=== PATIENT | male | born 1955 | race Caucasian/White ===

== ENCOUNTER 2017-10-30 05:44 | Day surgery (SDC) | payer OTHER ==
[2017-10-17 13:53] VITALS: BMI 33.0
--- NOTE | 2017-10-17 14:30 | PAT Medication Instructions ---
Service Date Oct 17, 2017. Current Home Medication List Carvedilol (Coreg), 3.125 MG PO QAM Cholecalciferol (Vitamin D3), 1 CAP PO QAM Clonidine Hcl (Catapres), 0.3 MG PO QAM Cyanocobalamin (Vitamin B12 Tr), 2,500 MCG PO QAM Diltiazem Hcl Extended Release (Diltiazem Hcl Er), 240 MG PO QAM Furosemide (Lasix), 40 MG PO QAM Lisinopril (Zestril), 40 MG PO QAM Multivitamin (Multivitamin), 1 TAB PO QAM Medication Instructions For Your Scheduled Surgery - Hold the following medications the morning of surgery: Furosemide (Lasix), 40 MG PO QAM Lisinopril (Zestril), 40 MG PO QAM Multivitamin (Multivitamin), 1 TAB PO QAM Cyanocobalamin (Vitamin B12 Tr), 2,500 MCG PO QAM Cholecalciferol (Vitamin D3), 1 CAP PO QAM - Take the following medications the morning of surgery with a sip of water: Carvedilol (Coreg), 3.125 MG PO QAM Diltiazem Hcl Extended Release (Diltiazem Hcl Er), 240 MG PO QAM Clonidine Hcl (Catapres), 0.3 MG PO QAM If you have any questions please call us at [phone] or [phone] or [phone]
--- NOTE | 2017-10-17 15:20 | DIAGNOSTIC IMAGING REPORT ---
CHEST 2 VIEWS ROUTINE CLINICAL HISTORY: Preoperative evaluation. COMPARISON STUDY: No previous studies for comparison. FINDINGS: Lung volumes are normal. No pneumothorax or pleural effusion is present. Pulmonary vascularity is normal. Cardiomediastinal silhouette is normal. There is no consolidation. IMPRESSION: No acute cardiopulmonary findings. Electronically signed by: Sonny Dejesus M.D. 10/17/2017 3:18 PM Dictated Date/Time: 10/17/2017 3:18 PM
[2017-10-17 15:42] LABS: BASO % 0.6 %; BASO ABS # 0.04 K/uL (0-0.2); EOS % 1.7 %; EOS ABS # 0.12 K/uL (0-0.5); HEMATOCRIT 29.2 % (42-52); HEMOGLOBIN 9.7 g/dL (14.0-18.0); IG# 0.01 K/uL (0.00-0.02); LYMPH % 17.6 %; LYMPH ABS # 1.21 K/uL (1.2-3.4); MEAN CELL VOLUME 100.3 fL (80-100); MEAN CORPUSCULAR HEMOGLOBIN 33.3 pg (25-34); MEAN CORPUSCULAR HGB CONC 33.2 g/dl (32-36); MEAN PLATELET VOLUME 10.2 fL (7.4-10.4); MONO % 11.3 %; MONO ABS # 0.78 K/uL (0.11-0.59); NEUT % 68.7 %; NEUT ABS # 4.73 K/uL (1.4-6.5); PLATELET COUNT 320 K/uL (130-400); RED CELL DISTRIBUTION WIDTH CV 12.9 % (11.5-14.5); WHITE BLOOD COUNT 6.89 K/uL (4.8-10.8)
[2017-10-17 15:49] LABS: CALCIUM 9.4 mg/dl (8.5-10.1); CREATININE 3.59 mg/dl (0.60-1.40); POTASSIUM 5.4 mmol/L (3.5-5.1)
[~2017-10-30] VITALS: Ht 188 cm; Wt 117.3 kg
[~2017-10-30 05:44] MED LIST: CARV3.12 PO; CHOL2000 PO; CLON0.3T PO; CYAN100028 PO; DILT240C74 PO; FRS/40 PO; LISI40TA PO; MULT-506 PO
[2017-10-30] MEDS ORDERED: CIPROFLOXACIN / D5W 400 MG IV SCH (06:00)
[2017-10-30] MEDS ORDERED: SODIUM CHLORIDE 0.9% 1000ML IV SCH (06:00)
[2017-10-30 06:10] VITALS: BP 156/82; PULSE 74; TEMP 36.7; O2SAT 98; Ht 188 cm; Wt 117.3 kg
--- NOTE | 2017-10-30 07:12 | History & Physical Bridge Note ---
H&P Re-Evaluation Bridge Note: I have examined the patient, reviewed the History & Physical and in the interval since the performance of the History & Physical I have noted the following changes of clinical significance: No changes noted
[2017-10-30] MEDS ORDERED: ATROPINE SULFATE 0.1 MG/ML 5ML SYR IV PRN (07:45)
[2017-10-30] MEDS ORDERED: PROMETHAZINE HCL INJ 12.5 MG in SODIUM CHLORIDE 0.9% 50ML 50 ML IV PRN (07:45)
[2017-10-30] MEDS ORDERED: HYDROmorphone INJ 1 MG/ML SYR IV PRN (07:45)
[2017-10-30] MEDS ORDERED: ONDANSETRON INJ 2 MG/ML 2 ML VIAL IV PRN (07:45)
[2017-10-30] MEDS ORDERED: EpHEDrine SULFATE INJ 50 MG/ML AMP IV PRN (07:45)
[2017-10-30] MEDS ORDERED: FENTANYL CITRATE INJ 50 MCG/1 ML 2 ML VIAL IV PRN (07:45)
[2017-10-30] MEDS ORDERED: MIDAZOLAM HCL 1 MG/ML 2ML VIAL ONE (14:39)
[2017-10-30] MEDS ORDERED: LIDOCAINE HCL 2% 2 ML VIAL (20MG/ML) ONE (14:39)
[2017-10-30] MEDS ORDERED: PROPOFOL IV EMULSION 10 MG/ML 20 ML VIAL IV ONE (14:39)
[2017-10-30] MEDS ORDERED: FENTANYL CITRATE INJ 50 MCG/1 ML 2 ML VIAL ONE (14:39)
[2017-10-30] MEDS ORDERED: ONDANSETRON INJ 2 MG/ML 2 ML VIAL ONE (14:39)
[2017-10-30] MEDS ORDERED: PHEN-775 PO (15:10)
[2017-10-30] MEDS ORDERED: CIPR-255 PO (15:10)
[2017-10-30] MEDS ORDERED: OXYC7.5T65 PO (15:10)
[2017-10-30] MEDS ORDERED: CONRAY 30% 150ML BOTTLE ONE (15:30)
--- NOTE | 2017-10-30 15:35 | Discharge Instructions ---
Discharge Instructions Date of Service Oct 30, 2017. Admission Reason for Admission: Left Renal Pelvis Mass Discharge Discharge Diagnosis / Problem: Left renal pelvic mass s/p ureteroscopy and biopsy, stent Discharge Goals Goal(s): Diagnostic testing Activity Recommendations Activity Limitations: as noted below Lifting Limitations: no more than 25 pounds, gradually increase as tolerated Exercise/Sports Limitations: rest today, gradually increase as tolerated ( increase activity in 3-5 days) May Resume Sexual Activity: after follow-up appointment Shower/Bathe: no limitations Driving or Machine Use: resume 1 day after discharge . Instructions / Follow-Up Instructions / Follow-Up In office as scheduled for discussion of pathology and removal of stent. Current Hospital Diet Patient's current hospital diet: Discharge Diet Recommended Diet: Regular Diet (good fluid intake) Procedures Procedures Performed: Cystoscopy, left renal pelvis selective cytology with barbotage, left retrograde pyelography, left flexible ureteroscopy, brush and cold cup biopsy, left ureteral stent placement. Pending Studies Studies pending at discharge: yes List of pending studies: Pathology review. Medical Emergencies . Who to Call and When: Medical Emergencies: If at any time you feel your situation is an emergency, please call 911 immediately. . Non-Emergent Contact Non-Emergency issues call your: Urologist Call Non-Emergent contact if: you have a fever, temperature is above 101, your pain is not controlled, your pain is worsening, your pain is unusual for you, your pain is concerning you, you have any medication questions . . "Provider Documentation" section prepared by Niels Loving. . VTE Core Measure Inpt VTE Proph given/why not?: SCD's [place] Drug Monitoring Program Search Results: patient reviewed within database, no issues identified
[2017-10-30] MEDS ORDERED: EpHEDrine SULFATE INJ 50 MG/ML AMP ONE (16:13)
--- NOTE | 2017-10-30 16:47 | DIAGNOSTIC IMAGING REPORT ---
RETROGRADE INCLUDES KUB CLINICAL HISTORY: 62 years-old Male presenting with LT CYSTO/STENT. TECHNIQUE: 9 fluoroscopic spot image(s) obtained as part of an intraoperative procedure. COMPARISON: CT from 09/19/2017. FINDINGS/IMPRESSION: The bilateral renal collecting systems are opacified with contrast revealing bilateral filling defects more prominently on the right. Please see surgical report for further details. Fluoroscopy dosage (mGy): 46.51. Fluoroscopy time: 138.2 seconds. Number of fluoroscopic spot images: 9. Electronically signed by: Bro Renee M.D. 10/30/2017 4:46 PM Dictated Date/Time: 10/30/2017 4:45 PM
[2017-10-30] MEDS ORDERED: DTR/5 PO (17:06)
[2017-10-30] MEDS ORDERED: CIPR250T3 PO (17:06)
--- NOTE | 2017-10-30 17:12 | [facility] Post Operative Brief Note ---
Immediate Operative Summary Operative Date Oct 30, 2017. Pre-Operative Diagnosis Left Central Renal Mass Post-Operative Diagnosis Same as pre-operative Procedure(s) Performed Cystoscopy, left renal pelvis selective cytology with barbotage, bilateral retrograde pyelography, left flexible ureteroscopy, brush and cold cup biopsy, left ureteral stent placement. Surgeon Dr. Niels Loving Surveillance Operator Surgeon(s) none Estimated Blood Loss 5ml Findings Central papillary left renal mass suspicious for urothelial malignancy, good stent position after completion, radiolucent right renal stone filling entire renal pelvis. Specimens Permanent Specimen A) Left renal pelvis cold cup biospy Cytology 1) Left renal pelvis urine for cytology 2) Left renal pelvis brush for biopsy Drains 6 fr multilength stent on left Anesthesia [facility] Complication(s) None Disposition Recovery Room / PACU
--- NOTE | 2017-10-30 17:13 | Anesthesiology Progress Note ---
Anesthesia Post Op Note Date & Time Oct 30, 2017 at 17:13 Vital Signs Pain Intensity: 0 Vital Signs Past 12 Hours Date Time Temp Pulse Resp B/P (MAP) Pulse Ox O2 Delivery O2 Flow Rate FiO2 10/30/17 17:05 61 16 140/75 96 Room Air 10/30/17 16:55 67 16 144/76 97 Room Air 10/30/17 16:45 70 16 143/69 100 Oxymask 3 10/30/17 16:38 36.0 76 16 135/66 97 Oxymask 5 10/30/17 06:10 36.7 74 20 156/82 (106) 98 Room Air Notes Mental Status: alert / awake / arousable, participated in evaluation Pt Amnestic to Procedure: Yes Nausea / Vomiting: adequately controlled Pain: adequately controlled Airway Patency, RR, SpO2: stable & adequate BP & HR: stable & adequate Hydration State: stable & adequate Anesthetic Complications: no major complications apparent
[2017-10-30] MEDS ORDERED: PHENAZOPYRIDINE HCL 100 MG TAB PO PRN (17:15)
[2017-10-30] MEDS ORDERED: OXYCODONE/ACETAMINOPHEN 5-325 TAB PO PRN (17:15)
[2017-10-30] MEDS ORDERED: OXYBUTYNIN CHLORIDE 5 MG TAB PO PRN (17:15)
[2017-10-30 17:20] VITALS: BP 138/70; PULSE 57; TEMP 36.7; O2SAT 97
[2017-10-30 17:50] VITALS: BP 163/76; PULSE 69; TEMP 36.5; O2SAT 97
--- NOTE | 2017-10-30 20:06 | OPERATIVE REPORT ---
DATE OF OPERATION: 10/30/2017 PREOPERATIVE DIAGNOSIS: Left central renal mass. POSTOPERATIVE DIAGNOSES: Same, suspicious for urothelial malignancy of left renal pelvis. PROCEDURE: Cystoscopy, left renal pelvis, selective cytology with barbotage, bilateral retrograde pyelography, left flexible ureteroscopy with brush and cold cup biopsies, left ureteral stent placement. SURGEON: Dr. Niels Loving. AIR QUALITY ENGINEER: None. ANESTHESIA: General anesthesia with laryngeal mask. COMPLICATIONS: None. ESTIMATED BLOOD LOSS: 5 mL. FINDINGS: Central papillary left renal lesion, suspicious for urothelial malignancy, good stent position after completion of the case, radiolucent right ureteral stone noted to be filling the entire renal pelvis. SPECIMENS SENT TO PATHOLOGY: Include a left renal pelvis cold cup biopsy for permanent section and left renal pelvis cytology, urine for cytology brush biopsy. DRAINS LEFT IN PLACE: Include a 6-Icelandic multilength ureteral stent on the left hand side. COMPLICATIONS: None. BRIEF HISTORY: Mr. Domingo is a pleasant 62-year-old male who I have met recently after an episode of gross hematuria, for which he has undergone CT scan imaging of the abdomen and pelvis. This demonstrated a 3 cm right renal stone as well as a large left central renal mass, felt to be suspicious for urothelial malignancy. In addition, his care was complicated by renal failure of unknown origin for which he is actively following with the nephrology service. Care was discussed with patient and his preoperatively and patient chart is available for review. He is here today for left diagnostic ureteroscopy to confirm the presence of urothelial malignancy prior to continuation of his care. The intravenous ciprofloxacin is provided for antibiotic coverage and SCDs used for DVT prophylaxis. DESCRIPTION OF THE PROCEDURE: The patient was properly identified and brought to the operative suite after identification of appropriate consent on the chart, general anesthesia with laryngeal mask was initiated. The patient was prepped and draped in standard fashion for this procedure. multimedia producer-out procedure was followed. A 22-Icelandic rigid cystoscope was passed into the bladder under direct visualization demonstrating a normal urethra and minimally obstructive prostate with a slightly elevated bladder neck. Bladder was surveyed in its entirety demonstrating no intravesical masses, papillary lesions or calculi. Grade 1 trabeculation of the bladder was present and ureteral orifices were present in the normal anatomic location. Left-sided ureteral orifice was cannulated using a sensor tip wire which was advanced up to the level of the left renal pelvis. This was followed by an open-ended 5-Icelandic catheter in an atraumatic fashion. Sterile saline was used to perform a barbotage of the left renal pelvis, returning bloody urine with some small amount of tissue material within it. This was sent for a left renal pelvis cytology. Contrast was then instilled demonstrating a large central renal filling defect with splaying of the papilla and poor visualization of the upper renal collecting system. Sensor tip wire was replaced as well as a working Amplatz wire on the side. Attempt at placing a ureteral access sheath met with significant resistance in the distal ureter and therefore the ureteroscope was passed over the working wire without difficulties or resistance. A flexible ureteroscopy was performed and images taken demonstrating a papillary central renal lesion with old clot present on it, consistent with a previously bleeding central urothelial malignancy on visual inspection. Cold cup ureteroscopic biopsy forceps were used to take 3 small samples of tissue which were sent for permanent pathologic analysis. A brush biopsy was also undertaken of this area and sent for analysis. After this was complete, complete-exit ureteroscopy was performed. This demonstrated no ureteral tears or injuries and no evidence of involvement with any type of abnormal mucosa distal to the ureteropelvic junction. After the ureteroscope was removed, the cystoscope was backloaded over the safety wire and a 6-Icelandic multilength catheter was advanced with redundant coil present at the level of the renal pelvis and a full coil present within the bladder. Bladder was drained and a new 5-Icelandic open-ended catheter was taken. Seeing the patient's history of renal insufficiency and a somewhat worse creatinine his preoperative laboratory testing today, retrograde pyelography was performed on the right hand side to rule out ongoing obstruction from the patient's known stone. This demonstrated a normal distal ureter, and a large stone present within the right renal pelvis without dilation of the infundibula or evidence of significant obstruction. The patient was therefore left stent free on the right hand side. Bladder was drained and cystoscope was removed, anesthesia was reversed. The patient was transferred to recovery room in stable condition. FOLLOWUP CARE: The patient will be discharged home with a course of low dose ciprofloxacin, Ditropan for bladder spasms and Percocet p.r.n. pain. Outpatient appointment for cystoscopy, stent removal and pathology discussion is confirmed. As previously noted on the patient's chart, the expected sequence of events will be a percutaneous nephrolithostomy on the right hand side followed by nephroureterectomy on the left hand side with the likelihood of dialysis being high, afterwards. He is undergoing nephrology evaluation and consideration of a shunt for the possibility of future dialysis. The patient is instructed to contact our service should he note any fevers, chills, nausea, vomiting or other significant difficulties in the postoperative period. Care was discussed with patient's today per the patient's request. I attest to the content of the Intraoperative Record and any orders documented therein. Any exception s are noted below.
[2017-11-16] MEDS ORDERED: ONDA4TAB65 PO (11:35)
[2017-11-16] MEDS ORDERED: RXC5 PEG (11:35)
[2017-11-16] MEDS ORDERED: ACET-1047 PO (11:35)
== END 2017-10-30 17:54 | disposition home or self-care (01) ==
LOC: C.ACU 05:44
PROVIDERS: ATTEND Urology
DX: N20.0 Calculus of kidney (principal); N28.89 Other specified disorders of kidney and ureter; R31.0 Gross hematuria; I10 Essential (primary) hypertension; E78.5 Hyperlipidemia, unspecified; N18.9 Chronic kidney disease, unspecified; E66.9 Obesity, unspecified; Z87.891 Personal history of nicotine dependence

== ENCOUNTER 2017-11-12 13:42 | Inpatient (IN) | payer OTHER ==
[~2017-11-12] VITALS: Ht 188 cm; Wt 118.0 kg
[~2017-11-12 13:42] MED LIST changes: +CIPR250T3 PO; +CIPROFLOXACIN 200 MG / 100ML D5W IV SCH; +CIPROFLOXACIN IV SCH; +D5W IV SCH; +OXYC7.5T65 PO
[2017-11-12 14:46] VITALS: BP 145/79; PULSE 61; TEMP 36.4; O2SAT 99
[2017-11-12] MEDS ORDERED: MAGNESIUM HYDROXIDE SUSP 30 ML UDC PO PRN (17:15)
[2017-11-12] MEDS ORDERED: ACETAMINOPHEN 325 MG TAB PO PRN (17:15)
[2017-11-12] MEDS ORDERED: ONDANSETRON INJ 2 MG/ML 2 ML VIAL IV PRN (17:15)
[2017-11-12] MEDS ORDERED: POLYETHYLENE (MIRALAX) 17 GM PACK PO PRN (17:15)
[2017-11-12] MEDS ORDERED: ALUMINUM/MAGNESIUM/SIMETH (MAALOX MAX) 30 ML UDC PO PRN (17:15)
--- NOTE | 2017-11-12 17:41 | History and Physical ---
History & Physical Date & Time of Service: Nov 12, 2017 at 17:21 Chief Complaint: Renal Calculi, Chronic Renal Failure Primary Care Physician: Winston Hopkins D.O. History of Present Illness Source: patient, spouse, clinic records, hospital records This is a 62 y/o male with a history of HTN, urothelial cancer, and nephrolithiasis who presented for direct admission on 11/12 with acute renal failure and right kidney stone. The patient had been found to have a left renal mass suspicious for cancer in September. He underwent left renal biopsy and left ureteral stent placement on 10/[address] Loving. The patient was to follow up on the biopsy results today, but he developed sudden onset of right flank pain. He was evaluated in the ED at [facility] which revealed a large right kidney stone with hydronephrosis and acute renal failure. He now presents from Dr. Loving's office for right stent placement. His biopsy results show high grade urothelial cancer. The patient states that his pain is now resolving and denies any currently. The patient denies fevers, chills, sweats, chest pain, palpitations, claudication, cough, wheezing, shortness of breath, nausea, vomiting, abdominal pain, dysuria, hematuria, urinary retention, paralysis, weakness, numbness and tingling. 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) Allergies Coded Allergies: Statins (Verified Adverse Reaction, Mild, GI UPSET, 10/30/17) Home Medications Scheduled Carvedilol (Coreg), 3.125 MG PO QAM Cholecalciferol (Vitamin D3), 1 CAP PO QAM Ciprofloxacin (Cipro), 250 MG PO BID Clonidine Hcl (Catapres), 0.3 MG PO QAM Cyanocobalamin (Vitamin B12 Tr), 2,500 MCG PO QAM Diltiazem Hcl Extended Release (Diltiazem Hcl Er), 240 MG PO QAM Furosemide (Lasix), 40 MG PO QAM Lisinopril (Zestril), 40 MG PO QAM Multivitamin (Multivitamin), 1 TAB PO QAM Review of Systems Constitutional: No fever, No chills, No sweats Eyes: No worsening of vision, No eye pain, No diplopia ENT: No hearing loss, No nasal symptoms, No trouble swallowing Respiratory: No cough, No wheezing, No shortness of breath Cardiovascular: No chest pain, No claudication, No palpitations Abdomen: +Right flank pain resolved. No pain, No nausea, No vomiting Musculoskeletal: No joint pain, No muscle pain, No swelling Genitourinary - Male: No dysuria, No urinary retention, No hematuria Neurologic: No paralysis, No weakness, No numbness/tingling Integumentary: No rash, No itch, No color change Physical Exam Vital Signs Date Time Temp Pulse Resp B/P (MAP) Pulse Ox O2 Delivery O2 Flow Rate FiO2 11/12/17 14:46 36.4 61 16 145/79 (101) 99 Room Air General appearance: Well-developed, well-nourished, no apparent distress Head: Normocephalic, atraumatic Eyes: Normal inspection, PERRL, EOMI ENT: Normal ENT inspection, hearing grossly normal, pharynx normal Neck: Supple, no JVD, trachea midline Respiratory/Chest: Lungs clear to auscultation, normal breath sounds, no respiratory distress Cardiovascular: Regular rate & rhythm, no gallop, no murmur Abdomen/GI: +Right flank/abdomen non-tender, no CVA tenderness. Normal bowel sounds, non-tender, soft Extremities/Musculoskeletal: Normal inspection, no calf tenderness, no pedal edema Neurological/Psych: Alert, normal mood/affect, oriented x 3 Skin: Normal color, warm/dry, no rash Impression Assessment and Plan 62 y/o male with a history of HTN, urothelial cancer, and nephrolithiasis who presented for direct admission on 11/12 with acute renal failure and right kidney stone. Acute renal failure--unknown baseline. Per outpt records, creatinine had been 4.8 at [facility] ED. Creatinine was 3.59 on 10/17 -Admit to med/surg -NSS at 125 cc/hr -Hold Lasix, lisinopril for now -Consult nephrology, appreciate recs Right kidney stone--3 cm right renal pelvis stone w/hydronephrosis and perirenal inflammation per outpt records -IVF as above -Morphine 2 mg IV q4h prn pain. Currently denies pain -Zofran 4 mg IV q6h prn nausea -Consult urology, appreciate recs -NPO after midnight for stent HTN--stable -Hold lisinopril as above -Continue Coreg 3.125 mg PO qd, Catapress 0.3 mg PO qd and diltiazem 240 mg PO qd -Cover with hydralazine 10 mg IV q6h prn SBP >180 Urothelial cancer--follows w/Dr. Loving DVT prophylaxis -Hold chemical prophylaxis for procedure tomorrow -PARIS whitney and Tom Code Status -Level I, FULL RESUSCITATION STATUS Resident Physician Supervision Note: Pt evaluated independently. I discussed the case with the PA and agree with the findings and plan as documented in the note. Any exceptions or clarifications are listed here: Pleasant middle-aged male presnts as a direct admission form the urology office due top R ureteral calculus with obstruction and ARF. Recent diagnosis of urothelial CA. Minimal pain only at the time of admission. Admitted for AM stenting. OE AAO x 3 S1,2 R CTAB - mild R flank tenderness NT, ND No CCE P: Assigned to the medical floor by request of urology for AM procedure - IVF, pain control provided Will trend BMP We do not have a baseline creat although I suspect there is a degree of CKD underlying. Can follow up as outpt to address CA diagnosis Documented By: Isaias Moore Level of Care Med/Surg Resuscitation Status FULL RESUSCITATION VTE Prophylaxis VTE Risk Assessment Done? Y/N: Yes Risk Level: Moderate Given or contraindicated: T.E.D. Stockings, SCD's
[2017-11-12] MEDS ORDERED: MoRPHine SULFATE 2 MG/ML CARP IV PRN (17:45)
[2017-11-12] MEDS ORDERED: HydrALAZINE HCL 20 MG/ML VIAL IV. PRN (17:45)
[2017-11-12 18:52] LABS: BASO % 0.6 %; BASO ABS # 0.05 K/uL (0-0.2); EOS % 1.4 %; EOS ABS # 0.12 K/uL (0-0.5); HEMOGLOBIN 8.5 g/dL (14.0-18.0); IG# 0.02 K/uL (0.00-0.02); LYMPH % 17.7 %; LYMPH ABS # 1.56 K/uL (1.2-3.4); MEAN CELL VOLUME 99.2 fL (80-100); MEAN CORPUSCULAR HEMOGLOBIN 32.4 pg (25-34); MEAN CORPUSCULAR HGB CONC 32.7 g/dl (32-36); MEAN PLATELET VOLUME 9.4 fL (7.4-10.4); MONO % 6.8 %; NEUT % 73.3 %; NEUT ABS # 6.46 K/uL (1.4-6.5); PLATELET COUNT 389 K/uL (130-400); RED CELL DISTRIBUTION WIDTH CV 13.1 % (11.5-14.5); RED CELL DISTRIBUTION WIDTH SD 47.4 fL (36.4-46.3); WHITE BLOOD COUNT 8.81 K/uL (4.8-10.8)
[2017-11-12] MEDS: SODIUM CHLORIDE 0.9% 1000ML 1,000 ML IV SCH (18:57)
[2017-11-12 19:37] LABS: ALBUMIN 3.4 gm/dl (3.4-5.0); ALKALINE PHOSPHATASE 44 U/L (45-117); ALT/SGPT 20 U/L (12-78); AST/SGOT 8 U/L (15-37); BLOOD UREA NITROGEN 81 mg/dl (7-18); CALCIUM 8.8 mg/dl (8.5-10.1); CARBON DIOXIDE 18 mmol/L (21-32); GLUCOSE 123 mg/dl (70-99); POTASSIUM 5.6 mmol/L (3.5-5.1); SODIUM 139 mmol/L (136-145); TOTAL PROTEIN 6.6 gm/dl (6.4-8.2)
[2017-11-12 19:39] LABS: CREATININE 5.17 mg/dl (0.60-1.40)
[2017-11-12 21:32] VITALS: BP 145/79; PULSE 61; TEMP 36.4; Ht 188 cm; Wt 118.0 kg
[2017-11-12 22:55] VITALS: BP 144/76; PULSE 55; TEMP 36.8; O2SAT 96
[2017-11-13] VITALS (11 sets, daily range): BP systolic 117–163; BP diastolic 70–90; PULSE 52–70; TEMP 36.7–36.9; O2SAT 97–100
[2017-11-13] MEDS: SODIUM CHLORIDE 0.9% 1000ML 1,000 ML IV SCH ×3 (01:53→17:02)
[2017-11-13] MEDS: CLONIDINE HCL 0.3 MG TAB PO SCH (05:36)
[2017-11-13 06:38] LABS: HEMATOCRIT 24.6 % (42-52); HEMOGLOBIN 8.1 g/dL (14.0-18.0); MEAN CELL VOLUME 100.4 fL (80-100); MEAN CORPUSCULAR HEMOGLOBIN 33.1 pg (25-34); MEAN CORPUSCULAR HGB CONC 32.9 g/dl (32-36); MEAN PLATELET VOLUME 9.6 fL (7.4-10.4); PLATELET COUNT 342 K/uL (130-400); RED CELL DISTRIBUTION WIDTH CV 13.3 % (11.5-14.5); RED CELL DISTRIBUTION WIDTH SD 48.8 fL (36.4-46.3); WHITE BLOOD COUNT 7.36 K/uL (4.8-10.8)
[2017-11-13 07:28] LABS: CALCIUM 8.8 mg/dl (8.5-10.1); CREATININE 4.74 mg/dl (0.60-1.40); POTASSIUM 5.5 mmol/L (3.5-5.1)
[2017-11-13] MEDS: MULTIVITAMIN TAB PO SCH (08:53)
[2017-11-13] MEDS: CARVEDILOL 3.125 MG TAB PO SCH (08:53)
[2017-11-13] MEDS ORDERED: SODIUM POLYST. SULF SUSP 15G/60ML PO ONE (09:15)
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
[2017-11-13] MEDS ORDERED: CONRAY 30% 150ML BOTTLE ONE (10:11)
[2017-11-13] MEDS ORDERED: MIDAZOLAM HCL 1 MG/ML 2ML VIAL ONE (10:39)
[2017-11-13] MEDS ORDERED: FENTANYL CITRATE INJ 50 MCG/1 ML 2 ML VIAL ONE (10:39)
[2017-11-13] MEDS ORDERED: PROPOFOL IV EMULSION 10 MG/ML 20 ML VIAL IV ONE (10:39)
[2017-11-13] MEDS ORDERED: LIDOCAINE HCL 2% 2 ML VIAL (20MG/ML) ONE (10:39)
[2017-11-13] MEDS ORDERED: CIPROFLOXACIN 400MG / 200ML D5W ONE (10:54)
[2017-11-13] MEDS ORDERED: FENTANYL CITRATE INJ 50 MCG/1 ML 2 ML VIAL IV PRN (11:00)
[2017-11-13] MEDS ORDERED: ATROPINE SULFATE 0.1 MG/ML 5ML SYR IV PRN (11:00)
[2017-11-13] MEDS ORDERED: ONDANSETRON INJ 2 MG/ML 2 ML VIAL IV PRN (11:00)
[2017-11-13] MEDS ORDERED: EpHEDrine SULFATE INJ 50 MG/ML AMP IV PRN (11:00)
[2017-11-13] MEDS ORDERED: KETAMINE HCL INJ 50 MG/ML 10 ML VIAL ONE (11:05)
--- NOTE | 2017-11-13 11:18 | [facility] Post Operative Brief Note ---
Immediate Operative Summary Operative Date Nov 13, 2017. Pre-Operative Diagnosis R renal stone and renal failure Post-Operative Diagnosis Same Procedure(s) Performed Cysto, R RPG, R stent Surgeon Inder Venegas Engraver Machine Surgeon(s) NA Estimated Blood Loss NA Findings Good stent position Specimens NA Drains 6 fr multilength Anesthesia MAC Disposition Recovery Room / PACU
--- NOTE | 2017-11-13 11:33 | DIAGNOSTIC IMAGING REPORT ---
RETROGRADE INCLUDES KUB HISTORY: STENT PLACEMENT FLUOROSCOPY TIME: 34 seconds. FINDINGS: 7 fluoroscopic spot images were submitted for review. Retrograde opacification of the right renal collecting system. Large filling defect within the right renal pelvis consistent with a stone. This is followed by placement of a right ureteral stent. This appears to be in good position. There is evidence for a left ureteral stent. IMPRESSION: Fluoroscopy provided for placement of a right ureteral stent. The large right renal pelvis stone is again noted.. Electronically signed by: Christiano Gonzalez M.D. 11/13/2017 11:30 AM Dictated Date/Time: 11/13/2017 11:29 AM
--- NOTE | 2017-11-13 12:13 | Anesthesiology Progress Note ---
Anesthesia Post Op Note Date & Time Nov 13, 2017 at 12:13 Vital Signs Pain Intensity: 0 Vital Signs Past 12 Hours Date Time Temp Pulse Resp B/P (MAP) Pulse Ox O2 Delivery O2 Flow Rate FiO2 11/13/17 11:45 36.5 68 16 137/83 97 Room Air 11/13/17 11:35 62 16 137/77 97 Room Air 11/13/17 11:29 36.1 69 16 127/73 100 Room Air 11/13/17 08:53 52 132/77 (95) 11/13/17 07:38 36.7 64 16 117/70 (86) 100 Room Air 11/13/17 07:20 100 Room Air 11/13/17 05:37 57 154/90 (111) Notes Mental Status: alert / awake / arousable, participated in evaluation Pt Amnestic to Procedure: Yes Nausea / Vomiting: adequately controlled Pain: adequately controlled Airway Patency, RR, SpO2: stable & adequate BP & HR: stable & adequate Hydration State: stable & adequate Anesthetic Complications: no major complications apparent
--- NOTE | 2017-11-13 12:14 | Nephrology Consultation ---
Nephrology Consultation Date & Providers Date of Consultation: Nov 13, 2017. Primary Care Provider: Winston Hopkins D.O. Referring Provider: Reason for Consultation Evaluation and management for DARELL, hyperkalemia with CKD. History of Present Illness Mr. Domingo is a 62-year-old gentlemen with past medical history significant for stage 3 CKD, hypertension , nephrolithiasis and TCC of left kidney admitted to the hospital with DARELL and rt sided hydronephrosis Nephrologic consult was requested to manage DARELL and hyperkalemia. Mr Domingo has stage 4 CKD of unknown etiology, b/l cr seems to be around 2.5-3.0. Also found to have gross hematuria and evaluation in September has uncovered a R 3 cm renal pelvis stone, L central renal TCC confirmed on ureteroscopic biopsy. Outpatient plan was to proceed with a R PCNL and left hand assisted nephroureterectomy once the R kidney had healed from surgical intervention. Patient was due for his L stent removal after diagnostic ureteroscopy yesterday but presented to urology office with R flank pain and worsening renal function and an apparent shift in his large R renal stone now causing obstruction confirmed by CT at [facility]. Cr was 5.2 and K was 5.5. He was admitted to [facility] for further management. He has the left stent in place and plan was to proceed with a R stent placement today to alleviate any new obstruction on rt side. He is also scheduled for R PCNL in Dec 2017. Cr on admission was 5.2, improved to 4.7, has been voiding normally. Flank pain improved. BP and volume status stable. K still at 5.5. He follows with [facility] at [place] and was scheduled for vein mapping for future AVF placement. Allergies Coded Allergies: Statins (Verified Adverse Reaction, Mild, GI UPSET, 10/30/17) Inpatient Medications Current Inpatient Medications Medications (Trade) Dose Ordered Sig/Solitario Route Start Time Stop Time Status Last Admin Dose Admin Acetaminophen (Tylenol Tab) 650 mg Q4H PRN PO 11/12/17 17:15 12/12/17 17:14 Al Hydrox/Mg Hydrox/Simethicone (Maalox Max Susp) 15 ml Q4H PRN PO 11/12/17 17:15 12/12/17 17:14 Magnesium Hydroxide (Milk Of Magnesia Susp) 30 ml Q6H PRN PO 11/12/17 17:15 12/12/17 17:14 Polyethylene (Miralax Powder Packet) 17 gm DAILY PRN PO 11/12/17 17:15 12/12/17 17:14 Ondansetron HCl (Zofran Inj) 4 mg Q6H PRN IV 11/12/17 17:15 12/12/17 17:14 Carvedilol (Coreg Tab) 3.125 mg QAM PO 11/13/17 09:00 12/13/17 08:59 Clonidine HCl (Catapres Tab) 0.3 mg QAM PO 11/13/17 09:00 12/13/17 08:59 11/13/17 05:36 0.3 MG Multivitamins (Multivitamin Tab) 1 tab QAM PO 11/13/17 09:00 12/13/17 08:59 Diltiazem HCl (Cardizem Cd Cap) 240 mg QAM PO 11/13/17 09:00 12/13/17 08:59 Future Hold Sodium Chloride 1,000 ml @ 125 mls/hr Q8H IV 11/12/17 17:45 12/12/17 17:44 11/13/17 08:54 125 MLS/HR Hydralazine HCl (HydrALAZINE INJ) 10 mg Q6H PRN IV. 11/12/17 17:45 12/12/17 17:44 Morphine Sulfate (MoRPHine SULFATE INJ) 2 mg Q4H PRN IV 11/12/17 17:45 11/26/17 17:44 Fentanyl Citrate (Fentanyl Inj) 25 mcg Q5M PRN IV 11/13/17 11:00 11/14/17 10:59 UNV Ondansetron HCl (Zofran Inj) 4 mg ONE PRN IV 11/13/17 11:00 UNV Ephedrine Sulfate (EpHEDrine SULFATE INJ) 5 mg Q5M PRN IV 11/13/17 11:00 11/14/17 10:59 UNV Atropine Sulfate (Atropine Sulfate 0.1mg/ml Inj) 0.5 mg Q1M PRN IV 11/13/17 11:00 11/14/17 10:59 UNV Family History Diabetes mellitus Hypertension Social History Smoking Status: Former Smoker Smokeless Tobacco Use: No Alcohol Use: none Drug Use: none Marital Status: Housing Status: lives with significant other 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 Pertinent positives are noted above. All other systems are negative. Physical Exam Date Time Temp Pulse Resp B/P (MAP) Pulse Ox O2 Delivery O2 Flow Rate FiO2 11/13/17 11:45 68 16 137/83 97 Room Air 11/13/17 11:35 62 16 137/77 97 Room Air 11/13/17 11:29 36.1 69 16 127/73 100 Room Air 11/13/17 08:53 52 132/77 (95) 11/13/17 07:38 36.7 64 16 117/70 (86) 100 Room Air 11/13/17 07:20 100 Room Air 11/13/17 05:37 57 154/90 (111) 11/12/17 23:42 Room Air 11/12/17 22:55 36.8 55 18 144/76 (98) 96 Room Air 11/12/17 22:16 Room Air 11/12/17 21:32 36.4 61 16 145/79 Room Air 11/12/17 14:46 36.4 61 16 145/79 (101) 99 Room Air GENERAL: middle aged male, AAA x 3, pleasant, healthy-appearing, not in any distress. HEENT: Atraumatic, normocephalic. NECK: Supple, no JVD, no carotid bruit appreciated. ENT: No sinus tenderness MOUTH and THROAT: Moist oral mucosa, no oral ulcer or pharyngeal erythema RESPIRATORY: Normal breathing efforts, no accessory muscle use, clear to auscultation bilaterally, no wheezes or rales. CARDIOVASCULAR: S1, S2 normal, rate rhythm regular. ABDOMEN: Soft, nontender, positive bowel sound. MUSCULOSKELETAL: No joint swelling, erythema or tenderness. Normal range of motion. SKIN: No skin rash EXTREMITY: No lower extremity edema NEURO: No gross focal neurological deficit, speech fluent. PSYCHIATRY: Normal mood and judgment Laboratory Results Last 24 Hours Test 11/12/17 18:38 11/13/17 06:17 White Blood Count 8.81 K/uL 7.36 K/uL Red Blood Count 2.62 M/uL 2.45 M/uL Hemoglobin 8.5 g/dL 8.1 g/dL Hematocrit 26.0 % 24.6 % Mean Corpuscular Volume 99.2 fL 100.4 fL Mean Corpuscular Hemoglobin 32.4 pg 33.1 pg Mean Corpuscular Hemoglobin Concent 32.7 g/dl 32.9 g/dl Platelet Count 389 K/uL 342 K/uL Mean Platelet Volume 9.4 fL 9.6 fL Neutrophils (%) (Auto) 73.3 % Lymphocytes (%) (Auto) 17.7 % Monocytes (%) (Auto) 6.8 % Eosinophils (%) (Auto) 1.4 % Basophils (%) (Auto) 0.6 % Neutrophils # (Auto) 6.46 K/uL Lymphocytes # (Auto) 1.56 K/uL Monocytes # (Auto) 0.60 K/uL Eosinophils # (Auto) 0.12 K/uL Basophils # (Auto) 0.05 K/uL RDW Standard Deviation 47.4 fL 48.8 fL RDW Coefficient of Variation 13.1 % 13.3 % Immature Granulocyte % (Auto) 0.2 % Immature Granulocyte # (Auto) 0.02 K/uL Red Blood Cell Morphology Unremarkable Sodium Level 139 mmol/L 143 mmol/L Potassium Level 5.6 mmol/L 5.5 mmol/L Chloride Level 112 mmol/L 115 mmol/L Carbon Dioxide Level 18 mmol/L 19 mmol/L Anion Gap 9.0 mmol/L 8.0 mmol/L Blood Urea Nitrogen 81 mg/dl 78 mg/dl Creatinine 5.17 mg/dl 4.74 mg/dl Estimated GFR () 12.9 14.3 Estimated GFR (Non- 11.1 12.3 BUN/Creatinine Ratio 15.8 16.6 Random Glucose 123 mg/dl 106 mg/dl Calcium Level 8.8 mg/dl 8.8 mg/dl Total Bilirubin 0.2 mg/dl Direct Bilirubin < 0.1 mg/dl Aspartate Amino Transf (AST/SGOT) 8 U/L Alanine Aminotransferase (ALT/SGPT) 20 U/L Alkaline Phosphatase 44 U/L Total Protein 6.6 gm/dl Albumin 3.4 gm/dl Est Creatinine Clear Calc Drug Dose 22.3 ml/min Impression (1) Acute renal failure (2) Hyperkalemia, diminished renal excretion (3) Metabolic acidosis (4) CKD (chronic kidney disease), stage IV (5) Hypertension (6) Anemia (7) Right kidney stone 62 y o M with Rt sided hydronephrosis with nephrolithiasis , left TCC s/p ureteral stent admitted with DARELL, hyperkalemia and rt sided obstructive uropathy. Plan to ahve stent palced on rt side today and have 3 cm stone removed in dec by PCNL. Left TCC will be addressed once rt sided renal stone removed. Has stage 4 CKD b/l cr 3, admitted with DARELL, cr 5.5, now improving to 4.7. Non oliguric. Unclear etiology for CKD, previous biopsy and GN w/u was unremarkable , ? HTN nephropathy. Recommendations --expect renal function with get close to b/l once hydronephrosis resolved with ureteral stent, however at b/l has advanced CKD --suggest Kayexalate 30 gm po x 1 dose for K > 5.5 --avoid hypotension --will monitor renal function, intake, output and electrolytes closely --check iron study, phosphate Thank you for allowing me to participate in your patient's care. It was a pleasure to see Joes L
--- NOTE | 2017-11-13 13:19 | [facility] Operative Report ---
Operative Report Operative Date Nov 13, 2017. Pre-Operative Diagnosis Right 3 cm renal stone with new hydronephrosis and renal failure, left renal pelvis TCC with indwelling stent. Post-Operative Diagnosis Same Procedure(s) Performed Cystoscopy, right retrograde pyelography, right ureteral stent placement Surgeon Inder Venegas Jewel Bearing Maker Surgeon(s) NA Estimated Blood Loss NA Findings Good position of stent on fluoroscopy. Cloudy urine in bladder. Specimens NA Drains 6 fr multilength Anesthesia MAC Complication(s) None Disposition Recovery Room / PACU Indications 62-year-old male known to our service who I seen yesterday in the office was found to have acute on chronic renal failure seemingly due to new obstruction from a 3 cm right renal pelvis stone. Please see office note and urology consultation for further details. Patient is being brought to the operating room today for acute right ureteral stent placement to attempt return his renal function at baseline. Ciprofloxacin 200 mg intravenously is provided for antibiotic coverage. SCDs used for DVT prophylaxis. Description of Procedure Patient was properly identified and brought into the operative suite after identification of appropriate consent of the chart. Monitored anesthesia care with sedation was initiated and patient was prepped and draped in the standard fashion for this procedure. Full timeout procedure was followed. 22 [place] rigid cystoscope was passed into the bladder under direct visualization and bladder was surveyed demonstrating a left-sided double coil ureteral stent in place with minimal encrustation and cloudy urine present within the bladder. Mild bladder irritation was present with lateral lobe obstruction at the level of the prostate gland. No bladder lesions or other abnormalities were noted. Bladder was flushed free of cloudy urine and right-sided ureteral orifice was addressed. Retrograde pyelography was performed through a 5 [place] open-ended catheter demonstrating a distal mid ureter and a large filling defect in the right renal pelvis with mild calyceal fullness. An angled sensor tip wire was able to be advanced past the level of the stone without difficulties or resistance. This was followed by a 6 [place] multilength catheter with redundant coil present deeper in the kidney than the stone and a double coil being present within the bladder. Hydronephrotic drip was appreciated. Bladder was drained and cystoscope was removed. Anesthesia was reversed and patient was transferred to the recovery room in stable condition. Follow-up care: Patient be readmitted to the primary service for further management of his renal failure. Will follow the patient with you. I attest to the content of the Intraoperative Record and any orders documented therein. Any exceptions are noted below.
--- NOTE | 2017-11-13 18:29 | Progress Note ---
Subjective Date of Service: Nov 13, 2017. Subjective Pt evaluation today including: conversation w/ patient, conversation w/ family ( at bedside), physical exam, chart review, lab review, review of studies ( outpatient records), review of inpatient medication list Pain: none PO Intake: npo patient is NPO for right-sided stent placement for a 3cm stone causing hydronephrosis he was recently dx with left-sided urethelial cancer by Dr. Loving he was told maybe about 1 year ago he had CKD but can't recall any specific creatinine values the left-sided urethelial cancer was discovered after a work-up for gross hematuria Review of Systems Respiratory: No cough, No shortness of breath Cardiac: No chest pain Abdomen: No pain Objective Vital Signs Date Time Temp Pulse Resp B/P (MAP) Pulse Ox O2 Delivery O2 Flow Rate FiO2 11/13/17 15:26 36.7 70 18 163/78 (106) 97 Room Air 11/13/17 15:15 97 Room Air 11/13/17 14:07 70 16 137/72 (93) 97 Room Air 11/13/17 13:10 36.9 70 16 146/80 (102) 97 Room Air 11/13/17 12:40 70 16 152/81 (104) 98 Room Air 11/13/17 12:10 Room Air 11/13/17 12:10 36.9 56 16 135/76 (95) 97 Room Air 11/13/17 11:45 36.5 68 16 137/83 97 Room Air 11/13/17 11:35 62 16 137/77 97 Room Air 11/13/17 11:29 36.1 69 16 127/73 100 Room Air 11/13/17 08:53 52 132/77 (95) 11/13/17 07:38 36.7 64 16 117/70 (86) 100 Room Air 11/13/17 07:20 100 Room Air 11/13/17 05:37 57 154/90 (111) 11/12/17 23:42 Room Air 11/12/17 22:55 36.8 55 18 144/76 (98) 96 Room Air 11/12/17 22:16 Room Air 11/12/17 21:32 36.4 61 16 145/79 Room Air Physical Exam General Appearance: no apparent distress ENT: pharynx normal Neck: no JVD Respiratory/Chest: lungs clear, no respiratory distress, no accessory muscle use Cardiovascular: regular rate, rhythm, no gallop, no murmur Abdomen: normal bowel sounds, non tender, soft, no organomegaly Extremities: no pedal edema Neurologic/Psychiatric: alert, oriented x 3 Laboratory Results Last 24 Hours Test 11/12/17 18:38 11/13/17 06:17 11/13/17 17:54 White Blood Count 8.81 K/uL 7.36 K/uL Red Blood Count 2.62 M/uL 2.45 M/uL Hemoglobin 8.5 g/dL 8.1 g/dL Hematocrit 26.0 % 24.6 % Mean Corpuscular Volume 99.2 fL 100.4 fL Mean Corpuscular Hemoglobin 32.4 pg 33.1 pg Mean Corpuscular Hemoglobin Concent 32.7 g/dl 32.9 g/dl Platelet Count 389 K/uL 342 K/uL Mean Platelet Volume 9.4 fL 9.6 fL Neutrophils (%) (Auto) 73.3 % Lymphocytes (%) (Auto) 17.7 % Monocytes (%) (Auto) 6.8 % Eosinophils (%) (Auto) 1.4 % Basophils (%) (Auto) 0.6 % Neutrophils # (Auto) 6.46 K/uL Lymphocytes # (Auto) 1.56 K/uL Monocytes # (Auto) 0.60 K/uL Eosinophils # (Auto) 0.12 K/uL Basophils # (Auto) 0.05 K/uL RDW Standard Deviation 47.4 fL 48.8 fL RDW Coefficient of Variation 13.1 % 13.3 % Immature Granulocyte % (Auto) 0.2 % Immature Granulocyte # (Auto) 0.02 K/uL Red Blood Cell Morphology Unremarkable Sodium Level 139 mmol/L 143 mmol/L Potassium Level 5.6 mmol/L 5.5 mmol/L Chloride Level 112 mmol/L 115 mmol/L Carbon Dioxide Level 18 mmol/L 19 mmol/L Anion Gap 9.0 mmol/L 8.0 mmol/L Blood Urea Nitrogen 81 mg/dl 78 mg/dl Creatinine 5.17 mg/dl 4.74 mg/dl Estimated GFR () 12.9 14.3 Estimated GFR (Non- 11.1 12.3 BUN/Creatinine Ratio 15.8 16.6 Random Glucose 123 mg/dl 106 mg/dl Calcium Level 8.8 mg/dl 8.8 mg/dl Total Bilirubin 0.2 mg/dl Direct Bilirubin < 0.1 mg/dl Aspartate Amino Transf (AST/SGOT) 8 U/L Alanine Aminotransferase (ALT/SGPT) 20 U/L Alkaline Phosphatase 44 U/L Total Protein 6.6 gm/dl Albumin 3.4 gm/dl Est Creatinine Clear Calc Drug Dose 22.3 ml/min Assessment and Plan 62yo male - 1. obstructing 3cm right-sided kidney stone - to OR today with Dr. Loving for stent placement. Definitive stone treatment down the line. 2. acute renal failure in setting of unknown CKD stage / baseline creatinine - creatinine modestly improved overnight with hydration. Repeat BMP later today, then again in AM. Appreciate nephrology consultation. Unsure how much of his ARF is due to obstruction from his stone as well as the left-sided urethelial cancer although he does have a stent in place on the left. Consider calling PCP's office to see what baseline Cr levels were from last 1-2 years. Hold lasix & MARVIN. 3. hyperkalemia - 2nd to #2. Kayexalate 15gm po x 1 now; repeat BMP later today. 4. HTN - continue outpatient meds. 5. left-sided urethelial cancer - management per urology. left-sided stent is in place. 6. anemia - down 1.2 gm from 10/2017. Unsure of baseline Hb and chronicity of such. Could be related to CKD. Check iron studies, b12, folate in AM. 7. DVT proph - SCDs for now; no chemical means due to hematuria and urological intervention planned. Continued [facility] stay due to: multiple IV medications needed Discharge planning: uncertain
[2017-11-13 19:00] LABS: CALCIUM 8.6 mg/dl (8.5-10.1); CREATININE 4.77 mg/dl (0.60-1.40); POTASSIUM 4.9 mmol/L (3.5-5.1)
[2017-11-14] MEDS: SODIUM CHLORIDE 0.9% 1000ML 1,000 ML IV SCH (02:15)
[2017-11-14 03:33] VITALS: BP 157/80; PULSE 69; TEMP 36.8; O2SAT 98
[2017-11-14 07:15] VITALS: O2SAT 99
[2017-11-14 07:15] LABS: HEMATOCRIT 25.1 % (42-52); HEMOGLOBIN 8.4 g/dL (14.0-18.0); MEAN CORPUSCULAR HEMOGLOBIN 33.5 pg (25-34); MEAN CORPUSCULAR HGB CONC 33.5 g/dl (32-36); MEAN PLATELET VOLUME 9.7 fL (7.4-10.4); PLATELET COUNT 340 K/uL (130-400); RED CELL DISTRIBUTION WIDTH CV 13.1 % (11.5-14.5); RED CELL DISTRIBUTION WIDTH SD 47.9 fL (36.4-46.3); WHITE BLOOD COUNT 6.73 K/uL (4.8-10.8)
[2017-11-14 07:23] VITALS: BP 179/85; PULSE 66; TEMP 36.8; O2SAT 99
[2017-11-14] MEDS: CLONIDINE HCL 0.3 MG TAB PO SCH (07:25)
[2017-11-14] MEDS: MULTIVITAMIN TAB PO SCH (07:26)
[2017-11-14] MEDS: CARVEDILOL 3.125 MG TAB PO SCH (07:26)
[2017-11-14] MEDS: DILTIAZEM HCL 240 MG CAPCR PO SCH (07:42)
[2017-11-14 07:53] LABS: CALCIUM 8.7 mg/dl (8.5-10.1); CREATININE 4.5 mg/dl (0.60-1.40); POTASSIUM 5.4 mmol/L (3.5-5.1)
--- NOTE | 2017-11-14 08:39 | Anesthesiology Progress Note ---
Anesthesia Post Op Note Date & Time Nov 14, 2017 at 08:39 Vital Signs Pain Intensity: 0.0 Vital Signs Past 12 Hours Date Time Temp Pulse Resp B/P (MAP) Pulse Ox O2 Delivery O2 Flow Rate FiO2 11/14/17 07:23 36.8 66 16 179/85 (116) 99 Room Air 11/14/17 03:33 36.8 69 16 157/80 (105) 98 Room Air 11/14/17 00:10 Room Air 11/13/17 23:02 36.8 69 20 156/78 (104) 97 Room Air Notes Mental Status: alert / awake / arousable, participated in evaluation Pt Amnestic to Procedure: Yes Nausea / Vomiting: adequately controlled Pain: adequately controlled Airway Patency, RR, SpO2: stable & adequate BP & HR: stable & adequate Hydration State: stable & adequate Anesthetic Complications: no major complications apparent
--- NOTE | 2017-11-14 09:42 | Nephrology Progress Note ---
Nephrology Progress Note Date of Service Nov 14, 2017. Chief Complaint Follow-up for DARELL, hyperkalemia with CKD. Subjective Mr. Domingo seen examined in his room this morning. Overall feeling well, denies any symptom. He had right-sided ureteral stent placed yesterday. Denies any flank pain. No fever or chills. Creatinine slightly improved to 4.5, continues to have electrolyte abnormalities including hyperkalemia and metabolic acidosis. Blood pressure has been running high. Review of Systems A complete review of systems was performed. Pertinent positives are noted above. All other systems are negative. Vital Signs Last 8 Hrs Date Time Temp Pulse Resp B/P (MAP) Pulse Ox O2 Delivery O2 Flow Rate FiO2 11/14/17 07:23 36.8 66 16 179/85 (116) 99 Room Air 11/14/17 03:33 36.8 69 16 157/80 (105) 98 Room Air Last Recorded Weight Weight (Kilograms): 118.000 Physical Exam GENERAL: Middle-aged male, AAA x 3, pleasant, healthy-appearing, not in any distress. NECK: Supple, no JVD. RESPIRATORY: Normal breathing efforts, no accessory muscle use, clear to auscultation bilaterally, no wheezes or rales. CARDIOVASCULAR: S1, S2 normal, rate rhythm regular. EXTREMITY: No lower extremity edema NEURO: speech fluent. 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) Laboratory Results Past 24 Hours 11/14/17 06:50 11/13/17 17:54 11/14/17 06:50 Test 11/13/17 17:54 11/14/17 06:50 Anion Gap 9.0 mmol/L (3-11) 6.0 mmol/L (3-11) Est Creatinine Clear Calc Drug Dose 22.2 ml/min 23.5 ml/min Estimated GFR () 14.2 15.2 Estimated GFR (Non- 12.2 13.1 BUN/Creatinine Ratio 16.2 (10-20) 16.1 (10-20) Calcium Level 8.6 mg/dl (8.5-10.1) 8.7 mg/dl (8.5-10.1) Red Blood Count 2.51 M/uL (4.7-6.1) Mean Corpuscular Volume 100.0 fL (80-100) Mean Corpuscular Hemoglobin 33.5 pg (25-34) Mean Corpuscular Hemoglobin Concent 33.5 g/dl (32-36) RDW Standard Deviation 47.9 fL (36.4-46.3) RDW Coefficient of Variation 13.1 % (11.5-14.5) Mean Platelet Volume 9.7 fL (7.4-10.4) Iron Level 36 mcg/dl (35-175) Total Iron Binding Capacity 278 mcg/dl (250-450) Transferrin 213 mg/dl (200-360) Transferrin % Saturation 12 % (20-50) Ferritin 282.0 ng/ml (8.0-388.0) Allergies Coded Allergies: Statins (Verified Adverse Reaction, Mild, GI UPSET, 10/30/17) Medications Current Inpatient Medications Medications (Trade) Dose Ordered Sig/Solitario Route Start Time Stop Time Status Last Admin Dose Admin Acetaminophen (Tylenol Tab) 650 mg Q4H PRN PO 11/12/17 17:15 12/12/17 17:14 Al Hydrox/Mg Hydrox/Simethicone (Maalox Max Susp) 15 ml Q4H PRN PO 11/12/17 17:15 12/12/17 17:14 Magnesium Hydroxide (Milk Of Magnesia Susp) 30 ml Q6H PRN PO 11/12/17 17:15 12/12/17 17:14 Polyethylene (Miralax Powder Packet) 17 gm DAILY PRN PO 11/12/17 17:15 12/12/17 17:14 Ondansetron HCl (Zofran Inj) 4 mg Q6H PRN IV 11/12/17 17:15 12/12/17 17:14 Carvedilol (Coreg Tab) 3.125 mg QAM PO 11/13/17 09:00 12/13/17 08:59 11/14/17 07:26 3.125 MG Clonidine HCl (Catapres Tab) 0.3 mg QAM PO 11/13/17 09:00 12/13/17 08:59 11/14/17 07:25 0.3 MG Multivitamins (Multivitamin Tab) 1 tab QAM PO 11/13/17 09:00 12/13/17 08:59 11/14/17 07:26 1 TAB Diltiazem HCl (Cardizem Cd Cap) 240 mg QAM PO 11/13/17 09:00 12/13/17 08:59 Future hold 11/14/17 07:42 240 MG Sodium Chloride 1,000 ml @ 75 mls/hr [id number] IV 11/12/17 17:45 12/12/17 17:44 11/14/17 02:15 75 MLS/HR Hydralazine HCl (HydrALAZINE INJ) 10 mg Q6H PRN IV. 11/12/17 17:45 12/12/17 17:44 Morphine Sulfate (MoRPHine SULFATE INJ) 2 mg Q4H PRN IV 11/12/17 17:45 11/26/17 17:44 Impression (1) Acute renal failure (2) Hyperkalemia, diminished renal excretion (3) Metabolic acidosis (4) CKD (chronic kidney disease), stage IV (5) Hypertension (6) Anemia (7) Right kidney stone 62 y o M with Rt sided hydronephrosis with nephrolithiasis , left TCC s/p ureteral stent admitted with DARELL, hyperkalemia and rt sided obstructive uropathy. Plan to ahve stent palced on rt side today and have 3 cm stone removed in dec by PCNL. Left TCC will be addressed once rt sided renal stone removed. Has stage 4 CKD b/l cr 3, admitted with DARELL, cr 5.5, now improving to 4.7. Non oliguric. Unclear etiology for CKD, previous biopsy and GN w/u was unremarkable , ? HTN nephropathy. Recommendations --slow recovery of renal function after right-sided hydronephrosis status post stent placement, creatinine 4.5, has some electrolyte abnormality. Not unexpected with underlying advanced CKD. A decent urine output --suggest stopping IV fluid, increase carvedilol if blood pressure still elevated. If blood pressure continues to be elevated will consider starting on amlodipine 5 milligrams p.o. daily --continue to hold lisinopril and Lasix --suggest Kayexalate 30 gm po x 1 dose for K > 5.5 --avoid hypotension --will monitor renal function, intake, output and electrolytes closely --hold discharge until improvement in renal function, electrolyte and blood pressure Will follow
[2017-11-14 10:27] VITALS: BP 157/84
[2017-11-14] MEDS ORDERED: SODIUM POLYST. SULF SUSP 15G/60ML PO ONE (10:45)
--- NOTE | 2017-11-14 11:13 | Progress Note ---
Subjective Date of Service: Nov 14, 2017. Subjective Pt evaluation today including: conversation w/ patient, chart review, lab review Voiding: no voiding problems 62 yo male s/p right ureteral stent placement for ARF and stones. Pt denies pain this morning. Feels well. Cr has improved to 4.5. Review of Systems Constitutional: No fever, No chills Respiratory: No shortness of breath Cardiac: No chest pain Abdomen: No pain, No nausea, No vomiting Male : + hematuria Heme: No abnormal bleeding/bruising Objective Vital Signs Date Time Temp Pulse Resp B/P (MAP) Pulse Ox O2 Delivery O2 Flow Rate FiO2 11/14/17 10:27 157/84 (108) 11/14/17 07:23 36.8 66 16 179/85 (116) 99 Room Air 11/14/17 07:15 99 Room Air 11/14/17 03:33 36.8 69 16 157/80 (105) 98 Room Air 11/14/17 00:10 Room Air 11/13/17 23:02 36.8 69 20 156/78 (104) 97 Room Air 11/13/17 15:26 36.7 70 18 163/78 (106) 97 Room Air 11/13/17 15:15 97 Room Air 11/13/17 14:07 70 16 137/72 (93) 97 Room Air 11/13/17 13:10 36.9 70 16 146/80 (102) 97 Room Air 11/13/17 12:40 70 16 152/81 (104) 98 Room Air 11/13/17 12:10 Room Air 11/13/17 12:10 36.9 56 16 135/76 (95) 97 Room Air 11/13/17 11:45 36.5 68 16 137/83 97 Room Air 11/13/17 11:35 62 16 137/77 97 Room Air 11/13/17 11:29 36.1 69 16 127/73 100 Room Air Physical Exam General Appearance: no apparent distress Eyes: normal inspection ENT: hearing grossly normal Neck: no JVD Respiratory/Chest: no respiratory distress, no accessory muscle use Cardiovascular: no JVD Extremities: normal inspection Neurologic/Psychiatric: alert, normal mood/affect, oriented x 3 Skin: normal color Laboratory Results Last 24 Hours Test 11/13/17 17:54 11/14/17 06:50 Sodium Level 140 mmol/L 142 mmol/L Potassium Level 4.9 mmol/L 5.4 mmol/L Chloride Level 113 mmol/L 117 mmol/L Carbon Dioxide Level 18 mmol/L 19 mmol/L Anion Gap 9.0 mmol/L 6.0 mmol/L Blood Urea Nitrogen 77 mg/dl 72 mg/dl Creatinine 4.77 mg/dl 4.50 mg/dl Est Creatinine Clear Calc Drug Dose 22.2 ml/min 23.5 ml/min Estimated GFR () 14.2 15.2 Estimated GFR (Non- 12.2 13.1 BUN/Creatinine Ratio 16.2 16.1 Random Glucose 114 mg/dl 96 mg/dl Calcium Level 8.6 mg/dl 8.7 mg/dl White Blood Count 6.73 K/uL Red Blood Count 2.51 M/uL Hemoglobin 8.4 g/dL Hematocrit 25.1 % Mean Corpuscular Volume 100.0 fL Mean Corpuscular Hemoglobin 33.5 pg Mean Corpuscular Hemoglobin Concent 33.5 g/dl RDW Standard Deviation 47.9 fL RDW Coefficient of Variation 13.1 % Platelet Count 340 K/uL Mean Platelet Volume 9.7 fL Iron Level 36 mcg/dl Total Iron Binding Capacity 278 mcg/dl Transferrin 213 mg/dl Transferrin % Saturation 12 % Ferritin 282.0 ng/ml Vitamin B12 Level 585 pg/mL Folate 12.99 ng/mL Assessment and Plan POD #1 s/p right ureteral stent placement Cr trending down. Kidneys now unobstructed with bilateral ureteral stents. If Cr continues to remain elevated, pursue other etiology for ARF. Will plan for definitive stone management of right stones as an outpatient with PCNL. No further management at this time. Pt OK for d/c home from perspective when OK with primary service. Recommend d/c home with 5-7 days of an antibiotic. Will arrange for outpatient f/u. Recall PRN issues. The pt was seen and assessed with Dr. Loving this morning. Continued [facility] stay due to: multiple IV medications needed Discharge planning: home, uncertain
[2017-11-14 15:03] VITALS: BP 158/81; PULSE 67; TEMP 36.7; O2SAT 99
--- NOTE | 2017-11-14 18:23 | Progress Note ---
Subjective Date of Service: Nov 14, 2017. Subjective Pt evaluation today including: conversation w/ patient, conversation w/ family ( at bedside), physical exam, chart review, lab review, conversation w/ interior design consultant (spoke with PCP Dr. Hopkins ), review of inpatient medication list Pain: none PO Intake: normal Voiding: no voiding problems pt anxious for d/c reports no complaints I spoke with Dr. Hopkins, his PCP, and office records showed the following - 07/17/17 - creatinine 2.8 2014 - creatinine 1.6 Review of Systems Respiratory: No shortness of breath, No dyspnea on exertion Cardiac: No chest pain, No orthopnea Abdomen: No pain, No nausea Objective Vital Signs Date Time Temp Pulse Resp B/P (MAP) Pulse Ox O2 Delivery O2 Flow Rate FiO2 11/14/17 15:03 36.7 67 18 158/81 (106) 99 Room Air 11/14/17 10:27 157/84 (108) 11/14/17 07:23 36.8 66 16 179/85 (116) 99 Room Air 11/14/17 07:15 99 Room Air 11/14/17 03:33 36.8 69 16 157/80 (105) 98 Room Air 11/14/17 00:10 Room Air 11/13/17 23:02 36.8 69 20 156/78 (104) 97 Room Air Physical Exam General Appearance: no apparent distress ENT: pharynx normal Neck: no JVD Respiratory/Chest: lungs clear, no respiratory distress, no accessory muscle use Cardiovascular: regular rate, rhythm, no gallop, no murmur Abdomen: normal bowel sounds, non tender, soft, no organomegaly Extremities: no pedal edema Neurologic/Psychiatric: alert, oriented x 3 Laboratory Results Last 24 Hours Test 11/14/17 06:50 White Blood Count 6.73 K/uL Red Blood Count 2.51 M/uL Hemoglobin 8.4 g/dL Hematocrit 25.1 % Mean Corpuscular Volume 100.0 fL Mean Corpuscular Hemoglobin 33.5 pg Mean Corpuscular Hemoglobin Concent 33.5 g/dl RDW Standard Deviation 47.9 fL RDW Coefficient of Variation 13.1 % Platelet Count 340 K/uL Mean Platelet Volume 9.7 fL Sodium Level 142 mmol/L Potassium Level 5.4 mmol/L Chloride Level 117 mmol/L Carbon Dioxide Level 19 mmol/L Anion Gap 6.0 mmol/L Blood Urea Nitrogen 72 mg/dl Creatinine 4.50 mg/dl Est Creatinine Clear Calc Drug Dose 23.5 ml/min Estimated GFR () 15.2 Estimated GFR (Non- 13.1 BUN/Creatinine Ratio 16.1 Random Glucose 96 mg/dl Calcium Level 8.7 mg/dl Iron Level 36 mcg/dl Total Iron Binding Capacity 278 mcg/dl Transferrin 213 mg/dl Transferrin % Saturation 12 % Ferritin 282.0 ng/ml Vitamin B12 Level 585 pg/mL Folate 12.99 ng/mL Assessment and Plan 62yo male - 1. obstructing 3cm right-sided kidney stone - POD #1 s/p right-sided ureteral stent placement. Small improvement overnight with creatinine suggesting a component of post- obstruction contributing to ARF. Doing well/stable from standpoint. Definitive stone treatment down the line. 2. acute renal failure in setting of unknown CKD stage / baseline creatinine - creatinine in July 2017 was 2.[address] Hopkins's office (PCP ). Thus, has CKD. creatinine modestly improved overnight with hydration and right-sided stent placement. Repeat BMP in AM. Appreciate nephrology consultation. Cont to Hold lasix & MARVIN. 3. hyperkalemia - 2nd to #2. Kayexalate 15gm po x 1 again today. BMP in am. 4. HTN - continue outpatient meds - slowly improving. 5. left-sided urethelial cancer - management per urology. left-sided stent is in place. 6. anemia - down 1.2 gm from 10/2017. Unsure of baseline Hb and chronicity of such but I suspect that his previous hematuria, the cancer itself, and CKD are all playing a role. B12/folate wnl. Iron sat is <20% -- start ferrous sulfate 325mg BID. CBC in am for stability. 7. DVT proph - SCDs for now. creatinine stability/improvement will dictate hospitalization Continued [facility] stay due to: multiple IV medications needed Discharge planning: home
[2017-11-14] MEDS: FERROUS SULFATE 325 MG TAB PO SCH (21:49)
[2017-11-14 22:56] VITALS: BP 153/82; PULSE 66; TEMP 37; O2SAT 99
[2017-11-15 07:31] VITALS: BP 153/73; PULSE 69; TEMP 36.7; O2SAT 98
[2017-11-15] MEDS: FERROUS SULFATE 325 MG TAB PO SCH ×3 (09:00→21:00)
[2017-11-15] MEDS: MULTIVITAMIN TAB PO SCH (09:11)
[2017-11-15] MEDS: DILTIAZEM HCL 240 MG CAPCR PO SCH (09:11)
[2017-11-15] MEDS: CARVEDILOL 3.125 MG TAB PO SCH (09:11)
[2017-11-15] MEDS: CLONIDINE HCL 0.3 MG TAB PO SCH (09:11)
[2017-11-15 10:49] LABS: HEMATOCRIT 25.4 % (42-52); HEMOGLOBIN 8.5 g/dL (14.0-18.0); MEAN CELL VOLUME 99.6 fL (80-100); MEAN CORPUSCULAR HEMOGLOBIN 33.3 pg (25-34); MEAN CORPUSCULAR HGB CONC 33.5 g/dl (32-36); PLATELET COUNT 330 K/uL (130-400); RED CELL DISTRIBUTION WIDTH CV 13.2 % (11.5-14.5); RED CELL DISTRIBUTION WIDTH SD 48.2 fL (36.4-46.3)
[2017-11-15 11:25] LABS: CALCIUM 8.9 mg/dl (8.5-10.1); CREATININE 4.06 mg/dl (0.60-1.40); POTASSIUM 5.3 mmol/L (3.5-5.1)
[2017-11-15] MEDS ORDERED: SODIUM POLYST. SULF SUSP 15G/60ML PO STA (11:30)
--- NOTE | 2017-11-15 12:27 | Progress Note ---
Subjective Date of Service: Nov 15, 2017. Subjective Pt evaluation today including: conversation w/ patient, physical exam, lab review voiding clear urine w/o difficulty minimal pain Objective Vital Signs Date Time Temp Pulse Resp B/P (MAP) Pulse Ox O2 Delivery O2 Flow Rate FiO2 11/15/17 08:05 Room Air 11/15/17 07:31 36.7 69 18 153/73 (99) 98 Room Air 11/14/17 22:56 37.0 66 18 153/82 (105) 99 Room Air 11/14/17 22:30 Room Air 11/14/17 16:00 Room Air 11/14/17 15:03 36.7 67 18 158/81 (106) 99 Room Air Laboratory Results Last 24 Hours Test 11/15/17 10:05 White Blood Count 8.10 K/uL Red Blood Count 2.55 M/uL Hemoglobin 8.5 g/dL Hematocrit 25.4 % Mean Corpuscular Volume 99.6 fL Mean Corpuscular Hemoglobin 33.3 pg Mean Corpuscular Hemoglobin Concent 33.5 g/dl RDW Standard Deviation 48.2 fL RDW Coefficient of Variation 13.2 % Platelet Count 330 K/uL Mean Platelet Volume 10.0 fL Sodium Level 140 mmol/L Potassium Level 5.3 mmol/L Chloride Level 114 mmol/L Carbon Dioxide Level 20 mmol/L Anion Gap 6.0 mmol/L Blood Urea Nitrogen 60 mg/dl Creatinine 4.06 mg/dl Est Creatinine Clear Calc Drug Dose 26.1 ml/min Estimated GFR () 17.2 Estimated GFR (Non- 14.9 BUN/Creatinine Ratio 14.7 Random Glucose 111 mg/dl Calcium Level 8.9 mg/dl Assessment and Plan creatinine dropping slowly pt w f/u appt w Dr. Loving as out pt ordered urine c/s prior to discharge Continued [facility] stay due to: multiple IV medications needed Discharge planning: home
--- NOTE | 2017-11-15 13:26 | Nephrology Progress Note ---
Nephrology Progress Note Date of Service Nov 15, 2017. Chief Complaint Follow-up for DARELL, hyperkalemia with CKD. Subjective Mr. Domingo seen examined in his room this morning. Overall feeling well, denies any symptom. He had right-sided ureteral stent placed on 11/13/2017. Denies any flank pain. No fever or chills. He has been having decent urine output, more than 2 liters urine output, volume status acceptable. Review of Systems A complete review of systems was performed. Pertinent positives are noted above. All other systems are negative. Vital Signs Last 8 Hrs Date Time Temp Pulse Resp B/P (MAP) Pulse Ox O2 Delivery O2 Flow Rate FiO2 11/15/17 08:05 Room Air 11/15/17 07:31 36.7 69 18 153/73 (99) 98 Room Air Last Recorded Weight Weight (Kilograms): 118.000 Physical Exam GENERAL: Middle-aged male , AAA x 3, pleasant, healthy-appearing, not in any distress. NECK: Supple, no JVD. RESPIRATORY: Normal breathing efforts, no accessory muscle use, clear to auscultation bilaterally, no wheezes or rales. CARDIOVASCULAR: S1, S2 normal, rate rhythm regular. EXTREMITY: No lower extremity edema NEURO: speech fluent. 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) Laboratory Results Past 24 Hours Test 11/15/17 04:44 Allergies Coded Allergies: Statins (Verified Adverse Reaction, Mild, GI UPSET, 10/30/17) Medications Current Inpatient Medications Medications (Trade) Dose Ordered Sig/Solitario Route Start Time Stop Time Status Last Admin Dose Admin Acetaminophen (Tylenol Tab) 650 mg Q4H PRN PO 11/12/17 17:15 12/12/17 17:14 Al Hydrox/Mg Hydrox/Simethicone (Maalox Max Susp) 15 ml Q4H PRN PO 11/12/17 17:15 12/12/17 17:14 Magnesium Hydroxide (Milk Of Magnesia Susp) 30 ml Q6H PRN PO 11/12/17 17:15 12/12/17 17:14 Polyethylene (Miralax Powder Packet) 17 gm DAILY PRN PO 11/12/17 17:15 12/12/17 17:14 Ondansetron HCl (Zofran Inj) 4 mg Q6H PRN IV 11/12/17 17:15 12/12/17 17:14 Carvedilol (Coreg Tab) 3.125 mg QAM PO 11/13/17 09:00 12/13/17 08:59 11/15/17 09:11 3.125 MG Clonidine HCl (Catapres Tab) 0.3 mg QAM PO 11/13/17 09:00 12/13/17 08:59 11/15/17 09:11 0.3 MG Multivitamins (Multivitamin Tab) 1 tab QAM PO 11/13/17 09:00 12/13/17 08:59 11/15/17 09:11 1 TAB Diltiazem HCl (Cardizem Cd Cap) 240 mg QAM PO 11/13/17 09:00 12/13/17 08:59 Future hold 11/15/17 09:11 240 MG Hydralazine HCl (HydrALAZINE INJ) 10 mg Q6H PRN IV. 11/12/17 17:45 12/12/17 17:44 Morphine Sulfate (MoRPHine SULFATE INJ) 2 mg Q4H PRN IV 11/12/17 17:45 11/26/17 17:44 Ferrous Sulfate (Feosol Tab) 325 mg BID PO 11/14/17 21:00 12/14/17 20:59 11/14/17 21:49 325 MG Impression (1) Acute renal failure (2) Hyperkalemia, diminished renal excretion (3) Metabolic acidosis (4) CKD (chronic kidney disease), stage IV (5) Hypertension (6) Anemia (7) Right kidney stone 62 y o M with Rt sided hydronephrosis with nephrolithiasis , left TCC s/p ureteral stent admitted with DARELL, hyperkalemia and rt sided obstructive uropathy. Plan to ahve stent palced on rt side today and have 3 cm stone removed in dec by PCNL. Left TCC will be addressed once rt sided renal stone removed. Has stage 4 CKD b/l cr 3, admitted with DARELL, cr 5.5, now improving to 4.7. Non oliguric. Unclear etiology for CKD, previous biopsy and GN w/u was unremarkable , ? HTN nephropathy. Recommendations --slow recovery of renal function after right-sided hydronephrosis status post stent placement, creatinine 4.5, has some electrolyte abnormality. Creatinine improved to 4.1, still has some electrolyte abnormality including hyperkalemia and metabolic acidosis --avoid further IV fluid, increase carvedilol if blood pressure still elevated, but overall blood pressure seems to be better --continue to hold lisinopril and Lasix --suggest Kayexalate 30 gm po x 1 dose for K > 5.5 --will monitor renal function, intake, output and electrolytes closely --hold discharge until improvement in renal function, electrolyte and blood pressure. Hopefully can be discharged tomorrow if renal function continues to improve. --has a follow-up appointment with his combining machine operator on 11/18/2017, suggest getting lab done on 11/17/2017 and follow with his combining machine operator Will follow
[2017-11-15 15:45] VITALS: BP 145/82; PULSE 63; TEMP 36.8; O2SAT 98
--- NOTE | 2017-11-15 18:47 | Progress Note ---
Subjective Date of Service: Nov 15, 2017. Subjective Pt evaluation today including: conversation w/ patient, physical exam, chart review, lab review, conversation w/ tour consultant (nephrology) Pain: none PO Intake: normal Voiding: no voiding problems no issues overnight feels good had large bowel movement with kayexalate given today Review of Systems Respiratory: No cough, No shortness of breath Cardiac: No chest pain Abdomen: No pain, No nausea, No vomiting Objective Vital Signs Date Time Temp Pulse Resp B/P (MAP) Pulse Ox O2 Delivery O2 Flow Rate FiO2 11/15/17 15:45 36.8 63 18 145/82 (103) 98 Room Air 11/15/17 08:05 Room Air 11/15/17 07:31 36.7 69 18 153/73 (99) 98 Room Air 11/14/17 22:56 37.0 66 18 153/82 (105) 99 Room Air 11/14/17 22:30 Room Air Physical Exam General Appearance: no apparent distress ENT: pharynx normal Neck: no JVD Respiratory/Chest: lungs clear, no respiratory distress, no accessory muscle use Cardiovascular: regular rate, rhythm, no gallop, no murmur Abdomen: normal bowel sounds, non tender, soft, no organomegaly Extremities: no pedal edema Neurologic/Psychiatric: alert, oriented x 3 Laboratory Results Last 24 Hours Test 11/15/17 10:05 White Blood Count 8.10 K/uL Red Blood Count 2.55 M/uL Hemoglobin 8.5 g/dL Hematocrit 25.4 % Mean Corpuscular Volume 99.6 fL Mean Corpuscular Hemoglobin 33.3 pg Mean Corpuscular Hemoglobin Concent 33.5 g/dl RDW Standard Deviation 48.2 fL RDW Coefficient of Variation 13.2 % Platelet Count 330 K/uL Mean Platelet Volume 10.0 fL Sodium Level 140 mmol/L Potassium Level 5.3 mmol/L Chloride Level 114 mmol/L Carbon Dioxide Level 20 mmol/L Anion Gap 6.0 mmol/L Blood Urea Nitrogen 60 mg/dl Creatinine 4.06 mg/dl Est Creatinine Clear Calc Drug Dose 26.1 ml/min Estimated GFR () 17.2 Estimated GFR (Non- 14.9 BUN/Creatinine Ratio 14.7 Random Glucose 111 mg/dl Calcium Level 8.9 mg/dl Assessment and Plan 62yo male - 1. obstructing 3cm right-sided kidney stone - POD #2 s/p right-sided ureteral stent placement. Ongoing improvement in creatinine suggesting a component of post-obstruction from the stone contributing to ARF. Doing well/stable from standpoint. Definitive stone treatment down the line. Needs f/u with Dr. Loving as outpatient for stone management and management of left-sided urothelial cancer. 2. acute renal failure in setting of CKD stage 3 - creatinine in July 2017 was 2.[address] Hopkins's office (PCP ). creatinine modestly improved again today although acid/base status is slightly off and he continues with very mild hyperkalemia. Repeat BMP in AM. Kayexalate 15gm x 1 today for high K. Appreciate nephrology consultation. Cont to Hold lasix & MARVIN. Dr. Desai recommending 1 more day in hospital, then follow-up with his primary breeder service technician as scheduled THIS COMING FRIDAY. 3. hyperkalemia - 2nd to #2. Kayexalate 15gm po x 1 again today. BMP in am. 4. HTN - continue outpatient meds - improved. 5. left-sided urethelial cancer - management per urology. left-sided stent is in place due to previous obstruction from cancer. 6. anemia - down 1.2 gm from 10/2017. Unsure of baseline Hb and chronicity of such but I suspect that his previous hematuria, the cancer itself, and CKD have all played a role. B12/folate wnl. Iron sat is <20% -- started ferrous sulfate 325mg BID. Recommend this at discharge. CBC today w/ stable H/H. 7. DVT proph - SCDs. hopefully d/c home on 11/16/17 Continued [facility] stay due to: other (acute renal failure) Discharge planning: home
[2017-11-15 23:18] VITALS: BP 152/93; PULSE 63; TEMP 36.9; O2SAT 99
[2017-11-16 07:29] VITALS: BP 145/89; PULSE 80; TEMP 37; O2SAT 97
[2017-11-16 08:11] LABS: CALCIUM 9.2 mg/dl (8.5-10.1); CREATININE 3.72 mg/dl (0.60-1.40)
[2017-11-16] MEDS: FERROUS SULFATE 325 MG TAB PO SCH (09:00)
[2017-11-16] MEDS: DILTIAZEM HCL 240 MG CAPCR PO SCH (09:01)
[2017-11-16] MEDS: MULTIVITAMIN TAB PO SCH (09:01)
[2017-11-16] MEDS: CLONIDINE HCL 0.3 MG TAB PO SCH (09:01)
[2017-11-16] MEDS: CARVEDILOL 3.125 MG TAB PO SCH (09:01)
--- NOTE | 2017-11-16 09:55 | Progress Note ---
Subjective Date of Service: Nov 16, 2017. Subjective Pt evaluation today including: physical exam, chart review pt resting comfortably Objective Vital Signs Date Time Temp Pulse Resp B/P (MAP) Pulse Ox O2 Delivery O2 Flow Rate FiO2 11/16/17 07:55 Room Air 11/16/17 07:29 37.0 80 19 145/89 (107) 97 Room Air 11/15/17 23:20 Room Air 11/15/17 23:18 36.9 63 16 152/93 (112) 99 Room Air 11/15/17 16:45 Room Air 11/15/17 15:45 36.8 63 18 145/82 (103) 98 Room Air Laboratory Results Last 24 Hours Test 11/15/17 10:05 11/16/17 07:23 White Blood Count 8.10 K/uL Red Blood Count 2.55 M/uL Hemoglobin 8.5 g/dL Hematocrit 25.4 % Mean Corpuscular Volume 99.6 fL Mean Corpuscular Hemoglobin 33.3 pg Mean Corpuscular Hemoglobin Concent 33.5 g/dl RDW Standard Deviation 48.2 fL RDW Coefficient of Variation 13.2 % Platelet Count 330 K/uL Mean Platelet Volume 10.0 fL Sodium Level 140 mmol/L 142 mmol/L Potassium Level 5.3 mmol/L 5.0 mmol/L Chloride Level 114 mmol/L 113 mmol/L Carbon Dioxide Level 20 mmol/L 19 mmol/L Anion Gap 6.0 mmol/L 10.0 mmol/L Blood Urea Nitrogen 60 mg/dl 59 mg/dl Creatinine 4.06 mg/dl 3.72 mg/dl Est Creatinine Clear Calc Drug Dose 26.1 ml/min 28.5 ml/min Estimated GFR () 17.2 19.1 Estimated GFR (Non- 14.9 16.5 BUN/Creatinine Ratio 14.7 15.7 Random Glucose 111 mg/dl 108 mg/dl Calcium Level 8.9 mg/dl 9.2 mg/dl Assessment and Plan creatinine dropping slowly pt w f/u appt w Dr. Loving as out pt ordered urine c/s which is pending Continued [facility] stay due to: other (acute renal failure) Discharge planning: home
--- NOTE | 2017-11-16 11:30 | Nephrology Progress Note ---
Nephrology Progress Note Date of Service Nov 16, 2017. Chief Complaint Follow-up for DARELL, hyperkalemia with CKD. Subjective Mr. Domingo seen examined in his room this morning. Overall feeling well, denies any symptom. He had right-sided ureteral stent placed on 11/13/2017. Denies any flank pain. No fever or chills. He has been having decent urine output, more than 2 liters urine output, volume status acceptable. Renal function continues to improve creatinine 3.7 this morning, electrolyte acceptable. Blood pressure improved as well. Review of Systems A complete review of systems was performed. Pertinent positives are noted above. All other systems are negative. Vital Signs Last 8 Hrs Date Time Temp Pulse Resp B/P (MAP) Pulse Ox O2 Delivery O2 Flow Rate FiO2 11/16/17 07:55 Room Air 11/16/17 07:29 37.0 80 19 145/89 (107) 97 Room Air Last Recorded Weight Weight (Kilograms): 118.000 Physical Exam GENERAL: Middle-aged male, AAA x 3, pleasant, healthy-appearing, not in any distress. NECK: Supple, no JVD. RESPIRATORY: Normal breathing efforts, no accessory muscle use, clear to auscultation bilaterally, no wheezes or rales. CARDIOVASCULAR: S1, S2 normal, rate rhythm regular. EXTREMITY: No lower extremity edema NEURO: speech fluent. 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) Laboratory Results Past 24 Hours 11/15/17 10:05 11/15/17 10:05 11/16/17 07:23 Test 11/15/17 10:05 11/16/17 07:23 Red Blood Count 2.55 M/uL (4.7-6.1) Mean Corpuscular Volume 99.6 fL (80-100) Mean Corpuscular Hemoglobin 33.3 pg (25-34) Mean Corpuscular Hemoglobin Concent 33.5 g/dl (32-36) RDW Standard Deviation 48.2 fL (36.4-46.3) RDW Coefficient of Variation 13.2 % (11.5-14.5) Mean Platelet Volume 10.0 fL (7.4-10.4) Anion Gap 6.0 mmol/L (3-11) 10.0 mmol/L (3-11) Est Creatinine Clear Calc Drug Dose 26.1 ml/min 28.5 ml/min Estimated GFR () 17.2 19.1 Estimated GFR (Non- 14.9 16.5 BUN/Creatinine Ratio 14.7 (10-20) 15.7 (10-20) Calcium Level 8.9 mg/dl (8.5-10.1) 9.2 mg/dl (8.5-10.1) Allergies Coded Allergies: Statins (Verified Adverse Reaction, Mild, GI UPSET, 10/30/17) Medications Current Inpatient Medications Medications (Trade) Dose Ordered Sig/Solitario Route Start Time Stop Time Status Last Admin Dose Admin Acetaminophen (Tylenol Tab) 650 mg Q4H PRN PO 11/12/17 17:15 12/12/17 17:14 Al Hydrox/Mg Hydrox/Simethicone (Maalox Max Susp) 15 ml Q4H PRN PO 11/12/17 17:15 12/12/17 17:14 Magnesium Hydroxide (Milk Of Magnesia Susp) 30 ml Q6H PRN PO 11/12/17 17:15 12/12/17 17:14 Polyethylene (Miralax Powder Packet) 17 gm DAILY PRN PO 11/12/17 17:15 12/12/17 17:14 Ondansetron HCl (Zofran Inj) 4 mg Q6H PRN IV 11/12/17 17:15 12/12/17 17:14 Carvedilol (Coreg Tab) 3.125 mg QAM PO 11/13/17 09:00 12/13/17 08:59 11/16/17 09:01 3.125 MG Clonidine HCl (Catapres Tab) 0.3 mg QAM PO 11/13/17 09:00 12/13/17 08:59 11/16/17 09:01 0.3 MG Multivitamins (Multivitamin Tab) 1 tab QAM PO 11/13/17 09:00 12/13/17 08:59 11/16/17 09:01 1 TAB Diltiazem HCl (Cardizem Cd Cap) 240 mg QAM PO 11/13/17 09:00 12/13/17 08:59 Future hold 11/16/17 09:01 240 MG Hydralazine HCl (HydrALAZINE INJ) 10 mg Q6H PRN IV. 11/12/17 17:45 12/12/17 17:44 Morphine Sulfate (MoRPHine SULFATE INJ) 2 mg Q4H PRN IV 11/12/17 17:45 11/26/17 17:44 Ferrous Sulfate (Feosol Tab) 325 mg BID PO 11/14/17 21:00 12/14/17 20:59 11/16/17 09:00 325 MG Impression (1) Acute renal failure (2) Hyperkalemia, diminished renal excretion (3) Metabolic acidosis (4) CKD (chronic kidney disease), stage IV (5) Hypertension (6) Anemia (7) Right kidney stone 62 y o M with Rt sided hydronephrosis with nephrolithiasis , left TCC s/p ureteral stent admitted with DARELL, hyperkalemia and rt sided obstructive uropathy. Plan to ahve stent palced on rt side today and have 3 cm stone removed in dec by PCNL. Left TCC will be addressed once rt sided renal stone removed. Has stage 4 CKD b/l cr 3, admitted with DARELL, cr 5.5, now improving to 4.7. Non oliguric. Unclear etiology for CKD, previous biopsy and GN w/u was unremarkable , ? HTN nephropathy. Recommendations --slow recovery of renal function after right-sided hydronephrosis status post stent placement. Creatinine improved to 3.7, electrolyte, blood pressure, volume status acceptable, has decent urine output. --continue to hold lisinopril and Lasix --expect renal function continues to improve and will settle some her close to his baseline which has been around 3.0 --has a follow-up appointment with his medical physics professor on 11/18/2017, suggest getting lab done on 11/17/2017 and follow with his medical physics professor --okay to be discharged.
[2017-11-16] MEDS ORDERED: RXC5 PEG (11:35)
[2017-11-16] MEDS ORDERED: ONDA4TAB65 PO (11:35)
[2017-11-16] MEDS ORDERED: ACET-1047 PO (11:35)
--- NOTE | 2017-11-16 11:36 | Discharge Instructions ---
Discharge Instructions Date of Service Nov 16, 2017. Admission Reason for Admission: Renal Calculi, Chronic Renal Failure Discharge Discharge Diagnosis / Problem: kidney stone Discharge Goals Goal(s): Diagnostic testing, Therapeutic intervention Activity Recommendations Activity Limitations: as noted below Lifting Limitations: gradually increase as tolerated . Current Hospital Diet Patient's current hospital diet: AHA Diet (Heart Healthy), Renal Diet Discharge Diet Recommended Diet: Regular Diet Procedures Procedures Performed: Cystoscopy, right retrograde pyelography, right ureteral stent placement Pending Studies Studies pending at discharge: no Medical Emergencies . Who to Call and When: Medical Emergencies: If at any time you feel your situation is an emergency, please call 911 immediately. . Non-Emergent Contact Non-Emergency issues call your: Primary Care Provider, Urologist Call Non-Emergent contact if: temperature is above 101, your pain is unusual for you . . "Provider Documentation" section prepared by Vishal Griffin. . VTE Core Measure Inpt VTE Proph given/why not?: Julio Cesar Jensen, SCD's
[2017-11-16 11:41] VITALS: BP 145/89; PULSE 80; TEMP 37; O2SAT 97
--- NOTE | 2017-11-16 14:48 | Discharge Summary ---
Discharge Summary Date of Service Nov 16, 2017. Discharge Summary Admission Date: Nov 12, 2017 at 14:28 Discharge Date: Nov 16, 2017 Discharge Disposition: Home Principal Diagnosis: right renal stone s/p cystoscopy and stent Consultations: DR Loving Medication Reconciliation New Medications: Ondansetron Hcl (Zofran) 4 Mg Tab 4 MG PO Q6H PRN for Nausea, #20 TAB Oxycodone HCl (Oxycodone HCl) 5 Mg Tab 5-10 MG PEG Q6H PRN for Pain, #20 Acetaminophen (Mapap) 325 Mg Tab 650 MG PO Q4H PRN for Pain or Fever, #60 TAB Continued Medications: Carvedilol (Coreg) 3.125 Mg Tab 3.125 MG PO QAM, TAB Cholecalciferol (Vitamin D3) 2,000 Unit Cap 1 CAP PO QAM for 90 Days, #90 CAP 3 Refills Clonidine Hcl (Catapres) 0.3 Mg Tab 0.3 MG PO QAM, TAB Cyanocobalamin (Vitamin B12 Tr) 1,000 Mcg Tab 2500 MCG PO QAM Diltiazem Hcl Extended Release (Diltiazem Hcl Er) 240 Mg Cap 240 MG PO QAM Multivitamin (Multivitamin) Tab 1 TAB PO QAM, TAB Discontinued Medications: Ciprofloxacin (Cipro) 250 Mg Tab 250 MG PO BID, #8 TAB Furosemide (Lasix) 40 Mg Tab 40 MG PO QAM, TAB Lisinopril (Zestril) 40 Mg Tab 40 MG PO QAM, TAB Discharge Exam Review of Systems: Constitutional: No fever, No chills, No weakness, No fatigue Respiratory: No cough, No sputum, No shortness of breath, No dyspnea on exertion Cardiovascular: No chest pain, No edema Abdomen: No pain, No nausea, No diarrhea Musculoskeletal: No joint pain, No muscle pain, No swelling Neurologic: No memory loss, No paralysis, No numbness/tingling Physical Exam: General Appearance: WD/WN, no apparent distress Cardiovascular: regular rate, rhythm, no murmur Abdomen / GI: normal bowel sounds, non tender, soft Extremities: no pedal edema, normal range of motion Hospital Course 62yo male with acute renal stone s/p stent and left sided uretheral cancer- obstructing 3cm right-sided kidney stone - s/p right-sided ureteral stent placement will have office follow up for definitive stone treatment. Needs f/u with Dr. Loving as outpatient for stone management and management of left-sided urothelial cancer. Improving acute renal failure in setting of CKD stage 3 - Hold lasix & MARVIN. at discharge with follow up with urology Dr. Desai recommending 1 more day in hospital, then follow-up with his primary residential property manager as scheduled THIS COMING FRIDAY. resolved hyperkalemia - 2nd acute renal failure HTN - continue carvedilol, diltiazem and clonidine. left-sided urethral cancer - management per urology. left-sided stent is in place due to previous obstruction from cancer. anemia - down 1.2 gm from 10/2017. recommended multivitamin and oral iron supplementation at discharge Total Time Spent: Greater than 30 minutes This includes examination of the patient, discharge planning, medication reconciliation, and communication with other providers. Discharge Instructions Please refer to the electronic Patient Visit Report (Discharge Instructions) for additional information.
== END 2017-11-16 12:35 | disposition home or self-care (01) | DRG 694 ==
LOC: C.MSW 14:28
PROVIDERS: ADMIT Internal Medicine; ATTEND Internal Medicine
PROC: 0T768DZ Dilation of Right Ureter with Intraluminal Device, Via Natural or Artificial Opening Endoscopic (ICD-10-PCS; principal; 2017-11-13 10:15)
DX: N13.2 Hydronephrosis with renal and ureteral calculous obstruction (principal); N17.9 Acute kidney failure, unspecified; I12.9 Hypertensive chronic kidney disease with stage 1 through stage 4 chronic kidney disease, or unspecified chronic kidney disease; N18.4 Chronic kidney disease, stage 4 (severe); D63.1 Anemia in chronic kidney disease; E87.5 Hyperkalemia; Z79.899 Other long term (current) drug therapy; Z87.891 Personal history of nicotine dependence

== ENCOUNTER → 2017-11-25 | Outpatient (CLI) | payer OTHER ==
[~2017-11-25] MED LIST changes: +ACET-1047 PO; +ACET-1311 PO; -CIPR250T3 PO; -CIPROFLOXACIN 200 MG / 100ML D5W IV SCH; -CIPROFLOXACIN IV SCH; -D5W IV SCH; -FRS/40 PO; -LISI40TA PO; +ONDA4TAB65 PO; +OXYC15TA89 PO; -OXYC7.5T65 PO; +RXC5 PEG
[2017-11-25 16:31] LABS: BASO % 0.8 %; BASO ABS # 0.07 K/uL (0-0.2); EOS % 8.2 %; EOS ABS # 0.69 K/uL (0-0.5); HEMATOCRIT 26.2 % (42-52); HEMOGLOBIN 8.6 g/dL (14.0-18.0); IG# 0.03 K/uL (0.00-0.02); LYMPH % 15.7 %; LYMPH ABS # 1.33 K/uL (1.2-3.4); MEAN CELL VOLUME 98.9 fL (80-100); MEAN CORPUSCULAR HEMOGLOBIN 32.5 pg (25-34); MEAN CORPUSCULAR HGB CONC 32.8 g/dl (32-36); MEAN PLATELET VOLUME 9.9 fL (7.4-10.4); MONO % 12.4 %; MONO ABS # 1.05 K/uL (0.11-0.59); NEUT % 62.5 %; NEUT ABS # 5.28 K/uL (1.4-6.5); PLATELET COUNT 425 K/uL (130-400); RED CELL DISTRIBUTION WIDTH SD 47.4 fL (36.4-46.3); WHITE BLOOD COUNT 8.45 K/uL (4.8-10.8)
[2017-11-25 16:55] LABS: BLOOD UREA NITROGEN 67 mg/dl (7-18); CALCIUM 9.7 mg/dl (8.5-10.1); CARBON DIOXIDE 20 mmol/L (21-32); CREATININE 3.97 mg/dl (0.60-1.40); GLUCOSE 85 mg/dl (70-99); SODIUM 138 mmol/L (136-145)
== END | disposition home or self-care (01) ==
LOC: C.LAB 15:10
PROVIDERS: ATTEND Urology
DX: N20.0 Calculus of kidney (principal)

== ENCOUNTER 2017-12-18 05:17 | Inpatient (IN) | payer OTHER ==
[2017-11-26 10:27] VITALS: BMI 33.0
[~2017-12-18] VITALS: Ht 188 cm; Wt 113.0 kg
[2017-12-18] VITALS (16 sets, daily range): BP systolic 93–170; BP diastolic 51–82; PULSE 62–85; TEMP 36.2–36.8; O2SAT 92–98; Ht 188 cm; Wt 113.0 kg
[~2017-12-18 05:17] MED LIST changes: -ACET-1047 PO; -RXC5 PEG
[2017-12-18] MEDS ORDERED: CIPROFLOXACIN / D5W 400 MG IV SCH (06:00)
[2017-12-18] MEDS ORDERED: CIPROFLOXACIN 200MG / D5W IV SCH (06:00)
[2017-12-18] MEDS ORDERED: SODIUM CHLORIDE 0.9% 1000ML 1,000 ML IV SCH (06:00)
--- NOTE | 2017-12-18 06:56 | History & Physical Bridge Note ---
H&P Re-Evaluation Bridge Note: I have examined the patient, reviewed the History & Physical and in the interval since the performance of the History & Physical I have noted the following changes of clinical significance: No changes noted Here for right PCNL. Right Nephrostomy tube in place.
[2017-12-18] MEDS ORDERED: LIDOCAINE HCL 2% 2 ML VIAL (20MG/ML) ONE (07:08)
[2017-12-18] MEDS ORDERED: PROPOFOL IV EMULSION 10 MG/ML 20 ML VIAL IV ONE (07:08)
[2017-12-18] MEDS ORDERED: GLYCOPYRROLATE INJ 0.2 MG/ML VIAL ONE ×2 (07:08→10:17)
[2017-12-18] MEDS ORDERED: MIDAZOLAM HCL 1 MG/ML 2ML VIAL ONE (07:08)
[2017-12-18] MEDS ORDERED: NEOSTIGMINE METHYLSULFATE 5 MG/5 ML SYR ONE (07:08)
[2017-12-18] MEDS ORDERED: ONDANSETRON INJ 2 MG/ML 2 ML VIAL ONE ×2 (07:08→12:14)
[2017-12-18] MEDS ORDERED: DEXAMETHASONE SOD INJ 4 MG/ML VIAL ONE (07:08)
[2017-12-18] MEDS ORDERED: FENTANYL CITRATE INJ 50 MCG/1 ML 2 ML VIAL ONE ×3 (07:08→13:20)
[2017-12-18] MEDS ORDERED: Cysto-Conray II 17.2% 250ML BOTTLE ONE (07:09)
[2017-12-18] MEDS ORDERED: BUPIVACAINE 0.5 % 5 MG/1 ML MPF 30ML VIAL ONE (07:09)
[2017-12-18] MEDS ORDERED: LARYING-O-JET KIT (LTA) ONE (07:11)
--- NOTE | 2017-12-18 08:02 | Anesthesiology Progress Note ---
Anesthesia Progress Note Date of Service Dec 18, 2017. Progress Notes Patient has history of hyperkalemia and anemia. Last set of labs in computer . Den ISTAT to recheck which showed a K of 5.8 and H/H of 6.8/20 (was drawn on opposite arm of IV). STAT CBC and BMP ordered by Anais. then provided packet from [facility] of labs drawn 11/16/17. These showed an H/H of 9.3/27.4 (stat CBC cancelled) and K of 5.6. Stat potassium level still to be drawn and rechecked [facility] paper chart. Dr. Loving aware of all the above.
[2017-12-18] MEDS ORDERED: DEXTROSE 50% 50 ML SYR ONE (08:21)
[2017-12-18] MEDS ORDERED: NovoLIN-R INSULIN PER UNIT CHARGE IV STA (08:23)
[2017-12-18] MEDS ORDERED: DEXTROSE 50% 50 ML SYR IV ONE ×2 (08:30→20:00)
[2017-12-18] MEDS ORDERED: CISATRACURIUM BESYLATE IV SOLN 2 MG/ML 10 ML VIAL ONE (10:17)
[2017-12-18] MEDS ORDERED: EpHEDrine SULFATE 50MG/5ML SYR ONE (10:29)
[2017-12-18] MEDS ORDERED: PHENYLEPHRINE HCL INJ 10 MG/ML VIAL ONE (10:29)
[2017-12-18] MEDS ORDERED: GELATIN SPONGE SZ 100 ONE (11:08)
--- NOTE | 2017-12-18 11:39 | [facility] Operative Report ---
Operative Report Operative Date Dec 18, 2017. Pre-Operative Diagnosis Right Large UPJ/Staghorn Stone Post-Operative Diagnosis Same Procedure(s) Performed PCNL with lithoclast stone distruction and extraction, contrast injection for nephrostogram, and Nephrostomy tube exchange. Surgeon Inder Gonzalez Plastic Cutter Surgeon(s) Julio Estimated Blood Loss 25 Findings Large stone in UPJ on right. Nephrostomy tube placed at OLF. Specimens Stone for analysis. Stone for culture. Drains Right 10 Fr Nephrostomy tube. Right 6 x 26 Double J Ureteral Stent Anesthesia Type General Complication(s) none Disposition Recovery Room / PACU Indications Large stone with obstruction of right kidney and worsening renal function. Risks and benefits discussed at length. Description of Procedure Patient was consented and brought back to the operating room. Patient was placed under general anesthesia and intubated in the supine position and moved to the prone position. Patient was prepped and draped in the regular sterile fashion. A time out was completed. The nephrostomy tube was prepped while on the field. A nephrostogram was completed. The pigtail lock was released and a wire placed. With a wire in place the tube was removed. An incision was made at the skin level and into the subcutaneous tissues. An 8/10 Fr dilator was placed into the track and the track dilated. A second safety wire was placed into the 10 fr sheath. The dilator was removed. The balloon dilator with nephrostomy sheath was placed. Fluoroscopy was utilized to confirm position. Contrast was placed into the pump and the balloon was elevated under fluoroscopy. The track was dilated to a pressure of 14mmhg. After adequate dilation, the balloon pressure was decreased and the sheath was advanced over the balloon. It was confirmed with fluoroscopy. With the sheath in place, the nephroscope was placed. The entire area was examined. No concerning areas of injury or bleeding were noted. The stone was identified. The lithoclast device was placed and destruction of stone commenced. Stone fragments were irrigated and collected. A grasper was used to extract larger stone fragment. With the stone pulverized and the stone burden removed the entire area was again visualized. The UPJ and all calyx appeared clear without fragments or areas of concern. At this point the scope was removed and a wire replaced. The sheath was removed, and pressure was placed for 5 minutes over the area. Gelfoam was placed into the subcutaneous tissue for additional hemostasis. A 10 Fr nephrostomy tube was placed. A nephrostogram was completed and the tube was found to be in good position. The nephrostogram showed no other areas of concern and the tube and stent were visualized on fluoroscopy. The area was cleaned. The tube sutured in position and the area was bandaged. Slight pressure was applied with the dressing and bulking. The patient was further cleaned and transferred to the supine position. Dr. Niels Loving assisted with the entire procedure and was integral during access, sheath placement, and use of the nephroscope. Sarah Kim assisted throughout the case and assisted with equipment utilization, maintaining access , and retrieval of specimen. She also assisted with final nephrostomy tube placement and closure as well as bandaging. The patient was aroused from anesthesia and transferred to the pacu in stable condition having tolerated the procedure well with no complications. I was present and participated in all aspects of the procedure. The patient will be monitored in the PACU until transferred. I attest to the content of the Intraoperative Record and any orders documented therein. Any exceptions are noted below.
[2017-12-18] MEDS ORDERED: ONDANSETRON INJ 2 MG/ML 2 ML VIAL IV PRN ×2 (11:45→12:00)
[2017-12-18] MEDS ORDERED: OXYCODONE/ACETAMINOPHEN 7.5-325 TAB PO PRN (11:45)
[2017-12-18] MEDS ORDERED: HYDROmorphone INJ 1 MG/ML SYR IV PRN (11:45)
[2017-12-18] MEDS ORDERED: FLUMAZENIL 0.1 MG/1 ML 10 ML VIAL IV PRN (12:00)
[2017-12-18] MEDS ORDERED: EpHEDrine SULFATE INJ 50 MG/ML AMP IV PRN (12:00)
[2017-12-18] MEDS ORDERED: FENTANYL CITRATE INJ 50 MCG/1 ML 2 ML VIAL IV PRN (12:00)
[2017-12-18] MEDS ORDERED: NALOXONE HCL 0.4 MG/1 ML VIAL/CARP IV PRN (12:00)
[2017-12-18] MEDS ORDERED: ATROPINE SULFATE 0.1 MG/ML 5ML SYR IV PRN (12:00)
[2017-12-18 12:02] LABS: ISTAT CREATININE 4.3 mg/dl (0.6-1.3); ISTAT IONIZED CALCIUM 1.3 mmol/l (1.12-1.32); ISTAT POTASSIUM 5.8 mEq/L (3.3-5.0)
--- NOTE | 2017-12-18 12:07 | DIAGNOSTIC IMAGING REPORT ---
RETROGRADE INCLUDES KUB CLINICAL HISTORY: 62 years-old Male presenting with PERCUTANEOUS NEPHROLITHOTOMY. TECHNIQUE: 10 fluoroscopic spot image(s) obtained as part of an intraoperative procedure. COMPARISON: 11/13/2017. FINDINGS/IMPRESSION: A right nephrostomy tube and right ureteral stent noted at the initiation of the procedure. Subsequently, contrast was injected into the right renal collecting system. Redemonstration of the large filling defect in the renal pelvis consistent with calculus. A guidewire was then placed through the nephrostomy tube into an upper pole calyx. A tract was then dilated and a new nephrostomy tube placed for a more inferiorly. The right ureteral stent was removed. Please see surgical report for further details. Fluoroscopy dosage (mGy): 163.55. Fluoroscopy time: 428.8 seconds. Number of fluoroscopic spot images: 10. Electronically signed by: Bro Renee M.D. 12/18/2017 12:05 PM Dictated Date/Time: 12/18/2017 12:02 PM
[2017-12-18 12:09] LABS: ISTAT CREATININE 4.2 mg/dl (0.6-1.3); ISTAT IONIZED CALCIUM 1.34 mmol/l (1.12-1.32); ISTAT POTASSIUM 5.4 mEq/L (3.3-5.0)
[2017-12-18 12:13] LABS: HEMATOCRIT 22.4 % (42-52); HEMOGLOBIN 7.5 g/dL (14.0-18.0)
[2017-12-18 12:20] LABS: MEAN PLATELET VOLUME 9.5 fL (7.4-10.4); PLATELET COUNT 264 K/uL (130-400); RED CELL DISTRIBUTION WIDTH CV 13.6 % (11.5-14.5); RED CELL DISTRIBUTION WIDTH SD 49.4 fL (36.4-46.3); WHITE BLOOD COUNT 8.92 K/uL (4.8-10.8)
[2017-12-18 12:22] LABS: MEAN CORPUSCULAR HGB CONC 33.5 g/dl (32-36)
[2017-12-18 12:37] LABS: MEAN CELL VOLUME 98.2 fL (80-100)
--- NOTE | 2017-12-18 13:00 | Anesthesiology Progress Note ---
Anesthesia Post Op Note Date & Time Dec 18, 2017 at 12:59 Vital Signs Pain Intensity: 2 Vital Signs Past 12 Hours Date Time Temp Pulse Resp B/P (MAP) Pulse Ox O2 Delivery O2 Flow Rate FiO2 12/18/17 12:45 36.2 62 18 134/69 96 Nasal Cannula 3 12/18/17 12:35 62 16 136/68 96 Nasal Cannula 3 12/18/17 12:25 66 16 136/71 96 Nasal Cannula 3 12/18/17 12:15 68 16 135/69 96 Nasal Cannula 3 12/18/17 12:05 73 16 127/64 97 Nasal Cannula 3 12/18/17 11:55 67 16 125/68 98 Oxymask 3 12/18/17 11:46 36.1 68 14 113/62 100 Oxymask 5 12/18/17 05:55 36.8 85 20 103/55 (71) 96 Room Air 93/51 (65) Notes Mental Status: alert / awake / arousable, participated in evaluation Pt Amnestic to Procedure: Yes Nausea / Vomiting: adequately controlled Pain: adequately controlled Airway Patency, RR, SpO2: stable & adequate BP & HR: stable & adequate Hydration State: stable & adequate Anesthetic Complications: no major complications apparent patient w/postop K+ 5.9.Hospitalist and Brim Buster to consult and treat hyperkalemia and anemia.
[2017-12-18] MEDS ORDERED: NURSING VERBAL MED ORDER ONE (13:45)
[2017-12-18] MEDS ORDERED: SODIUM POLYST. SULF SUSP 15G/60ML PO STA (15:19)
--- NOTE | 2017-12-18 15:32 | Medical Consult ---
Consultation Date of Consultation: Dec 18, 2017. Attending Physician: Niels Loving MD, Urology History of Present Illness 62-year-old man with hypertension, obesity, and left renal mass and right obstructive staghorn stone. Presented to the hospital for scheduled PCNL with lithoclast stone distruction and extraction followed by Nephrostomy tube exchange. Procedure went uneventful, but patient was noticed to have low hemoglobin and high potassium. We were consulted for medical co care. Patient left renal biopsy was consistent with high-grade urothelial carcinoma. Unfortunately it appears that his right kidney is not working well. As per outpatient records his last creatinine was 4 Eventually he will require dialysis. Currently he had no complaints prior to admission Family History Diabetes mellitus Hypertension Social History Smoking Status: Former Smoker Drug Use: none Marital Status: Occupation Status: employed Allergies Coded Allergies: Statins (Verified Adverse Reaction, Mild, GI UPSET, 12/18/17) Current Inpatient Medications Current Inpatient Medications Medications (Trade) Dose Ordered Sig/Solitario Route Start Time Stop Time Status Last Admin Dose Admin Sodium Chloride 1,000 ml @ 15 mls/hr Q24H IV 12/18/17 06:00 12/19/17 05:59 12/18/17 06:06 15 MLS/HR Ciprofloxacin/ Dextrose 200 mg/ Prmx 100 ml @ 100 mls/hr PREOP@0600 IV 12/18/17 06:00 12/18/17 18:00 12/18/17 08:29 100 MLS/HR Fentanyl Citrate (Fentanyl Inj) 25 mcg Q5M PRN IV 12/18/17 12:00 12/18/17 20:00 Naloxone HCl (Narcan Inj) 0.2 mg Q2M PRN IV 12/18/17 12:00 12/18/17 20:00 Flumazenil (Romazicon Inj) 0.2 mg Q2M PRN IV 12/18/17 12:00 12/18/17 20:00 Ondansetron HCl (Zofran Inj) 4 mg ONE PRN IV 12/18/17 12:00 12/18/17 20:00 Ephedrine Sulfate (EpHEDrine SULFATE INJ) 5 mg Q5M PRN IV 12/18/17 12:00 12/18/17 20:00 Atropine Sulfate (Atropine Sulfate 0.1mg/ml Inj) 0.5 mg Q1M PRN IV 12/18/17 12:00 12/18/17 20:00 Acetaminophen (Tylenol Tab) 500 mg Q6H PO 12/18/17 16:00 01/17/18 11:44 Docusate Sodium (coLACE CAP) 100 mg BID PO 12/18/17 21:00 01/17/18 20:59 Hydromorphone HCl (Dilaudid Inj) 1 mg Q2H PRN IV 12/18/17 11:45 01/01/18 11:44 Lactated Ringer's 1,000 ml @ 125 mls/hr Q8H IV 12/18/17 11:45 01/17/18 11:44 Ondansetron HCl (Zofran Inj) 4 mg Q6H PRN IV 12/18/17 11:45 01/17/18 11:44 Oxycodone/ Acetaminophen (Percocet 7.5-325MG Tab) Hold Tylenol if given Q4H PRN PO 12/18/17 11:45 01/01/18 11:44 Carvedilol (Coreg Tab) 3.125 mg QAM PO 12/19/17 09:00 01/18/18 08:59 Clonidine HCl (Catapres Tab) 0.3 mg QAM PO 12/19/17 09:00 01/18/18 08:59 Diltiazem HCl (Dilacor Xr Cap) 240 mg QAM PO 12/19/17 09:00 01/18/18 08:59 Ciprofloxacin/ Dextrose 200 mg/ Prmx 100 ml @ 100 mls/hr Q12H IV 12/18/17 20:00 12/19/17 19:59 Review of Systems Review of system Constitutional: No fever / no chills / no sweats / no weakness / no fatigue Eyes: no blurring of vision / no eye pain / no discharge / no redness ENT: no hearing loss / no epistaxis /no swallowing problems Respiratory: no cough / no wheezing / no SOB / no hemoptysis Cardiovascular: no Chest pain / no lower extremity edema / no palpitation Abdomen: no pain / no nausea / no vomiting / no constipation Musculoskeletal: no joint pain / no muscle pain / no joint swelling Genitourinary: no dysuria / no incontinence / no urinary retention Neurologic: no focal weakness / no numbness/tingling / no ataxia Psychiatric: no depression symptoms / no anxiety / no insomnia Endocrine: no excessive thirst / no excessive urination Hematologic: no abnormal bleeding / no bruising / no LN swelling Skin: No rash / no pallor Physical Exam Date Time Temp Pulse Resp B/P (MAP) Pulse Ox O2 Delivery O2 Flow Rate FiO2 12/18/17 14:57 36.6 66 17 145/80 92 Room Air 12/18/17 14:40 36.6 66 17 143/80 92 12/18/17 14:15 36.3 67 16 149/75 97 12/18/17 14:00 36.3 68 18 146/76 98 3.0 12/18/17 13:45 36.2 64 18 140/71 96 3.0 12/18/17 13:35 36.4 62 18 148/73 96 3.0 12/18/17 13:30 36.2 69 16 148/73 97 3.0 12/18/17 13:30 62 16 148/73 97 Nasal Cannula 3 12/18/17 13:15 62 19 134/73 98 Nasal Cannula 3 12/18/17 13:05 64 18 124/66 96 Nasal Cannula 3 12/18/17 12:55 66 18 138/71 98 Nasal Cannula 3 12/18/17 12:45 36.2 62 18 134/69 96 Nasal Cannula 3 12/18/17 12:35 62 16 136/68 96 Nasal Cannula 3 12/18/17 12:25 66 16 136/71 96 Nasal Cannula 3 12/18/17 12:15 68 16 135/69 96 Nasal Cannula 3 12/18/17 12:05 73 16 127/64 97 Nasal Cannula 3 12/18/17 11:55 67 16 125/68 98 Oxymask 3 12/18/17 11:46 36.1 68 14 113/62 100 Oxymask 5 12/18/17 05:55 36.8 85 20 103/55 (71) 96 Room Air 93/51 (65) Physical examination General patient appears to be comfortable, not in acute distress HEENT: Atraumatic , normocephalic /no jaundice /no pallor /anicteric /no dry mucous membrane /normal external ear inspection Neck: Supple /no swelling /central trach Heart: S1/S2 normal/regular rate and rhythm/no gallop /no rub /no murmur Lungs: Clear to auscultation bilaterally/normal chest with expansion/no rhonchi/ no rales/no wheezing/no use of accessory muscles of respiration Abdomen: Soft/nontender/no guarding/no rebound/no organomegaly/no pulsatile mass , right nephrostomy tube appears to be in place Musculoskeletal: No swelling/no edema/no tenderness/normal range of motion Neuro exam: Awake alert oriented 3/cranial nerves II through XII appear to be intact/sensation intact/moves all extremities/no abnormal movements Psychiatric evaluation: No depressed mood/normal affect Skin: No rash on exposed skin area/no erythema, appears pale Extremity: Normal pulse/no pitting edema/no clubbing or cyanosis Endocrine/lymphatic: No obvious lymphadenopathy /no lymphedema Laboratory Results Last 24 Hours Test 12/18/17 07:50 12/18/17 07:54 12/18/17 08:11 12/18/17 10:01 Bedside Hemoglobin 6.8 g/dl 6.5 g/dl Bedside Hematocrit 20 % 19 % Bedside Sodium 139 mEq/L 138 mEq/L Bedside Potassium 5.8 mEq/L 5.4 mEq/L Bedside Chloride 112 mEq/L 111 mEq/L Bedside Total CO2 17 mEq/l 19 mEq/l Anion Gap 16.0 mmol/L 15.0 mmol/L Bedside Blood Urea Nitrogen 52 mg/dl 56 mg/dl Bedside Creatinine 4.3 mg/dl 4.2 mg/dl Bedside Glucose (other) 109 mg/dl 110 mg/dl Bedside Ionized Calcium (Ascencion) 1.30 mmol/l 1.34 mmol/l Potassium Level 5.7 mmol/L Bedside Glucose 116 mg/dl Test 12/18/17 11:15 12/18/17 11:48 12/18/17 11:57 12/18/17 15:18 Bedside Glucose 129 mg/dl White Blood Count 8.92 K/uL Red Blood Count 2.30 M/uL Hemoglobin 7.5 g/dL Hematocrit 22.4 % Mean Corpuscular Volume 98.2 fL Mean Corpuscular Hemoglobin 33.0 pg Mean Corpuscular Hemoglobin Concent 33.5 g/dl RDW Standard Deviation 49.4 fL RDW Coefficient of Variation 13.6 % Platelet Count 264 K/uL Mean Platelet Volume 9.5 fL Potassium Level 5.9 mmol/L Test 12/18/17 15:19 2/15/18 15:20 Assessment & Plan 62-year-old man with hypertension, obesity, and left renal mass/ high-grade urothelial carcinoma, and right obstructive staghorn stone. s/p PCNL with lithoclast stone destruction and extraction followed by Nephrostomy tube exchange. Procedure went uneventful, but patient was noticed to have low hemoglobin and high potassium. 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 1 dose of Kayexalate EKG to monitor for hyperkalemia changes Potassium level is 5.9, will monitor closely Nephrology consult 1 unit blood transfusions ordered UA, follow-up H and H Anemia study SCD boots for DVT prophylaxis We will leave pharmacologic DVT prophylaxis up to primary team
[2017-12-18] MEDS ORDERED: SODIUM POLYST. SULF SUSP 15G/60ML PO ONE ×2 (16:00→20:30)
--- NOTE | 2017-12-18 16:22 | Nephrology Consultation ---
Nephrology Consultation Date & Providers Date of Consultation: Dec 18, 2017. Primary Care Provider: Winston Hopkins D.O. Referring Provider: Reason for Consultation Evaluation management for acute kidney injury with history of advanced CKD. History of Present Illness Mr. Domingo is a 62-year-old gentlemen with past medical history significant for stage 3 CKD, hypertension , nephrolithiasis and TCC of left kidney admitted to the hospital with DARELL and rt sided hydronephrosis Nephrologic consult was requested to manage DARELL and hyperkalemia. Mr. Domingo was admitted to the hospital today for PCNL for right-sided staghorn calculus, had surgery uneventful currently has right nephrostomy tube in place, right ureteral stent which was placed a month ago was removed. He was initially diagnosed with staghorn calculus in September 2017 when he had hematuria, he was evaluated by Urology at that time. He was admitted to the hospital in November with acute kidney injury when he was found to have right- sided hydronephrosis had right-sided nephrostomy tube and had right ureteral stent. Creatinine was 5.2 during that admission which improved her to 3.7 prior to discharge and has been staying around 3.7-4.0. On admission today creatinine was 4.2, he has hyperkalemia potassium was 5.9 and metabolic acidosis. He has been voiding normally. Was also found to have significant anemia hemoglobin was 6.4, currently improved to 7.2 and he is receiving 1 unit of blood transfusion. Prior workup showed adequate iron store. He was just discharged from [facility] yesterday after admitted few days ago with DARELL and hyperkalemia, records not available. He has not been on ACEI/ ARB. having difficulty understanding low K diet. Was on Lasix at home once daily. Mr Domingo has stage 4 CKD of unknown etiology, b/l cr seems to be around 2.5-3.0, but lately staying around 3.7-4.0. He follows with [facility] at [place] and was scheduled for vein mapping for future AVF placement but did not have it yet Has hypertension, seems to be well controlled. Allergies Coded Allergies: Statins (Verified Adverse Reaction, Mild, GI UPSET, 12/18/17) Inpatient Medications Current Inpatient Medications Medications (Trade) Dose Ordered Sig/Solitario Route Start Time Stop Time Status Last Admin Dose Admin Sodium Chloride 1,000 ml @ 15 mls/hr Q24H IV 12/18/17 06:00 12/19/17 05:59 12/18/17 06:06 15 MLS/HR Ciprofloxacin/ Dextrose 200 mg/ Prmx 100 ml @ 100 mls/hr PREOP@0600 IV 12/18/17 06:00 12/18/17 18:00 12/18/17 08:29 100 MLS/HR Fentanyl Citrate (Fentanyl Inj) 25 mcg Q5M PRN IV 12/18/17 12:00 12/18/17 20:00 Naloxone HCl (Narcan Inj) 0.2 mg Q2M PRN IV 12/18/17 12:00 12/18/17 20:00 Flumazenil (Romazicon Inj) 0.2 mg Q2M PRN IV 12/18/17 12:00 12/18/17 20:00 Ondansetron HCl (Zofran Inj) 4 mg ONE PRN IV 12/18/17 12:00 12/18/17 20:00 Ephedrine Sulfate (EpHEDrine SULFATE INJ) 5 mg Q5M PRN IV 12/18/17 12:00 12/18/17 20:00 Atropine Sulfate (Atropine Sulfate 0.1mg/ml Inj) 0.5 mg Q1M PRN IV 12/18/17 12:00 12/18/17 20:00 Acetaminophen (Tylenol Tab) 500 mg Q6H PO 12/18/17 16:00 01/17/18 11:44 Docusate Sodium (coLACE CAP) 100 mg BID PO 12/18/17 21:00 01/17/18 20:59 Hydromorphone HCl (Dilaudid Inj) 1 mg Q2H PRN IV 12/18/17 11:45 01/01/18 11:44 Lactated Ringer's 1,000 ml @ 125 mls/hr Q8H IV 12/18/17 11:45 01/17/18 11:44 Ondansetron HCl (Zofran Inj) 4 mg Q6H PRN IV 12/18/17 11:45 01/17/18 11:44 Oxycodone/ Acetaminophen (Percocet 7.5-325MG Tab) Hold Tylenol if given Q4H PRN PO 12/18/17 11:45 01/01/18 11:44 Carvedilol (Coreg Tab) 3.125 mg QAM PO 12/19/17 09:00 01/18/18 08:59 Clonidine HCl (Catapres Tab) 0.3 mg QAM PO 12/19/17 09:00 01/18/18 08:59 Diltiazem HCl (Dilacor Xr Cap) 240 mg QAM PO 12/19/17 09:00 01/18/18 08:59 Ciprofloxacin/ Dextrose 200 mg/ Prmx 100 ml @ 100 mls/hr Q12H IV 12/18/17 20:00 12/19/17 19:59 Family History Diabetes mellitus Hypertension Family history significant for hypertension diabetes, no history of chronic kidney disease or end-stage renal disease. Social History Smoking Status: Former Smoker Drug Use: none Marital Status: Housing Status: lives with significant other Occupation: employed Review of Systems A complete review of systems was performed. Pertinent positives are noted above. All other systems are negative. Physical Exam Date Time Temp Pulse Resp B/P (MAP) Pulse Ox O2 Delivery O2 Flow Rate FiO2 12/18/17 14:57 36.6 66 17 145/80 92 Room Air 12/18/17 14:40 36.6 66 17 143/80 92 12/18/17 14:15 36.3 67 16 149/75 97 12/18/17 14:00 36.3 68 18 146/76 98 3.0 12/18/17 13:45 36.2 64 18 140/71 96 3.0 12/18/17 13:35 36.4 62 18 148/73 96 3.0 12/18/17 13:30 36.2 69 16 148/73 97 3.0 12/18/17 13:30 62 16 148/73 97 Nasal Cannula 3 12/18/17 13:15 62 19 134/73 98 Nasal Cannula 3 12/18/17 13:05 64 18 124/66 96 Nasal Cannula 3 12/18/17 12:55 66 18 138/71 98 Nasal Cannula 3 12/18/17 12:45 36.2 62 18 134/69 96 Nasal Cannula 3 12/18/17 12:35 62 16 136/68 96 Nasal Cannula 3 12/18/17 12:25 66 16 136/71 96 Nasal Cannula 3 12/18/17 12:15 68 16 135/69 96 Nasal Cannula 3 12/18/17 12:05 73 16 127/64 97 Nasal Cannula 3 12/18/17 11:55 67 16 125/68 98 Oxymask 3 12/18/17 11:46 36.1 68 14 113/62 100 Oxymask 5 12/18/17 05:55 36.8 85 20 103/55 (71) 96 Room Air 93/51 (65) GENERAL: Middle-aged male, AAA x 3, pleasant, healthy-appearing, not in any distress. HEENT: Atraumatic, normocephalic. NECK: Supple, no JVD, no carotid bruit appreciated. ENT: No sinus tenderness MOUTH and THROAT: Moist oral mucosa, no oral ulcer or pharyngeal erythema RESPIRATORY: Normal breathing efforts, no accessory muscle use, clear to auscultation bilaterally, no wheezes or rales. CARDIOVASCULAR: S1, S2 normal, rate rhythm regular. ABDOMEN: Soft, nontender, positive bowel sound. MUSCULOSKELETAL: No joint swelling, erythema or tenderness. Normal range of motion. SKIN: No skin rash Back: rt nephrostomy EXTREMITY: No lower extremity edema NEURO: No gross focal neurological deficit, speech fluent. PSYCHIATRY: Normal mood and judgment Laboratory Results Last 24 Hours Test 12/18/17 07:50 12/18/17 07:54 12/18/17 08:11 12/18/17 10:01 Bedside Hemoglobin 6.8 g/dl 6.5 g/dl Bedside Hematocrit 20 % 19 % Bedside Sodium 139 mEq/L 138 mEq/L Bedside Potassium 5.8 mEq/L 5.4 mEq/L Bedside Chloride 112 mEq/L 111 mEq/L Bedside Total CO2 17 mEq/l 19 mEq/l Anion Gap 16.0 mmol/L 15.0 mmol/L Bedside Blood Urea Nitrogen 52 mg/dl 56 mg/dl Bedside Creatinine 4.3 mg/dl 4.2 mg/dl Bedside Glucose (other) 109 mg/dl 110 mg/dl Bedside Ionized Calcium (Ascencion) 1.30 mmol/l 1.34 mmol/l Potassium Level 5.7 mmol/L Bedside Glucose 116 mg/dl Test 12/18/17 11:15 12/18/17 11:48 12/18/17 11:57 12/18/17 15:18 Bedside Glucose 129 mg/dl White Blood Count 8.92 K/uL Red Blood Count 2.30 M/uL Hemoglobin 7.5 g/dL Hematocrit 22.4 % Mean Corpuscular Volume 98.2 fL Mean Corpuscular Hemoglobin 33.0 pg Mean Corpuscular Hemoglobin Concent 33.5 g/dl RDW Standard Deviation 49.4 fL RDW Coefficient of Variation 13.6 % Platelet Count 264 K/uL Mean Platelet Volume 9.5 fL Potassium Level 5.9 mmol/L Impression Mr. Domingo is a 62-year-old gentlemen with advanced CKD baseline creatinine around 2.8-3.0, nephrolithiasis, hypertension admitted to the hospital after patient had percutaneous nephro lithotomy for like right-sided staghorn calculus. Surgery was uncomplicated and patient now just came from PACU. He had right ureteral stent removed, has nephrostomy tube in place after stone was removed. He has history of advanced chronic kidney disease of unclear etiology, creatinine has been 2.8-3.0. In November he had an episode of acute kidney injury when creatinine was 5.2 in the setting of right-sided hydronephrosis with staghorn calculus. He had ureteral stent and nephrostomy tube placed eventually and had the PCNL this morning. During last admission his a creatinine eventually improved to 3.8 after ureteral stent was placed and he was discharged. On admission today his creatinine was 4.0, electrolyte acceptable. He follows with his office services representative in [facility] and there was plan to have AV fistula placed for possible dialysis in near future. Currently his blood pressure stable, otherwise asymptomatic. Recommendations --would discontinue IV fluid if po intake adequate. --record intake and output --Kayexalate 30 grams p.o. x1 dose now --sodium bicarbonate 650 milligram orally twice a day --dose medications for GFR less than 30 --start on Venofer and MARYLOU --may need GI w/u if not done. --left upper extremity nephrology precaution in anticipation of AVF placement in near future --no acute indication for dialysis however may need in near future, will need to monitor electrolytes and volume status closely Thank you for allowing me to participate in your patient's care. It was a pleasure to see
[2017-12-18] MEDS ORDERED: CALCIUM GLUCONATE 10% 1,000 MG in SODIUM CHLORIDE 0.9% 50ML 50 ML IV SCH (16:30)
[2017-12-18] MEDS ORDERED: EPOETIN ALFA 20,000 UNITS/ML VIAL SQ SCH (16:30)
[2017-12-18] MEDS: LACTATED RINGER'S 1000ML 1,000 ML IV SCH ×2 (16:31→19:45)
[2017-12-18] MEDS: ACETAMINOPHEN 500 MG TAB PO SCH ×2 (16:31→20:51)
[2017-12-18] MEDS ORDERED: IRON SUCROSE INJ 200 MG in SODIUM CHLORIDE 0.9% 100ML 100 ML IV SCH (17:00)
[2017-12-18 18:47] LABS: HEMATOCRIT 27.4 % (42-52); MEAN CELL VOLUME 96.8 fL (80-100); MEAN CORPUSCULAR HEMOGLOBIN 31.8 pg (25-34); MEAN CORPUSCULAR HGB CONC 32.8 g/dl (32-36); MEAN PLATELET VOLUME 9.5 fL (7.4-10.4); PLATELET COUNT 247 K/uL (130-400); RED CELL DISTRIBUTION WIDTH CV 14.9 % (11.5-14.5); RED CELL DISTRIBUTION WIDTH SD 53.3 fL (36.4-46.3); RETIC COUNT % 1.1 % (0.5-2.0); WHITE BLOOD COUNT 10.43 K/uL (4.8-10.8)
[2017-12-18 19:08] LABS: ALBUMIN 2.8 gm/dl (3.4-5.0); CREATININE 4.32 mg/dl (0.60-1.40)
[2017-12-18 19:09] LABS: IG# 0.02 K/uL (0.00-0.02); LYMPH % 3.6 %; LYMPH ABS # 0.38 K/uL (1.2-3.4); MONO % 5.3 %; MONO ABS # 0.55 K/uL (0.11-0.59); NEUT % 90.9 %; NEUT ABS # 9.48 K/uL (1.4-6.5)
[2017-12-18 19:12] LABS: TOTAL PROTEIN 6.9 gm/dl (6.4-8.2)
[2017-12-18] MEDS ORDERED: INSULIN HUMAN REGULAR IV STA (19:57)
[2017-12-18] MEDS ORDERED: DEXTROSE 50% 50 ML SYR IV PRN (20:00)
[2017-12-18] MEDS ORDERED: ALBUTEROL 0.5% NEB SOLN 2.5 MG/0.5 ML VIAL INH STA (20:00)
[2017-12-18] MEDS: CIPROFLOXACIN / D5W 200 MG in PREMIXED IN D5W 100 ML IV SCH (20:10)
[2017-12-18] MEDS ORDERED: DEXTROSE 50% 50 ML SYR IV SCH (20:20)
[2017-12-18] MEDS ORDERED: INSULIN HUMAN REGULAR PER UNIT 10 UNITS in SYRINGE 9.9 ML IV SCH (20:30)
[2017-12-18] MEDS: DOCUSATE SODIUM 100 MG CAP PO SCH (20:52)
[2017-12-18] MEDS: SODIUM BICARBONATE 650 MG TAB PO SCH (20:52)
[2017-12-19] VITALS (7 sets, daily range): BP systolic 115–193; BP diastolic 66–99; PULSE 68–87; TEMP 36.6–37.4; O2SAT 94–100
[2017-12-19] MEDS: SODIUM POLYST. SULF SUSP 15G/60ML PO SCH ×6 (01:26→21:00)
[2017-12-19] MEDS: LACTATED RINGER'S 1000ML 1,000 ML IV SCH ×2 (01:32→11:52)
[2017-12-19] MEDS: ACETAMINOPHEN 500 MG TAB PO SCH ×4 (04:00→22:13)
[2017-12-19 04:09] LABS: BASO % 0.1 %; BASO ABS # 0.01 K/uL (0-0.2); HEMATOCRIT 27.5 % (42-52); IG# 0.03 K/uL (0.00-0.02); LYMPH % 6.8 %; LYMPH ABS # 0.68 K/uL (1.2-3.4); MEAN CELL VOLUME 95.2 fL (80-100); MEAN CORPUSCULAR HEMOGLOBIN 31.1 pg (25-34); MEAN CORPUSCULAR HGB CONC 32.7 g/dl (32-36); MEAN PLATELET VOLUME 9.7 fL (7.4-10.4); MONO % 10.9 %; MONO ABS # 1.08 K/uL (0.11-0.59); NEUT % 81.9 %; NEUT ABS # 8.14 K/uL (1.4-6.5); PLATELET COUNT 268 K/uL (130-400); RED CELL DISTRIBUTION WIDTH CV 15.1 % (11.5-14.5); RED CELL DISTRIBUTION WIDTH SD 53.1 fL (36.4-46.3); WHITE BLOOD COUNT 9.94 K/uL (4.8-10.8)
[2017-12-19 04:30] LABS: ALBUMIN 2.8 gm/dl (3.4-5.0); POTASSIUM 5.2 mmol/L (3.5-5.1)
[2017-12-19 04:32] LABS: PHOSPHORUS 4.2 mg/dl (2.5-4.9); TOTAL PROTEIN 6.9 gm/dl (6.4-8.2)
[2017-12-19] MEDS: CIPROFLOXACIN / D5W 200 MG in PREMIXED IN D5W 100 ML IV SCH (07:28)
[2017-12-19] MEDS: DILTIAZEM HCL 120 MG ER CAP PO SCH (07:31)
[2017-12-19] MEDS: CLONIDINE HCL 0.3 MG TAB PO SCH (07:31)
[2017-12-19] MEDS: DOCUSATE SODIUM 100 MG CAP PO SCH ×2 (07:31→21:00)
[2017-12-19] MEDS: CARVEDILOL 3.125 MG TAB PO SCH (07:32)
--- NOTE | 2017-12-19 07:57 | Anesthesiology Progress Note ---
Anesthesia Post Op Note Date & Time Dec 19, 2017 at 07:57 Vital Signs Pain Intensity: 2 Vital Signs Past 12 Hours Date Time Temp Pulse Resp B/P (MAP) Pulse Ox O2 Delivery O2 Flow Rate FiO2 12/19/17 07:52 36.8 84 18 173/99 (123) 94 12/19/17 04:00 Room Air 12/19/17 03:50 36.8 75 17 153/74 (100) 98 Room Air 12/19/17 00:02 36.6 68 18 150/77 (101) 94 Room Air 12/18/17 23:59 Room Air 12/18/17 20:13 73 16 96 Room Air 12/18/17 20:00 36.8 81 18 161/68 (99) 96 Room Air 12/18/17 20:00 95 Room Air Notes Mental Status: alert / awake / arousable Pt Amnestic to Procedure: Yes Nausea / Vomiting: adequately controlled Pain: adequately controlled Airway Patency, RR, SpO2: stable & adequate BP & HR: stable & adequate Hydration State: stable & adequate
--- NOTE | 2017-12-19 08:48 | Progress Note ---
Subjective Date of Service: Dec 19, 2017. (Sarah Kim CRNP) Subjective Pt evaluation today including: conversation w/ patient, chart review, lab review Voiding: lopez catheter in place (patent, draining light palmer colored urine ) 62 yo male s/p right PCNL. Potassium is 5.0 this morning. Pt reports n/v with the kayexalate. Cr of 4.0 this morning. H&H of 9.0 and 27.5 this morning. Received 2 units of PRBCs yesterday. He denies pain. PCN draining clear, yellow urine. Lopez draining light palmer urine with some sediment. (Sarah Kim CRNP) Review of Systems Constitutional: No fever, No chills Respiratory: No shortness of breath Cardiac: No chest pain Abdomen: No pain, No nausea, No vomiting Male : + hematuria Heme: No abnormal bleeding/bruising (Sarah Kim CRNP) Objective Vital Signs Date Time Temp Pulse Resp B/P (MAP) Pulse Ox O2 Delivery O2 Flow Rate FiO2 12/19/17 08:01 Room Air 12/19/17 07:52 36.8 84 18 173/99 (123) 94 12/19/17 04:00 Room Air 12/19/17 03:50 36.8 75 17 153/74 (100) 98 Room Air 12/19/17 00:02 36.6 68 18 150/77 (101) 94 Room Air 12/18/17 23:59 Room Air 12/18/17 20:13 73 16 96 Room Air 12/18/17 20:00 36.8 81 18 161/68 (99) 96 Room Air 12/18/17 20:00 95 Room Air 12/18/17 17:30 36.7 72 20 162/79 97 2.0 12/18/17 16:30 36.7 73 18 155/82 96 2.0 12/18/17 16:00 36.7 70 20 163/79 95 2.0 12/18/17 16:00 95 Room Air 12/18/17 15:48 36.7 66 20 170/79 97 2.0 12/18/17 15:33 36.7 70 18 168/81 96 12/18/17 15:21 36.6 65 20 164/81 98 2.0 12/18/17 14:57 36.6 66 17 145/80 92 Room Air 12/18/17 14:40 36.6 66 17 143/80 92 12/18/17 14:15 36.3 67 16 149/75 97 12/18/17 14:00 36.3 68 18 146/76 98 3.0 12/18/17 13:45 36.2 64 18 140/71 96 3.0 12/18/17 13:35 36.4 62 18 148/73 96 3.0 12/18/17 13:30 36.2 69 16 148/73 97 3.0 12/18/17 13:30 62 16 148/73 97 Nasal Cannula 3 12/18/17 13:15 62 19 134/73 98 Nasal Cannula 3 12/18/17 13:05 64 18 124/66 96 Nasal Cannula 3 12/18/17 12:55 66 18 138/71 98 Nasal Cannula 3 12/18/17 12:45 36.2 62 18 134/69 96 Nasal Cannula 3 12/18/17 12:35 62 16 136/68 96 Nasal Cannula 3 12/18/17 12:25 66 16 136/71 96 Nasal Cannula 3 12/18/17 12:15 68 16 135/69 96 Nasal Cannula 3 12/18/17 12:05 73 16 127/64 97 Nasal Cannula 3 12/18/17 11:55 67 16 125/68 98 Oxymask 3 12/18/17 11:46 36.1 68 14 113/62 100 Oxymask 5 (Sarah Kim, MANAGER LAW) Physical Exam General Appearance: no apparent distress Eyes: normal inspection ENT: hearing grossly normal Neck: no JVD Respiratory/Chest: no respiratory distress, no accessory muscle use Cardiovascular: no JVD Extremities: normal inspection Neurologic/Psychiatric: alert, normal mood/affect, oriented x 3 Skin: normal color (Sarah Kim, MANAGER LAW) Laboratory Results Last 24 Hours Test 12/18/17 10:01 12/18/17 11:15 12/18/17 11:48 12/18/17 11:57 Bedside Hemoglobin 6.5 g/dl Bedside Hematocrit 19 % Bedside Sodium 138 mEq/L Bedside Potassium 5.4 mEq/L Bedside Chloride 111 mEq/L Bedside Total CO2 19 mEq/l Anion Gap 15.0 mmol/L Bedside Blood Urea Nitrogen 56 mg/dl Bedside Creatinine 4.2 mg/dl Bedside Glucose (other) 110 mg/dl Bedside Ionized Calcium (Ascencion) 1.34 mmol/l Bedside Glucose 129 mg/dl White Blood Count 8.92 K/uL Red Blood Count 2.30 M/uL Hemoglobin 7.5 g/dL Hematocrit 22.4 % Mean Corpuscular Volume 98.2 fL Mean Corpuscular Hemoglobin 33.0 pg Mean Corpuscular Hemoglobin Concent 33.5 g/dl RDW Standard Deviation 49.4 fL RDW Coefficient of Variation 13.6 % Platelet Count 264 K/uL Mean Platelet Volume 9.5 fL Potassium Level 5.9 mmol/L Test 12/18/17 18:34 12/18/17 19:10 12/18/17 22:33 12/18/17 23:46 White Blood Count 10.43 K/uL Red Blood Count 2.83 M/uL Hemoglobin 9.0 g/dL Hematocrit 27.4 % Mean Corpuscular Volume 96.8 fL Mean Corpuscular Hemoglobin 31.8 pg Mean Corpuscular Hemoglobin Concent 32.8 g/dl Platelet Count 247 K/uL Mean Platelet Volume 9.5 fL Neutrophils (%) (Auto) 90.9 % Lymphocytes (%) (Auto) 3.6 % Monocytes (%) (Auto) 5.3 % Eosinophils (%) (Auto) 0.0 % Basophils (%) (Auto) 0.0 % Neutrophils # (Auto) 9.48 K/uL Lymphocytes # (Auto) 0.38 K/uL Monocytes # (Auto) 0.55 K/uL Eosinophils # (Auto) 0.00 K/uL Basophils # (Auto) 0.00 K/uL RDW Standard Deviation 53.3 fL RDW Coefficient of Variation 14.9 % Immature Granulocyte % (Auto) 0.2 % Immature Granulocyte # (Auto) 0.02 K/uL Absolute Reticulocyte Count 0.03 10^6/uL Percent Reticulocyte Count 1.1 % Sodium Level 137 mmol/L Potassium Level 6.0 mmol/L 5.2 mmol/L 5.2 mmol/L Chloride Level 111 mmol/L Carbon Dioxide Level 16 mmol/L Anion Gap 10.0 mmol/L Blood Urea Nitrogen 56 mg/dl Creatinine 4.32 mg/dl Est Creatinine Clear Calc Drug Dose 23.8 ml/min Estimated GFR () 16.0 Estimated GFR (Non- 13.8 BUN/Creatinine Ratio 13.0 Random Glucose 202 mg/dl Calcium Level 9.0 mg/dl Iron Level 245 mcg/dl Total Iron Binding Capacity 329 mcg/dl Transferrin 206 mg/dl Transferrin % Saturation 85 % Ferritin 419.2 ng/ml Total Bilirubin 0.6 mg/dl Aspartate Amino Transf (AST/SGOT) 14 U/L Alanine Aminotransferase (ALT/SGPT) 27 U/L Alkaline Phosphatase 50 U/L Total Protein 6.9 gm/dl Albumin 2.8 gm/dl Globulin 4.1 gm/dl Albumin/Globulin Ratio 0.7 Vitamin B12 Level 528 pg/mL Folate 15.59 ng/mL Urine Color YELLOW Urine Appearance TURBID Urine pH 5.0 Urine Specific [place] 1.019 Urine Protein 3+ Urine Glucose (UA) NEG Urine Ketones NEG Urine Occult Blood 3+ Urine Nitrite NEG Urine Bilirubin NEG Urine Urobilinogen NEG Urine Leukocyte Esterase LARGE Urine WBC (Auto) >30 /hpf Urine RBC (Auto) >30 /hpf Urine Hyaline Casts (Auto) 5-10 /lpf Urine Epithelial Cells (Auto) 20-30 /lpf Urine Bacteria (Auto) NEG Test 12/19/17 03:59 12/19/17 07:53 White Blood Count 9.94 K/uL Red Blood Count 2.89 M/uL Hemoglobin 9.0 g/dL Hematocrit 27.5 % Mean Corpuscular Volume 95.2 fL Mean Corpuscular Hemoglobin 31.1 pg Mean Corpuscular Hemoglobin Concent 32.7 g/dl Platelet Count 268 K/uL Mean Platelet Volume 9.7 fL Neutrophils (%) (Auto) 81.9 % Lymphocytes (%) (Auto) 6.8 % Monocytes (%) (Auto) 10.9 % Eosinophils (%) (Auto) 0.0 % Basophils (%) (Auto) 0.1 % Neutrophils # (Auto) 8.14 K/uL Lymphocytes # (Auto) 0.68 K/uL Monocytes # (Auto) 1.08 K/uL Eosinophils # (Auto) 0.00 K/uL Basophils # (Auto) 0.01 K/uL RDW Standard Deviation 53.1 fL RDW Coefficient of Variation 15.1 % Immature Granulocyte % (Auto) 0.3 % Immature Granulocyte # (Auto) 0.03 K/uL Sodium Level 138 mmol/L Potassium Level 5.2 mmol/L 5.0 mmol/L Chloride Level 110 mmol/L Carbon Dioxide Level 18 mmol/L Anion Gap 10.0 mmol/L Blood Urea Nitrogen 52 mg/dl Creatinine 4.00 mg/dl Est Creatinine Clear Calc Drug Dose 25.7 ml/min Estimated GFR () 17.5 Estimated GFR (Non- 15.1 BUN/Creatinine Ratio 13.1 Random Glucose 122 mg/dl Calcium Level 9.0 mg/dl Phosphorus Level 4.2 mg/dl Magnesium Level 1.6 mg/dl Total Bilirubin 0.2 mg/dl Aspartate Amino Transf (AST/SGOT) 32 U/L Alanine Aminotransferase (ALT/SGPT) 48 U/L Alkaline Phosphatase 53 U/L Total Protein 6.9 gm/dl Albumin 2.8 gm/dl Globulin 4.1 gm/dl Albumin/Globulin Ratio 0.7 (Sarah Kim CRNP) Assessment and Plan POD #1 s/p right PCNL. AFVSS. No cardiac events overnight. H&H stable this morning. Cr is stable. CT reviewed this morning. No evidence for residual stone fragments. Will cap his perc tube this morning. Possible d/c of tube later today if doing well. Will plan to leave lopez catheter in place for I&Os today. Possible TOV prior to d/c home. Clear liquids for now as tolerated for n/v. Can advance back to his renal diet as tolerated. Appreciate nephrology and medicine input. Suspect the pt will at least remain inpatient until tomorrow. (Sarah Kim CRNP) A/P 62 yo male POD#1 s/p R PCNL. Patient notes nausea / emesis with Kayexelate, Hb improved after transfusion, high UOP via nephrostomy, now clamped without flank pain or bother. Lopez remains in place. Intraop findings reviewed. Seen with ARELY, agree with evaluation. Appreciate nephrology and hospitalist contribution. NAD Soft, ND, NT A/P 62 yo male s/p R PCNL, doing fair. Comorbid male, will keep on clears until emesis improves. Expect he will remain an inpatient until tomorrow. Hopefully can DC nephrostomy, lopez and DC home tomorrow depending on medical input. (Niels Loving MD, Urology)
[2017-12-19] MEDS ORDERED: NURSING VERBAL MED ORDER ONE ×2 (09:45→15:00)
--- NOTE | 2017-12-19 09:45 | DIAGNOSTIC IMAGING REPORT ---
ABD/PELVIS NO IV OR ORAL CONT CLINICAL HISTORY: 62 years-old Male presenting with s/p PCNL. TECHNIQUE: Multidetector CT of the abdomen and pelvis was performed without the use of intravenous contrast. IV contrast: None. A dose lowering technique was used consistent with the principles of ALARA (as low as reasonably achievable). COMPARISON: Fluoroscopy from 12/18/2017. CT DOSE (mGy.cm): The estimated cumulative dose is 1202.23 mGy.cm. FINDINGS: Press Box Custodian topogram: Right percutaneous contrast media tube and bilateral ureteral stents in place. Gaseous distention of colon. Lung bases: Trace emphysema. Platelike opacities at the lung bases likely atelectasis or scarring. Mosaic attenuation could suggest small airways disease. Normal heart size. Coronary artery and aortic valve calcification. The intraventricular blood pool is less dense and adjacent myocardium suggesting anemia No pericardial or pleural effusion. Liver: Normal morphology. Density consistent with hepatic steatosis. Biliary: No gross biliary ductal dilatation allowing for noncontrast technique. Normal gallbladder. Pancreas: Normal noncontrast appearance. Spleen: Normal noncontrast appearance. Adrenal glands: Normal noncontrast appearance. Kidneys and ureters: A percutaneous right nephrostomy tube is in place with associated subcutaneous and soft tissue emphysema likely from recent placement. The tube terminates in a lower pole calyx. An adjacent right ureteral stent terminates in the same calyx. No right hydronephrosis. Gas in the collecting system likely related to tube placement. Multiple nonobstructing right renal calculi evident, the largest measuring 6 mm in the interpolar region. Extensive periureteral fat stranding on the right likely due to recent instrumentation in the presence of the stent. Mild nonspecific perinephric fat stranding bilaterally. Significant cortical atrophy of the upper pole of the left kidney. Hypoattenuation in the dilated left upper pole calyx. A left ureteral stent is in place. The left ureter is nondilated similar to the right. Less significant left periureteral fat stranding in comparison to the right. Nonobstructing calculus in the left kidney at the lower pole measuring 4 mm. No ureteral calculi. Bladder: Decompressed with a Watts catheter. Pelvic organs: Prostate enlargement likely secondary to benign prostatic hyperplasia. Bowel: Fluid in the mildly distended transverse colon suggests a diarrheal state. No colonic wall thickening or pericolonic inflammatory change. The appendix is normal. No bowel obstruction. Peritoneal cavity: No free fluid or intraperitoneal gas. Lymph nodes: No gross lymphadenopathy allowing for noncontrast technique. Vasculature: Atherosclerosis of the normal caliber abdominal aorta. Abdominal wall: Normal. Musculoskeletal: Degenerative changes of the spine. IMPRESSION: 1. Right percutaneous nephrostomy tube with bilateral ureteral stents in place. Significant urothelial inflammatory change may be due to the presence of the stents or recent instrumentation. Superimposed infection is considered less likely. 2. Bilateral nonobstructing nephrolithiasis. No ureteral calculi. 3. Significant cortical atrophy and calyceal dilatation in the left upper pole could suggest chronic reflux nephropathy. However, the high attenuation filling defect in the upper pole calyx of the left kidney raises concern for underlying hematoma, debris, or neoplasm. 4. Trace emphysema at the lung bases. 5. Hepatic steatosis. 6. A diarrheal state is suggested by fluid in the transverse colon. Electronically signed by: Bro Renee M.D. 12/19/2017 9:44 AM Dictated Date/Time: 12/19/2017 6:55 AM
[2017-12-19] MEDS ORDERED: PROMETHAZINE HCL INJ 12.5 MG in SODIUM CHLORIDE 0.9% 50ML 50 ML IV PRN (10:00)
[2017-12-19] MEDS ORDERED: HYDROmorphone INJ 1 MG/ML SYR IV PRN (10:15)
--- NOTE | 2017-12-19 12:08 | Nephrology Progress Note ---
Nephrology Progress Note Date of Service Dec 19, 2017. Chief Complaint F/U for acute kidney injury and hyperkalemia with history of advanced CKD. Subjective Mr. Domingo Was seen and examined in his room this morning. Has been having stomach upset, dry heaving and hiccup since this morning. Has been having lower abdominal pain since procedure yesterday. Hemoglobin improved after 1 unit of blood transfusion yesterday. Potassium improved, renal function seems to be stable creatinine 4.0. Has been having decent urine output continues to have Watts catheter and nephrostomy tube. Review of Systems A complete review of systems was performed. Pertinent positives are noted above. All other systems are negative. Vital Signs Last 8 Hrs Date Time Temp Pulse Resp B/P (MAP) Pulse Ox O2 Delivery O2 Flow Rate FiO2 12/19/17 08:01 Room Air 12/19/17 07:52 36.8 84 18 173/99 (123) 94 Last Recorded Weight Weight (Kilograms): 111.000 Physical Exam GENERAL: Middle-aged may, AAA x 3, pleasant, healthy-appearing, not in any distress. NECK: Supple, no JVD. RESPIRATORY: Normal breathing efforts, no accessory muscle use, clear to auscultation bilaterally, no wheezes or rales. CARDIOVASCULAR: S1, S2 normal, rate rhythm regular. EXTREMITY: No lower extremity edema NEURO: speech fluent. PSYCHIATRY: Normal mood and judgment Family History Diabetes mellitus Hypertension Family history significant for hypertension diabetes, no history of chronic kidney disease or end-stage renal disease. Social History Drug Use: none Marital Status: Housing Status: lives with significant other Occupation: employed Laboratory Results Past 24 Hours 12/18/17 18:34 Red Blood Count 2.83, Mean Corpuscular Volume 96.8, Mean Corpuscular Hemoglobin 31.8, Mean Corpuscular Hemoglobin Concent 32.8, Mean Platelet Volume 9.5, Neutrophils (%) (Auto) 90.9, Lymphocytes (%) (Auto) 3.6, Monocytes (%) (Auto) 5.3, Eosinophils (%) (Auto) 0.0, Basophils (%) (Auto) 0.0, Neutrophils # (Auto) 9.48, Lymphocytes # (Auto) 0.38, Monocytes # (Auto) 0.55, Eosinophils # (Auto) 0.00, Basophils # (Auto) 0.00 12/19/17 03:59 Red Blood Count 2.89, Mean Corpuscular Volume 95.2, Mean Corpuscular Hemoglobin 31.1, Mean Corpuscular Hemoglobin Concent 32.7, Mean Platelet Volume 9.7, Neutrophils (%) (Auto) 81.9, Lymphocytes (%) (Auto) 6.8, Monocytes (%) (Auto) 10.9, Eosinophils (%) (Auto) 0.0, Basophils (%) (Auto) 0.1, Neutrophils # (Auto ) 8.14, Lymphocytes # (Auto) 0.68, Monocytes # (Auto) 1.08, Eosinophils # (Auto ) 0.00, Basophils # (Auto) 0.01 12/18/17 18:34 12/18/17 22:33 12/18/17 23:46 12/19/17 03:59 12/19/17 07:53 Test 12/18/17 18:34 12/18/17 19:10 12/19/17 03:59 12/19/17 10:33 White Blood Count 10.43 K/uL (4.8-10.8) 9.94 K/uL (4.8-10.8) Red Blood Count 2.83 M/uL (4.7-6.1) 2.89 M/uL (4.7-6.1) Hemoglobin 9.0 g/dL (14.0-18.0) 9.0 g/dL (14.0-18.0) Hematocrit 27.4 % (42-52) 27.5 % (42-52) Mean Corpuscular Volume 96.8 fL (80-100) 95.2 fL (80-100) Mean Corpuscular Hemoglobin 31.8 pg (25-34) 31.1 pg (25-34) Mean Corpuscular Hemoglobin Concent 32.8 g/dl (32-36) 32.7 g/dl (32-36) Platelet Count 247 K/uL (130-400) 268 K/uL (130-400) Mean Platelet Volume 9.5 fL (7.4-10.4) 9.7 fL (7.4-10.4) Neutrophils (%) (Auto) 90.9 % 81.9 % Lymphocytes (%) (Auto) 3.6 % 6.8 % Monocytes (%) (Auto) 5.3 % 10.9 % Eosinophils (%) (Auto) 0.0 % 0.0 % Basophils (%) (Auto) 0.0 % 0.1 % Neutrophils # (Auto) 9.48 K/uL (1.4-6.5) 8.14 K/uL (1.4-6.5) Lymphocytes # (Auto) 0.38 K/uL (1.2-3.4) 0.68 K/uL (1.2-3.4) Monocytes # (Auto) 0.55 K/uL (0.11-0.59) 1.08 K/uL (0.11-0.59) Eosinophils # (Auto) 0.00 K/uL (0-0.5) 0.00 K/uL (0-0.5) Basophils # (Auto) 0.00 K/uL (0-0.2) 0.01 K/uL (0-0.2) RDW Standard Deviation 53.3 fL (36.4-46.3) 53.1 fL (36.4-46.3) RDW Coefficient of Variation 14.9 % (11.5-14.5) 15.1 % (11.5-14.5) Immature Granulocyte % (Auto) 0.2 % 0.3 % Immature Granulocyte # (Auto) 0.02 K/uL (0.00-0.02) 0.03 K/uL (0.00-0.02) Absolute Reticulocyte Count 0.03 10^6/uL (0.02-0.10) Percent Reticulocyte Count 1.1 % (0.5-2.0) Anion Gap 10.0 mmol/L (3-11) 10.0 mmol/L (3-11) Est Creatinine Clear Calc Drug Dose 23.8 ml/min 25.7 ml/min Estimated GFR () 16.0 17.5 Estimated GFR (Non- 13.8 15.1 BUN/Creatinine Ratio 13.0 (10-20) 13.1 (10-20) Calcium Level 9.0 mg/dl (8.5-10.1) 9.0 mg/dl (8.5-10.1) Iron Level 245 mcg/dl (35-175) Total Iron Binding Capacity 329 mcg/dl (250-450) Transferrin 206 mg/dl (200-360) Transferrin % Saturation 85 % (20-50) Ferritin 419.2 ng/ml (8.0-388.0) Total Bilirubin 0.6 mg/dl (0.2-1) 0.2 mg/dl (0.2-1) Aspartate Amino Transf (AST/SGOT) 14 U/L (15-37) 32 U/L (15-37) Alanine Aminotransferase (ALT/SGPT) 27 U/L (12-78) 48 U/L (12-78) Alkaline Phosphatase 50 U/L (45-117) 53 U/L (45-117) Total Protein 6.9 gm/dl (6.4-8.2) 6.9 gm/dl (6.4-8.2) Albumin 2.8 gm/dl (3.4-5.0) 2.8 gm/dl (3.4-5.0) Globulin 4.1 gm/dl (2.5-4.0) 4.1 gm/dl (2.5-4.0) Albumin/Globulin Ratio 0.7 (0.9-2) 0.7 (0.9-2) Vitamin B12 Level 528 pg/mL (211-911) Folate 15.59 ng/mL (>5.38) Urine Color YELLOW Urine Appearance TURBID (CLEAR) Urine pH 5.0 (4.5-7.5) Urine Specific [place] 1.019 (1.000-1.030) Urine Protein 3+ (NEG) Urine Glucose (UA) NEG (NEG) Urine Ketones NEG (NEG) Urine Occult Blood 3+ (NEG) Urine Nitrite NEG (NEG) Urine Bilirubin NEG (NEG) Urine Urobilinogen NEG (NEG) Urine Leukocyte Esterase LARGE (NEG) Urine WBC (Auto) >30 /hpf (0-5) Urine RBC (Auto) >30 /hpf (0-4) Urine Hyaline Casts (Auto) 5-10 /lpf (0-5) Urine Epithelial Cells (Auto) 20-30 /lpf (0-5) Urine Bacteria (Auto) NEG (NEG) Phosphorus Level 4.2 mg/dl (2.5-4.9) Magnesium Level 1.6 mg/dl (1.8-2.4) Allergies Coded Allergies: Statins (Verified Adverse Reaction, Mild, GI UPSET, 2/15/18) Medications Current Inpatient Medications Medications (Trade) Dose Ordered Sig/Solitario Route Start Time Stop Time Status Last Admin Dose Admin Acetaminophen (Tylenol Tab) 500 mg Q6H PO 12/18/17 16:00 01/17/18 11:44 12/18/17 20:51 500 MG Docusate Sodium (coLACE CAP) 100 mg BID PO 12/18/17 21:00 01/17/18 20:59 12/19/17 07:31 100 MG Lactated Ringer's 1,000 ml @ 125 mls/hr Q8H IV 12/18/17 11:45 01/17/18 11:44 12/19/17 11:52 125 MLS/HR Ondansetron HCl (Zofran Inj) 4 mg Q6H PRN IV 12/18/17 11:45 01/17/18 11:44 12/19/17 07:29 4 MG Oxycodone/ Acetaminophen (Percocet 7.5-325MG Tab) Hold Tylenol if given Q4H PRN PO 12/18/17 11:45 01/01/18 11:44 Carvedilol (Coreg Tab) 3.125 mg QAM PO 12/19/17 09:00 01/18/18 08:59 12/19/17 07:32 3.125 MG Clonidine HCl (Catapres Tab) 0.3 mg QAM PO 12/19/17 09:00 01/18/18 08:59 12/19/17 07:31 0.3 MG Diltiazem HCl (Dilacor Xr Cap) 240 mg QAM PO 12/19/17 09:00 01/18/18 08:59 12/19/17 07:31 240 MG Ciprofloxacin/ Dextrose 200 mg/ Prmx 100 ml @ 100 mls/hr Q12H IV 12/18/17 20:00 12/19/17 19:59 12/19/17 07:28 100 MLS/HR Sodium Bicarbonate (Sodium Bicarbonate Tab) 650 mg BID PO 12/18/17 21:00 01/17/18 20:59 12/18/17 20:52 650 MG Sodium Polystyrene Sulfonate (Kayexalate Susp) 30 gm Q4H PO 12/19/17 01:00 01/18/18 00:59 12/19/17 01:26 30 GM Dextrose (Dextrose 50% 50ML Syringe) 50 ml PRN PRN IV 12/18/17 20:00 01/17/18 19:59 Miscellaneous Information (Pending Order) 1 ea Q4H N/A 12/19/17 00:30 01/18/18 00:29 Promethazine HCl 12.5 mg/Sodium Chloride 50.5 ml @ 202 mls/hr Q6H PRN IV 12/19/17 10:00 01/18/18 09:59 12/19/17 10:30 202 MLS/HR Hydromorphone HCl (Dilaudid Inj) 1 mg Q2H PRN IV 12/19/17 10:15 01/02/18 10:14 12/19/17 10:13 1 MG Impression Mr. Domingo is a 62-year-old gentlemen with advanced CKD baseline creatinine around 2.8-3.0, nephrolithiasis, hypertension admitted to the hospital after patient had percutaneous nephro lithotomy for like right-sided staghorn calculus. Surgery was uncomplicated and patient now just came from PACU. He had right ureteral stent removed, has nephrostomy tube in place after stone was removed. He has history of advanced chronic kidney disease of unclear etiology, creatinine has been 2.8-3.0. In November he had an episode of acute kidney injury when creatinine was 5.2 in the setting of right-sided hydronephrosis with staghorn calculus. He had ureteral stent and nephrostomy tube placed eventually and had the PCNL this morning. During last admission his a creatinine eventually improved to 3.8 after ureteral stent was placed and he was discharged. On admission today his creatinine was 4.0, electrolyte acceptable. He follows with his integrity director in [facility] and there was plan to have AV fistula placed for possible dialysis in near future. Currently his blood pressure stable, otherwise asymptomatic. Recommendations --renal function remained stable, creatinine 4.0 cm close to his baseline, remain non-oliguric. --record intake and output --sodium bicarbonate 650 milligram orally twice a day --dose medications for GFR less than 30 --on Venofer and MARYLOU --dietary consult to help with low-potassium diet --left upper extremity nephrology precaution in anticipation of AVF placement in near future, patient has appointment for AV fistula on December 29 --no acute indication for dialysis however may need in near future, will need to monitor electrolytes and volume status closely --continue to hold Lasix for now, can be resumed on discharge. Will follow
[2017-12-19] MEDS: SODIUM BICARBONATE 650 MG TAB PO SCH ×2 (12:14→22:12)
[2017-12-19] MEDS ORDERED: OXYCODONE HCL IR 5 MG TAB (IMMEDIATE RELEASE) PO PRN (13:30)
[2017-12-19] MEDS ORDERED: BISACODYL 10 MG SUPP PR PRN (14:00)
--- NOTE | 2017-12-19 14:08 | Hospitalist Progress Note ---
Hospitalist Progress Note Date of Service Dec 19, 2017. 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 Now improved with phenergan, but has the hiccups. Has not passed flatus, no BM in 4 days. Has some crampy abd pain like he has to have a BM,no flank pain No CP or SOB. Tele with NSR 80s-120s with getting OOB All Other Systems: Reviewed and Negative Objective Vital Signs Date Time Temp Pulse Resp B/P (MAP) Pulse Ox O2 Delivery O2 Flow Rate FiO2 12/19/17 12:15 37.1 86 20 193/96 (128) 94 Room Air 12/19/17 12:03 Room Air 12/19/17 08:01 Room Air 12/19/17 07:52 36.8 84 18 173/99 (123) 94 12/19/17 04:00 Room Air 12/19/17 03:50 36.8 75 17 153/74 (100) 98 Room Air 12/19/17 00:02 36.6 68 18 150/77 (101) 94 Room Air 12/18/17 23:59 Room Air 12/18/17 20:13 73 16 96 Room Air 12/18/17 20:00 36.8 81 18 161/68 (99) 96 Room Air 12/18/17 20:00 95 Room Air 12/18/17 17:30 36.7 72 20 162/79 97 2.0 12/18/17 16:30 36.7 73 18 155/82 96 2.0 12/18/17 16:00 36.7 70 20 163/79 95 2.0 12/18/17 16:00 95 Room Air 12/18/17 15:48 36.7 66 20 170/79 97 2.0 12/18/17 15:33 36.7 70 18 168/81 96 12/18/17 15:21 36.6 65 20 164/81 98 2.0 12/18/17 14:57 36.6 66 17 145/80 92 Room Air 12/18/17 14:40 36.6 66 17 143/80 92 12/18/17 14:15 36.3 67 16 149/75 97 12/18/17 14:00 36.3 68 18 146/76 98 3.0 Physical Exam General Appearance: WD/WN, no apparent distress Eyes: normal inspection, sclerae normal ENT: hearing grossly normal Neck: trachea midline Respiratory/Chest: lungs clear, normal breath sounds, no respiratory distress, no accessory muscle use Cardiovascular: regular rate, rhythm, no edema, no murmur Abdomen: non tender, soft, + pertinent finding (hypoactive BS) Extremities: non-tender, normal inspection, no pedal edema, no calf tenderness Neurologic/Psychiatric: alert, normal mood/affect, oriented x 3 Skin: normal color, warm/dry, no rash Laboratory Results Last 24 Hours Test 12/18/17 18:34 12/18/17 19:10 12/18/17 22:33 12/18/17 23:46 White Blood Count 10.43 K/uL Red Blood Count 2.83 M/uL Hemoglobin 9.0 g/dL Hematocrit 27.4 % Mean Corpuscular Volume 96.8 fL Mean Corpuscular Hemoglobin 31.8 pg Mean Corpuscular Hemoglobin Concent 32.8 g/dl Platelet Count 247 K/uL Mean Platelet Volume 9.5 fL Neutrophils (%) (Auto) 90.9 % Lymphocytes (%) (Auto) 3.6 % Monocytes (%) (Auto) 5.3 % Eosinophils (%) (Auto) 0.0 % Basophils (%) (Auto) 0.0 % Neutrophils # (Auto) 9.48 K/uL Lymphocytes # (Auto) 0.38 K/uL Monocytes # (Auto) 0.55 K/uL Eosinophils # (Auto) 0.00 K/uL Basophils # (Auto) 0.00 K/uL RDW Standard Deviation 53.3 fL RDW Coefficient of Variation 14.9 % Immature Granulocyte % (Auto) 0.2 % Immature Granulocyte # (Auto) 0.02 K/uL Absolute Reticulocyte Count 0.03 10^6/uL Percent Reticulocyte Count 1.1 % Sodium Level 137 mmol/L Potassium Level 6.0 mmol/L 5.2 mmol/L 5.2 mmol/L Chloride Level 111 mmol/L Carbon Dioxide Level 16 mmol/L Anion Gap 10.0 mmol/L Blood Urea Nitrogen 56 mg/dl Creatinine 4.32 mg/dl Est Creatinine Clear Calc Drug Dose 23.8 ml/min Estimated GFR () 16.0 Estimated GFR (Non- 13.8 BUN/Creatinine Ratio 13.0 Random Glucose 202 mg/dl Calcium Level 9.0 mg/dl Iron Level 245 mcg/dl Total Iron Binding Capacity 329 mcg/dl Transferrin 206 mg/dl Transferrin % Saturation 85 % Ferritin 419.2 ng/ml Total Bilirubin 0.6 mg/dl Aspartate Amino Transf (AST/SGOT) 14 U/L Alanine Aminotransferase (ALT/SGPT) 27 U/L Alkaline Phosphatase 50 U/L Total Protein 6.9 gm/dl Albumin 2.8 gm/dl Globulin 4.1 gm/dl Albumin/Globulin Ratio 0.7 Vitamin B12 Level 528 pg/mL Folate 15.59 ng/mL Urine Color YELLOW Urine Appearance TURBID Urine pH 5.0 Urine Specific [place] 1.019 Urine Protein 3+ Urine Glucose (UA) NEG Urine Ketones NEG Urine Occult Blood 3+ Urine Nitrite NEG Urine Bilirubin NEG Urine Urobilinogen NEG Urine Leukocyte Esterase LARGE Urine WBC (Auto) >30 /hpf Urine RBC (Auto) >30 /hpf Urine Hyaline Casts (Auto) 5-10 /lpf Urine Epithelial Cells (Auto) 20-30 /lpf Urine Bacteria (Auto) NEG Test 12/19/17 03:59 12/19/17 07:53 12/19/17 10:33 12/19/17 11:58 White Blood Count 9.94 K/uL Red Blood Count 2.89 M/uL Hemoglobin 9.0 g/dL Hematocrit 27.5 % Mean Corpuscular Volume 95.2 fL Mean Corpuscular Hemoglobin 31.1 pg Mean Corpuscular Hemoglobin Concent 32.7 g/dl Platelet Count 268 K/uL Mean Platelet Volume 9.7 fL Neutrophils (%) (Auto) 81.9 % Lymphocytes (%) (Auto) 6.8 % Monocytes (%) (Auto) 10.9 % Eosinophils (%) (Auto) 0.0 % Basophils (%) (Auto) 0.1 % Neutrophils # (Auto) 8.14 K/uL Lymphocytes # (Auto) 0.68 K/uL Monocytes # (Auto) 1.08 K/uL Eosinophils # (Auto) 0.00 K/uL Basophils # (Auto) 0.01 K/uL RDW Standard Deviation 53.1 fL RDW Coefficient of Variation 15.1 % Immature Granulocyte % (Auto) 0.3 % Immature Granulocyte # (Auto) 0.03 K/uL Sodium Level 138 mmol/L Potassium Level 5.2 mmol/L 5.0 mmol/L 4.9 mmol/L Chloride Level 110 mmol/L Carbon Dioxide Level 18 mmol/L Anion Gap 10.0 mmol/L Blood Urea Nitrogen 52 mg/dl Creatinine 4.00 mg/dl Est Creatinine Clear Calc Drug Dose 25.7 ml/min Estimated GFR () 17.5 Estimated GFR (Non- 15.1 BUN/Creatinine Ratio 13.1 Random Glucose 122 mg/dl Calcium Level 9.0 mg/dl Phosphorus Level 4.2 mg/dl Magnesium Level 1.6 mg/dl Total Bilirubin 0.2 mg/dl Aspartate Amino Transf (AST/SGOT) 32 U/L Alanine Aminotransferase (ALT/SGPT) 48 U/L Alkaline Phosphatase 53 U/L Total Protein 6.9 gm/dl Albumin 2.8 gm/dl Globulin 4.1 gm/dl Albumin/Globulin Ratio 0.7 Assessment and Plan Pt is a 62-year-old man with hypertension, obesity, CKD stage V, and left renal mass/ high-grade urothelial carcinoma, and right obstructive staghorn stone. s/p PCNL with lithoclast stone destruction and extraction followed by Nephrostomy tube exchange. Procedure went uneventful, but patient was noticed to have low hemoglobin and high potassium with mnild renal insufficiency in setting of CKD prompting medical consultation Assessment: Left kidney high-grade urothelial carcinoma Right kidney staghorn obstructing stone Acute on chronic CKD stage IV-V renal failure Hyperkalemia-resolved Anemia unspecified but likely secondary to his chronic disease Hypertension-uncontrolled Obesity Clinically suspected obstructive sleep Ileus, N/V Plan Status post s/p PCNL with lithoclast stone destruction and extraction followed by Nephrostomy tube exchange. Kayexalate causing nausea, with ileus, CT abd/pel shows mild distension transverse colon with liquid/diarrheal state--> dc kayexalate, increase bowel regimen, antiemetics -Low potassium diet-needs dietary counseling -Dc LR IVFs today as does contain K+ and no longer needs IVFs-d/w Nephrology Nephrology consult appreciated 2 units PRBCs given and hgb now stable at 9.0, check Hemoccult Follow CBC On prophylactic Cipro Lopez remains in place Getting AVF placed in LUE on 12/27--> protect LUE COntinue home BP meds of clonidine, diltiazem, Coreg, add on IV Hydralazine prn SCD boots for DVT prophylaxis We will leave pharmacologic DVT prophylaxis up to primary team
[2017-12-19] MEDS ORDERED: HydrALAZINE HCL 20 MG/ML VIAL IV. PRN (14:15)
[2017-12-19] MEDS ORDERED: POLYETHYLENE (MIRALAX) 17 GM PACK PO ONE (15:15)
[2017-12-20] MEDS: SODIUM POLYST. SULF SUSP 15G/60ML PO SCH ×4 (01:00→11:45)
[2017-12-20 03:33] VITALS: BP 134/75; PULSE 82; TEMP 36.8; O2SAT 96
[2017-12-20] MEDS: ACETAMINOPHEN 500 MG TAB PO SCH ×4 (04:00→21:25)
[2017-12-20 06:57] LABS: BASO % 0.3 %; BASO ABS # 0.03 K/uL (0-0.2); HEMATOCRIT 25.1 % (42-52); HEMOGLOBIN 8.5 g/dL (14.0-18.0); IG# 0.05 K/uL (0.00-0.02); LYMPH % 10.9 %; LYMPH ABS # 1.08 K/uL (1.2-3.4); MEAN CELL VOLUME 94.4 fL (80-100); MEAN CORPUSCULAR HGB CONC 33.9 g/dl (32-36); MEAN PLATELET VOLUME 9.5 fL (7.4-10.4); MONO % 19.4 %; MONO ABS # 1.92 K/uL (0.11-0.59); NEUT % 65.9 %; NEUT ABS # 6.53 K/uL (1.4-6.5); PLATELET COUNT 246 K/uL (130-400); RED CELL DISTRIBUTION WIDTH CV 15.3 % (11.5-14.5); RED CELL DISTRIBUTION WIDTH SD 52.6 fL (36.4-46.3); WHITE BLOOD COUNT 9.91 K/uL (4.8-10.8)
[2017-12-20 07:24] LABS: CALCIUM 8.5 mg/dl (8.5-10.1); CREATININE 3.53 mg/dl (0.60-1.40); POTASSIUM 3.9 mmol/L (3.5-5.1)
[2017-12-20] MEDS: DILTIAZEM HCL 120 MG ER CAP PO SCH (07:41)
[2017-12-20] MEDS: CARVEDILOL 3.125 MG TAB PO SCH (07:41)
[2017-12-20] MEDS: DOCUSATE SODIUM 100 MG CAP PO SCH ×2 (07:41→21:27)
[2017-12-20] MEDS: SODIUM BICARBONATE 650 MG TAB PO SCH ×2 (07:42→21:27)
[2017-12-20] MEDS: CLONIDINE HCL 0.3 MG TAB PO SCH (07:42)
[2017-12-20 07:59] VITALS: BP 147/81; PULSE 83; TEMP 36.9; O2SAT 95
--- NOTE | 2017-12-20 08:18 | Progress Note ---
Subjective Date of Service: Dec 20, 2017. Subjective Pt evaluation today including: conversation w/ patient, physical exam, chart review, lab review, review of studies, review of inpatient medication list Pain: Improved abdominal pain, now with gassy discomfort PO Intake: Emesis yesterday, blessing clears this AM Voiding: lopez catheter in place (urine clear, R PCN capped) 62 yo male POD#2 s/p R PCNL. Yesterday he was noted to have a fair amount of abdominal pain and nausea / emesis. Both seem to have improved today. He notes gassy lower abdominal discomfort, no BM yet. He has tolerated a clear liquid tray, has a renal diet tray at bedside with appetite. He notes he has been ambulating regularly. Nephrology and hospitalist notes reviewed, input appreciated. No other specific complaints. Labwork noted - Cr improved to 3.5, Hb acceptable s/p transfusion 2 U PRBC. Review of Systems Constitutional: No fever, No chills Eyes: No worsening of vision ENT: No hearing loss, No unusual epistaxis Respiratory: No shortness of breath Cardiac: No chest pain Abdomen: No nausea (resolved) Male : + see HPI Neurologic: No memory loss, No paralysis Psychiatric: No depression symptoms Heme: No clotting problems Endo: No fatigue Skin: No new/changing skin lesions, No color change Objective Vital Signs Date Time Temp Pulse Resp B/P (MAP) Pulse Ox O2 Delivery O2 Flow Rate FiO2 12/20/17 07:59 36.9 83 18 147/81 (103) 95 Room Air 12/20/17 04:00 Room Air 12/20/17 03:33 36.8 82 22 134/75 (94) 96 Room Air 12/19/17 23:59 Room Air 12/19/17 23:39 37.4 87 18 117/73 (88) 96 Room Air 12/19/17 20:00 Room Air 12/19/17 16:36 36.8 77 18 115/66 (82) 100 Room Air 12/19/17 16:16 37.0 83 20 172/83 (112) 96 Room Air 12/19/17 16:02 Room Air 12/19/17 12:15 37.1 86 20 193/96 (128) 94 Room Air 12/19/17 12:03 Room Air Physical Exam General Appearance: WD/WN, no apparent distress ENT: normal ENT inspection Neck: supple, no adenopathy Respiratory/Chest: no respiratory distress, no accessory muscle use Cardiovascular: no JVD Abdomen: non tender, soft, + pertinent finding (PCN c/d/i) Extremities: non-tender Neurologic/Psychiatric: alert, oriented x 3 Skin: normal color Laboratory Results Last 24 Hours Test 12/19/17 11:58 12/19/17 15:54 12/19/17 19:55 12/19/17 23:32 Potassium Level 4.9 mmol/L 4.4 mmol/L 4.5 mmol/L 4.3 mmol/L Test 12/20/17 06:28 White Blood Count 9.91 K/uL Red Blood Count 2.66 M/uL Hemoglobin 8.5 g/dL Hematocrit 25.1 % Mean Corpuscular Volume 94.4 fL Mean Corpuscular Hemoglobin 32.0 pg Mean Corpuscular Hemoglobin Concent 33.9 g/dl Platelet Count 246 K/uL Mean Platelet Volume 9.5 fL Neutrophils (%) (Auto) 65.9 % Lymphocytes (%) (Auto) 10.9 % Monocytes (%) (Auto) 19.4 % Eosinophils (%) (Auto) 3.0 % Basophils (%) (Auto) 0.3 % Neutrophils # (Auto) 6.53 K/uL Lymphocytes # (Auto) 1.08 K/uL Monocytes # (Auto) 1.92 K/uL Eosinophils # (Auto) 0.30 K/uL Basophils # (Auto) 0.03 K/uL RDW Standard Deviation 52.6 fL RDW Coefficient of Variation 15.3 % Immature Granulocyte % (Auto) 0.5 % Immature Granulocyte # (Auto) 0.05 K/uL Red Blood Cell Morphology Unremarkable Sodium Level 139 mmol/L Potassium Level 3.9 mmol/L Chloride Level 109 mmol/L Carbon Dioxide Level 20 mmol/L Anion Gap 10.0 mmol/L Blood Urea Nitrogen 46 mg/dl Creatinine 3.53 mg/dl Est Creatinine Clear Calc Drug Dose 29.5 ml/min Estimated GFR () 20.4 Estimated GFR (Non- 17.6 BUN/Creatinine Ratio 12.9 Random Glucose 95 mg/dl Calcium Level 8.5 mg/dl Assessment and Plan A/P 62 yo male POD#2 s/p R PCNL. Will monitor how he tolerates renal diet. Ambulation and trial of void today. Labwork stable, R kidney remains stented. Anticipate DC of R PCN and DC home either later today or tomorrow AM depending on how patient feels and input of medical services. Treatment plan and findings reviewed with patient who vocalizes understanding. Discharge planning: home
--- NOTE | 2017-12-20 11:28 | Nephrology Progress Note ---
Nephrology Progress Note Date of Service Dec 20, 2017. Chief Complaint DARELL/CKD Subjective No acute events overnight. Watts has been removed. PCNL capped. No fevers or chills. Thiago overall feels well this morning. He denies significant pain. He is ambulating without difficulty. Appetite is good. Review of Systems A complete review of systems was performed. Pertinent positives are noted above. All other systems are negative. Vital Signs Last 8 Hrs Date Time Temp Pulse Resp B/P (MAP) Pulse Ox O2 Delivery O2 Flow Rate FiO2 12/20/17 08:05 Room Air 12/20/17 07:59 36.9 83 18 147/81 (103) 95 Room Air 12/20/17 04:00 Room Air 12/20/17 03:33 36.8 82 22 134/75 (94) 96 Room Air Last Recorded Weight Weight (Kilograms): 113.600 Physical Exam General Appearance: WD/WN, no apparent distress Head: normocephalic, atraumatic Eyes: normal inspection, sclerae normal ENT: normal ENT inspection, pharynx normal Neck: supple, no JVD Respiratory/Chest: lungs clear, no respiratory distress Cardiovascular: regular rate, rhythm, no gallop, no murmur Back: + pertinent finding (PCNL) Abdomen/GI: non tender, soft Extremities/Musculoskelatal: normal inspection, no pedal edema Neurologic/Psych: alert, normal mood/affect Family History Diabetes mellitus Hypertension Family history significant for hypertension diabetes, no history of chronic kidney disease or end-stage renal disease. Social History Drug Use: none Marital Status: Housing Status: lives with significant other Occupation: employed Laboratory Results Past 24 Hours 12/20/17 06:28 Red Blood Count 2.66, Mean Corpuscular Volume 94.4, Mean Corpuscular Hemoglobin 32.0, Mean Corpuscular Hemoglobin Concent 33.9, Mean Platelet Volume 9.5, Neutrophils (%) (Auto) 65.9, Lymphocytes (%) (Auto) 10.9, Monocytes (%) (Auto) 19.4, Eosinophils (%) (Auto) 3.0, Basophils (%) (Auto) 0.3, Neutrophils # (Auto ) 6.53, Lymphocytes # (Auto) 1.08, Monocytes # (Auto) 1.92, Eosinophils # (Auto ) 0.30, Basophils # (Auto) 0.03 2/16/18 11:58 12/19/17 15:54 12/19/17 19:55 12/19/17 23:32 12/20/17 06:28 Test 12/20/17 06:28 White Blood Count 9.91 K/uL (4.8-10.8) Red Blood Count 2.66 M/uL (4.7-6.1) Hemoglobin 8.5 g/dL (14.0-18.0) Hematocrit 25.1 % (42-52) Mean Corpuscular Volume 94.4 fL (80-100) Mean Corpuscular Hemoglobin 32.0 pg (25-34) Mean Corpuscular Hemoglobin Concent 33.9 g/dl (32-36) Platelet Count 246 K/uL (130-400) Mean Platelet Volume 9.5 fL (7.4-10.4) Neutrophils (%) (Auto) 65.9 % Lymphocytes (%) (Auto) 10.9 % Monocytes (%) (Auto) 19.4 % Eosinophils (%) (Auto) 3.0 % Basophils (%) (Auto) 0.3 % Neutrophils # (Auto) 6.53 K/uL (1.4-6.5) Lymphocytes # (Auto) 1.08 K/uL (1.2-3.4) Monocytes # (Auto) 1.92 K/uL (0.11-0.59) Eosinophils # (Auto) 0.30 K/uL (0-0.5) Basophils # (Auto) 0.03 K/uL (0-0.2) RDW Standard Deviation 52.6 fL (36.4-46.3) RDW Coefficient of Variation 15.3 % (11.5-14.5) Immature Granulocyte % (Auto) 0.5 % Immature Granulocyte # (Auto) 0.05 K/uL (0.00-0.02) Red Blood Cell Morphology Unremarkable Anion Gap 10.0 mmol/L (3-11) Est Creatinine Clear Calc Drug Dose 29.5 ml/min Estimated GFR () 20.4 Estimated GFR (Non- 17.6 BUN/Creatinine Ratio 12.9 (10-20) Calcium Level 8.5 mg/dl (8.5-10.1) Allergies Coded Allergies: Statins (Verified Adverse Reaction, Mild, GI UPSET, 12/18/17) Medications Current Inpatient Medications Medications (Trade) Dose Ordered Sig/Solitario Route Start Time Stop Time Status Last Admin Dose Admin Acetaminophen (Tylenol Tab) 500 mg Q6H PO 12/18/17 16:00 01/17/18 11:44 12/19/17 22:13 500 MG Docusate Sodium (coLACE CAP) 100 mg BID PO 12/18/17 21:00 01/17/18 20:59 12/20/17 07:41 100 MG Ondansetron HCl (Zofran Inj) 4 mg Q6H PRN IV 12/18/17 11:45 01/17/18 11:44 12/19/17 07:29 4 MG Carvedilol (Coreg Tab) 3.125 mg QAM PO 12/19/17 09:00 01/18/18 08:59 12/20/17 07:41 3.125 MG Clonidine HCl (Catapres Tab) 0.3 mg QAM PO 12/19/17 09:00 01/18/18 08:59 12/20/17 07:42 0.3 MG Diltiazem HCl (Dilacor Xr Cap) 240 mg QAM PO 12/19/17 09:00 01/18/18 08:59 12/20/17 07:41 240 MG Sodium Bicarbonate (Sodium Bicarbonate Tab) 650 mg BID PO 12/18/17 21:00 01/17/18 20:59 12/20/17 07:42 650 MG Sodium Polystyrene Sulfonate (Kayexalate Susp) 30 gm Q4H PO 12/19/17 01:00 01/18/18 00:59 12/19/17 01:26 30 GM Dextrose (Dextrose 50% 50ML Syringe) 50 ml PRN PRN IV 12/18/17 20:00 01/17/18 19:59 Miscellaneous Information (Pending Order) 1 ea Q4H N/A 12/19/17 00:30 01/18/18 00:29 Promethazine HCl 12.5 mg/Sodium Chloride 50.5 ml @ 202 mls/hr Q6H PRN IV 12/19/17 10:00 01/18/18 09:59 12/19/17 10:30 202 MLS/HR Hydromorphone HCl (Dilaudid Inj) 1 mg Q2H PRN IV 12/19/17 10:15 01/02/18 10:14 12/19/17 10:13 1 MG Oxycodone HCl (Roxicodone Immediate Rel Tab) 5 mg Q4 PRN PO 12/19/17 13:30 01/02/18 13:29 12/19/17 16:10 5 MG Bisacodyl (Dulcolax Supp) [address] 12/19/17 14:00 01/18/18 13:59 Hydralazine HCl (HydrALAZINE INJ) 10 mg Q8H PRN IV. 12/19/17 14:15 01/18/18 14:14 Impression (1) Acute renal failure (2) CKD (chronic kidney disease), stage IV (3) Right kidney stone (4) Left renal mass (5) Metabolic acidosis (6) Anemia (7) Hyperkalemia, diminished renal excretion Mr. Domingo is a 62-year-old male with advanced CKD. Baseline creatinine has been approximately 2.8-3.0 mg/dL. The patient follows with Dr. Katelyn Donato in [place]. He is scheduled to have AVF placed in January. Thiago's medical history is notable for nephrolithiasis and hypertension. He has hyperkalemia previously treated with valtessa. He prented wtih a R staghorn calculus and known lesions in the left kidney. Thiago is POD3@ s/p PCNL with lithoclast stone destruction and extraction and placement of double J ureteral stent. Currently blood pressure stable and volume status are acceptable. Electrolytes are appropriate. Potassium has improved. Recommendations DARELL: - Creatinine improving -- Medications appropriate for renal function -- Voiding trial CKD: -- Follow up with Dr. 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
[2017-12-20 12:02] VITALS: BP 109/66; PULSE 82; TEMP 37; O2SAT 95
[2017-12-20] MEDS ORDERED: NURSING VERBAL MED ORDER ONE ×2 (13:45→16:15)
[2017-12-20] MEDS ORDERED: POLYETHYLENE (MIRALAX) 17 GM PACK PO PRN (14:00)
[2017-12-20 15:18] VITALS: BP 107/66; PULSE 75; TEMP 36.8; O2SAT 97
[2017-12-20 19:11] VITALS: BP 123/57; PULSE 74; TEMP 37.3; O2SAT 95
--- NOTE | 2017-12-20 20:54 | Hospitalist Progress Note ---
Hospitalist Progress Note Date of Service Dec 20, 2017. Subjective Pt evaluation today including: conversation w/ patient Pt feeling much better todya, eating and drinking, no further N/V, no abd pain, no SOB or CP. He is ambulating the halls today.Afebrile, renal function improved All Other Systems: Reviewed and Negative Objective Vital Signs Date Time Temp Pulse Resp B/P (MAP) Pulse Ox O2 Delivery O2 Flow Rate FiO2 12/20/17 19:11 37.3 74 18 123/57 (79) 95 Room Air 12/20/17 16:02 Room Air 12/20/17 15:18 36.8 75 20 107/66 (80) 97 Room Air 12/20/17 12:03 Room Air 12/20/17 12:02 37.0 82 20 109/66 (80) 95 Room Air 12/20/17 08:05 Room Air 12/20/17 07:59 36.9 83 18 147/81 (103) 95 Room Air 12/20/17 04:00 Room Air 12/20/17 03:33 36.8 82 22 134/75 (94) 96 Room Air 12/19/17 23:59 Room Air 12/19/17 23:39 37.4 87 18 117/73 (88) 96 Room Air Physical Exam General Appearance: WD/WN, no apparent distress Eyes: normal inspection, sclerae normal ENT: hearing grossly normal Neck: trachea midline Respiratory/Chest: lungs clear, normal breath sounds, no respiratory distress, no accessory muscle use Cardiovascular: regular rate, rhythm, no edema, no murmur Abdomen: normal bowel sounds, non tender, soft, + pertinent finding (Right flank with nephrostomy tube in place) Extremities: normal inspection, no pedal edema, no calf tenderness Neurologic/Psychiatric: alert, normal mood/affect, oriented x 3 Skin: normal color, warm/dry, no rash Laboratory Results Last 24 Hours Test 12/19/17 23:32 12/20/17 06:28 Potassium Level 4.3 mmol/L 3.9 mmol/L White Blood Count 9.91 K/uL Red Blood Count 2.66 M/uL Hemoglobin 8.5 g/dL Hematocrit 25.1 % Mean Corpuscular Volume 94.4 fL Mean Corpuscular Hemoglobin 32.0 pg Mean Corpuscular Hemoglobin Concent 33.9 g/dl Platelet Count 246 K/uL Mean Platelet Volume 9.5 fL Neutrophils (%) (Auto) 65.9 % Lymphocytes (%) (Auto) 10.9 % Monocytes (%) (Auto) 19.4 % Eosinophils (%) (Auto) 3.0 % Basophils (%) (Auto) 0.3 % Neutrophils # (Auto) 6.53 K/uL Lymphocytes # (Auto) 1.08 K/uL Monocytes # (Auto) 1.92 K/uL Eosinophils # (Auto) 0.30 K/uL Basophils # (Auto) 0.03 K/uL RDW Standard Deviation 52.6 fL RDW Coefficient of Variation 15.3 % Immature Granulocyte % (Auto) 0.5 % Immature Granulocyte # (Auto) 0.05 K/uL Red Blood Cell Morphology Unremarkable Sodium Level 139 mmol/L Chloride Level 109 mmol/L Carbon Dioxide Level 20 mmol/L Anion Gap 10.0 mmol/L Blood Urea Nitrogen 46 mg/dl Creatinine 3.53 mg/dl Est Creatinine Clear Calc Drug Dose 29.5 ml/min Estimated GFR () 20.4 Estimated GFR (Non- 17.6 BUN/Creatinine Ratio 12.9 Random Glucose 95 mg/dl Calcium Level 8.5 mg/dl Assessment and Plan Pt is a 62-year-old man with hypertension, obesity, CKD stage V, and left renal mass/ high-grade urothelial carcinoma, and right obstructive staghorn stone. s/p PCNL with lithoclast stone destruction and extraction followed by Nephrostomy tube exchange. Procedure went uneventful, but patient was noticed to have low hemoglobin and high potassium with mild renal insufficiency in setting of CKD prompting medical consultation. Assessment: Left kidney high-grade urothelial carcinoma Right kidney staghorn obstructing stone Acute on chronic CKD stage IV-V renal failure-much improved Hyperkalemia-resolved Anemia unspecified but likely secondary to his chronic disease-received Epogen on 12/18, hgb 8.5 with slight drop from yesterday, is s/p 2 units PRBCs post-op Hypertension-controlled Obesity Clinically suspected obstructive sleep apnea Ileus, N/V--> completely resolved Plan Status post s/p PCNL with lithoclast stone destruction and extraction followed by Nephrostomy tube exchange. Kayexalate caused nausea, with ileus, CT abd/pel shows mild distension transverse colon with liquid/diarrheal state--> dcd kayexalate, increase bowel regimen, antiemetics and improving, awaiting BM, is blessing po -Low potassium diet-received dietary counseling Nephrology consult appreciated0-will f/u with outpt Lead [id number] after dc 2 units PRBCs given and hgb now stable at 8.5, check Hemoccult if has BM while here Follow CBC was on Cipro and now stopped Getting AVF placed in LUE on 12/27--> protect LUE Continue home BP meds of clonidine, diltiazem, Coreg, and IV Hydralazine prn SCD boots for DVT prophylaxis Dispo-possibly to home tomorrow
[2017-12-21 00:03] VITALS: BP 122/66; PULSE 75; TEMP 36.8; O2SAT 96
[2017-12-21 03:32] VITALS: BP 158/78; PULSE 78; TEMP 37.1; O2SAT 98
[2017-12-21] MEDS: ACETAMINOPHEN 500 MG TAB PO SCH ×2 (03:58→10:00)
[2017-12-21 05:48] LABS: BASO % 0.3 %; BASO ABS # 0.02 K/uL (0-0.2); EOS ABS # 0.32 K/uL (0-0.5); HEMATOCRIT 23.9 % (42-52); HEMOGLOBIN 8.1 g/dL (14.0-18.0); IG# 0.02 K/uL (0.00-0.02); LYMPH % 16.8 %; LYMPH ABS # 1.08 K/uL (1.2-3.4); MEAN CELL VOLUME 94.5 fL (80-100); MEAN CORPUSCULAR HGB CONC 33.9 g/dl (32-36); MEAN PLATELET VOLUME 8.8 fL (7.4-10.4); MONO % 14.9 %; MONO ABS # 0.96 K/uL (0.11-0.59); NEUT % 62.7 %; NEUT ABS # 4.03 K/uL (1.4-6.5); PLATELET COUNT 214 K/uL (130-400); RED CELL DISTRIBUTION WIDTH CV 14.8 % (11.5-14.5); WHITE BLOOD COUNT 6.43 K/uL (4.8-10.8)
[2017-12-21 06:21] LABS: CALCIUM 8.7 mg/dl (8.5-10.1); CREATININE 3.37 mg/dl (0.60-1.40)
[2017-12-21 07:51] VITALS: BP 151/82; PULSE 67; TEMP 36.9; O2SAT 97
[2017-12-21] MEDS: SODIUM BICARBONATE 650 MG TAB PO SCH (08:20)
[2017-12-21] MEDS: DOCUSATE SODIUM 100 MG CAP PO SCH (08:20)
[2017-12-21] MEDS: DILTIAZEM HCL 120 MG ER CAP PO SCH (08:20)
[2017-12-21] MEDS: CARVEDILOL 3.125 MG TAB PO SCH (08:20)
[2017-12-21] MEDS: CLONIDINE HCL 0.3 MG TAB PO SCH (08:21)
--- NOTE | 2017-12-21 10:29 | Progress Note ---
Subjective Date of Service: Dec 21, 2017. Subjective Pt evaluation today including: conversation w/ patient, physical exam, chart review, lab review, review of inpatient medication list Pain: Denies PO Intake: Rachel reg diet, no emesis or nausea Voiding: no voiding problems (lopez out, denies difficulties) 62 yo male POD#3 s/p R PCNL, doing well. He feels much improved, taking regular diet, voiding well. He notes minimal bother at PCN site, no other issues. Labwork noted - Cr slowly improving, slow downwards drift of Hb - no evidence or suspicion of ongoing bleeding, I suspect chronic anemia, Epo ordered by nephrology. He has no specific complaints, + BM, + ambulation, feeling well. Review of Systems Constitutional: No fever, No chills Eyes: No worsening of vision ENT: No hearing loss, No unusual epistaxis Respiratory: No shortness of breath Cardiac: No chest pain Abdomen: No pain, No nausea, No vomiting, No diarrhea Male : No dysuria Neurologic: No memory loss, No paralysis, No weakness, No numbness/tingling Psychiatric: No depression symptoms Endo: No fatigue Skin: No new/changing skin lesions Objective Vital Signs Date Time Temp Pulse Resp B/P (MAP) Pulse Ox O2 Delivery O2 Flow Rate FiO2 12/21/17 08:00 Room Air 12/21/17 07:51 36.9 67 22 151/82 (105) 97 Room Air 12/21/17 04:00 Room Air 12/21/17 03:32 37.1 78 16 158/78 (104) 98 Room Air 12/21/17 00:03 36.8 75 16 122/66 (84) 96 Room Air 12/20/17 23:59 Room Air 12/20/17 20:00 Room Air 12/20/17 19:11 37.3 74 18 123/57 (79) 95 Room Air 12/20/17 16:02 Room Air 12/20/17 15:18 36.8 75 20 107/66 (80) 97 Room Air 12/20/17 12:03 Room Air 12/20/17 12:02 37.0 82 20 109/66 (80) 95 Room Air Physical Exam General Appearance: WD/WN, no apparent distress ENT: hearing grossly normal Neck: supple, no adenopathy Respiratory/Chest: no respiratory distress, no accessory muscle use Cardiovascular: no JVD Abdomen: non tender, soft, + pertinent finding (nephrostomy site c/d/i) Extremities: non-tender Neurologic/Psychiatric: alert, oriented x 3 Skin: normal color Laboratory Results Last 24 Hours Test 12/21/17 05:35 White Blood Count 6.43 K/uL Red Blood Count 2.53 M/uL Hemoglobin 8.1 g/dL Hematocrit 23.9 % Mean Corpuscular Volume 94.5 fL Mean Corpuscular Hemoglobin 32.0 pg Mean Corpuscular Hemoglobin Concent 33.9 g/dl Platelet Count 214 K/uL Mean Platelet Volume 8.8 fL Neutrophils (%) (Auto) 62.7 % Lymphocytes (%) (Auto) 16.8 % Monocytes (%) (Auto) 14.9 % Eosinophils (%) (Auto) 5.0 % Basophils (%) (Auto) 0.3 % Neutrophils # (Auto) 4.03 K/uL Lymphocytes # (Auto) 1.08 K/uL Monocytes # (Auto) 0.96 K/uL Eosinophils # (Auto) 0.32 K/uL Basophils # (Auto) 0.02 K/uL RDW Standard Deviation 51.0 fL RDW Coefficient of Variation 14.8 % Immature Granulocyte % (Auto) 0.3 % Immature Granulocyte # (Auto) 0.02 K/uL Red Blood Cell Morphology Unremarkable Sodium Level 140 mmol/L Potassium Level 4.0 mmol/L Chloride Level 109 mmol/L Carbon Dioxide Level 22 mmol/L Anion Gap 9.0 mmol/L Blood Urea Nitrogen 52 mg/dl Creatinine 3.37 mg/dl Est Creatinine Clear Calc Drug Dose 30.8 ml/min Estimated GFR () 21.6 Estimated GFR (Non- 18.6 BUN/Creatinine Ratio 15.5 Random Glucose 98 mg/dl Calcium Level 8.7 mg/dl Assessment and Plan A/P 62 yo male POD#3 s/p R PCNL. R PCNL removed intact without difficulties, suture material removed, steri strips placed with dressing. Wound care reviewed, may shower tomorrow, drainage expected x 48 hours. No antibiotics should be needed on DC, notes he has pain meds at home, OTC stool softeners PRN. Outpatient follow-up visits and activity limitations reviewed. Has upcoming appointment with outside nephrology this week with labwork, outpatient R stent removal confirmed. Nephrology and hospitalist notes appreciated. 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 Fairly good chance he will require dialysis at that time - outpatient preparations with primary nephrology, will reconsult inpatient nephrology and hospitalist when he returns. Worrisome signs and symptoms reviewed with the patient. DC home today. Discharge planning: home
--- NOTE | 2017-12-21 10:31 | Discharge Instructions ---
Discharge Instructions Date of Service Dec 21, 2017. Admission Reason for Admission: Acute Renal Failure, Right Kidney Stone Discharge Discharge Diagnosis / Problem: R renal stone s/p PCNL Discharge Goals Goal(s): Improve function, Improve disease control, Therapeutic intervention Activity Recommendations Activity Limitations: as noted below Lifting Limitations: no more than 25 pounds, gradually increase as tolerated Exercise/Sports Limitations: rest today, gradually increase as tolerated May Resume Sexual Activity: when tolerated Shower/Bathe: tomorrow (no tub baths x 1 week, may shower when R back wound stops draining) Driving or Machine Use: resume 1 day after discharge . Current Hospital Diet Patient's current hospital diet: Renal Diet Discharge Diet Recommended Diet: Renal Diet Procedures Procedures Performed: PCNL with lithoclast stone distruction and extraction, contrast injection for nephrostogram, and Nephrostomy tube exchange. Pending Studies Studies pending at discharge: no Medical Emergencies . Who to Call and When: Medical Emergencies: If at any time you feel your situation is an emergency, please call 911 immediately. . Non-Emergent Contact Non-Emergency issues call your: Urologist Call Non-Emergent contact if: you have a fever, temperature is above 101, your pain is not controlled, your pain is worsening, your pain is unusual for you, your pain is concerning you, wound has increased drainage, wound has increased redness, wound has increased pain, you have any medication questions . . "Provider Documentation" section prepared by Niels Loving. . VTE Core Measure Inpt VTE Proph given/why not?: SCD's
--- NOTE | 2017-12-21 10:34 | Nephrology Progress Note ---
Nephrology Progress Note Date of Service Dec 21, 2017. Chief Complaint DARELL/CKD Subjective No acute events overnight. Thiago feels well this morning. He denies significant pain. No fevers or chills. Urine is cloudy but clearing. No additional urinary complaints. Appetite is good. Thiago is ambulating. He hopes to be discharged home today. Review of Systems A complete review of systems was performed. Pertinent positives are noted above. All other systems are negative. Vital Signs Last 8 Hrs Date Time Temp Pulse Resp B/P (MAP) Pulse Ox O2 Delivery O2 Flow Rate FiO2 12/21/17 08:00 Room Air 12/21/17 07:51 36.9 67 22 151/82 (105) 97 Room Air 12/21/17 04:00 Room Air 12/21/17 03:32 37.1 78 16 158/78 (104) 98 Room Air Last Recorded Weight Weight (Kilograms): 113.000 Physical Exam General Appearance: WD/WN, no apparent distress Head: normocephalic, atraumatic Eyes: normal inspection, sclerae normal ENT: normal ENT inspection, pharynx normal Neck: supple, no JVD Respiratory/Chest: lungs clear, no respiratory distress, no accessory muscle use Cardiovascular: regular rate, rhythm, no gallop, no murmur Back: + pertinent finding (PCNL) Abdomen/GI: non tender, soft Extremities/Musculoskelatal: normal inspection, no pedal edema Neurologic/Psych: alert, normal mood/affect Family History Diabetes mellitus Hypertension Family history significant for hypertension diabetes, no history of chronic kidney disease or end-stage renal disease. Social History Drug Use: none Marital Status: Housing Status: lives with significant other Occupation: employed Laboratory Results Past 24 Hours 12/21/17 05:35 Red Blood Count 2.53, Mean Corpuscular Volume 94.5, Mean Corpuscular Hemoglobin 32.0, Mean Corpuscular Hemoglobin Concent 33.9, Mean Platelet Volume 8.8, Neutrophils (%) (Auto) 62.7, Lymphocytes (%) (Auto) 16.8, Monocytes (%) (Auto) 14.9, Eosinophils (%) (Auto) 5.0, Basophils (%) (Auto) 0.3, Neutrophils # (Auto ) 4.03, Lymphocytes # (Auto) 1.08, Monocytes # (Auto) 0.96, Eosinophils # (Auto ) 0.32, Basophils # (Auto) 0.02 12/21/17 05:35 Test 12/21/17 05:35 White Blood Count 6.43 K/uL (4.8-10.8) Red Blood Count 2.53 M/uL (4.7-6.1) Hemoglobin 8.1 g/dL (14.0-18.0) Hematocrit 23.9 % (42-52) Mean Corpuscular Volume 94.5 fL (80-100) Mean Corpuscular Hemoglobin 32.0 pg (25-34) Mean Corpuscular Hemoglobin Concent 33.9 g/dl (32-36) Platelet Count 214 K/uL (130-400) Mean Platelet Volume 8.8 fL (7.4-10.4) Neutrophils (%) (Auto) 62.7 % Lymphocytes (%) (Auto) 16.8 % Monocytes (%) (Auto) 14.9 % Eosinophils (%) (Auto) 5.0 % Basophils (%) (Auto) 0.3 % Neutrophils # (Auto) 4.03 K/uL (1.4-6.5) Lymphocytes # (Auto) 1.08 K/uL (1.2-3.4) Monocytes # (Auto) 0.96 K/uL (0.11-0.59) Eosinophils # (Auto) 0.32 K/uL (0-0.5) Basophils # (Auto) 0.02 K/uL (0-0.2) RDW Standard Deviation 51.0 fL (36.4-46.3) RDW Coefficient of Variation 14.8 % (11.5-14.5) Immature Granulocyte % (Auto) 0.3 % Immature Granulocyte # (Auto) 0.02 K/uL (0.00-0.02) Red Blood Cell Morphology Unremarkable Anion Gap 9.0 mmol/L (3-11) Est Creatinine Clear Calc Drug Dose 30.8 ml/min Estimated GFR () 21.6 Estimated GFR (Non- 18.6 BUN/Creatinine Ratio 15.5 (10-20) Calcium Level 8.7 mg/dl (8.5-10.1) Allergies Coded Allergies: Statins (Verified Adverse Reaction, Mild, GI UPSET, 12/18/17) Medications Current Inpatient Medications Medications (Trade) Dose Ordered Sig/Solitario Route Start Time Stop Time Status Last Admin Dose Admin Acetaminophen (Tylenol Tab) 500 mg Q6H PO 12/18/17 16:00 01/17/18 11:44 12/19/17 22:13 500 MG Docusate Sodium (coLACE CAP) 100 mg BID PO 12/18/17 21:00 01/17/18 20:59 12/21/17 08:20 100 MG Ondansetron HCl (Zofran Inj) 4 mg Q6H PRN IV 12/18/17 11:45 01/17/18 11:44 12/19/17 07:29 4 MG Carvedilol (Coreg Tab) 3.125 mg QAM PO 12/19/17 09:00 01/18/18 08:59 12/21/17 08:20 3.125 MG Clonidine HCl (Catapres Tab) 0.3 mg QAM PO 12/19/17 09:00 01/18/18 08:59 12/21/17 08:21 0.3 MG Diltiazem HCl (Dilacor Xr Cap) 240 mg QAM PO 12/19/17 09:00 01/18/18 08:59 12/21/17 08:20 240 MG Sodium Bicarbonate (Sodium Bicarbonate Tab) 650 mg BID PO 12/18/17 21:00 01/17/18 20:59 12/21/17 08:20 650 MG Dextrose (Dextrose 50% 50ML Syringe) 50 ml PRN PRN IV 12/18/17 20:00 01/17/18 19:59 Promethazine HCl 12.5 mg/Sodium Chloride 50.5 ml @ 202 mls/hr Q6H PRN IV 12/19/17 10:00 01/18/18 09:59 12/19/17 10:30 202 MLS/HR Hydromorphone HCl (Dilaudid Inj) 1 mg Q2H PRN IV 12/19/17 10:15 01/02/18 10:14 12/19/17 10:13 1 MG Oxycodone HCl (Roxicodone Immediate Rel Tab) 5 mg Q4 PRN PO 12/19/17 13:30 01/02/18 13:29 12/19/17 16:10 5 MG Bisacodyl (Dulcolax Supp) 10 mg DAILY PRN [place] 12/19/17 14:00 01/18/18 13:59 Hydralazine HCl (HydrALAZINE INJ) 10 mg Q8H PRN IV. 12/19/17 14:15 01/18/18 14:14 Polyethylene (Miralax Powder Packet) 17 gm BID PRN PO 12/20/17 14:00 01/19/18 13:59 Impression (1) Acute renal failure (2) CKD (chronic kidney disease), stage IV (3) Right kidney stone (4) Left renal mass (5) Metabolic acidosis (6) Anemia (7) Hyperkalemia, diminished renal excretion Mr. Domingo is a 62-year-old male with advanced CKD. Baseline creatinine has been approximately 2.8-3.0 mg/dL. The patient follows with Dr. Katelyn Donato in [place]. He is scheduled to have AVF placed in January. Thiago's medical history is notable for nephrolithiasis and hypertension. He has hyperkalemia previously treated with valtessa. He prented wtih a R staghorn calculus and known lesions in the left kidney. Thiago is POD4 s/p PCNL with lithoclast stone destruction and extraction and placement of bilateral stents. Follow CT scan showed persistent non obstructing stone debris. Currently blood pressure stable and volume status are acceptable. Electrolytes are appropriate. Potassium has improved. Recommendations DARELL: - Creatinine continues to show evidence of slight improvement -- Medications appropriate for renal function -- Voiding without difficulty CKD: -- Follow up with Dr. Katelyn Donato within one week of discharge -- No current indications for SELF PAY SPECIALIST -- Reviewed renal/potassium restricted diet -- Sodium bicarbonate 650 milligram orally twice a day Anemia: -- Continue to monitor -- Epogen [id number] provided yesterday
[2017-12-21 10:45] VITALS: BP 151/82; PULSE 67; TEMP 36.9; O2SAT 97
--- NOTE | 2017-12-21 11:06 | DISCHARGE SUMMARY ---
ADMITTING DIAGNOSES: Right large renal pelvis stone, left renal pelvis urothelial carcinoma and chronic renal failure. DISCHARGE DIAGNOSIS: Same. PROCEDURES OVER THE COURSE OF ADMISSION: Include a right-sided percutaneous nephrolithostomy. ADMITTING ATTENDING: Dr. Niels Loving. COMPLICATIONS: None. BRIEF HISTORY: Mr. Domingo is a pleasant 62-year-old male who has been seen as an outpatient for numerous urologic and medical issues including renal failure, large right renal stone and left urothelial transitional cell carcinoma, biopsy proven at the time of ureteroscopy in November of 2017. Please see H&P for further details. He is being admitted for a right percutaneous nephrolithostomy. I have to remove his stones on this side prior to a planned left nephroureterectomy, next month. HOSPITAL COURSE: The patient was admitted to the hospital after uncomplicated right-sided PCNL as planned. Please see operative report for further details. Postoperatively, the patient was admitted to telemetry, seeing his difficulties with hyperkalemia in the preoperative period. Hospitalist and nephrology consultations were obtained and appreciated. The patient was treated for his hyperkalemia with good effect. He was provided with a transfusion of 2 units of packed red blood cells due to acute on chronic anemia, likely nephrogenic in origin. He was also provided with an erythropoietin by the nephrology service. A noncontrast CT scan postoperative day #1 demonstrated excellent surgical results with no significant residual stone fragments on the right hand side, no perinephric collections or bleeding and good position of both stents and nephrostomy tube. The patient's diet was advanced, but he suffered from nausea and vomiting, on his first postoperative day resolved residential through his second postoperative day. By postoperative day #3, the patient was ambulating in the hallways comfortable on oral pain medication and tolerating his renal diet without difficulties as well as moving his bowels. Improvement of his creatinine was appreciated over the course of his admission with improvement of his potassium as well. The patient reports feeling much improved. He was considered stable for discharge home at this time. FOLLOWUP CARE: The patient will be discharged home with no new prescriptions. Postoperative activity limitations are reviewed and documented in the discharge instruction section which may be referred to for further details. Will plan on outpatient cystoscopy and stent removal and patient reports he has an upcoming nephrology appointment this week with repeat lab work for followup. The patient is instructed to contact our service should he note any fevers, chills, nausea, vomiting or other significant difficulties in the postoperative period. Worrisome signs and symptoms were reviewed.
== END 2017-12-21 10:25 | disposition home or self-care (01) | DRG 660 ==
LOC: C.ACU 05:17 → C.2T 11:56 → ENRESERV 13:51 → CANRESERV 13:51 → ENRESERV 13:54
PROVIDERS: ADMIT Urology; ATTEND Urology
PROC: 0T784DZ Dilation of Bilateral Ureters with Intraluminal Device, Percutaneous Endoscopic Approach (ICD-10-PCS; principal; 2017-12-18 07:15)
PROC: 0TC Urinary System, Extirpation (ICD-10-PCS; principal; 2017-12-18 07:15)
PROC: 0T25X0Z Change Drainage Device in Kidney, External Approach (ICD-10-PCS; principal; 2017-12-18 07:15)
PROC: 0TF Urinary System, Fragmentation (ICD-10-PCS; principal; 2017-12-18 07:15)
DX: N20.2 Calculus of kidney with calculus of ureter (principal); N18.5 Chronic kidney disease, stage 5; I12.0 Hypertensive chronic kidney disease with stage 5 chronic kidney disease or end stage renal disease; C64.2 Malignant neoplasm of left kidney, except renal pelvis; N17.9 Acute kidney failure, unspecified; K56.7 Ileus, unspecified; E87.2 Acidosis; E66.9 Obesity, unspecified; D63.1 Anemia in chronic kidney disease; G47.33 Obstructive sleep apnea (adult) (pediatric); E87.5 Hyperkalemia; Z68.31 Body mass index [BMI] 31.0-31.9, adult; Z79.899 Other long term (current) drug therapy; Z87.891 Personal history of nicotine dependence; Z88.8 Allergy status to other drugs, medicaments and biological substances

== ENCOUNTER → 2017-12-31 | Outpatient (CLI) | payer OTHER ==
[~2017-12-31] MED LIST changes: +APIX1TAB3 PO
--- NOTE | 2017-12-31 11:38 | DIAGNOSTIC IMAGING REPORT ---
ABD/PELVIS NO IV OR ORAL CONT CLINICAL HISTORY: 62 years-old Male presenting with N20.0 Right kidney stonevalid 11/25/17-05/24/18 Auth# [id number] E . TECHNIQUE: Multidetector CT of the abdomen and pelvis was performed without the use of intravenous contrast. IV contrast: None. A dose lowering technique was used consistent with the principles of ALARA (as low as reasonably achievable). COMPARISON: 12/19/2017. CT DOSE (mGy.cm): The estimated cumulative dose is 988.49 mGycm. FINDINGS: Go Cart Mechanic topogram: Bilateral ureteral stents. Removal of right nephrostomy tube. Lung bases: Emphysematous changes at the lung bases. The intraventricular blood pool is less dense and adjacent myocardium suggesting anemia. Normal heart size. Trace coronary artery calcification. No pericardial or pleural effusion. Liver: Normal morphology. Normal density. Biliary: No gross biliary ductal dilatation allowing for noncontrast technique. Normal gallbladder. Pancreas: Normal noncontrast appearance. Spleen: Normal noncontrast appearance. Adrenal glands: Normal noncontrast appearance. Kidneys and ureters: Removal of the right nephrostomy tube. Bilateral ureteral stents remain in place. Slight interval decrease in inflammatory change at the renal arun and associated with the bilateral ureters. Mild nonspecific perinephric fat stranding. Bilateral nonobstructing renal calculi, however, the largest calculus in the right kidney is no longer present. Distention of the upper pole calyx of the left kidney persists with somewhat high density material. No ureteral calculus is evident. Bladder: Incompletely evaluated secondary to underdistention. Pelvic organs: Prostate and seminal vesicles normal. Bowel: Diverticulosis of the proximal to mid sigmoid colon. The appendix is normal. No bowel obstruction. Peritoneal cavity: No free fluid or intraperitoneal gas. Lymph nodes: No gross lymphadenopathy allowing for noncontrast technique. Vasculature: Atherosclerosis of the normal caliber abdominal aorta. Abdominal wall: Normal. Musculoskeletal: Degenerative changes of the spine. Extensive degenerative change and partial osseous fusion of the right sacroiliac joint. Bone island suspected at the anterior right acetabulum. IMPRESSION: 1. Interval removal of the right nephrostomy tube. Bilateral ureteral stents remain in place with stable to slight interval decrease in urothelial inflammatory change. This is likely due to the presence of the stents. 2. Bilateral nonobstructing nephrolithiasis with removal of the largest right renal calculus. No ureteral calculi. 3. 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 However, apparent high attenuation filling defect in the upper pole calyx of the left kidney raises concern for underlying debris, hematoma, or neoplasm. This should be followed to resolution and would be better evaluated with CT urogram. 4. Emphysema. Electronically signed by: Bro Renee M.D. 12/31/2017 11:37 AM Dictated Date/Time: 12/31/2017 11:27 AM
== END | disposition home or self-care (01) ==
LOC: C.CTS 10:03
PROVIDERS: ATTEND Urology
DX: N20.0 Calculus of kidney (principal)

== ENCOUNTER 2018-01-19 12:27 | Inpatient (IN) | payer OTHER ==
[2018-01-01 15:59] VITALS: BMI 31.0
[~2018-01-19] VITALS: Ht 188 cm; Wt 101.1 kg
[~2018-01-19 12:27] MED LIST changes: -ONDA4TAB65 PO; -OXYC15TA89 PO
--- NOTE | 2018-01-19 13:48 | EMERGENCY ROOM VISIT NOTE ---
History Report prepared by [place]: Anuj Gasca Under the Supervision of: Dr. Austyn Nielson D.O. First contact with patient: 12:46 Chief Complaint: LEG PAIN,LEG INJURY Stated Complaint: BLOOD CLOTS IN R LEG History of Present Illness The patient is a 62 year old male who presents to the Emergency Room with complaints of worsening right leg swelling beginning four days ago. The patient' s swelling began in his right foot and moved to his right knee. He had an ultrasound of his right lower extremity today (at [facility]) which showed DVT. He had the ultrasound with his PCP who referred the patient to the ED for further evaluation. The patient is scheduled for nephrectomy next week (due to cancer of the kidney). He has a previous history of DVT s/p kidney stone surgery for which he was previously on Eliquis. The patient denies shortness of breath. Source of History: patient Onset: Four days ago Position: leg (right) Quality: other (swelling) Timing: worsening Associated Symptoms: No SOB Review of Systems See HPI for pertinent positives & negatives. A total of 10 systems reviewed and were otherwise negative. Past Medical & Surgical Medical Problems: (1) Acute renal failure (2) Anemia (3) CKD (chronic kidney disease), stage IV (4) Hyperkalemia, diminished renal excretion (5) Hypertension (6) Left renal mass (7) Metabolic acidosis (8) Right kidney stone Family History Diabetes mellitus Hypertension Social History Smoking Status: Former Smoker Drug Use: none Marital Status: Occupation Status: employed Current/Historical Medications Scheduled Apixaban (Eliquis), 10 MG PO BID Carvedilol (Coreg), 3.125 MG PO BIDM Cholecalciferol (Vitamin D3), 2,000 UNITS PO QAM Clonidine Hcl (Catapres), 0.3 MG PO QAM Cyanocobalamin (Vitamin B12 Tr), 2,500 MCG PO QAM Diltiazem Hcl Extended Release (Diltiazem Hcl Er), 240 MG PO QAM Duloxetine Hcl (Cymbalta), 30 MG PO DAILY Lisinopril (Zestril), 40 MG PO DAILY Multivitamin (Multivitamin), 1 TAB PO QAM Scheduled PRN Acetaminophen (Tylenol), 325 MG PO UD PRN for PRN Allergies Coded Allergies: Statins (Verified Adverse Reaction, Mild, GI UPSET, 01/19/18) Physical Exam Vital Signs Date Time Temp Pulse Resp B/P (MAP) Pulse Ox O2 Delivery O2 Flow Rate FiO2 01/19/18 13:51 73 01/19/18 13:44 76 18 126/77 96 Room Air 01/19/18 12:32 36.9 78 20 136/83 97 Room Air Physical Exam CONSTITUTIONAL/VITAL SIGNS: Reviewed / noted above. GENERAL: Non-toxic in appearance. INTEGUMENTARY: Warm, dry, and [place]. HEAD: Normocephalic. EYES: without scleral icterus or trauma. ENT/OROPHARYNX: clear and moist. LYMPHADENOPATHY/NECK: Is supple without lymphadenopathy or meningismus. RESPIRATORY: Lungs clear and equal. CARDIOVASCULAR: Regular rate and rhythm. GI/ABDOMEN: Soft and nontender. No organomegaly or pulsatile mass. No rebound or guarding. Normal bowel sounds. EXTREMITIES: Warm and well perfused. BACK: No CVA tenderness. NEUROLOGICAL: Intact without focal deficits. PSYCHIATRIC: normal affect. MUSCULOSKELETAL: Normally developed with good muscle tone. Medical Decision & Procedures ER Provider Diagnostic Interpretation: Radiology results as stated below per my review and radiologist interpretation: RIGHT LOWER EXTREMITY DOPPLER VENOUS ULTRASOUND DATED 01/19/2018 (obtained from [facility]). IMPRESSION: New occlusive deep vein thrombus in the right peroneal veins. Slightly improved thrombosis of a right posterior tibial vein, improved from prior. Results discussed with Dr. Hopkins and the patient 1100 hrs. 01/19/2018. Laboratory Results 01/19/18 13:36 Red Blood Count 3.40, Mean Corpuscular Volume 97.9, Mean Corpuscular Hemoglobin 31.8, Mean Corpuscular Hemoglobin Concent 32.4, Mean Platelet Volume 9.6, Neutrophils (%) (Auto) 65.8, Lymphocytes (%) (Auto) 17.8, Monocytes (%) (Auto) 13.2, Eosinophils (%) (Auto) 2.1, Basophils (%) (Auto) 0.8, Neutrophils # (Auto ) 5.00, Lymphocytes # (Auto) 1.35, Monocytes # (Auto) 1.00, Eosinophils # (Auto ) 0.16, Basophils # (Auto) 0.06 01/19/18 13:36 Test 01/19/18 13:36 White Blood Count 7.59 K/uL (4.8-10.8) Red Blood Count 3.40 M/uL (4.7-6.1) Hemoglobin 10.8 g/dL (14.0-18.0) Hematocrit 33.3 % (42-52) Mean Corpuscular Volume 97.9 fL (80-100) Mean Corpuscular Hemoglobin 31.8 pg (25-34) Mean Corpuscular Hemoglobin Concent 32.4 g/dl (32-36) Platelet Count 380 K/uL (130-400) Mean Platelet Volume 9.6 fL (7.4-10.4) Neutrophils (%) (Auto) 65.8 % Lymphocytes (%) (Auto) 17.8 % Monocytes (%) (Auto) 13.2 % Eosinophils (%) (Auto) 2.1 % Basophils (%) (Auto) 0.8 % Neutrophils # (Auto) 5.00 K/uL (1.4-6.5) Lymphocytes # (Auto) 1.35 K/uL (1.2-3.4) Monocytes # (Auto) 1.00 K/uL (0.11-0.59) Eosinophils # (Auto) 0.16 K/uL (0-0.5) Basophils # (Auto) 0.06 K/uL (0-0.2) RDW Standard Deviation 55.2 fL (36.4-46.3) RDW Coefficient of Variation 15.7 % (11.5-14.5) Immature Granulocyte % (Auto) 0.3 % Immature Granulocyte # (Auto) 0.02 K/uL (0.00-0.02) Nucleated RBC Absolute Count (auto) 0.03 K/uL (0-0) Nucleated Red Blood Cells % 0.4 % Prothrombin Time 13.8 SECONDS (9.0-12.0) Prothromb Time International Ratio 1.3 (0.9-1.1) Activated Partial Thromboplast Time 41.1 SECONDS (21.0-31.0) Partial Thromboplastin Ratio 1.6 Anion Gap 11.0 mmol/L (3-11) Est Creatinine Clear Calc Drug Dose 31.3 ml/min Estimated GFR () 22.4 Estimated GFR (Non- 19.3 BUN/Creatinine Ratio 16.1 (10-20) Calcium Level 9.8 mg/dl (8.5-10.1) Total Bilirubin 0.3 mg/dl (0.2-1) Aspartate Amino Transf (AST/SGOT) 8 U/L (15-37) Alanine Aminotransferase (ALT/SGPT) 20 U/L (12-78) Alkaline Phosphatase 57 U/L (45-117) Total Protein 7.7 gm/dl (6.4-8.2) Albumin 3.4 gm/dl (3.4-5.0) Globulin 4.3 gm/dl (2.5-4.0) Albumin/Globulin Ratio 0.8 (0.9-2) Laboratory results as stated above per my review. ED Course 1247: Previous medical records were reviewed. The patient was evaluated in room B3B. A complete history and physical examination was performed. 1340: On reevaluation, the patient is resting comfortably. I discussed the results and findings with him. He verbalized agreement of the treatment plan. I spoke with Leann Owens PA-C of the [facility] Hospitalist Service. The patient will be evaluated for further management and care. Medical Decision Differential diagnosis: Etiologies such as DVT, musculoskeletal, infection, joint effusion, trauma, lymphedema, idiopathic, CHF, as well as others were entertained. This is a 62-year-old male who presents to the ED with a chief complaint of a DVT despite being on Eliquis. The patient was originally diagnosed with a DVT in his right lower extremity on 12/30/17. At that time he was started on Eliquis. The patient developed some discomfort in his right leg over the weekend and had a repeat ultrasound today. This showed a new DVT in the peroneal vein of the right lower extremity. This is despite being on Eliquis. Because the patient is due for surgery for urothelial cancer this , the patient was sent here for evaluation. After discussing the case with Dr. Loving from urology and Dr. Abdi, the plan is to admit the patient and start the patient on heparin. The patient may need an IVC filter. This will be based on a consult with general surgery. The patient will be seen by the hospitalist service for further inpatient evaluation and care. Medication Reconcilliation Current Medication List: was personally reviewed by me Blood Pressure Screening Patient's blood pressure: Elevated blood pressure Blood pressure disposition: Elevated BP felt to be situational Consults Time Called: 1304 Consulting Physician: Dr. Hopkins - Primary Care Returned Call: [phone] Discussed the patient's case and the reasoning for referring the patient to the ED. We will discuss further with the specialist. Additional Consults: Time Called: 1320 Consulted Physician: Dr. Loving - Urology Returned Call: [phone] Additional Comments: Discussed the patient's case. Dr. Loving recommends the patient be admitted as an inpatient to the hospital to be set up with anticoagulation prior to his surgery. He will consult on the patient. Time Called: 1320 Consulted Physician: Dr. Arellano - Pathology Returned Call: [phone] Additional Comments: Discussed the patient's case. Dr. Arellano agrees with the treatment plan, and will consult on the patient for proper anticoagulation. Time Called: 1338 Consulting Physician: Leann WAGNER Hospitalist Returned Call: [phone] Comments: Discussed the patient's case. The patient will be evaluated for further treatment and disposition. Impression Primary Impression: Deep vein thrombosis Additional Impressions: Urothelial cancer Anticoagulated Scribe Attestation The scribe's documentation has been prepared under my direction and personally reviewed by me in its entirety. I confirm that the note above accurately reflects all work, treatment, procedures, and medical decision making performed by me. Departure Information Dispostion Being Evaluated By Hospitalist Referrals Winston Hopkins D.O. (PCP) Patient Instructions My [facility] Problem Qualifiers
[2018-01-19] MEDS ORDERED: CYM/30 PO (13:51)
[2018-01-19] MEDS ORDERED: LISI40TA PO (13:51)
[2018-01-19 14:00] LABS: BASO % 0.8 %; BASO ABS # 0.06 K/uL (0-0.2); EOS % 2.1 %; EOS ABS # 0.16 K/uL (0-0.5); HEMATOCRIT 33.3 % (42-52); HEMOGLOBIN 10.8 g/dL (14.0-18.0); IG# 0.02 K/uL (0.00-0.02); LYMPH % 17.8 %; LYMPH ABS # 1.35 K/uL (1.2-3.4); MEAN CELL VOLUME 97.9 fL (80-100); MEAN CORPUSCULAR HEMOGLOBIN 31.8 pg (25-34); MEAN CORPUSCULAR HGB CONC 32.4 g/dl (32-36); MEAN PLATELET VOLUME 9.6 fL (7.4-10.4); MONO % 13.2 %; NEUT % 65.8 %; NUCLEATED RED BLOOD CELL ABS 0.03 K/uL (0-0); PLATELET COUNT 380 K/uL (130-400); RED CELL DISTRIBUTION WIDTH CV 15.7 % (11.5-14.5); RED CELL DISTRIBUTION WIDTH SD 55.2 fL (36.4-46.3); WHITE BLOOD COUNT 7.59 K/uL (4.8-10.8)
[2018-01-19 14:12] LABS: INR 1.3 (0.9-1.1); PTT PATIENT 41.1 SECONDS (21.0-31.0)
[2018-01-19 14:15] LABS: ALBUMIN 3.4 gm/dl (3.4-5.0); CALCIUM 9.8 mg/dl (8.5-10.1); CREATININE 3.27 mg/dl (0.60-1.40); POTASSIUM 4.1 mmol/L (3.5-5.1)
[2018-01-19 14:18] LABS: TOTAL PROTEIN 7.7 gm/dl (6.4-8.2)
[2018-01-19] MEDS ORDERED: HEPARIN 25,000 UNIT/500ML D5W 500 ML IV SCH ×2 (14:30→16:00)
[2018-01-19] MEDS ORDERED: HEPARIN IV BOLUS 7,000 UNIT in SYRINGE 0 ML IV SCH (14:30)
[2018-01-19] MEDS ORDERED: ALUMINUM/MAGNESIUM/SIMETH (MAALOX MAX) 30 ML UDC PO PRN (15:15)
[2018-01-19] MEDS ORDERED: MAGNESIUM HYDROXIDE SUSP 30 ML UDC PO PRN (15:15)
[2018-01-19] MEDS ORDERED: POLYETHYLENE (MIRALAX) 17 GM PACK PO PRN (15:15)
--- NOTE | 2018-01-19 16:01 | History and Physical ---
History & Physical Date & Time of Service: Jan 19, 2018 at 15:36 Chief Complaint: Blood Clots In R Leg Primary Care Physician: Winston Hopkins D.O. History of Present Illness Source: patient, spouse Mr. Domingo is a 62 y/o male with PMHx of HTN, Urothelial CA, CKD Stage IV S/P L AV Fistula, RLE DVT, R Staghorn Calculi S/P PCNL (Resolved), L Renal Shunt who is pending L HALNU on by Dr. Loving who presented to the ED with further RLE DVT development x 4 days. Patient was diagnosed with DVT in December 2017 and was initiated on Eliquis 10 mg BID and states he was then reduced to 5 mg BID. He reports complete compliance with this medication and denies missing any doses. Approximately 4 days ago he states he noticed worsening RLE edema and contacted his PCP. He states the edema started in the right foot and ankle and slowly progressed into the right knee. He states that the edema caused significant difficulty walking mostly when it was affecting his knee. He had an additional ultrasound at [facility] today showing new DVT in the peroneal vein. Patient is due for a left nephrectomy this coming by Dr. Loving. Due to these findings it was recommended for hospital admission to initiate IV heparin. This was discussed with Dr. Arellano. Given the upcoming surgery and what appears to be an Eliquis failure there is question about need for IVC filter prior to nephrectomy. 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 He continues to produce urine which is currently dark and tea colored. Patient is also undergoing Procrit treatment with Dr. Wilkinson. He states he has had 3 treatments so far but missed his dose on Friday. Past Medical/Surgical History Medical Problems: (1) Acute renal failure (2) Anemia (3) CKD (chronic kidney disease), stage IV (4) Hyperkalemia, diminished renal excretion (5) Hypertension (6) Left renal mass (7) Metabolic acidosis (8) Right kidney stone Family History Diabetes mellitus Hypertension Social History Smoking Status: Former Smoker Smokeless Tobacco Use: Yes Alcohol Use: none Drug Use: none Marital Status: Housing status: lives with significant other Occupational Status: employed Allergies Coded Allergies: Statins (Verified Adverse Reaction, Mild, GI UPSET, 01/19/18) Home Medications Scheduled Apixaban (Eliquis), 10 MG PO BID Carvedilol (Coreg), 3.125 MG PO BIDM Cholecalciferol (Vitamin D3), 2,000 UNITS PO QAM Clonidine Hcl (Catapres), 0.3 MG PO QAM Cyanocobalamin (Vitamin B12 Tr), 2,500 MCG PO QAM Diltiazem Hcl Extended Release (Diltiazem Hcl Er), 240 MG PO QAM Duloxetine Hcl (Cymbalta), 30 MG PO DAILY Lisinopril (Zestril), 40 MG PO DAILY Multivitamin (Multivitamin), 1 TAB PO QAM Scheduled PRN Acetaminophen (Tylenol), 325 MG PO UD PRN for PRN Review of Systems Constitutional: No fever, No chills ENT: No nasal symptoms, No sore throat, No trouble swallowing Respiratory: No cough, No sputum, No wheezing, No shortness of breath Cardiovascular: No chest pain, No palpitations Abdomen: No pain, No nausea, No vomiting, No diarrhea, No constipation, No GI bleeding Musculoskeletal: + swelling (RLE), No calf pain Genitourinary - Male: + hematuria, No dysuria Neurologic: + numbness/tingling (chronic b/l feet) Hematologic / Lymphatic: No abnormal bleeding/bruising Integumentary: No rash Physical Exam Vital Signs Date Time Temp Pulse Resp B/P (MAP) Pulse Ox O2 Delivery O2 Flow Rate FiO2 01/19/18 15:15 71 18 127/77 96 Room Air 01/19/18 13:51 73 01/19/18 13:44 76 18 126/77 96 Room Air 01/19/18 12:32 36.9 78 20 136/83 97 Room Air General Appearance: WD/WN, no apparent distress Head: normocephalic, atraumatic Eyes: sclerae normal ENT: hearing grossly normal Neck: supple, no JVD, trachea midline Respiratory/Chest: lungs clear, normal breath sounds, no respiratory distress, no accessory muscle use Cardiovascular: regular rate, rhythm, no gallop, no murmur Abdomen/GI: normal bowel sounds, non tender, soft Extremities/Musculoskelatal: no calf tenderness, + swelling (non-pitting edema of RLE compared to LLE; 2+ pedal pulses in RLE) Neurologic/Psych: alert, oriented x 3 Skin: normal color, warm/dry Diagnostics Laboratory Results Results Past 24 Hours Test 01/19/18 13:36 Range/Units White Blood Count 7.59 4.8-10.8 K/uL Red Blood Count 3.40 4.7-6.1 M/uL Hemoglobin 10.8 14.0-18.0 g/dL Hematocrit 33.3 42-52 % Mean Corpuscular Volume 97.9 80-100 fL Mean Corpuscular Hemoglobin 31.8 25-34 pg Mean Corpuscular Hemoglobin Concent 32.4 32-36 g/dl Platelet Count 380 130-400 K/uL Mean Platelet Volume 9.6 7.4-10.4 fL Neutrophils (%) (Auto) 65.8 % Lymphocytes (%) (Auto) 17.8 % Monocytes (%) (Auto) 13.2 % Eosinophils (%) (Auto) 2.1 % Basophils (%) (Auto) 0.8 % Neutrophils # (Auto) 5.00 1.4-6.5 K/uL Lymphocytes # (Auto) 1.35 1.2-3.4 K/uL Monocytes # (Auto) 1.00 0.11-0.59 K/uL Eosinophils # (Auto) 0.16 0-0.5 K/uL Basophils # (Auto) 0.06 0-0.2 K/uL RDW Standard Deviation 55.2 36.4-46.3 fL RDW Coefficient of Variation 15.7 11.5-14.5 % Immature Granulocyte % (Auto) 0.3 % Immature Granulocyte # (Auto) 0.02 0.00-0.02 K/uL Nucleated RBC Absolute Count (auto) 0.03 0-0 K/uL Nucleated Red Blood Cells % 0.4 % Prothrombin Time 13.8 9.0-12.0 SECONDS Prothromb Time International Ratio 1.3 0.9-1.1 Activated Partial Thromboplast Time 41.1 21.0-31.0 SECONDS Partial Thromboplastin Ratio 1.6 Sodium Level 138 136-145 mmol/L Potassium Level 4.1 3.5-5.1 mmol/L Chloride Level 108 98-107 mmol/L Carbon Dioxide Level 19 21-32 mmol/L Anion Gap 11.0 3-11 mmol/L Blood Urea Nitrogen 53 7-18 mg/dl Creatinine 3.27 0.60-1.40 mg/dl Est Creatinine Clear Calc Drug Dose 31.3 ml/min Estimated GFR () 22.4 Estimated GFR (Non- 19.3 BUN/Creatinine Ratio 16.1 10-20 Random Glucose 88 70-99 mg/dl Calcium Level 9.8 8.5-10.1 mg/dl Total Bilirubin 0.3 0.2-1 mg/dl Aspartate Amino Transf (AST/SGOT) 8 15-37 U/L Alanine Aminotransferase (ALT/SGPT) 20 12-78 U/L Alkaline Phosphatase 57 45-117 U/L Total Protein 7.7 6.4-8.2 gm/dl Albumin 3.4 3.4-5.0 gm/dl Globulin 4.3 2.5-4.0 gm/dl Albumin/Globulin Ratio 0.8 0.9-2 Impression Assessment and Plan Mr. Domingo is a 62 y/o male with PMHx of HTN, Urothelial CA, CKD Stage IV S/P L AV Fistula, RLE DVT, R Staghorn Calculi S/P PCNL (Resolved), L Renal Shunt who is pending L HALNU on by Dr. Loving who presented to the ED with further RLE DVT development x 4 days. New RLE DVT while on Eliquis: -Patient was previously diagnosed with RLE DVT in December and reports compliance with Eliquis -Plan is to hold Eliquis and initiate heparin drip given upcoming surgery -Due to significant renal compromise, failure of Eliquis, progressive DVTs, and upcoming surgery which will require holding of anticoagulation it is deemed he may need IVC filter placement -Will place NPO at midnight -Consult hematology - ED discussed with Dr. Arellano - will appreciate further assistance with ongoing anticoagulation -Consultvascular surgery - appreciate recommendations for possible need for IVC filter CKD Stage IV with L AV Fistula: - Baseline appears to be 3.2 - 4 at this point; will give gentle hydration to see if any improvement in Cr - patient contiues to make urine but currently tea colored but does have known hematuria - LUE Fistula placed in Dec - likely not matured for use; follows with Nephrology in [place] - Surprisingly his Eliquis was never adjusted for renal dosing; Hold Lisinopril at this time; Other hypertensive appropriate for function - Consult Nephrology - appreciate assistance - given pending surgery possibility of dialysis needs? HTN: - Hold Lisinopril; Coreg 3.125 mg BID, Clonidine 0.3 mg daily; and Diltiazem 240 mg daily Anemia of Chronic Disease: -Was initiated on Procrit with 3 treatments received - Hgb is 10.8 currently and will monitored - follows with Dr. Apple for this Urothelial CA: - Pending L HALNU on with Dr. Loving - Consult Urology - apprciate intervention from Dr. Loving DVT Prophylaxis: Heparin gtt Code Status: FULL RESUSCITATION Disposition: - Pending nephrectomy on by Dr. Loving PA Physician Supervision Note: I interviewed and examined the patient. Discussed with Leann Owens PAC and agree with findings and plan as documented in the note. Any exceptions or clarifications are listed here: None This patient is here with progression of right lower STEMI DVT While prepping for nephrectomy for urothelial cancer. The patient's had some progression of his DVT while on Eliquis he suffers from chronic kidney disease and typically follows in [place] Patient was seen in his hospital room his vitals are reviewed and are stable he has a regular heart exam his lungs are clear his abdomen is with normal active bowel sounds and soft he has a scar in his right flank from what imagined previous nephrostomy tube was he had a staghorn calculus in that area in the past. Patient has some swelling to the right lower extremity he has got some calf tenderness although no cords are palpated Progression of DVT on outpatient therapy with a concomitant history of urothelial carcinoma Patient be brought in our facility for therapeutic intravenous heparin infusion consideration for IVC filter and coordination of stopping anticoagulation for his nephrectomy which is scheduled for this week Documented By: Vishal Griffin Resuscitation Status VTE Prophylaxis Will order VTE Prophylaxis: Yes
[2018-01-19 16:09] VITALS: O2SAT 96; Ht 188 cm; Wt 101.1 kg
[2018-01-19 16:25] VITALS: BP 157/81; PULSE 67; TEMP 36.7; O2SAT 100
--- NOTE | 2018-01-19 16:34 | Urology Consultation ---
History General Date of Service: Jan 19, 2018. Chief Complaint: left renal urothelial carcinoma Primary Care Physician: Winston Hopkins D.O. Pt seen a urologist before?: Yes (Dr. Niels Loving) If yes, why?: nephrolithiasis, left renal urothelial carcinoma History of Present Illness 62 yo male well known to our service for nephrolithiasis and left renal urothelial carcinoma. He is s/p right PCNL on 12-18, and scheduled for left hand assisted laparoscopic nephroureterectomy on 01-21. The pt was dx'd with DVT in December and started on Eliquis. Dose recently reduced, and he reports increasing RLE swelling over the past 4 days. Extremity u/s from [facility] showing new DVT of the peroneal vein. The pt is to be admitted and placed on a heparin drip at this time. The is also noted to have baseline CKD, Cr on admission is 3.27 which appears near his baseline. Imaging Imaging: CT Laboratory Last 24 Hours Test 01/19/18 13:36 White Blood Count 7.59 K/uL Red Blood Count 3.40 M/uL Hemoglobin 10.8 g/dL Hematocrit 33.3 % Mean Corpuscular Volume 97.9 fL Mean Corpuscular Hemoglobin 31.8 pg Mean Corpuscular Hemoglobin Concent 32.4 g/dl Platelet Count 380 K/uL Mean Platelet Volume 9.6 fL Neutrophils (%) (Auto) 65.8 % Lymphocytes (%) (Auto) 17.8 % Monocytes (%) (Auto) 13.2 % Eosinophils (%) (Auto) 2.1 % Basophils (%) (Auto) 0.8 % Neutrophils # (Auto) 5.00 K/uL Lymphocytes # (Auto) 1.35 K/uL Monocytes # (Auto) 1.00 K/uL Eosinophils # (Auto) 0.16 K/uL Basophils # (Auto) 0.06 K/uL RDW Standard Deviation 55.2 fL RDW Coefficient of Variation 15.7 % Immature Granulocyte % (Auto) 0.3 % Immature Granulocyte # (Auto) 0.02 K/uL Nucleated RBC Absolute Count (auto) 0.03 K/uL Nucleated Red Blood Cells % 0.4 % Prothrombin Time 13.8 SECONDS Prothromb Time International Ratio 1.3 Activated Partial Thromboplast Time 41.1 SECONDS Partial Thromboplastin Ratio 1.6 Sodium Level 138 mmol/L Potassium Level 4.1 mmol/L Chloride Level 108 mmol/L Carbon Dioxide Level 19 mmol/L Anion Gap 11.0 mmol/L Blood Urea Nitrogen 53 mg/dl Creatinine 3.27 mg/dl Est Creatinine Clear Calc Drug Dose 31.3 ml/min Estimated GFR () 22.4 Estimated GFR (Non- 19.3 BUN/Creatinine Ratio 16.1 Random Glucose 88 mg/dl Calcium Level 9.8 mg/dl Total Bilirubin 0.3 mg/dl Aspartate Amino Transf (AST/SGOT) 8 U/L Alanine Aminotransferase (ALT/SGPT) 20 U/L Alkaline Phosphatase 57 U/L Total Protein 7.7 gm/dl Albumin 3.4 gm/dl Globulin 4.3 gm/dl Albumin/Globulin Ratio 0.8 Problem List Medical Problems: (1) Anticoagulated Status: Acute (2) Deep vein thrombosis Status: Acute (3) Urothelial cancer Status: Acute Past History deep vein thrombosis, hypertension, kidney stones, renal disease, other (left renal urothelial carcinoma, CKD) Past Surgical History: ureteral stent, other (s/p PCNL 12-18-17) Family History Diabetes mellitus Hypertension Social History Hx Tobacco Use In Past Year?: Yes (chewing tobacco) Smoking: quit greater than 1 year Alcohol: no current use Drug use: none Marital status: Housing status: lives with significant other Occupation status: employed Allergies Coded Allergies: Statins (Verified Adverse Reaction, Mild, GI UPSET, 01/19/18) Medications Home Medications: Home Meds and Scripts Medications Dose Route/Sig Max Daily Dose Days Date Category Zestril (Lisinopril) 40 Mg Tab 40 Mg PO DAILY 01/19/18 Reported Cymbalta (Duloxetine Hcl) 30 Mg Cap 30 Mg PO DAILY 01/19/18 Reported Eliquis (Apixaban) 5 Mg Tab 10 Mg PO BID 01/01/18 Reported Tylenol (Acetaminophen) 325 Mg Tab 325 Mg PO UD PRN 11/26/17 Reported Multivitamin (Multivitamins) Tab 1 Tab PO QAM 10/17/17 Reported Diltiazem Hcl Er (Diltiazem Hcl Extended Release) 240 Mg Cap 240 Mg PO QAM 10/17/17 Reported Vitamin B12 Tr (Cyanocobalamin) 1,000 Mcg Tab 2,500 Mcg PO QAM 10/17/17 Reported Catapres (Clonidine Hcl) 0.3 Mg Tab 0.3 Mg PO QAM 10/17/17 Reported Vitamin D3 (Cholecalciferol) 2,000 Unit Cap 2,000 Units PO QAM 10/17/17 Reported Coreg (Carvedilol) 3.125 Mg Tab 3.125 Mg PO BIDM 10/17/17 Reported Inpatient Medications: Current Inpatient Medications Medications (Trade) Dose Ordered Sig/Solitario Route Start Time Stop Time Status Last Admin Dose Admin Heparin Sodium/ Dextrose 500 ml @ 34 mls/hr [id number] IV 01/19/18 14:30 02/18/18 14:29 01/19/18 15:14 34 MLS/HR Acetaminophen (Tylenol Tab) 650 mg Q4H PRN PO 01/19/18 15:15 02/18/18 15:14 Al Hydrox/Mg Hydrox/Simethicone (Maalox Max Susp) 15 ml Q4H PRN PO 01/19/18 15:15 02/18/18 15:14 Magnesium Hydroxide (Milk Of Magnesia Susp) 30 ml Q12H PRN PO 01/19/18 15:15 02/18/18 15:14 Ondansetron HCl (Zofran Inj) 4 mg Q6H PRN IV 01/19/18 15:15 02/18/18 15:14 Polyethylene (Miralax Powder Packet) 17 gm DAILY PRN PO 01/19/18 15:15 02/18/18 15:14 Carvedilol (Coreg Tab) 3.125 mg BIDM PO 01/19/18 18:00 02/18/18 17:59 UNV Clonidine HCl (Catapres Tab) 0.3 mg QAM PO 01/20/18 09:00 02/19/18 08:59 UNV Duloxetine HCl (Cymbalta Cap) 30 mg DAILY PO 01/20/18 09:00 02/19/18 08:59 UNV Non-Formulary Medication (Diltiazem Hcl Extended Release (Diltiazem Hcl Er)) 240 mg QAM PO 01/20/18 09:00 02/19/18 08:59 UNV Sodium Chloride 1,000 ml @ 80 mls/hr [id number] IV 01/19/18 15:45 02/18/18 15:44 UNV Heparin Sodium/ Dextrose 1 ea NOW STAT N/A 01/19/18 15:57 01/19/18 15:58 UNV Review of Systems Review of Systems Constitutional: No fever, No chills Eyes: No double vision Neurological: No dizzy Endocrine: No excessive thirst Gastrointestinal: No abdominal pain, No nausea, No vomiting Cardiovascular: No chest pain Respiratory: No shortness of breath Skin: No rash Musculoskeletal: + problem reported (RLE swelling and pain ) Male : No blood in urine Physical Exam Vital Signs: Vital Signs Past 12 Hours Date Time Temp Pulse Resp B/P (MAP) Pulse Ox O2 Delivery O2 Flow Rate FiO2 01/19/18 15:15 71 18 127/77 96 Room Air 01/19/18 13:51 73 01/19/18 13:44 76 18 126/77 96 Room Air 01/19/18 12:32 36.9 78 20 136/83 97 Room Air Physical Exam: General Appearance: no apparent distress Eyes: bilateral eyes normal inspection ENT: hearing grossly normal Neck: no JVD Respiratory/Chest: no respiratory distress, no accessory muscle use Cardiovascular: no JVD Extremities: + swelling (right foot and RLE ) Neurologic/Psychiatric: alert, normal mood/affect, oriented x 3 Skin: normal color Assessment & Plan Assessment & Plan A/P: Left urothelial carcinoma AFVSS. Management of heparin drip and DVT per primary service. Will continue to plan for left HALNU for 01-21. Hopeful he can either have a filter placed so that he can stop anticoagulation for the procedure, or that his heparin can be held for the surgery. The pt is at risk for worsening renal failure and the potential need for dialysis after his surgery. Nephrology has been consulted by primary service as well. Will continue to plan for left HALNU on and to follow along with primary service at this time.
[2018-01-19] MEDS: SODIUM CHLORIDE 0.9% 1000ML 1,000 ML IV SCH (17:09)
[2018-01-19] MEDS: CARVEDILOL 3.125 MG TAB PO SCH (17:12)
[2018-01-19 19:42] VITALS: BP 130/75; PULSE 69; TEMP 36.7; O2SAT 98
[2018-01-19 20:00] VITALS: O2SAT 98
[2018-01-19 21:19] LABS: HEMATOCRIT 29.8 % (42-52); HEMOGLOBIN 9.6 g/dL (14.0-18.0)
[2018-01-19 21:37] LABS: PTT PATIENT 56.5 SECONDS (21.0-31.0)
[2018-01-19 23:43] VITALS: BP 156/80; PULSE 73; TEMP 36.4; O2SAT 98
[2018-01-20] VITALS (16 sets, daily range): BP systolic 128–178; BP diastolic 70–90; PULSE 67–88; TEMP 36.6–36.9; O2SAT 95–100
[2018-01-20 01:58] LABS: HEMATOCRIT 30.9 % (42-52); HEMOGLOBIN 9.9 g/dL (14.0-18.0)
[2018-01-20] MEDS: SODIUM CHLORIDE 0.9% 1000ML 1,000 ML IV SCH ×2 (05:44→16:45)
[2018-01-20 05:45] LABS: HEMOGLOBIN 10.3 g/dL (14.0-18.0); MEAN CELL VOLUME 98.5 fL (80-100); MEAN CORPUSCULAR HEMOGLOBIN 31.7 pg (25-34); MEAN CORPUSCULAR HGB CONC 32.2 g/dl (32-36); MEAN PLATELET VOLUME 9.3 fL (7.4-10.4); PLATELET COUNT 388 K/uL (130-400); RED CELL DISTRIBUTION WIDTH CV 15.6 % (11.5-14.5); RED CELL DISTRIBUTION WIDTH SD 55.9 fL (36.4-46.3); WHITE BLOOD COUNT 11.09 K/uL (4.8-10.8)
[2018-01-20 05:56] LABS: PTT PATIENT 35.6 SECONDS (21.0-31.0)
[2018-01-20] MEDS: MoRPHine SULFATE 2 MG/ML CARP IV PRN (06:06)
--- NOTE | 2018-01-20 06:47 | DIAGNOSTIC IMAGING REPORT ---
(BLAD) RETROPERITONEAL LTD HISTORY: 62 years-old Male bleeding ethan blood acute hematuria with ureteral stent COMPARISON: CT abdomen and pelvis 12/31/2017 TECHNIQUE: Multiple real-time sonogram images of the urinary bladder were obtained assessing grayscale appearance and color flow. FINDINGS: Post void images of the bladder were obtained. The bladder has a post void volume of 832 mL. Bilateral ureteral jets not identified. Distal portion of a stent which appears be left-sided is noted. There is a large complex heterogeneous mobile avascular mass within the dependent urinary bladder lumen, 10.6 x 8.0 x 7.7 cm. IMPRESSION: 1. Large complex heterogeneous mobile avascular mass within the dependent urinary bladder lumen measuring up to 10.6 cm suggests large blood clot. This could be further evaluated with cystoscopy. 2. Postvoid residual of 832 mL. The above report was generated using voice recognition software. It may contain grammatical, syntax or spelling errors. Electronically signed by: Shelton Henderson M.D. 01/20/2018 6:46 AM Dictated Date/Time: 01/20/2018 6:43 AM
[2018-01-20] MEDS: CARVEDILOL 3.125 MG TAB PO SCH ×2 (08:02→17:20)
[2018-01-20] MEDS: DULOXETINE (CYMBALTA) 30 MG CAP PO SCH (08:02)
[2018-01-20] MEDS: CLONIDINE HCL 0.3 MG TAB PO SCH (08:03)
[2018-01-20] MEDS: DILTIAZEM HCL 120 MG ER CAP PO SCH (08:03)
--- NOTE | 2018-01-20 08:48 | Surgery Consultation ---
Consultation Date of Service Jan 20, 2018. (Sarah Moore, LM) Chief Complaint worsening DVT, urothelial ca (Sarah Moore PA-C) History of Present Illness The patient is a 62 year old male with multiple medical problems, including ESRD , HTN, recently with DVT and dx with renal urothelial ca, admitted after new DVT noted in leg despite being on eliquis, and is for nephrectomy later this week. Pt seen today in consultation for IVC filter insertion. Pt admits edema of RLE which worsened over past few days, prompting eval at [facility], which noted new DVT, and pt transferred to [facility]. Pt admits fatigue, states not getting much sleep. Denies AGUDELO, fever, chills, chest pain, SOB, abd pain, N/V, rest pain, claudication, other complaints. Denies hx of prior DVT. (Sarah Moore, LM) Vitals Vital Signs Past 12 Hours Date Time Temp Pulse Resp B/P (MAP) Pulse Ox O2 Delivery O2 Flow Rate FiO2 01/20/18 07:48 36.7 68 18 178/89 (118) 98 Room Air 01/20/18 04:00 Room Air 01/20/18 03:40 36.6 67 18 161/85 (110) 100 Room Air 01/20/18 00:05 Room Air 01/19/18 23:43 36.4 73 18 156/80 (105) 98 Room Air (Sarah Moore, LM) Allergies Coded Allergies: Statins (Verified Adverse Reaction, Mild, GI UPSET, 01/19/18) Home Medications Scheduled Apixaban (Eliquis), 10 MG PO BID Carvedilol (Coreg), 3.125 MG PO BIDM Cholecalciferol (Vitamin D3), 2,000 UNITS PO QAM Clonidine Hcl (Catapres), 0.3 MG PO QAM Cyanocobalamin (Vitamin B12 Tr), 2,500 MCG PO QAM Diltiazem Hcl Extended Release (Diltiazem Hcl Er), 240 MG PO QAM Duloxetine Hcl (Cymbalta), 30 MG PO DAILY Lisinopril (Zestril), 40 MG PO DAILY Multivitamin (Multivitamin), 1 TAB PO QAM Scheduled PRN Acetaminophen (Tylenol), 325 MG PO UD PRN for PRN Problem List Medical Problems: (1) Acute renal failure (2) Anemia (3) CKD (chronic kidney disease), stage IV (4) Hyperkalemia, diminished renal excretion (5) Hypertension (6) Left renal mass (7) Metabolic acidosis (8) Right kidney stone (Sarah Moore PA-C) Surgical / Medical History Hx Cardiac Surgery: No Hx Abdominal Surgery: No Hx Cancer Surgery: No Hx Thoracic Surgery: No Hx Orthopedic: No Hx Urinary Tract Surgery: Yes (ureteral stent bilateral, 10/19 nephrostomy tube right 12/17) HX Other Surgery: Yes Past Medical/Surgical History: Hypertension, Kidney Disease (Sarah Moore PA-C) Family History Diabetes mellitus Hypertension (Sarah Moore PA-C) Diabetes mellitus Hypertension (Mukesh Jimenez M.D.) Social History Smoking Status: Former Smoker Hx Tobacco Use In Past Year?: Yes (chewing tobacco) Hx Alcohol Use - Type & Amnt: No Hx Substance Use -Type & Amnt: No (Sarah Moore, ALFREDC) Review of Systems Constitutional: + malaise, No chills, No fever Skin: No change in color Eyes: No visual changes ENMT: No sore throat Respiratory: No cough, No JEWELL, No short of breath Cardiovascular: + edema, No chest pain, No palpitations, No syncope, No intermittent claudication Gastrointestinal: No abdominal pain, No diarrhea, No nausea, No vomiting Neurologic: No dizziness, No headache, No numbness, No tingling (Sarah Moore, PA-C) Physical Exam Constitutional: General Apperance: heathly-appearing, well-nourished, well-developed Level of Distress: NAD Psychiatric: Mental Status: active & alert, normal mood, normal affect Orientation: oriented except where noted, to time, to place, to person Memory: recent memory normal, remote memory normal Head: normocephalic, atraumatic Eyes: EOM: EOMI ENMT: normal ENT inspection, hearing grossly normal Neck: supple, trachea midline Lungs: Auscultation: breath sounds normal, no rhonchi Cardiovascular: Apical Impulse: not displaced Heart Auscultation: RRR, no rubs, no gallops Peripheral Pulses: Pulses: full and equal, in all extremities except if noted Bruits: none appreciated Carotid Pulse: normal on the left, normal on the right Brachial Pulses: normal on the left, normal on the right Radial Pulse: normal on the left, normal on the right Femoral Pulse: normal on the left, normal on the right Posterior Tibialis Pulse: decreased on the left, decreased on the right Dorsalis Pedis Pulse: decreased on the left, decreased on the right Abdomen: Bowel Sounds: normal Inspection & Palpation: soft, non-distended Musculoskeletal: normal strength (5/5 throughout), normal tone Extremities: Upper Right: no cyanosis, no edema, no varicosities Upper Left: no cyanosis, no edema, no varicosities Lower Right: no cyanosis, no varicosities, edema (+2) Lower Left: no cyanosis, no varicosities, no palpable cord, edema (trace) Neurologic: Cranial Nerves: grossly intact Sensation: grossly intact (Sarah Moore, PA-C) Assessment and Plan ASSESSMENT and PLAN: DVT Renal urothelial ca failure eliquis Pt discussed with Dr Jimenez, d/t upcoming surgery and need for interruption of AC, recommend temporary IVC filter insertion today. Pt also appears to have failed Eliquis anticoagulation, recommend initiation of coumadin when deemed safe by surgery. Will consider removal of filter in future if pt safe to resume AC. Will see in office in 2-3 months to reevaluate. (Sarah Moore, PA-C) Patient was seen, examined, and chart reviewed. Agree with exam and treatment plan of the Vascular PA. Patient for IVC filter today. I have discussed the risks options and benefits of the procedure with the patient. The patient understands the risks options and benefits and agrees to the procedure. (Mukesh Jimenez M.D.)
--- NOTE | 2018-01-20 09:53 | Pre Sedation Assessment ---
Pre Sedation Assessment General Date of Sedation: Jan 20, 2018. Vital Signs Past 12 Hours Date Time Temp Pulse Resp B/P (MAP) Pulse Ox O2 Delivery O2 Flow Rate FiO2 01/20/18 07:48 36.7 68 18 178/89 (118) 98 Room Air 01/20/18 04:00 Room Air 01/20/18 03:40 36.6 67 18 161/85 (110) 100 Room Air 01/20/18 00:05 Room Air 01/19/18 23:43 36.4 73 18 156/80 (105) 98 Room Air Review Cardiovascular: regular rate, rhythm Lungs: lungs clear Pre-Sedation Airway Assessment Smoking Status: Former Smoker Hx of Sleep Apnea: No Short Thick Neck: No Thyro-mental Distance: > 3 Finger Breadths Oral Cavity: Dentures Mallampati Classification: Class II ASA Classification: Class III NPO Status Date of Last Intake of Fluids: Jan 19, 2018 Time of Last Intake of Fluids: 1600 Date of Last Intake of Solids: Jan 19, 2018 Time of Last Intake of Solids: 1600 Procedure Planning Contraindications for Sedation: None Current Medications Reviewed: Yes Notes The planned sedation has been discussed with the patient. Informed Consent was obtained. I have identified the patient, determined the appropriateness of sedation and have assessed the patient immediately prior to the procedure. All medicine(s) and interventions are by my order.
[2018-01-20] MEDS ORDERED: CEFAZOLIN SOD 2000MG/15 ML IV PUSH IV ONE ×2 (09:55→10:00)
[2018-01-20] MEDS ORDERED: FENTANYL CITRATE INJ 50 MCG/1 ML 2 ML VIAL ONE (09:56)
[2018-01-20] MEDS ORDERED: MIDAZOLAM HCL 1 MG/ML 2ML VIAL ONE (09:56)
[2018-01-20] MEDS ORDERED: FENTANYL CITRATE INJ 50 MCG/1 ML 2 ML VIAL IV ONE (10:29)
[2018-01-20] MEDS ORDERED: MIDAZOLAM HCL 1 MG/ML 2ML VIAL IV ONE (10:29)
[2018-01-20] MEDS ORDERED: LIDOCAINE HCL 1% 20 ML VIAL INJ ONE (10:30)
[2018-01-20] MEDS ORDERED: IODIXANOL (VISIPAQUE) 270 MG/ML 50ML IV ONE (10:43)
--- NOTE | 2018-01-20 10:47 | [facility] Post Operative Brief Note ---
Immediate Operative Summary Operative Date Jan 20, 2018. Pre-Operative Diagnosis Deep Vein Thrombosis Renal Urothelial Cancer Failure Eliquis Post-Operative Diagnosis Deep Vein Thrombosis Renal Urothelial Cancer Failure Eliquis Procedure(s) Performed Inferior Vena Cava Filter Placement, Right Jugular Approach Ultrasound Localization of Right Internal Jugular Vein Fluoroscopy for Positioning Moderate Sedation 1029 [id number] Surgeon Barbara Lead Nitrate Processor Surgeon(s) Maggy Estimated Blood Loss 3 Findings Consistent with Post-Op Diagnosis Specimens None Drains None Anesthesia Type IV Sedat Cons RN Only Complication(s) none Disposition Accompanied Pt To Recover: no Disposition:
--- NOTE | 2018-01-20 10:51 | [facility] Operative Report ---
Operative Report Operative Date Jan 20, 2018. Pre-Operative Diagnosis Deep Vein Thrombosis Renal Urothelial Cancer Failure Eliquis Post-Operative Diagnosis Deep Vein Thrombosis Renal Urothelial Cancer Failure Eliquis Procedure(s) Performed Inferior Vena Cava Filter Placement, Right Jugular Approach Ultrasound Localization of Right Internal Jugular Vein Fluoroscopy for Positioning Moderate Sedation [id number] [phone] [id number] Surgeon Barbara Computer Analyst Supervisor Surgeon(s) Maggy Estimated Blood Loss 3 Findings IVC filter placed in infrarenal IVC Specimens None Drains None Anesthesia Type IV Sedat Cons RN Only (+ Local at site ) Complication(s) none Disposition no Indications 62 y/o male with RCC with progressive DVT despite Eliquis who will need to undergo surgery this week in need of protection from PE. Description of Procedure The patient was brought to the angio suite and placed in the supine position. The right side of the neck was prepped and draped in the usual fashion. The right internal jugular vein was located with ultrasound. It was patent, compressed easily, and had no filling defects. The vein was then punctured under ultrasound visualization. A guidewire was then passed centrally into the inferior vena cava under fluoroscopic guidance. The puncture site was then dilated and the filter sheath inserted. It was passed to the infra renal vena cava. A venacavagram was done which showed no cava clot and an acceptable size. The renal veins were identified. The filter was then passed through the sheath and deployed in the infra renal vena cava in an upright position. Satisfied with the positioning of the filter, the sheath was removed. Pressure was applied to the puncture site. Adequate hemostasis was obtained and a sterile dressing was applied. The patient left the angio suite in good condition and tolerated the procedure well. I, Dr. Jimenez was present and scrubbed for the entire procedure. I attest to the content of the Intraoperative Record and any orders documented therein. Any exceptions are noted below.
--- NOTE | 2018-01-20 10:54 | Post Sedation Assessment ---
Post Sedation Assessment General Date of Sedation Jan 20, 2018. Vital Signs: Vital Signs Past 12 Hours Date Time Temp Pulse Resp B/P (MAP) Pulse Ox O2 Delivery O2 Flow Rate FiO2 01/20/18 07:48 36.7 68 18 178/89 (118) 98 Room Air 01/20/18 04:00 Room Air 01/20/18 03:40 36.6 67 18 161/85 (110) 100 Room Air 01/20/18 00:05 Room Air 01/19/18 23:43 36.4 73 18 156/80 (105) 98 Room Air Post Procedure Recovery Score Activity: (2) Moves 4 extremities * Respiration: (2) Deep breath/cough Circulation: (2) +/-20% PreAnes Value Consciousness: (1) Arouseable (by name) Oxygen Saturation: (2) > 92% On Room Air Post Anesthesia Score: 9 Discharge Sedation Level of Care: Fast Track Phase II Post Sedation Plan On clinical assessment, the patient appears to have tolerated the sedation without complications. Patient is recovering as anticipated. Patient will continue to be monitored by nursing and may be discharged when sedation discharge criteria are met per below protocol. Upon Completions of procedure and additional 15 minutes continue every 5 minute vital signs and the P.A.R. score; then discharge to a Phase I or Fast Track to Phase II per the following guidelines: * Discharge Patient to appropriate Phase II area if PAR is 8 or greater or return to pre- procedure baseline. The post - procedure orders will be as directed. * If PAR score is less than 8 or not return to pre-procedure baseline then patient will follow Phase I monitoring till PAR is reached for Phase II. The Phase I may be done in procedure room or may call to secure a Phase I area. * If naloxone or flumazenil are used for reversal, hold in Phase I for an additional 60 -120 minutes before discharge to Phase II. Please call the Sedation Physician to re-evaluate and complete post-note for discharge to Phase II area. Do NOT discharge from procedure sedation or Phase 1 until post- sedation evaluation note is complete by procedure /sedation MD Sedation Discharge Instructions to be given to the patient at discharge to home.
--- NOTE | 2018-01-20 13:02 | Progress Note ---
Subjective Date of Service: Jan 20, 2018. Subjective Pt evaluation today including: conversation w/ patient, physical exam, chart review, lab review, review of studies, conversation w/ consultants intern, review of inpatient medication list Pain: Denies PO Intake: Rachel reg diet Voiding: lopez catheter in place (mod CBI, palmer urine) 62 yo male with multiple comorbidities, currently pending L HALNU on for his high grade L renal pelvic TCC, admitted with hematuria, worsening DVT. Notes from current admission and recent events noted. He underwent an uncomplicated IVC filter placement by Dr. Jimenez - well tolerated. Currently on CBI with hematuria - likely bleeding from L TCC or stent. Patient in good spirits considering his fortune, on a heparin gtts. Dr. Sears in room, Cr improved over baseline. Problem List Medical Problems: (1) Anticoagulated Status: Acute (2) Deep vein thrombosis Status: Acute (3) Urothelial cancer Status: Acute Review of Systems Constitutional: No fever, No chills Eyes: No worsening of vision ENT: No hearing loss Respiratory: No wheezing, No shortness of breath Cardiac: No chest pain Abdomen: No nausea, No vomiting Musculoskeletal: + swelling (RLE swelling with DVT) Male : + see HPI, + hematuria Neurologic: No memory loss, No paralysis, No weakness Psychiatric: No depression symptoms Heme: + abnormal bleeding/bruising Skin: No new/changing skin lesions Objective Vital Signs Date Time Temp Pulse Resp B/P (MAP) Pulse Ox O2 Delivery O2 Flow Rate FiO2 01/20/18 12:00 95 Room Air 01/20/18 11:55 80 17 152/82 (105) 95 Room Air 01/20/18 11:40 81 17 150/90 (110) 95 Room Air 01/20/18 11:25 74 17 152/82 (105) 96 Room Air 01/20/18 11:09 36.7 80 18 142/76 (98) 95 Room Air 01/20/18 11:01 79 16 158/80 98 Room Air 01/20/18 10:56 80 16 155/75 98 Room Air 01/20/18 10:51 81 12 152/76 96 Room Air 01/20/18 10:46 Oxymask 2 01/20/18 10:44 Oxymask 2 01/20/18 10:39 Oxymask 2 01/20/18 10:34 Oxymask 2 01/20/18 10:29 77 26 151/82 98 Oxymask 2 01/20/18 10:24 73 20 152/79 100 Oxymask 2 01/20/18 08:00 98 Room Air 01/20/18 07:48 36.7 68 18 178/89 (118) 98 Room Air 01/20/18 04:00 Room Air 01/20/18 03:40 36.6 67 18 161/85 (110) 100 Room Air 01/20/18 00:05 Room Air 01/19/18 23:43 36.4 73 18 156/80 (105) 98 Room Air 01/19/18 20:00 98 Room Air 01/19/18 19:42 36.7 69 20 130/75 (93) 98 Room Air 01/19/18 16:25 36.7 67 18 157/81 (106) 100 Room Air 01/19/18 16:25 100 Room Air 01/19/18 16:09 96 Room Air 01/19/18 15:15 71 18 127/77 96 Room Air 01/19/18 13:51 73 01/19/18 13:44 76 18 126/77 96 Room Air Physical Exam General Appearance: no apparent distress, + obese ENT: normal ENT inspection, hearing grossly normal Neck: supple, no adenopathy Respiratory/Chest: no respiratory distress, no accessory muscle use Cardiovascular: no JVD Abdomen: non tender, soft Neurologic/Psychiatric: alert Skin: normal color Laboratory Results Last 24 Hours Test 01/19/18 13:36 01/19/18 21:06 01/19/18 21:07 01/20/18 00:50 White Blood Count 7.59 K/uL Red Blood Count 3.40 M/uL Hemoglobin 10.8 g/dL 9.6 g/dL 11.0 g/dL Hematocrit 33.3 % 29.8 % 34.0 % Mean Corpuscular Volume 97.9 fL Mean Corpuscular Hemoglobin 31.8 pg Mean Corpuscular Hemoglobin Concent 32.4 g/dl Platelet Count 380 K/uL Mean Platelet Volume 9.6 fL Neutrophils (%) (Auto) 65.8 % Lymphocytes (%) (Auto) 17.8 % Monocytes (%) (Auto) 13.2 % Eosinophils (%) (Auto) 2.1 % Basophils (%) (Auto) 0.8 % Neutrophils # (Auto) 5.00 K/uL Lymphocytes # (Auto) 1.35 K/uL Monocytes # (Auto) 1.00 K/uL Eosinophils # (Auto) 0.16 K/uL Basophils # (Auto) 0.06 K/uL RDW Standard Deviation 55.2 fL RDW Coefficient of Variation 15.7 % Immature Granulocyte % (Auto) 0.3 % Immature Granulocyte # (Auto) 0.02 K/uL Nucleated RBC Absolute Count (auto) 0.03 K/uL Nucleated Red Blood Cells % 0.4 % Prothrombin Time 13.8 SECONDS Prothromb Time International Ratio 1.3 Activated Partial Thromboplast Time 41.1 SECONDS 56.5 SECONDS Partial Thromboplastin Ratio 1.6 2.2 Sodium Level 138 mmol/L Potassium Level 4.1 mmol/L Chloride Level 108 mmol/L Carbon Dioxide Level 19 mmol/L Anion Gap 11.0 mmol/L Blood Urea Nitrogen 53 mg/dl Creatinine 3.27 mg/dl Est Creatinine Clear Calc Drug Dose 31.3 ml/min Estimated GFR () 22.4 Estimated GFR (Non- 19.3 BUN/Creatinine Ratio 16.1 Random Glucose 88 mg/dl Calcium Level 9.8 mg/dl Total Bilirubin 0.3 mg/dl Aspartate Amino Transf (AST/SGOT) 8 U/L Alanine Aminotransferase (ALT/SGPT) 20 U/L Alkaline Phosphatase 57 U/L Total Protein 7.7 gm/dl Albumin 3.4 gm/dl Globulin 4.3 gm/dl Albumin/Globulin Ratio 0.8 Test 01/20/18 01:41 01/20/18 05:19 Hemoglobin 9.9 g/dL 10.3 g/dL Hematocrit 30.9 % 32.0 % White Blood Count 11.09 K/uL Red Blood Count 3.25 M/uL Mean Corpuscular Volume 98.5 fL Mean Corpuscular Hemoglobin 31.7 pg Mean Corpuscular Hemoglobin Concent 32.2 g/dl RDW Standard Deviation 55.9 fL RDW Coefficient of Variation 15.6 % Platelet Count 388 K/uL Mean Platelet Volume 9.3 fL Activated Partial Thromboplast Time 35.6 SECONDS Partial Thromboplastin Ratio 1.4 Assessment and Plan A/P 62 yo male with left high grade urothelial carcinoma pending hand assist lap nephroureterectomy. Findings reviewed with patient. His perioperative DVT is worrisome of course but unfortunately he has not generally had the best of luck with his comorbidities while dealing with his various difficulties. The fact that his Cr has improved from baseline is encouraging. At this point it seems the consensus is to proceed with his extirpative nephroureterectomy as scheduled to avoid further delay from an oncological standpoint. This obviously carries significant perioperative risk due not only to his acute issues with DVT ( although hopefully the risk of PE has been mitigated somewhat by the placement of his IVC filter), but due to his renal insufficiency, real risk of renal failure requiring dialysis and his general health. Patient is well aware of the perioperative risks but agrees with the desire to move forward as scheduled. Will therefore plan on intervention as planned, will start prep tomorrow with clears for the day, Mag citrate x 1-2 bottles in the afternoon. Continue IV hydration during prep.
--- NOTE | 2018-01-20 13:47 | Nephrology Consultation ---
Nephrology Consultation Date & Providers Date of Consultation: Jan 20, 2018. Primary Care Provider: Winston Hopkins D.O. Referring Provider: Reason for Consultation CKD History of Present Illness Mr. Domingo is a 62 year old white male who is seen at the request of Dr. Loving for CKD. Medical records in the EMR were reviewed today and are summarized as follows: Mr. Domingo lives in [place], [place] near [place]. His primary Bottom Sprayer is Dr. Katelyn Donato ([place], [place]). Mr. Domingo has stage IV CKD w/ baseline creatinine 3.0 and EGFR 19 cc/min. Earlier this year Mr. Domingo developed gross hematuria. Medical evaluation revealed a R staghorn calculus and TCCA of the L renal pelvis. Mr. Domingo underwent R PCNL. The stone has been removed and he was scheduled for L nephrectomy. Recently he developed RLE edema. This persisted despite Eliquis therapy. He was diagnosed w/ DVT. Mr. Domingo has now been admitted to [facility] for Ida filter placement and L HALN. Nephrology consultation has been requested to provide HD if needed following surgery. Mr. Domingo did undergo L upper extremity AVF creation by Dr. Roth 3 weeks ago. Past Medical/Surgical History Medical: # stage IV CKD (baseline creatinine 3.0 w/ EGFR 19 cc/min) # HTN # Anemia - on MARYLOU as per Dr. Wilkinson # R staghorn calculus s/p PCNL # TCCA L renal pelvis # RLE DVT Surgical: # R PCNL # L upper arm AVF 12/21 - Dr. Roth Allergies Coded Allergies: Statins (Verified Adverse Reaction, Mild, GI UPSET, 01/19/18) Inpatient Medications Current Inpatient Medications Medications (Trade) Dose Ordered Sig/Solitario Route Start Time Stop Time Status Last Admin Dose Admin Acetaminophen (Tylenol Tab) 650 mg Q4H PRN PO 01/19/18 15:15 02/18/18 15:14 Al Hydrox/Mg Hydrox/Simethicone (Maalox Max Susp) 15 ml Q4H PRN PO 01/19/18 15:15 02/18/18 15:14 Magnesium Hydroxide (Milk Of Magnesia Susp) 30 ml Q12H PRN PO 01/19/18 15:15 02/18/18 15:14 Ondansetron HCl (Zofran Inj) 4 mg Q6H PRN IV 01/19/18 15:15 02/18/18 15:14 Polyethylene (Miralax Powder Packet) 17 gm DAILY PRN PO 01/19/18 15:15 02/18/18 15:14 Carvedilol (Coreg Tab) 3.125 mg BIDM PO 01/19/18 16:45 02/18/18 17:59 01/20/18 08:02 3.125 MG Clonidine HCl (Catapres Tab) 0.3 mg QAM PO 01/20/18 09:00 02/19/18 08:59 01/20/18 08:03 0.3 MG Duloxetine HCl (Cymbalta Cap) 30 mg DAILY PO 01/20/18 09:00 02/19/18 08:59 01/20/18 08:02 30 MG Diltiazem HCl (Dilacor Xr Cap) 240 mg QAM PO 01/20/18 09:00 02/19/18 08:59 01/20/18 08:03 240 MG Sodium Chloride 1,000 ml @ 80 mls/hr [id number] IV 01/19/18 15:45 02/18/18 15:44 01/20/18 05:44 80 MLS/HR Morphine Sulfate (MoRPHine SULFATE INJ) 2 mg Q2H PRN IV 01/20/18 06:00 02/03/18 05:59 01/20/18 06:06 2 MG Family History Diabetes mellitus Hypertension Negative for CKD / ESRD Social History Smoking Status: Former Smoker Smokeless Tobacco Use: Yes Alcohol Use: none Drug Use: none Marital Status: Housing Status: lives with significant other Occupation: employed . [employer] of two [employer] in [place], [place]. Remote tobacco use. Review of Systems Constitutional: No fever Cardiovascular: No chest pain Abdomen: No pain, No nausea, No vomiting A complete review of systems was performed. Pertinent positives are noted above. All other systems are negative. Physical Exam Date Time Temp Pulse Resp B/P (MAP) Pulse Ox O2 Delivery O2 Flow Rate FiO2 01/20/18 12:55 88 18 143/89 (107) 96 Room Air 01/20/18 12:25 88 18 157/79 (105) 97 Room Air 01/20/18 12:00 95 Room Air 01/20/18 11:55 80 17 152/82 (105) 95 Room Air 01/20/18 11:40 81 17 150/90 (110) 95 Room Air 01/20/18 11:25 74 17 152/82 (105) 96 Room Air 01/20/18 11:09 36.7 80 18 142/76 (98) 95 Room Air 01/20/18 11:01 79 16 158/80 98 Room Air 01/20/18 10:56 80 16 155/75 98 Room Air 01/20/18 10:51 81 12 152/76 96 Room Air 01/20/18 10:46 Oxymask 2 01/20/18 10:44 Oxymask 2 01/20/18 10:39 Oxymask 2 01/20/18 10:34 Oxymask 2 01/20/18 10:29 77 26 151/82 98 Oxymask 2 01/20/18 10:24 73 20 152/79 100 Oxymask 2 01/20/18 08:00 98 Room Air 01/20/18 07:48 36.7 68 18 178/89 (118) 98 Room Air 01/20/18 04:00 Room Air 01/20/18 03:40 36.6 67 18 161/85 (110) 100 Room Air 01/20/18 00:05 Room Air 01/19/18 23:43 36.4 73 18 156/80 (105) 98 Room Air 01/19/18 20:00 98 Room Air 01/19/18 19:42 36.7 69 20 130/75 (93) 98 Room Air 01/19/18 16:25 36.7 67 18 157/81 (106) 100 Room Air 01/19/18 16:25 100 Room Air 01/19/18 16:09 96 Room Air 01/19/18 15:15 71 18 127/77 96 Room Air 01/19/18 13:51 73 General Appearance: no apparent distress Head: normocephalic, atraumatic Eyes: PERRL, EOMI Neck: no adenopathy Respiratory/Chest: lungs clear Cardiovascular: regular rate, rhythm Abdomen/GI: normal bowel sounds, non tender, soft Genitourinary - Male: + pertinent finding (lopez catheter draining bloody urine ) Extremities/Musculoskelatal: + pertinent finding (RLE swelling) Neurologic/Psych: alert, oriented x 3 Laboratory Results Last 24 Hours Test 01/19/18 21:06 01/19/18 21:07 01/20/18 00:50 01/20/18 01:41 Activated Partial Thromboplast Time 56.5 SECONDS Partial Thromboplastin Ratio 2.2 Hemoglobin 9.6 g/dL 11.0 g/dL 9.9 g/dL Hematocrit 29.8 % 34.0 % 30.9 % Test 01/20/18 05:19 White Blood Count 11.09 K/uL Red Blood Count 3.25 M/uL Hemoglobin 10.3 g/dL Hematocrit 32.0 % Mean Corpuscular Volume 98.5 fL Mean Corpuscular Hemoglobin 31.7 pg Mean Corpuscular Hemoglobin Concent 32.2 g/dl RDW Standard Deviation 55.9 fL RDW Coefficient of Variation 15.6 % Platelet Count 388 K/uL Mean Platelet Volume 9.3 fL Activated Partial Thromboplast Time 35.6 SECONDS Partial Thromboplastin Ratio 1.4 Impression (1) Acute renal failure (2) Left renal mass (3) Hypertension (4) Anemia (5) Deep vein thrombosis Recommendations -- Volume status and electrolyte balance remain acceptable at this time. No acute indication for HD -- Blood pressure is reasonably controlled. Continue Carvedilol, Clonidine and Diltiazem -- Monitor serial PRP, H&H -- Discussed AVF w/ Dr. Roth's RN (he is currently away). They recommend 12 weeks maturation of AVF before use -- Ida filter placed today. Case discussed w/ Dr. Loving. Cleo ARCOS planned for am
--- NOTE | 2018-01-20 15:31 | Progress Note ---
Subjective Date of Service: Jan 20, 2018. Subjective Pt evaluation today including: conversation w/ patient, physical exam, lab review, review of studies, conversation w/ leadership development consultant, review of inpatient medication list Pain: mild left flank pain PO Intake: adequate Voiding: lopez catheter in place patient seen after having IVC filter, tolerated well eating well, moved bowels yesterday has lopez in place for bladder irrigation discussed case with Sarah Kim, Sarah Villarreal, Dr. Matson reviewed labs, Hb stable at 10, Cr was 3.2 on admission Problem List Medical Problems: (1) Anticoagulated Status: Acute (2) Deep vein thrombosis Status: Acute (3) Urothelial cancer Status: Acute Review of Systems Male : + hematuria, + problem reported (mild left flank pain) All Other Systems: Reviewed and Negative Medications Current Inpatient Medications Medications (Trade) Dose Ordered Sig/Solitario Route Start Time Stop Time Status Last Admin Dose Admin Acetaminophen (Tylenol Tab) 650 mg Q4H PRN PO 01/19/18 15:15 02/18/18 15:14 Al Hydrox/Mg Hydrox/Simethicone (Maalox Max Susp) 15 ml Q4H PRN PO 01/19/18 15:15 02/18/18 15:14 Magnesium Hydroxide (Milk Of Magnesia Susp) 30 ml Q12H PRN PO 01/19/18 15:15 02/18/18 15:14 Ondansetron HCl (Zofran Inj) 4 mg Q6H PRN IV 01/19/18 15:15 02/18/18 15:14 Polyethylene (Miralax Powder Packet) 17 gm DAILY PRN PO 01/19/18 15:15 02/18/18 15:14 Carvedilol (Coreg Tab) 3.125 mg BIDM PO 01/19/18 16:45 02/18/18 17:59 01/20/18 08:02 3.125 MG Clonidine HCl (Catapres Tab) 0.3 mg QAM PO 01/20/18 09:00 02/19/18 08:59 01/20/18 08:03 0.3 MG Duloxetine HCl (Cymbalta Cap) 30 mg DAILY PO 01/20/18 09:00 02/19/18 08:59 01/20/18 08:02 30 MG Diltiazem HCl (Dilacor Xr Cap) 240 mg QAM PO 01/20/18 09:00 02/19/18 08:59 01/20/18 08:03 240 MG Sodium Chloride 1,000 ml @ 80 mls/hr [id number] IV 01/19/18 15:45 02/18/18 15:44 01/20/18 05:44 80 MLS/HR Morphine Sulfate (MoRPHine SULFATE INJ) 2 mg Q2H PRN IV 01/20/18 06:00 02/03/18 05:59 01/20/18 06:06 2 MG Objective Vital Signs Date Time Temp Pulse Resp B/P (MAP) Pulse Ox O2 Delivery O2 Flow Rate FiO2 01/20/18 13:55 78 17 128/74 (92) 95 Room Air 01/20/18 12:55 88 18 143/89 (107) 96 Room Air 01/20/18 12:25 88 18 157/79 (105) 97 Room Air 01/20/18 12:00 95 Room Air 01/20/18 11:55 80 17 152/82 (105) 95 Room Air 01/20/18 11:40 81 17 150/90 (110) 95 Room Air 01/20/18 11:25 74 17 152/82 (105) 96 Room Air 01/20/18 11:09 36.7 80 18 142/76 (98) 95 Room Air 01/20/18 11:01 79 16 158/80 98 Room Air 01/20/18 10:56 80 16 155/75 98 Room Air 01/20/18 10:51 81 12 152/76 96 Room Air 01/20/18 10:46 Oxymask 2 01/20/18 10:44 Oxymask 2 01/20/18 10:39 Oxymask 2 01/20/18 10:34 Oxymask 2 01/20/18 10:29 77 26 151/82 98 Oxymask 2 01/20/18 10:24 73 20 152/79 100 Oxymask 2 01/20/18 08:00 98 Room Air 01/20/18 07:48 36.7 68 18 178/89 (118) 98 Room Air 01/20/18 04:00 Room Air 01/20/18 03:40 36.6 67 18 161/85 (110) 100 Room Air 01/20/18 00:05 Room Air 3/19/18 23:43 36.4 73 18 156/80 (105) 98 Room Air 01/19/18 20:00 98 Room Air 01/19/18 19:42 36.7 69 20 130/75 (93) 98 Room Air 01/19/18 16:25 36.7 67 18 157/81 (106) 100 Room Air 01/19/18 16:25 100 Room Air 01/19/18 16:09 96 Room Air Physical Exam General Appearance: WD/WN, no apparent distress Eyes: normal inspection, EOMI, sclerae normal ENT: normal ENT inspection, hearing grossly normal, pharynx normal Neck: supple, no adenopathy, no JVD, trachea midline Respiratory/Chest: chest non-tender, lungs clear, normal breath sounds, no respiratory distress, no accessory muscle use Cardiovascular: regular rate, rhythm, no edema, no gallop, no JVD, no murmur Abdomen: normal bowel sounds, non tender, soft, no organomegaly Extremities: normal range of motion, non-tender, normal inspection, no calf tenderness, + swelling (right leg), + pertinent finding (left UE AV fistula with good bruit and thrill) Neurologic/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: 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2 g/dl RDW Standard Deviation 55.9 fL RDW Coefficient of Variation 15.6 % Platelet Count 388 K/uL Mean Platelet Volume 9.3 fL Activated Partial Thromboplast Time 35.6 SECONDS Partial Thromboplastin Ratio 1.4 Assessment and Plan Mr. Domingo is a 62 y/o male with PMHx of HTN, Urothelial CA, CKD Stage IV S/P L AV Fistula, RLE DVT, R Staghorn Calculi S/P PCNL (Resolved), L Renal Shunt who is pending L HALNU on by Dr. Loving who presented to the ED with further RLE DVT development x 4 days. New RLE DVT while on Eliquis: initially on heparin gtt but had ethan hematuria and large blood clot seen in bladder heparin stopped IVC filter placed on 01/20 will hold on full anticoagulation with plans for nephrectomy on 01/22 less swelling in right leg today CKD Stage IV with L AV Fistula fistula evaluated by Dr. Jimenez today, likely mature enough for HD if needed Cr was 3.2, will repeat tomorrow adequate UO currently Dr. Sears following HTN: BP stable - Hold Lisinopril; Coreg 3.125 mg BID, Clonidine 0.3 mg daily; and Diltiazem 240 mg daily Anemia of Chronic Disease: -Was initiated on Procrit with 3 treatments received - Hgb is 10 gets Procrit on Fridays, will administer on 01/24 if he is still hospitalized Urothelial CA: plan for L HALNU on with Dr. Loving Hematuria: large clot in bladder continue with bladder irrigation DVT Prophylaxis: avoid chemical due to bleeding Code Status: FULL RESUSCITATION Disposition: - Pending nephrectomy on by Dr. Loving
[2018-01-21] VITALS (9 sets, daily range): BP systolic 113–152; BP diastolic 64–77; PULSE 68–86; TEMP 36.8–37.1; O2SAT 95–99
[2018-01-21] MEDS: SODIUM CHLORIDE 0.9% 1000ML 1,000 ML IV SCH ×2 (04:53→17:48)
[2018-01-21 06:32] LABS: PTT PATIENT 31.8 SECONDS (21.0-31.0)
[2018-01-21 07:04] LABS: CALCIUM 8.9 mg/dl (8.5-10.1); CREATININE 3.62 mg/dl (0.60-1.40); POTASSIUM 5.1 mmol/L (3.5-5.1)
[2018-01-21] MEDS: CLONIDINE HCL 0.3 MG TAB PO SCH (08:40)
[2018-01-21] MEDS: DULOXETINE (CYMBALTA) 30 MG CAP PO SCH (08:41)
[2018-01-21] MEDS: CARVEDILOL 3.125 MG TAB PO SCH ×2 (08:41→17:47)
[2018-01-21] MEDS: DILTIAZEM HCL 120 MG ER CAP PO SCH (08:41)
--- NOTE | 2018-01-21 09:40 | Progress Note ---
Subjective Date of Service: Jan 21, 2018. (Sarah Kim CRNP) Subjective Pt evaluation today including: conversation w/ patient, chart review, lab review Voiding: lopez catheter in place (patent, draining palmer colored urine with slow CBI running ) Pt denies pain this morning. Denies n/v. S/p filter placement yesterday. Continues to have some palmer colored urine with slow CBI running. H&H stable at 10.3 and 32.0. Cr slightly increased to 3.62 this morning. (Sarah Kim CRNP) Problem List Medical Problems: (1) Anticoagulated Status: Acute (2) Deep vein thrombosis Status: Acute (3) Urothelial cancer Status: Acute (Sarah Kim CRNP) Review of Systems Constitutional: No fever, No chills Respiratory: No shortness of breath Cardiac: No chest pain Abdomen: No pain, No nausea, No vomiting Male : + hematuria Heme: + abnormal bleeding/bruising (Sarah Kim CRNP) Objective Vital Signs Date Time Temp Pulse Resp B/P (MAP) Pulse Ox O2 Delivery O2 Flow Rate FiO2 01/21/18 07:53 36.8 84 16 148/72 (97) 96 01/21/18 04:00 Room Air 01/21/18 03:50 37.0 75 18 152/77 (102) 97 Room Air 01/20/18 23:45 Room Air 01/20/18 23:45 36.9 74 17 145/70 (95) 96 Room Air 01/20/18 20:15 Room Air 01/20/18 19:03 36.8 77 22 142/76 (98) 95 Room Air 01/20/18 16:00 96 Room Air 01/20/18 15:45 36.7 76 20 136/77 (96) 96 Room Air 01/20/18 14:55 78 18 128/74 (92) 95 Room Air 01/20/18 13:55 78 17 128/74 (92) 95 Room Air 01/20/18 12:55 88 18 143/89 (107) 96 Room Air 01/20/18 12:25 88 18 157/79 (105) 97 Room Air 01/20/18 12:00 95 Room Air 01/20/18 11:55 80 17 152/82 (105) 95 Room Air 01/20/18 11:40 81 17 150/90 (110) 95 Room Air 01/20/18 11:25 74 17 152/82 (105) 96 Room Air 01/20/18 11:09 36.7 80 18 142/76 (98) 95 Room Air 01/20/18 11:01 79 16 158/80 98 Room Air 01/20/18 10:56 80 16 155/75 98 Room Air 01/20/18 10:51 81 12 152/76 96 Room Air 01/20/18 10:46 Oxymask 2 01/20/18 10:44 Oxymask 2 01/20/18 10:39 Oxymask 2 01/20/18 10:34 Oxymask 2 01/20/18 10:29 77 26 151/82 98 Oxymask 2 01/20/18 10:24 73 20 152/79 100 Oxymask 2 (Sarah Kim CRNP) Physical Exam General Appearance: no apparent distress Eyes: normal inspection ENT: hearing grossly normal Neck: no JVD Respiratory/Chest: no respiratory distress, no accessory muscle use Cardiovascular: no JVD Extremities: normal inspection Neurologic/Psychiatric: alert, normal mood/affect, oriented x 3 Skin: normal color (Sarah Kim CRNP) Laboratory Results Last 24 Hours Test 01/21/18 06:12 Activated Partial Thromboplast Time 31.8 SECONDS Partial Thromboplastin Ratio 1.2 Sodium Level 142 mmol/L Potassium Level 5.1 mmol/L Chloride Level 112 mmol/L Carbon Dioxide Level 23 mmol/L Anion Gap 7.0 mmol/L Blood Urea Nitrogen 47 mg/dl Creatinine 3.62 mg/dl Est Creatinine Clear Calc Drug Dose 27.8 ml/min Estimated GFR () 19.8 Estimated GFR (Non- 17.1 BUN/Creatinine Ratio 12.9 Random Glucose 106 mg/dl Calcium Level 8.9 mg/dl (Sarah Kim CRNP) Assessment and Plan A/P: Urothelial carcinoma of the left kidney AFVSS. Will continue to plan for left hand assisted laparoscopic nephroureterectomy tomorrow. Clear liquid diet today. Continue slow CBI for now. Continue IVF. Will plan bowel prep with magnesium citrate today. NPO after midnight. (Sarah Kim CRNP)
--- NOTE | 2018-01-21 11:49 | Nephrology Progress Note ---
Nephrology Progress Note Date of Service Jan 21, 2018. Chief Complaint CKD Subjective Mr. Domingo was seen & examined in his hospital room this morning. He complains of mild R foot discomfort. He denies fever, angina or dyspnea Review of Systems Constitutional: No fever Cardiovascular: No chest pain Respiratory: No dyspnea at rest Abdomen: No pain, No nausea, No vomiting Extremities: + leg edema A complete review of systems was performed. Pertinent positives are noted above. All other systems are negative. Vital Signs Last 8 Hrs Date Time Temp Pulse Resp B/P (MAP) Pulse Ox O2 Delivery O2 Flow Rate FiO2 01/21/18 08:00 Room Air 01/21/18 07:53 36.8 84 16 148/72 (97) 96 01/21/18 04:00 Room Air 01/21/18 03:50 37.0 75 18 152/77 (102) 97 Room Air Last Recorded Weight Weight (Kilograms): 106.200 Physical Exam General Appearance: no apparent distress Head: normocephalic, atraumatic Eyes: PERRL, EOMI Neck: no adenopathy Respiratory/Chest: lungs clear, no respiratory distress Cardiovascular: regular rate, rhythm Abdomen/GI: normal bowel sounds, non tender, soft Genitourinary - Male: + pertinent finding (lopez catheter draining blood tinged urine) Extremities/Musculoskelatal: + pertinent finding (RLE w/ trace pretibial pitting edema. 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 Remote tobacco use. Laboratory Results Past 24 Hours 01/21/18 06:12 Test 01/21/18 06:12 Activated Partial Thromboplast Time 31.8 SECONDS (21.0-31.0) Partial Thromboplastin Ratio 1.2 Anion Gap 7.0 mmol/L (3-11) Est Creatinine Clear Calc Drug Dose 27.8 ml/min Estimated GFR () 19.8 Estimated GFR (Non- 17.1 BUN/Creatinine Ratio 12.9 (10-20) Calcium Level 8.9 mg/dl (8.5-10.1) Allergies Coded Allergies: Statins (Verified Adverse Reaction, Mild, GI UPSET, 01/19/18) Medications Current Inpatient Medications Medications (Trade) Dose Ordered Sig/Solitario Route Start Time Stop Time Status Last Admin Dose Admin Acetaminophen (Tylenol Tab) 650 mg Q4H PRN PO 01/19/18 15:15 02/18/18 15:14 Al Hydrox/Mg Hydrox/Simethicone (Maalox Max Susp) 15 ml Q4H PRN PO 01/19/18 15:15 02/18/18 15:14 Magnesium Hydroxide (Milk Of Magnesia Susp) 30 ml Q12H PRN PO 01/19/18 15:15 02/18/18 15:14 Ondansetron HCl (Zofran Inj) 4 mg Q6H PRN IV 01/19/18 15:15 02/18/18 15:14 Polyethylene (Miralax Powder Packet) 17 gm DAILY PRN PO 01/19/18 15:15 02/18/18 15:14 Carvedilol (Coreg Tab) 3.125 mg BIDM PO 01/19/18 16:45 02/18/18 17:59 01/21/18 08:41 3.125 MG Clonidine HCl (Catapres Tab) 0.3 mg QAM PO 01/20/18 09:00 02/19/18 08:59 01/21/18 08:40 0.3 MG Duloxetine HCl (Cymbalta Cap) 30 mg DAILY PO 01/20/18 09:00 02/19/18 08:59 01/21/18 08:41 30 MG Diltiazem HCl (Dilacor Xr Cap) 240 mg QAM PO 01/20/18 09:00 02/19/18 08:59 01/21/18 08:41 240 MG Sodium Chloride 1,000 ml @ 80 mls/hr [id number] IV 01/19/18 15:45 02/18/18 15:44 01/21/18 04:53 80 MLS/HR Morphine Sulfate (MoRPHine SULFATE INJ) 2 mg Q2H PRN IV 01/20/18 06:00 02/03/18 05:59 01/20/18 06:06 2 MG Magnesium Citrate (Citrate Of Magnesia Soln) 296 ml TODAY@1200 PO 01/21/18 12:00 01/21/18 14:00 Magnesium Citrate (Citrate Of Magnesia Soln) 296 ml TODAY@1500 PRN PO 01/21/18 15:00 01/21/18 23:59 Impression (1) Acute renal failure (2) Left renal mass (3) Hypertension (4) Anemia (5) Deep vein thrombosis Recommendations -- Volume status and electrolyte balance remain acceptable at this time. No acute indication for HD -- Blood pressure is reasonably controlled. Continue Carvedilol, Clonidine and Diltiazem -- Monitor serial PRP, H&H -- Discussed AVF w/ Dr. Roth's RN (he is currently away). They recommend 12 weeks maturation of AVF before use. Discussed w/ Dr. Jimenez this am. He will place IJ THC if needed following L nephrectomy -- Juan filter placed 01/20. -- Case discussed w/ Dr. Loving. Cleo ARCOS planned for am -- Recommend Miralax as bowel prep. Avoid Mg based prep due to CKD
[2018-01-21] MEDS ORDERED: MAGNESIUM CITRATE 296 ML/BTL PO SCH (12:00)
[2018-01-21] MEDS ORDERED: POLYETHYLENE (MIRALAX) 17 GM PACK PO ONE ×2 (12:00→18:00)
[2018-01-21 13:33] LABS: HEMATOCRIT 27.8 % (42-52); HEMOGLOBIN 8.8 g/dL (14.0-18.0)
[2018-01-21] MEDS ORDERED: MAGNESIUM CITRATE 296 ML/BTL PO PRN (15:00)
[2018-01-21] MEDS ORDERED: GABAPENTIN 100 MG CAP PO ONE (15:15)
--- NOTE | 2018-01-21 15:56 | Progress Note ---
Subjective Date of Service: Jan 21, 2018. Subjective Pt evaluation today including: conversation w/ patient, physical exam, lab review, conversation w/ home sales consultant, review of inpatient medication list Pain: right foot pain PO Intake: adequate Voiding: lopez catheter in place patient doing well, only new issue is right foot pain hurts on bottom of foot when he stands no h/o plantar fasciitis, has been told he has neuropathy trying to move bowels with laxatives reviewed labs, Hb down to 8.8, less bleeding from catheter Cr up to 3.6 plan for nephrectomy tomorrow Problem List Medical Problems: (1) Anticoagulated Status: Acute (2) Deep vein thrombosis Status: Acute (3) Urothelial cancer Status: Acute Review of Systems Musculoskeletal: + joint pain (right foot, plantar surface) All Other Systems: Reviewed and Negative Medications Current Inpatient Medications Medications (Trade) Dose Ordered Sig/Solitario Route Start Time Stop Time Status Last Admin Dose Admin Acetaminophen (Tylenol Tab) 650 mg Q4H PRN PO 01/19/18 15:15 02/18/18 15:14 Al Hydrox/Mg Hydrox/Simethicone (Maalox Max Susp) 15 ml Q4H PRN PO 01/19/18 15:15 02/18/18 15:14 Ondansetron HCl (Zofran Inj) 4 mg Q6H PRN IV 01/19/18 15:15 02/18/18 15:14 Polyethylene (Miralax Powder Packet) 17 gm DAILY PRN PO 01/19/18 15:15 02/18/18 15:14 Carvedilol (Coreg Tab) 3.125 mg BIDM PO 01/19/18 16:45 02/18/18 17:59 01/21/18 08:41 3.125 MG Clonidine HCl (Catapres Tab) 0.3 mg QAM PO 01/20/18 09:00 02/19/18 08:59 01/21/18 08:40 0.3 MG Duloxetine HCl (Cymbalta Cap) 30 mg DAILY PO 01/20/18 09:00 02/19/18 08:59 01/21/18 08:41 30 MG Diltiazem HCl (Dilacor Xr Cap) 240 mg QAM PO 01/20/18 09:00 02/19/18 08:59 01/21/18 08:41 240 MG Sodium Chloride 1,000 ml @ 80 mls/hr [id number] IV 01/19/18 15:45 02/18/18 15:44 01/21/18 04:53 80 MLS/HR Morphine Sulfate (MoRPHine SULFATE INJ) 2 mg Q2H PRN IV 01/20/18 06:00 02/03/18 05:59 01/20/18 06:06 2 MG Magnesium Citrate (Citrate Of Magnesia Soln) 296 ml TODAY@1500 PRN PO 01/21/18 15:00 01/21/18 23:59 Polyethylene (Miralax Powder Packet) 17 gm PRN ONCE PO 01/21/18 18:00 01/21/18 18:01 Objective Vital Signs Date Time Temp Pulse Resp B/P (MAP) Pulse Ox O2 Delivery O2 Flow Rate FiO2 01/21/18 12:00 99 Room Air 01/21/18 11:54 36.9 86 18 126/73 (90) 99 01/21/18 08:00 Room Air 01/21/18 07:53 36.8 84 16 148/72 (97) 96 01/21/18 04:00 Room Air 01/21/18 03:50 37.0 75 18 152/77 (102) 97 Room Air 01/20/18 23:45 Room Air 01/20/18 23:45 36.9 74 17 145/70 (95) 96 Room Air 01/20/18 20:15 Room Air 01/20/18 19:03 36.8 77 22 142/76 (98) 95 Room Air 01/20/18 16:00 96 Room Air Physical Exam General Appearance: WD/WN, no apparent distress Eyes: normal inspection, EOMI, sclerae normal ENT: normal ENT inspection, hearing grossly normal, pharynx normal Neck: supple, no adenopathy, no JVD, trachea midline Respiratory/Chest: chest non-tender, lungs clear, normal breath sounds, no respiratory distress, no accessory muscle use Cardiovascular: regular rate, rhythm, no edema, no gallop, no JVD, no murmur Abdomen: normal bowel sounds, non tender, soft, no organomegaly Extremities: normal range of motion, normal inspection, no pedal edema, no calf tenderness, pelvis stable, + pertinent finding (right foot, plantar surface tender to palpation) Neurologic/Psychiatric: floral associate II-XII nml as tested, no motor/sensory deficits, alert, normal mood/affect, oriented x 3 Skin: normal color, warm/dry, no rash Laboratory Results Last 24 Hours Test 01/21/18 06:12 01/21/18 13:14 Activated Partial Thromboplast Time 31.8 SECONDS Partial Thromboplastin Ratio 1.2 Sodium Level 142 mmol/L Potassium Level 5.1 mmol/L Chloride Level 112 mmol/L Carbon Dioxide Level 23 mmol/L Anion Gap 7.0 mmol/L Blood Urea Nitrogen 47 mg/dl Creatinine 3.62 mg/dl Est Creatinine Clear Calc Drug Dose 27.8 ml/min Estimated GFR () 19.8 Estimated GFR (Non- 17.1 BUN/Creatinine Ratio 12.9 Random Glucose 106 mg/dl Calcium Level 8.9 mg/dl Hemoglobin 8.8 g/dL Hematocrit 27.8 % Assessment and Plan Mr. Domingo is a 62 y/o male with PMHx of HTN, Urothelial CA, CKD Stage IV S/P L AV Fistula, RLE DVT, R Staghorn Calculi S/P PCNL (Resolved), L Renal Shunt who is pending L HALNU on by Dr. Loving who presented to the ED with further RLE DVT development x 4 days. New RLE DVT while on Eliquis: initially on heparin gtt but had ethan hematuria and large blood clot seen in bladder heparin stopped 01/20 IVC filter placed on 01/20 in the morning will hold on full anticoagulation with plans for nephrectomy on 01/22 far less swelling in right leg today CKD Stage IV with L AV Fistula fistula evaluated by Dr. Jimenez 01/20, likely mature enough for HD if needed Cr 3.6, continue to follow daily adequate UO currently Dr. Sears following HTN: BP stable - Hold Lisinopril; Coreg 3.125 mg BID, Clonidine 0.3 mg daily; and Diltiazem 240 mg daily Anemia of Chronic Disease: -Was initiated on Procrit with 3 treatments received - Hgb is 8.8 today gets Procrit on Fridays, will administer on 01/24 Urothelial CA: plan for L HALNU on 01/[address] Loving Hematuria: large clot in bladder continue with bladder irrigation less bleeding today Right foot pain: likely neuropathy will give a dose of Neurontin now with surgery tomorrow, hold on BID dosing until 01/24 DVT Prophylaxis: avoid chemical due to bleeding Code Status: FULL RESUSCITATION Disposition: - Pending nephrectomy on by Dr. Loving
[2018-01-22] VITALS (10 sets, daily range): BP systolic 122–215; BP diastolic 74–96; PULSE 65–82; TEMP 36.4–36.8; O2SAT 93–99
[2018-01-22] MEDS: SODIUM CHLORIDE 0.9% 1000ML 1,000 ML IV SCH (05:31)
[2018-01-22 06:53] LABS: HEMATOCRIT 26.6 % (42-52); HEMOGLOBIN 8.3 g/dL (14.0-18.0); MEAN CORPUSCULAR HEMOGLOBIN 31.2 pg (25-34); MEAN CORPUSCULAR HGB CONC 31.2 g/dl (32-36); PLATELET COUNT 334 K/uL (130-400); RED CELL DISTRIBUTION WIDTH CV 15.5 % (11.5-14.5)
[2018-01-22] MEDS ORDERED: BUPIVACAINE 0.5 % 5 MG/1 ML MPF 30ML VIAL ONE (06:59)
--- NOTE | 2018-01-22 06:59 | History & Physical Bridge Note ---
H&P Re-Evaluation Bridge Note: I have examined the patient, reviewed the History & Physical and in the interval since the performance of the History & Physical I have noted the following changes of clinical significance: Patient for left hand-assisted nephroureterctomy today. Numerous medical issues and risks increased due to acute DVT - patient and family aware. Will move forward with surgery as planned. Inpatient chart and notes reviewed.
[2018-01-22 07:24] LABS: CALCIUM 8.8 mg/dl (8.5-10.1); CREATININE 3.12 mg/dl (0.60-1.40); POTASSIUM 4.9 mmol/L (3.5-5.1)
[2018-01-22] MEDS ORDERED: ONDANSETRON INJ 2 MG/ML 2 ML VIAL IV PRN ×2 (08:15→11:15)
[2018-01-22] MEDS ORDERED: EpHEDrine SULFATE INJ 50 MG/ML AMP IV PRN (08:15)
[2018-01-22] MEDS ORDERED: LABETALOL HCL IV 5 MG/ML 20ML IV PRN (08:15)
[2018-01-22] MEDS ORDERED: ATROPINE SULFATE 0.1 MG/ML 5ML SYR IV PRN (08:15)
[2018-01-22] MEDS ORDERED: HYDROmorphone INJ 1 MG/ML SYR IV PRN (08:15)
[2018-01-22] MEDS ORDERED: FENTANYL CITRATE INJ 50 MCG/1 ML 2 ML VIAL IV PRN (08:15)
[2018-01-22] MEDS ORDERED: MEPERIDINE HCL 25 MG/ML CARP IV PRN (08:15)
[2018-01-22] MEDS ORDERED: TISSEEL FIBRIN SEALANT 10ML TOP ONE (11:08)
[2018-01-22] MEDS ORDERED: OXYBUTYNIN CHLORIDE 5 MG TAB PO PRN (11:15)
[2018-01-22] MEDS ORDERED: OXYCODONE/ACETAMINOPHEN 7.5-325 TAB PO PRN (11:15)
[2018-01-22] MEDS ORDERED: ACETAMINOPHEN IV 650 MG in EMPTY BAG 0 ML IV PRN (11:15)
--- NOTE | 2018-01-22 11:53 | [facility] Post Operative Brief Note ---
Immediate Operative Summary Operative Date Jan 22, 2018. Pre-Operative Diagnosis Left urothelial carcinoma Post-Operative Diagnosis Left urothelial carcinoma Procedure(s) Performed Left Laparoscopic Hand Assisted Nephroureterectomy, retroperitoneal bekah resection Surgeon Dr. Robson Loving Aircraft Rigging And Controls Mechanic Surgeon(s) Sarah MCGEE Estimated Blood Loss 200 ml Findings Consistent with Post-Op Diagnosis Specimens Fresh A. Left Renal Hilar Tissue B. Left Kidney and Ureter Drains Watts, #10 DAVON drain Anesthesia Type General Complication(s) none Disposition Accompanied Pt To Recover: yes Disposition: Recovery Room / PACU
--- NOTE | 2018-01-22 12:10 | [facility] Operative Report ---
Operative Report Operative Date Jan 22, 2018. Pre-Operative Diagnosis Left urothelial carcinoma Post-Operative Diagnosis Left urothelial carcinoma Procedure(s) Performed Left Laparoscopic Hand Assisted Nephroureterectomy, left retroperitoneal bekah resection, removal of bladder clots. Surgeon Dr. Robson Loving Charcoal Kiln Burner Surgeon(s) Sarah MCGEE Estimated Blood Loss 200 ml Findings Very large left kidney within Gerota's fat removed intact. Good bladder cuff appreciated with watertight closure on bladder irrigation. Fluids 1400 cc Specimens Fresh A. Left Renal Hilar Tissue B. Left Kidney and Ureter Drains None Watts, #10 DAVON drain Anesthesia Type General Complication(s) none Disposition yes Recovery Room / PACU Indications Patient is a comorbid 62-year-old male for a left-sided hand-assisted laparoscopic nephroureterectomy. He has been admitted due to acute DVT which has been managed with IV heparin and IVC filter. His history of recent right PCNL and left ureteroscopic diagnosis of high-grade urothelial carcinoma at the left renal pelvis is noted. Please see urologic consult and progress notes for further details. Intravenous Ancef was provided for antibiotic coverage, SCDs not used, contraindicated due to acute DVT. Form consent reviewed with patient and family preoperatively today. Description of Procedure Patient was properly identified and brought into the operative suite after identification for proper consent in the chart. General anesthesia with endotracheal the patient was initiated and patient was prepped and draped in the standard fashion for this procedure. Full timeout procedure was followed. Patient was placed in a gentle left flank up flexed position with all pressure points be generously padded. Orogastric tube was placed for drainage of the stomach throughout the case. A Jimenez incision was made in the left lower quadrant and brought down into the abdomen through the fascial layers under direct visualization. Cold scissors were used to enter the abdomen which was noted to be free of any injury on access. Bovie was used to enlarge incision over the surgeon's finger and GelPort hand port was placed. Abdomen was insufflated to 15 mmHg intra-abdominal anatomy was inspected. No worrisome anatomic variations or evidence of intra-abdominal injuries were appreciated. 2 12 mm ports were placed in the midclavicular line onto the surgeon's hand. Harmonic Scalpel was used to incise the white line of Toldt as well as the lateral attachments of the spleen to allow for access to the retroperitoneum. Stented ureter was identified over the iliac vessels and used for lateral traction on the kidney and accessed the renal hilum. Patient's kidney within Gerota's fat was noted to be quite bulky despite the atrophy of his actual renal parenchyma. Clips and harmonic scalpel were used as necessary for hemostasis and control small vessels. Vessel vascular loads were also used to control tissue was necessary. Brawny edema in the vicinity of the ureter was appreciated likely due to both previous ureteroscopy and biopsy as well as long- standing indwelling stent. The renal hilum was circumscribed using the surgeon' s finger and taken using a vascular load with excellent control of both the renal artery and vein. Lateral attachments of the kidney were taken and the adrenal gland was divided using a vascular staple load. Remaining renal attachments were taken until the kidney was free within the abdominal cavity. Ureter had been double clipped with Weck clips prior to significant manipulation of the kidney to avoid any distal seeding of urothelial cells. Excellent hemostasis was appreciated within the retroperitoneum. Some fatty bekah tissue overlying the aorta was appreciated and using clips and harmonic scalpel this was dissected free to be sent for separate pathologic analysis. Excellent hemostasis was appreciated. Care was taken to avoid any reinjury to the renal vascular stumps. After this was complete the retroperitoneum and adrenal bed were covered in Tisseel for additional hemostasis. Ports were removed and abdomen was desufflated. Fascia at the level of the 12 mm ports was closed using an 0 Vicryl suture on a UR 5 needle. With some significant enlargement of the hand port and some careful effort the kidney was able to finally be delivered from the abdomen was wrapped with a blue towel. Minimal fat stripping from the kidney was appreciated at this time with caution. Attention was then turned to the distal ureter which was followed down into the pelvis using clips and long tipped Bovie cautery for control of vessels feeding the ureter. With hand retraction the ureter was traced down to its detrusor insertion on circumscribed allowing for a bladder cuff to be removed with the distal ureter. Coil of the patient's indwelling ureteral stent was appreciated and removed. Patient was noted to have significant clots within the bladder which were removed using DeBakey forceps. Vesicotomy was closed in 2 layers including a 2-0 chromic on a UR 5 needle for the deep layer and 2-0 and 0 Vicryl suture for the external layer. Watts was attached to irrigation and the closure was tested with areas of leakage being oversewn until a watertight closure was appreciated. Tisseel tissue sealant was then placed in the lateral aspect of the bladder and the course of the distal ureter for additional hemostasis. #10 DAVON drain was placed alongside the bladder through a separate stab incision superior to the patient's Jimenez incision. Flexion was removed from the table in Jimenez incision was closed in 2 layers of #1 Ethibond suture. Subcutaneous tissues were closed using 3-0 Vicryl with 4-0 Monocryl being used at the level of all skin incisions as well as Dermabond. Drain was secured in place using a 2-0 silk suture. 20 Cymro silicone Watts catheter been placed at the beginning of the case and was generously irrigated intraoperatively until any small clots were removed from the bladder. Anesthesia was reversed and patient was accompanied to the recovery room in stable condition. Nurse practitioner assisted throughout the case with retraction, laparoscopic camera management, passage of instruments, division of suture and tissue, hemostasis and patient safety. Follow-up care: Patient will be readmitted to the floor for postoperative management. I attest to the content of the Intraoperative Record and any orders documented therein. Any exceptions are noted below.
--- NOTE | 2018-01-22 12:24 | Anesthesiology Progress Note ---
Anesthesia Post Op Note Date & Time Jan 22, 2018 at 12:24 Vital Signs Pain Intensity: 2 Vital Signs Past 12 Hours Date Time Temp Pulse Resp B/P (MAP) Pulse Ox O2 Delivery O2 Flow Rate FiO2 01/22/18 12:15 36.7 75 18 199/88 95 Nasal Cannula 4 01/22/18 12:05 76 16 192/94 92 Nasal Cannula 4 01/22/18 11:55 82 16 187/93 100 Oxymask 8 01/22/18 11:45 84 18 187/93 99 Oxymask 8 01/22/18 11:38 36 82 16 176/88 94 Oxymask 8 01/22/18 04:53 36.7 71 20 122/75 (91) 99 Room Air 01/22/18 04:00 Room Air Notes Mental Status: alert / awake / arousable, participated in evaluation Pt Amnestic to Procedure: Yes Nausea / Vomiting: adequately controlled Pain: adequately controlled Airway Patency, RR, SpO2: stable & adequate BP & HR: stable & adequate Hydration State: stable & adequate Anesthetic Complications: no major complications apparent
[2018-01-22 12:38] LABS: HEMATOCRIT 28.3 % (42-52); HEMOGLOBIN 9.1 g/dL (14.0-18.0); MEAN CORPUSCULAR HEMOGLOBIN 32.2 pg (25-34); PLATELET COUNT 354 K/uL (130-400); RED CELL DISTRIBUTION WIDTH CV 15.4 % (11.5-14.5); WHITE BLOOD COUNT 12.74 K/uL (4.8-10.8)
[2018-01-22 12:40] LABS: MEAN CORPUSCULAR HGB CONC 32.2 g/dl (32-36)
[2018-01-22 12:59] LABS: CALCIUM 8.6 mg/dl (8.5-10.1); CREATININE 3.56 mg/dl (0.60-1.40); POTASSIUM 5.6 mmol/L (3.5-5.1)
[2018-01-22] MEDS ORDERED: HydrALAZINE HCL 20 MG/ML VIAL IV. PRN (13:00)
--- NOTE | 2018-01-22 14:09 | Progress Note ---
Subjective Date of Service: Jan 22, 2018. Subjective Pt evaluation today including: conversation w/ patient, conversation w/ family , physical exam, lab review, conversation w/ obiee consultant, review of inpatient medication list Pain: no pain after surgery PO Intake: NPO Voiding: lopez catheter in place patient tolerated procedure well this AM, left laproscopic hand assisted nephroureterectomy, node resection, removal of bladder clots discussed with Sarah Kim afterwards, will wait to resume heparin, tomorrow at earliest reviewed post op labs, Hb 9.1, Cr 3.5, K up at 5.6 patient sleepy but doing well, no real complaints except fatigue BP elevated in 190's systolic updated family at the bedside Problem List Medical Problems: (1) Anticoagulated Status: Acute (2) Deep vein thrombosis Status: Acute (3) Urothelial cancer Status: Acute Review of Systems Constitutional: + fatigue All Other Systems: Reviewed and Negative Medications Current Inpatient Medications Medications (Trade) Dose Ordered Sig/Solitario Route Start Time Stop Time Status Last Admin Dose Admin Acetaminophen (Tylenol Tab) 650 mg Q4H PRN PO 01/19/18 15:15 02/18/18 15:14 Al Hydrox/Mg Hydrox/Simethicone (Maalox Max Susp) 15 ml Q4H PRN PO 01/19/18 15:15 02/18/18 15:14 Ondansetron HCl (Zofran Inj) 4 mg Q6H PRN IV 01/19/18 15:15 02/18/18 15:14 Polyethylene (Miralax Powder Packet) 17 gm DAILY PRN PO 01/19/18 15:15 02/18/18 15:14 Carvedilol (Coreg Tab) 3.125 mg BIDM PO 01/19/18 16:45 02/18/18 17:59 01/21/18 17:47 3.125 MG Clonidine HCl (Catapres Tab) 0.3 mg QAM PO 01/20/18 09:00 02/19/18 08:59 01/21/18 08:40 0.3 MG Duloxetine HCl (Cymbalta Cap) 30 mg DAILY PO 01/20/18 09:00 02/19/18 08:59 01/21/18 08:41 30 MG Diltiazem HCl (Dilacor Xr Cap) 240 mg QAM PO 01/20/18 09:00 02/19/18 08:59 01/21/18 08:41 240 MG Morphine Sulfate (MoRPHine SULFATE INJ) 2 mg Q2H PRN IV 01/20/18 06:00 02/03/18 05:59 01/20/18 06:06 2 MG Cefazolin Sodium 2000 mg/Syringe 15 ml @ 3.75 mls/ min Q12 IV 01/22/18 21:00 01/23/18 20:59 Docusate Sodium (coLACE CAP) 100 mg BID PO 01/22/18 21:00 02/21/18 20:59 Hydromorphone HCl (Dilaudid Inj) 1 mg Q2H PRN IV 01/22/18 11:15 02/05/18 11:14 Lactated Ringer's 1,000 ml @ 110 mls/hr Q9H6M IV 01/22/18 13:30 02/21/18 13:29 Oxybutynin Chloride (Ditropan Tab) 5 mg BID PRN PO 01/22/18 11:15 02/21/18 11:14 Oxycodone/ Acetaminophen (Percocet 7.5-325MG Tab) Hold Tylenol if given Q4H PRN PO 01/22/18 11:15 02/05/18 11:14 Acetaminophen 650 mg/Empty Bag 65 ml @ 260 mls/hr Q6H PRN IV 01/22/18 11:15 02/21/18 11:14 Hydralazine HCl (HydrALAZINE INJ) 10 mg Q6 PRN IV. 01/22/18 13:00 02/21/18 12:59 Objective Vital Signs Date Time Temp Pulse Resp B/P (MAP) Pulse Ox O2 Delivery O2 Flow Rate FiO2 01/22/18 12:30 73 18 199/88 94 Nasal Cannula 4 01/22/18 12:30 36.6 73 16 192/89 (123) 97 Nasal Cannula 4.0 01/22/18 12:15 36.7 75 18 199/88 95 Nasal Cannula 4 01/22/18 12:05 76 16 192/94 92 Nasal Cannula 4 01/22/18 11:55 82 16 187/93 100 Oxymask 8 01/22/18 11:45 84 18 187/93 99 Oxymask 8 01/22/18 11:38 36 82 16 176/88 94 Oxymask 8 01/22/18 04:53 36.7 71 20 122/75 (91) 99 Room Air 01/22/18 04:00 Room Air 01/22/18 00:00 Room Air 01/21/18 23:50 37.1 69 20 121/69 (86) 96 Room Air 01/21/18 20:30 36.8 78 18 113/73 (86) 96 Room Air 01/21/18 20:00 95 Room Air 01/21/18 17:09 36.9 68 18 114/64 (81) 95 Room Air 01/21/18 16:00 99 Room Air Physical Exam General Appearance: WD/WN, no apparent distress Eyes: normal inspection, EOMI, sclerae normal ENT: normal ENT inspection, hearing grossly normal, pharynx normal Neck: supple, no adenopathy, no JVD, trachea midline Respiratory/Chest: chest non-tender, lungs clear, normal breath sounds, no respiratory distress, no accessory muscle use Cardiovascular: regular rate, rhythm, no edema, no gallop, no JVD, no murmur Abdomen: normal bowel sounds, non tender, soft, no organomegaly Extremities: normal range of motion, non-tender, normal inspection, no pedal edema, no calf tenderness, pelvis stable Neurologic/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: 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 as tested, no motor/sensory deficits, alert, normal mood/affect, oriented x 3 Skin: normal color, warm/dry, no rash Laboratory Results Last 24 Hours Test 01/22/18 06:37 01/22/18 11:58 01/22/18 12:27 White Blood Count 6.80 K/uL 12.74 K/uL Red Blood Count 2.66 M/uL 2.83 M/uL Hemoglobin 8.3 g/dL 9.1 g/dL Hematocrit 26.6 % 28.3 % Mean Corpuscular Volume 100.0 fL 100.0 fL Mean Corpuscular Hemoglobin 31.2 pg 32.2 pg Mean Corpuscular Hemoglobin Concent 31.2 g/dl 32.2 g/dl RDW Standard Deviation 56.0 fL 56.0 fL RDW Coefficient of Variation 15.5 % 15.4 % Platelet Count 334 K/uL 354 K/uL Mean Platelet Volume 9.0 fL 9.0 fL Sodium Level 141 mmol/L 139 mmol/L Potassium Level 4.9 mmol/L 5.6 mmol/L Chloride Level 112 mmol/L 111 mmol/L Carbon Dioxide Level 22 mmol/L 21 mmol/L Anion Gap 7.0 mmol/L 6.0 mmol/L Blood Urea Nitrogen 40 mg/dl 42 mg/dl Creatinine 3.12 mg/dl 3.56 mg/dl Est Creatinine Clear Calc Drug Dose 32.5 ml/min 28.5 ml/min Estimated GFR () 23.7 20.2 Estimated GFR (Non- 20.4 17.4 BUN/Creatinine Ratio 12.7 11.8 Random Glucose 95 mg/dl 169 mg/dl Calcium Level 8.8 mg/dl 8.6 mg/dl Magnesium Level 2.6 mg/dl Bedside Glucose 188 mg/dl Assessment and Plan Mr. Domingo is a 62 y/o male with PMHx of HTN, Urothelial CA, CKD Stage IV S/P L AV Fistula, RLE DVT, R Staghorn Calculi S/P PCNL (Resolved), L Renal Shunt who is pending L HALNU on by Dr. Loving who presented to the ED with further RLE DVT development x 4 days. New RLE DVT while on Eliquis: initially on heparin gtt but had ethan hematuria and large blood clot seen in bladder heparin stopped 01/20 IVC filter placed on 01/20 in the morning continue to hold Heparin today, check with urology tomorrow prior to resuming , make sure there is no bleeding continues to have less swelling in right leg CKD Stage IV with L AV Fistula fistula evaluated by Dr. Jimenez 01/20, likely mature enough for HD if needed Cr 3.5 today after surgery, continue to follow daily adequate UO currently Dr. Sears following Hyperkalemia: mild at 5.6 will repeat potassium this evening, if trending up will give dextrose and insulin will give Kayexalate would hold on Lasix in setting of Cr of 3.5 and one kidney HTN: BP elevated post op Hydralazine PRN ordered Hold Lisinopril; continue Coreg 3.125 mg BID, Clonidine 0.3 mg daily; and Diltiazem 240 mg daily Anemia of Chronic Disease: -Was initiated on Procrit with 3 treatments received - Hgb is 9.1 today gets Procrit on Fridays, will administer on 3/24 Urothelial CA: s/p L HALNU on 01/[address] Loving EBL only 200cc, doing well post op Hematuria: large clot in bladder resolved, urine clear, had clot removed in the OR Right foot pain: likely neuropathy if still with pain tomorrow, will give Neurontin DVT Prophylaxis: avoid chemical due to bleeding Code Status: FULL RESUSCITATION Disposition: - Pending nephrectomy on by Dr. Loving
--- NOTE | 2018-01-22 14:40 | Progress Note ---
Progress Note Date of Service Jan 22, 2018. Progress Note Patient postop left hand assisted laparoscopic nephroureterectomy. Somnolent in bed, in room, VSS. Postop labwork reviewed, UOP clear. NAD, somnolent. Good respiratory excursion. S1 S2 Abd soft, appropriately tender, inc c/d/i with dermabond. A/P 62 yo male s/p L HALNU Increase diet and activity slowly. Closely monitor Hb and Cr postop. Watts x 2 weeks, then cystogram. Findings reviewed with patient and .
[2018-01-22] MEDS: CLONIDINE HCL 0.3 MG TAB PO SCH (15:01)
[2018-01-22] MEDS: DULOXETINE (CYMBALTA) 30 MG CAP PO SCH (15:01)
[2018-01-22] MEDS: DILTIAZEM HCL 120 MG ER CAP PO SCH (15:02)
[2018-01-22] MEDS: CARVEDILOL 3.125 MG TAB PO SCH ×2 (15:02→17:06)
[2018-01-22] MEDS: LACTATED RINGER'S 1000ML 1,000 ML IV SCH ×2 (15:03→20:35)
[2018-01-22] MEDS: HYDROmorphone INJ 1 MG/ML SYR IV PRN ×2 (17:05→20:34)
--- NOTE | 2018-01-22 17:58 | Nephrology Progress Note ---
Nephrology Progress Note Date of Service Jan 22, 2018. Chief Complaint CKD Subjective Mr. Domingo was seen & examined in his hospital room this evening. He complains of incisional discomfort but denies angina, dyspnea. Review of Systems Constitutional: No fever Cardiovascular: No chest pain Respiratory: No dyspnea at rest Extremities: + leg edema A complete review of systems was performed. Pertinent positives are noted above. All other systems are negative. Vital Signs Last 8 Hrs Date Time Temp Pulse Resp B/P (MAP) Pulse Ox O2 Delivery O2 Flow Rate FiO2 01/22/18 16:00 36.4 76 18 208/96 (133) 95 Nasal Cannula 4.0 01/22/18 15:00 36.5 68 18 215/96 (135) 95 Nasal Cannula 4.0 01/22/18 14:30 36.4 66 18 205/93 (130) 95 Nasal Cannula 4.0 01/22/18 14:15 36.4 66 16 201/83 (122) 95 Nasal Cannula 4.0 01/22/18 14:00 36.5 65 16 207/91 (129) 96 Nasal Cannula 4.0 01/22/18 13:00 96 Nasal Cannula 4.0 01/22/18 13:00 36.4 66 16 208/92 (130) 95 Nasal Cannula 4.0 01/22/18 12:30 73 18 199/88 94 Nasal Cannula 4 01/22/18 12:30 36.6 73 16 192/89 (123) 97 Nasal Cannula 4.0 01/22/18 12:15 36.7 75 18 199/88 95 Nasal Cannula 4 01/22/18 12:05 76 16 192/94 92 Nasal Cannula 4 01/22/18 11:55 82 16 187/93 100 Oxymask 8 01/22/18 11:45 84 18 187/93 99 Oxymask 8 01/22/18 11:38 36 82 16 176/88 94 Oxymask 8 I & O 24-Hour Column 01/23/18 07:59 Intake Total 1500 ml Output Total 705 ml Balance 795 ml Last Recorded Weight Weight (Kilograms): 107.900 Physical Exam General Appearance: no apparent distress Head: normocephalic, atraumatic Eyes: PERRL, EOMI Respiratory/Chest: lungs clear, no respiratory distress Cardiovascular: regular rate, rhythm Genitourinary - Male: + pertinent finding (lopez catheter draining yellow urine ) Extremities/Musculoskelatal: no pedal edema Neurologic/Psych: alert Family History Diabetes mellitus Hypertension Negative for CKD / ESRD Social History Smokeless Tobacco Use: Yes Alcohol Use: none Drug Use: none Marital Status: Housing Status: lives with significant other 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 Remote tobacco use. Laboratory Results Past 24 Hours 01/22/18 06:37 01/22/18 12:27 01/22/18 06:37 01/22/18 12:27 Test 01/22/18 06:37 01/22/18 11:58 01/22/18 12:27 Red Blood Count 2.66 M/uL (4.7-6.1) 2.83 M/uL (4.7-6.1) Mean Corpuscular Volume 100.0 fL (80-100) 100.0 fL (80-100) Mean Corpuscular Hemoglobin 31.2 pg (25-34) 32.2 pg (25-34) Mean Corpuscular Hemoglobin Concent 31.2 g/dl (32-36) 32.2 g/dl (32-36) RDW Standard Deviation 56.0 fL (36.4-46.3) 56.0 fL (36.4-46.3) RDW Coefficient of Variation 15.5 % (11.5-14.5) 15.4 % (11.5-14.5) Mean Platelet Volume 9.0 fL (7.4-10.4) 9.0 fL (7.4-10.4) Anion Gap 7.0 mmol/L (3-11) 6.0 mmol/L (3-11) Est Creatinine Clear Calc Drug Dose 32.5 ml/min 28.5 ml/min Estimated GFR () 23.7 20.2 Estimated GFR (Non- 20.4 17.4 BUN/Creatinine Ratio 12.7 (10-20) 11.8 (10-20) Calcium Level 8.8 mg/dl (8.5-10.1) 8.6 mg/dl (8.5-10.1) Magnesium Level 2.6 mg/dl (1.8-2.4) Bedside Glucose 188 mg/dl (70-99) Allergies Coded Allergies: Statins (Verified Adverse Reaction, Mild, GI UPSET, 01/19/18) Medications Current Inpatient Medications Medications (Trade) Dose Ordered Sig/Solitario Route Start Time Stop Time Status Last Admin Dose Admin Acetaminophen (Tylenol Tab) 650 mg Q4H PRN PO 01/19/18 15:15 02/18/18 15:14 Al Hydrox/Mg Hydrox/Simethicone (Maalox Max Susp) 15 ml Q4H PRN PO 01/19/18 15:15 02/18/18 15:14 Ondansetron HCl (Zofran Inj) 4 mg Q6H PRN IV 01/19/18 15:15 02/18/18 15:14 Polyethylene (Miralax Powder Packet) 17 gm DAILY PRN PO 01/19/18 15:15 02/18/18 15:14 Carvedilol (Coreg Tab) 3.125 mg BIDM PO 01/19/18 16:45 02/18/18 17:59 01/22/18 17:06 3.125 MG Clonidine HCl (Catapres Tab) 0.3 mg QAM PO 01/20/18 09:00 02/19/18 08:59 01/22/18 15:01 0.3 MG Duloxetine HCl (Cymbalta Cap) 30 mg DAILY PO 01/20/18 09:00 02/19/18 08:59 01/22/18 15:01 30 MG Diltiazem HCl (Dilacor Xr Cap) 240 mg QAM PO 01/20/18 09:00 02/19/18 08:59 01/22/18 15:02 240 MG Morphine Sulfate (MoRPHine SULFATE INJ) 2 mg Q2H PRN IV 01/20/18 06:00 02/03/18 05:59 01/20/18 06:06 2 MG Cefazolin Sodium 2000 mg/Syringe 15 ml @ 3.75 mls/ min Q12 IV 01/22/18 21:00 01/23/18 20:59 Docusate Sodium (coLACE CAP) 100 mg BID PO 01/22/18 21:00 02/21/18 20:59 Hydromorphone HCl (Dilaudid Inj) 1 mg Q2H PRN IV 01/22/18 11:15 02/05/18 11:14 01/22/18 17:05 1 MG Lactated Ringer's 1,000 ml @ 110 mls/hr Q9H6M IV 01/22/18 13:30 02/21/18 13:29 01/22/18 15:03 110 MLS/HR Oxybutynin Chloride (Ditropan Tab) 5 mg BID PRN PO 01/22/18 11:15 02/21/18 11:14 Oxycodone/ Acetaminophen (Percocet 7.5-325MG Tab) Hold Tylenol if given Q4H PRN PO 01/22/18 11:15 02/05/18 11:14 Acetaminophen 650 mg/Empty Bag 65 ml @ 260 mls/hr Q6H PRN IV 01/22/18 11:15 02/21/18 11:14 Hydralazine HCl (HydrALAZINE INJ) 10 mg Q6 PRN IV. 01/22/18 13:00 02/21/18 12:59 01/22/18 17:04 10 MG Impression (1) Acute renal failure (2) Left renal mass (3) Hypertension (4) Anemia (5) Deep vein thrombosis Recommendations -- Volume status and electrolyte balance remain acceptable at this time. No acute indication for HD -- Blood pressure is reasonably controlled. Continue Carvedilol, Clonidine and Diltiazem -- Juan filter placed 01/20. -- Monitor serial PRP, H&H
[2018-01-22] MEDS: DOCUSATE SODIUM 100 MG CAP PO SCH (21:00)
[2018-01-22] MEDS: CEFAZOLIN IV 2,000 MG in SYRINGE 0 ML IV SCH (21:46)
[2018-01-23] VITALS (8 sets, daily range): BP systolic 104–154; BP diastolic 51–71; PULSE 64–91; TEMP 36.7–37.4; O2SAT 87–98
[2018-01-23] MEDS: HYDROmorphone INJ 1 MG/ML SYR IV PRN ×5 (01:16→20:41)
[2018-01-23 07:33] LABS: BASO % 0.1 %; BASO ABS # 0.01 K/uL (0-0.2); EOS % 0.1 %; EOS ABS # 0.01 K/uL (0-0.5); HEMOGLOBIN 8.2 g/dL (14.0-18.0); IG# 0.02 K/uL (0.00-0.02); LYMPH % 11.1 %; LYMPH ABS # 1.16 K/uL (1.2-3.4); MEAN CELL VOLUME 98.1 fL (80-100); MEAN CORPUSCULAR HEMOGLOBIN 30.9 pg (25-34); MEAN CORPUSCULAR HGB CONC 31.5 g/dl (32-36); MEAN PLATELET VOLUME 8.7 fL (7.4-10.4); MONO % 10.2 %; MONO ABS # 1.07 K/uL (0.11-0.59); NEUT % 78.3 %; NEUT ABS # 8.18 K/uL (1.4-6.5); PLATELET COUNT 336 K/uL (130-400); RED CELL DISTRIBUTION WIDTH CV 15.2 % (11.5-14.5); RED CELL DISTRIBUTION WIDTH SD 54.2 fL (36.4-46.3); WHITE BLOOD COUNT 10.45 K/uL (4.8-10.8)
[2018-01-23 08:00] LABS: CALCIUM 8.7 mg/dl (8.5-10.1); CREATININE 3.64 mg/dl (0.60-1.40); POTASSIUM 5.3 mmol/L (3.5-5.1)
[2018-01-23] MEDS: CARVEDILOL 3.125 MG TAB PO SCH ×2 (08:02→17:54)
[2018-01-23] MEDS: CLONIDINE HCL 0.3 MG TAB PO SCH (08:03)
[2018-01-23] MEDS: DULOXETINE (CYMBALTA) 30 MG CAP PO SCH (08:03)
[2018-01-23] MEDS: DILTIAZEM HCL 120 MG ER CAP PO SCH (08:04)
[2018-01-23] MEDS: DOCUSATE SODIUM 100 MG CAP PO SCH ×2 (08:09→20:46)
[2018-01-23] MEDS ORDERED: ALBUT/IPRATROP 3MG/0.5MG NEB 3 ML VIAL INH PRN (09:00)
--- NOTE | 2018-01-23 09:03 | Progress Note ---
Subjective Date of Service: Jan 23, 2018. Subjective Pt evaluation today including: conversation w/ patient, physical exam, chart review, lab review, review of inpatient medication list Pain: Controlled with meds PO Intake: Rachel clears Voiding: lopez catheter in place (urine clear) 62 yo male POD#1 s/p L HALNU. He has been OOBTC, not ambulatory in halls as of yet. He notes incisional pain and headache, controlled with Ofrimev and meds. He otherwise feels relatively well, inquires as when he can go home. Nephrology and hospitalist notes from yesterday appreciated. Intraop findings reviewed with patient. Good UOP, acceptable DAVON output. Hb and Cr relatively stable considering. Problem List Medical Problems: (1) Anticoagulated Status: Acute (2) Deep vein thrombosis Status: Acute (3) Urothelial cancer Status: Acute Review of Systems Constitutional: No fever, No chills Eyes: No worsening of vision ENT: No hearing loss Respiratory: No wheezing, No shortness of breath Cardiac: No chest pain Abdomen: + pain, No nausea, No vomiting Male : No hematuria (resolved) Neurologic: No memory loss, No paralysis Psychiatric: No depression symptoms Endo: No excessive thirst Skin: No new/changing skin lesions Objective Vital Signs Date Time Temp Pulse Resp B/P (MAP) Pulse Ox O2 Delivery O2 Flow Rate FiO2 01/23/18 07:41 36.7 76 20 137/71 (93) 94 Nasal Cannula 4.0 01/23/18 04:08 Room Air 01/23/18 03:17 36.7 78 18 154/60 (91) 91 Room Air 01/23/18 00:09 Room Air 01/22/18 22:59 36.7 82 19 164/74 (104) 93 Room Air 01/22/18 20:43 Room Air 01/22/18 19:30 36.8 80 16 170/83 (112) 94 Room Air 01/22/18 16:00 36.4 76 18 208/96 (133) 95 Nasal Cannula 4.0 01/22/18 16:00 95 Nasal Cannula 4.0 01/22/18 15:00 36.5 68 18 215/96 (135) 95 Nasal Cannula 4.0 01/22/18 14:30 36.4 66 18 205/93 (130) 95 Nasal Cannula 4.0 01/22/18 14:15 36.4 66 16 201/83 (122) 95 Nasal Cannula 4.0 01/22/18 14:00 36.5 65 16 207/91 (129) 96 Nasal Cannula 4.0 01/22/18 13:00 96 Nasal Cannula 4.0 01/22/18 13:00 36.4 66 16 208/92 (130) 95 Nasal Cannula 4.0 01/22/18 12:30 73 18 199/88 94 Nasal Cannula 4 01/22/18 12:30 36.6 73 16 192/89 (123) 97 Nasal Cannula 4.0 01/22/18 12:15 36.7 75 18 199/88 95 Nasal Cannula 4 01/22/18 12:05 76 16 192/94 92 Nasal Cannula 4 01/22/18 11:55 82 16 187/93 100 Oxymask 8 01/22/18 11:45 84 18 187/93 99 Oxymask 8 01/22/18 11:38 36 82 16 176/88 94 Oxymask 8 Physical Exam General Appearance: WD/WN, no apparent distress ENT: normal ENT inspection Neck: supple, no adenopathy Respiratory/Chest: no respiratory distress, no accessory muscle use Cardiovascular: no JVD Abdomen: soft, + pertinent finding (improving tenderness, inc c/d/i with dermabond, DAVON in place, serosanguinous drainage) Neurologic/Psychiatric: alert, oriented x 3 Skin: normal color Laboratory Results Last 24 Hours Test 01/22/18 11:58 01/22/18 12:27 01/22/18 16:56 01/23/18 07:22 Bedside Glucose 188 mg/dl White Blood Count 12.74 K/uL 10.45 K/uL Red Blood Count 2.83 M/uL 2.65 M/uL Hemoglobin 9.1 g/dL 8.2 g/dL Hematocrit 28.3 % 26.0 % Mean Corpuscular Volume 100.0 fL 98.1 fL Mean Corpuscular Hemoglobin 32.2 pg 30.9 pg Mean Corpuscular Hemoglobin Concent 32.2 g/dl 31.5 g/dl RDW Standard Deviation 56.0 fL 54.2 fL RDW Coefficient of Variation 15.4 % 15.2 % Platelet Count 354 K/uL 336 K/uL Mean Platelet Volume 9.0 fL 8.7 fL Sodium Level 139 mmol/L 138 mmol/L Potassium Level 5.6 mmol/L 5.9 mmol/L 5.3 mmol/L Chloride Level 111 mmol/L 109 mmol/L Carbon Dioxide Level 21 mmol/L 21 mmol/L Anion Gap 6.0 mmol/L 8.0 mmol/L Blood Urea Nitrogen 42 mg/dl 44 mg/dl Creatinine 3.56 mg/dl 3.64 mg/dl Est Creatinine Clear Calc Drug Dose 28.5 ml/min 27.9 ml/min Estimated GFR () 20.2 19.7 Estimated GFR (Non- 17.4 17.0 BUN/Creatinine Ratio 11.8 12.0 Random Glucose 169 mg/dl 129 mg/dl Calcium Level 8.6 mg/dl 8.7 mg/dl Neutrophils (%) (Auto) 78.3 % Lymphocytes (%) (Auto) 11.1 % Monocytes (%) (Auto) 10.2 % Eosinophils (%) (Auto) 0.1 % Basophils (%) (Auto) 0.1 % Neutrophils # (Auto) 8.18 K/uL Lymphocytes # (Auto) 1.16 K/uL Monocytes # (Auto) 1.07 K/uL Eosinophils # (Auto) 0.01 K/uL Basophils # (Auto) 0.01 K/uL Immature Granulocyte % (Auto) 0.2 % Immature Granulocyte # (Auto) 0.02 K/uL Assessment and Plan A/P 62 yo male with left high grade urothelial carcinoma POD#1 s/p left hand assist lap nephroureterectomy. I am cautiously optimistic about his postop renal function and stable Hb. I would not be surprised if his Hb drifts downwards and he ends up requiring a couple of units of PRBC. He would normally receive his Procrit today - will defer to nephrology, no contraindications from standpoint. Lopez clear, could be due to removal of kidney + stent vs. stoppage of anticoagulation. Heparin on hold, of course there is a risk of bleeding when it is restarted. IVC filter in place, risk of bleeding will improve with time but of course anticoagulation will need to be restarted at some point. Will defer timing to hospitalist service regarding restarting heparin gtts (could be as early as today, tomorrow might be safer from a postop bleeding standpoint) and presumed conversion to longer term Coumadin. Monitor labwork for decrease in Hb. Will monitor renal function with time. Advance diet and activity today, lopez training. Discharge planning: home
[2018-01-23] MEDS ORDERED: SODIUM POLYST. SULF SUSP 15G/60ML PO STA (09:29)
[2018-01-23] MEDS ORDERED: HEPARIN IV LOW DOSE NO BOLUS SCH (09:30)
[2018-01-23] MEDS: CEFAZOLIN IV 2,000 MG in SYRINGE 0 ML IV SCH (11:45)
--- NOTE | 2018-01-23 15:05 | Nephrology Progress Note ---
Nephrology Progress Note Date of Service Jan 23, 2018. Chief Complaint CKD Subjective Mr. Domingo was seen & examined in his hospital room this morning. He complained of incisional discomfort but denied fever, angina or dyspnea. Lopez catheter is draining clear yellow urine. Mr. Domingo informs me that he is due for his scheduled outpatient dose of Procrit today. Review of Systems Constitutional: No fever Cardiovascular: No chest pain Respiratory: No dyspnea at rest Abdomen: + pain, No nausea Extremities: No leg edema A complete review of systems was performed. Pertinent positives are noted above. All other systems are negative. Vital Signs Last 8 Hrs Date Time Temp Pulse Resp B/P (MAP) Pulse Ox O2 Delivery O2 Flow Rate FiO2 01/23/18 11:45 Room Air 01/23/18 11:27 36.7 91 18 98 4.0 01/23/18 11:27 36.8 64 18 104/63 (77) 93 Room Air 01/23/18 09:05 91 18 98 Room Air 01/23/18 08:00 Room Air 01/23/18 07:41 36.7 76 20 137/71 (93) 94 Nasal Cannula 4.0 I & O 24-Hour Column 01/24/18 08:00 Intake Total 920 ml Output Total 450 ml Balance 470 ml Last Recorded Weight Weight (Kilograms): 107.800 Physical Exam General Appearance: no apparent distress Head: normocephalic, atraumatic Eyes: PERRL, EOMI Neck: supple Respiratory/Chest: lungs clear Cardiovascular: regular rate, rhythm Abdomen/GI: soft (hypoactive bowel sounds) Genitourinary - Male: + pertinent finding (lopez catheter draining clear yellow urine) Extremities/Musculoskelatal: no calf tenderness, no pedal edema Neurologic/Psych: alert, oriented x 3 Family History Diabetes mellitus Hypertension Negative for CKD / ESRD Social History Smokeless Tobacco Use: Yes Alcohol Use: none Drug Use: none Marital Status: Housing Status: lives with significant other 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 Remote tobacco use. Laboratory Results Past 24 Hours 01/23/18 07:22 Red Blood Count 2.65, Mean Corpuscular Volume 98.1, Mean Corpuscular Hemoglobin 30.9, Mean Corpuscular Hemoglobin Concent 31.5, Mean Platelet Volume 8.7, Neutrophils (%) (Auto) 78.3, Lymphocytes (%) (Auto) 11.1, Monocytes (%) (Auto) 10.2, Eosinophils (%) (Auto) 0.1, Basophils (%) (Auto) 0.1, Neutrophils # (Auto ) 8.18, Lymphocytes # (Auto) 1.16, Monocytes # (Auto) 1.07, Eosinophils # (Auto ) 0.01, Basophils # (Auto) 0.01 01/22/18 16:56 01/23/18 07:22 Test 01/23/18 07:22 White Blood Count 10.45 K/uL (4.8-10.8) Red Blood Count 2.65 M/uL (4.7-6.1) Hemoglobin 8.2 g/dL (14.0-18.0) Hematocrit 26.0 % (42-52) Mean Corpuscular Volume 98.1 fL (80-100) Mean Corpuscular Hemoglobin 30.9 pg (25-34) Mean Corpuscular Hemoglobin Concent 31.5 g/dl (32-36) Platelet Count 336 K/uL (130-400) Mean Platelet Volume 8.7 fL (7.4-10.4) Neutrophils (%) (Auto) 78.3 % Lymphocytes (%) (Auto) 11.1 % Monocytes (%) (Auto) 10.2 % Eosinophils (%) (Auto) 0.1 % Basophils (%) (Auto) 0.1 % Neutrophils # (Auto) 8.18 K/uL (1.4-6.5) Lymphocytes # (Auto) 1.16 K/uL (1.2-3.4) Monocytes # (Auto) 1.07 K/uL (0.11-0.59) Eosinophils # (Auto) 0.01 K/uL (0-0.5) Basophils # (Auto) 0.01 K/uL (0-0.2) RDW Standard Deviation 54.2 fL (36.4-46.3) RDW Coefficient of Variation 15.2 % (11.5-14.5) Immature Granulocyte % (Auto) 0.2 % Immature Granulocyte # (Auto) 0.02 K/uL (0.00-0.02) Anion Gap 8.0 mmol/L (3-11) Est Creatinine Clear Calc Drug Dose 27.9 ml/min Estimated GFR () 19.7 Estimated GFR (Non- 17.0 BUN/Creatinine Ratio 12.0 (10-20) Calcium Level 8.7 mg/dl (8.5-10.1) Allergies Coded Allergies: Statins (Verified Adverse Reaction, Mild, GI UPSET, 01/19/18) Medications Current Inpatient Medications Medications (Trade) Dose Ordered Sig/Solitario Route Start Time Stop Time Status Last Admin Dose Admin Acetaminophen (Tylenol Tab) 650 mg Q4H PRN PO 01/19/18 15:15 02/18/18 15:14 Al Hydrox/Mg Hydrox/Simethicone (Maalox Max Susp) 15 ml Q4H PRN PO 01/19/18 15:15 02/18/18 15:14 Ondansetron HCl (Zofran Inj) 4 mg Q6H PRN IV 01/19/18 15:15 02/18/18 15:14 Polyethylene (Miralax Powder Packet) 17 gm DAILY PRN PO 01/19/18 15:15 02/18/18 15:14 Carvedilol (Coreg Tab) 3.125 mg BIDM PO 01/19/18 16:45 02/18/18 17:59 01/23/18 08:02 3.125 MG Clonidine HCl (Catapres Tab) 0.3 mg QAM PO 01/20/18 09:00 02/19/18 08:59 01/23/18 08:03 0.3 MG Duloxetine HCl (Cymbalta Cap) 30 mg DAILY PO 01/20/18 09:00 02/19/18 08:59 01/23/18 08:03 30 MG Diltiazem HCl (Dilacor Xr Cap) 240 mg QAM PO 01/20/18 09:00 02/19/18 08:59 01/23/18 08:04 240 MG Morphine Sulfate (MoRPHine SULFATE INJ) 2 mg Q2H PRN IV 01/20/18 06:00 02/03/18 05:59 01/20/18 06:06 2 MG Cefazolin Sodium 2000 mg/Syringe 15 ml @ 3.75 mls/ min Q12 IV 01/22/18 21:00 01/23/18 20:59 01/23/18 11:45 3.75 MLS/MIN Docusate Sodium (coLACE CAP) 100 mg BID PO 01/22/18 21:00 02/21/18 20:59 Hydromorphone HCl (Dilaudid Inj) 1 mg Q2H PRN IV 01/22/18 11:15 02/05/18 11:14 01/23/18 11:39 1 MG Oxybutynin Chloride (Ditropan Tab) 5 mg BID PRN PO 01/22/18 11:15 02/21/18 11:14 Oxycodone/ Acetaminophen (Percocet 7.5-325MG Tab) Hold Tylenol if given Q4H PRN PO 01/22/18 11:15 02/05/18 11:14 Acetaminophen 650 mg/Empty Bag 65 ml @ 260 mls/hr Q6H PRN IV 01/22/18 11:15 02/21/18 11:14 01/23/18 01:25 260 MLS/HR Hydralazine HCl (HydrALAZINE INJ) 10 mg Q6 PRN IV. 01/22/18 13:00 02/21/18 12:59 01/22/18 17:04 10 MG Albuterol/ Ipratropium (Duoneb) 3 ml Q4H PRN INH 01/23/18 09:00 02/22/18 08:59 01/23/18 09:04 3 ML Heparin Sodium/ Dextrose 1 ea Q10M N/A 01/23/18 09:30 02/22/18 09:29 Future hold Impression (1) Acute renal failure (2) Left renal mass (3) Hypertension (4) Anemia (5) Deep vein thrombosis Recommendations -- Volume status and electrolyte balance remain acceptable at this time. No acute indication for HD -- If dialysis becomes necessary, IJ THC will need to be placed by Dr. Jimenez. AVF has only matured for 3 weeks -- Blood pressure is reasonably controlled. Continue Carvedilol, Clonidine and Diltiazem -- Will provide one dose Epogen SQ today -- [place] filter placed 01/20. -- Monitor serial PRP, H&H
[2018-01-23] MEDS ORDERED: EPOETIN ALFA 10,000 UNITS/ML VIAL SQ ONE (16:00)
--- NOTE | 2018-01-23 16:08 | Progress Note ---
Subjective Date of Service: Jan 23, 2018. Subjective Pt evaluation today including: conversation w/ patient, physical exam, lab review, conversation w/ employee relations consultant, review of inpatient medication list Pain: no pain PO Intake: adequate Voiding: lopez catheter in place patient feeling well, sitting up OOB, eating breakfast this AM + flatus, no BM lopez still in place no complaints of foot pain today reviewed labs, Cr is up to 3.6, K is down to 5.3, Hb at 8.2 discussed with Sarah Kim, Dr. Loving, Dr. Sears will start heparin tomorrow Problem List Medical Problems: (1) Anticoagulated Status: Acute (2) Deep vein thrombosis Status: Acute (3) Urothelial cancer Status: Acute Review of Systems Neurologic: + weakness All Other Systems: Reviewed and Negative Medications Current Inpatient Medications Medications (Trade) Dose Ordered Sig/Solitario Route Start Time Stop Time Status Last Admin Dose Admin Acetaminophen (Tylenol Tab) 650 mg Q4H PRN PO 01/19/18 15:15 02/18/18 15:14 Al Hydrox/Mg Hydrox/Simethicone (Maalox Max Susp) 15 ml Q4H PRN PO 01/19/18 15:15 02/18/18 15:14 Ondansetron HCl (Zofran Inj) 4 mg Q6H PRN IV 01/19/18 15:15 02/18/18 15:14 Polyethylene (Miralax Powder Packet) 17 gm DAILY PRN PO 01/19/18 15:15 02/18/18 15:14 Carvedilol (Coreg Tab) 3.125 mg BIDM PO 01/19/18 16:45 02/18/18 17:59 01/23/18 08:02 3.125 MG Clonidine HCl (Catapres Tab) 0.3 mg QAM PO 01/20/18 09:00 02/19/18 08:59 01/23/18 08:03 0.3 MG Duloxetine HCl (Cymbalta Cap) 30 mg DAILY PO 01/20/18 09:00 02/19/18 08:59 01/23/18 08:03 30 MG Diltiazem HCl (Dilacor Xr Cap) 240 mg QAM PO 01/20/18 09:00 02/19/18 08:59 01/23/18 08:04 240 MG Morphine Sulfate (MoRPHine SULFATE INJ) 2 mg Q2H PRN IV 01/20/18 06:00 02/03/18 05:59 01/20/18 06:06 2 MG Cefazolin Sodium 2000 mg/Syringe 15 ml @ 3.75 mls/ min Q12 IV 01/22/18 21:00 01/23/18 20:59 01/23/18 11:45 3.75 MLS/MIN Docusate Sodium (coLACE CAP) 100 mg BID PO 01/22/18 21:00 02/21/18 20:59 Hydromorphone HCl (Dilaudid Inj) 1 mg Q2H PRN IV 01/22/18 11:15 02/05/18 11:14 01/23/18 15:04 1 MG Oxybutynin Chloride (Ditropan Tab) 5 mg BID PRN PO 01/22/18 11:15 02/21/18 11:14 Oxycodone/ Acetaminophen (Percocet 7.5-325MG Tab) Hold Tylenol if given Q4H PRN PO 01/22/18 11:15 02/05/18 11:14 Acetaminophen 650 mg/Empty Bag 65 ml @ 260 mls/hr Q6H PRN IV 01/22/18 11:15 02/21/18 11:14 01/23/18 01:25 260 MLS/HR Hydralazine HCl (HydrALAZINE INJ) 10 mg Q6 PRN IV. 01/22/18 13:00 02/21/18 12:59 01/22/18 17:04 10 MG Albuterol/ Ipratropium (Duoneb) 3 ml Q4H PRN INH 01/23/18 09:00 02/22/18 08:59 01/23/18 09:04 3 ML Heparin Sodium/ Dextrose 1 ea Q10M N/A 01/23/18 09:30 02/22/18 09:29 Future hold Epoetin Venancio (Procrit Inj) 10,000 units NOW ONCE SQ 01/23/18 16:00 01/23/18 16:01 Objective Vital Signs Date Time Temp Pulse Resp B/P (MAP) Pulse Ox O2 Delivery O2 Flow Rate FiO2 01/23/18 15:33 37.4 71 18 105/51 (69) 93 Nasal Cannula 2.0 3/23/18 11:45 Room Air 01/23/18 11:27 36.7 91 18 98 4.0 01/23/18 11:27 36.8 64 18 104/63 (77) 93 Room Air 01/23/18 09:05 91 18 98 Room Air 01/23/18 08:00 Room Air 01/23/18 07:41 36.7 76 20 137/71 (93) 94 Nasal Cannula 4.0 01/23/18 04:08 Room Air 01/23/18 03:17 36.7 78 18 154/60 (91) 91 Room Air 01/23/18 00:09 Room Air 01/22/18 22:59 36.7 82 19 164/74 (104) 93 Room Air 01/22/18 20:43 Room Air 01/22/18 19:30 36.8 80 16 170/83 (112) 94 Room Air 01/22/18 16:00 36.4 76 18 208/96 (133) 95 Nasal Cannula 4.0 01/22/18 16:00 95 Nasal Cannula 4.0 Physical Exam General Appearance: WD/WN, no apparent distress Eyes: normal inspection, EOMI, sclerae normal ENT: normal ENT inspection, hearing grossly normal, pharynx normal Neck: supple, no adenopathy, no JVD, trachea midline Respiratory/Chest: chest non-tender, lungs clear, normal breath sounds, no respiratory distress, no accessory muscle use Cardiovascular: regular rate, rhythm, no edema, no gallop, no JVD, no murmur Abdomen: normal bowel sounds, non tender, soft, no organomegaly Extremities: normal range of motion, non-tender, normal inspection, no pedal edema, no calf tenderness, pelvis stable 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/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 as tested, no motor/sensory deficits, alert, normal mood/affect, oriented x 3 Skin: normal color, warm/dry, no rash Laboratory Results Last 24 Hours Test 01/22/18 16:56 01/23/18 07:22 Potassium Level 5.9 mmol/L 5.3 mmol/L White Blood Count 10.45 K/uL Red Blood Count 2.65 M/uL Hemoglobin 8.2 g/dL Hematocrit 26.0 % Mean Corpuscular Volume 98.1 fL Mean Corpuscular Hemoglobin 30.9 pg Mean Corpuscular Hemoglobin Concent 31.5 g/dl Platelet Count 336 K/uL Mean Platelet Volume 8.7 fL Neutrophils (%) (Auto) 78.3 % Lymphocytes (%) (Auto) 11.1 % Monocytes (%) (Auto) 10.2 % Eosinophils (%) (Auto) 0.1 % Basophils (%) (Auto) 0.1 % Neutrophils # (Auto) 8.18 K/uL Lymphocytes # (Auto) 1.16 K/uL Monocytes # (Auto) 1.07 K/uL Eosinophils # (Auto) 0.01 K/uL Basophils # (Auto) 0.01 K/uL RDW Standard Deviation 54.2 fL RDW Coefficient of Variation 15.2 % Immature Granulocyte % (Auto) 0.2 % Immature Granulocyte # (Auto) 0.02 K/uL Sodium Level 138 mmol/L Chloride Level 109 mmol/L Carbon Dioxide Level 21 mmol/L Anion Gap 8.0 mmol/L Blood Urea Nitrogen 44 mg/dl Creatinine 3.64 mg/dl Est Creatinine Clear Calc Drug Dose 27.9 ml/min Estimated GFR () 19.7 Estimated GFR (Non- 17.0 BUN/Creatinine Ratio 12.0 Random Glucose 129 mg/dl Calcium Level 8.7 mg/dl Assessment and Plan Mr. Domingo is a 62 y/o male with PMHx of HTN, Urothelial CA, CKD Stage IV S/P L AV Fistula, RLE DVT, R Staghorn Calculi S/P PCNL (Resolved), L Renal Shunt who is pending L HALNU on by Dr. Loving who presented to the ED with further RLE DVT development x 4 days. New RLE DVT while on Eliquis: initially on heparin gtt but had ethan hematuria and large blood clot seen in bladder heparin stopped 01/20 IVC filter placed on 01/20 in the morning continue to hold Heparin today, if no signs of bleeding tomorrow with start heparin low dose no bolus CKD Stage IV with L AV Fistula fistula evaluated by Dr. Jimenez 01/20, likely mature enough for HD if needed Cr 3.6 today adequate UO currently Dr. Sears following Hyperkalemia: mild at 5.3 refuses Kayexalate due to nausea could be due to LR, fluids stopped will follow levels tomorrow HTN: BP controlled today Hydralazine PRN ordered continue to hold Lisinopril; continue Coreg 3.125 mg BID, Clonidine 0.3 mg daily; and Diltiazem 240 mg daily Anemia of Chronic Disease: -Was initiated on Procrit with 3 treatments received - Hgb is 8.2 today give Procrit tomorrow Urothelial CA: s/p L HALNU on 01/[address] Loving EBL only 200cc, doing well post op continue to observe signs of bleeding Hematuria: large clot in bladder resolved, urine clear, had clot removed in the OR Right foot pain: likely neuropathy resolved DVT Prophylaxis: avoid chemical due to bleeding Code Status: FULL RESUSCITATION Discharge planning: home
[2018-01-23 17:10] LABS: PTT PATIENT 31.1 SECONDS (21.0-31.0)
[2018-01-23] MEDS: HEPARIN 25,000 UNIT/500ML D5W 500 ML IV SCH (17:19)
[2018-01-23] MEDS: ACETAMINOPHEN 325 MG TAB PO PRN (21:28)
[2018-01-23] MEDS: MoRPHine SULFATE 2 MG/ML CARP IV PRN (21:57)
[2018-01-23 23:51] LABS: PTT PATIENT 34.4 SECONDS (21.0-31.0)
[2018-01-24] MEDS: HEPARIN 25,000 UNIT/500ML D5W 500 ML IV SCH ×6 (00:12→23:00)
[2018-01-24] MEDS ORDERED: HEPARIN IV BOLUS 4,500 UNIT in SYRINGE 0 ML IV ONE ×2 (00:15→07:30)
[2018-01-24] MEDS: HYDROmorphone INJ 1 MG/ML SYR IV PRN ×3 (01:36→13:06)
[2018-01-24] MEDS: MoRPHine SULFATE 2 MG/ML CARP IV PRN ×2 (03:27→07:34)
[2018-01-24 06:42] LABS: BASO % 0.1 %; BASO ABS # 0.01 K/uL (0-0.2); EOS % 0.8 %; EOS ABS # 0.07 K/uL (0-0.5); HEMATOCRIT 22.9 % (42-52); HEMOGLOBIN 7.7 g/dL (14.0-18.0); IG# 0.03 K/uL (0.00-0.02); LYMPH % 9.2 %; LYMPH ABS # 0.85 K/uL (1.2-3.4); MEAN CELL VOLUME 97.9 fL (80-100); MEAN CORPUSCULAR HEMOGLOBIN 32.9 pg (25-34); MEAN CORPUSCULAR HGB CONC 33.6 g/dl (32-36); MEAN PLATELET VOLUME 8.6 fL (7.4-10.4); MONO % 14.1 %; NEUT % 75.5 %; NEUT ABS # 6.98 K/uL (1.4-6.5); PLATELET COUNT 301 K/uL (130-400); RED CELL DISTRIBUTION WIDTH CV 15.1 % (11.5-14.5); RED CELL DISTRIBUTION WIDTH SD 54.3 fL (36.4-46.3); WHITE BLOOD COUNT 9.24 K/uL (4.8-10.8)
[2018-01-24 06:52] LABS: PTT PATIENT 35.9 SECONDS (21.0-31.0)
[2018-01-24 07:18] LABS: CALCIUM 8.9 mg/dl (8.5-10.1); CREATININE 3.89 mg/dl (0.60-1.40); POTASSIUM 4.7 mmol/L (3.5-5.1)
[2018-01-24] MEDS: CARVEDILOL 3.125 MG TAB PO SCH ×2 (07:38→17:45)
[2018-01-24] MEDS: DOCUSATE SODIUM 100 MG CAP PO SCH ×2 (07:38→20:47)
[2018-01-24] MEDS: CLONIDINE HCL 0.3 MG TAB PO SCH (07:38)
[2018-01-24] MEDS: DULOXETINE (CYMBALTA) 30 MG CAP PO SCH (07:39)
[2018-01-24] MEDS: DILTIAZEM HCL 120 MG ER CAP PO SCH (07:39)
[2018-01-24 07:41] VITALS: BP 172/75; PULSE 76; TEMP 37.1; O2SAT 92
--- NOTE | 2018-01-24 12:17 | Nephrology Progress Note ---
Nephrology Progress Note Date of Service Jan 24, 2018. Chief Complaint Follow-up for stage 4/5 chronic kidney disease with recent unilateral nephrectomy. Subjective Mr. Domingo was seen and examined in his room this morning. Renal function remained relatively stable, creatinine 3.8, electrolyte acceptable. Has been voiding normally has Watts catheter. Recovering from recent surgery has mild discomfort at the incision site. Complaining of left shoulder pain respond minimally to Tylenol. Review of Systems A complete review of systems was performed. Pertinent positives are noted above. All other systems are negative. Vital Signs Last 8 Hrs Date Time Temp Pulse Resp B/P (MAP) Pulse Ox O2 Delivery O2 Flow Rate FiO2 01/24/18 07:45 Room Air 01/24/18 07:41 37.1 76 16 172/75 (107) 92 Room Air Last Recorded Weight Weight (Kilograms): 107.800 Physical Exam GENERAL: Middle-aged male, AAA x 3, pleasant, healthy-appearing, not in any distress. NECK: Supple, no JVD. RESPIRATORY: Normal breathing efforts, no accessory muscle use, clear to auscultation bilaterally, no wheezes or rales. CARDIOVASCULAR: S1, S2 normal, rate rhythm regular. EXTREMITY: No lower extremity edema, left brachiocephalic AV fistula with thrill and bruit NEURO: speech fluent. PSYCHIATRY: Normal mood and judgment Family History Diabetes mellitus Hypertension Negative for CKD / ESRD Social History Smokeless Tobacco Use: Yes Alcohol Use: none Drug Use: none Marital Status: Housing Status: lives with significant other Occupation: employed . [employer] in [place], [place]. Remote tobacco use. Laboratory Results Past 24 Hours 01/24/18 06:30 Red Blood Count 2.34, Mean Corpuscular Volume 97.9, Mean Corpuscular Hemoglobin 32.9, Mean Corpuscular Hemoglobin Concent 33.6, Mean Platelet Volume 8.6, Neutrophils (%) (Auto) 75.5, Lymphocytes (%) (Auto) 9.2, Monocytes (%) (Auto) 14.1, Eosinophils (%) (Auto) 0.8, Basophils (%) (Auto) 0.1, Neutrophils # (Auto ) 6.98, Lymphocytes # (Auto) 0.85, Monocytes # (Auto) 1.30, Eosinophils # (Auto ) 0.07, Basophils # (Auto) 0.01 01/24/18 06:30 Test 01/23/18 16:21 01/23/18 16:48 01/23/18 23:24 01/24/18 06:30 Troponin I < 0.015 ng/ml (0-0.045) Activated Partial Thromboplast Time 31.1 SECONDS (21.0-31.0) 34.4 SECONDS (21.0-31.0) 35.9 SECONDS (21.0-31.0) Partial Thromboplastin Ratio 1.2 1.3 1.4 White Blood Count 9.24 K/uL (4.8-10.8) Red Blood Count 2.34 M/uL (4.7-6.1) Hemoglobin 7.7 g/dL (14.0-18.0) Hematocrit 22.9 % (42-52) Mean Corpuscular Volume 97.9 fL (80-100) Mean Corpuscular Hemoglobin 32.9 pg (25-34) Mean Corpuscular Hemoglobin Concent 33.6 g/dl (32-36) Platelet Count 301 K/uL (130-400) Mean Platelet Volume 8.6 fL (7.4-10.4) Neutrophils (%) (Auto) 75.5 % Lymphocytes (%) (Auto) 9.2 % Monocytes (%) (Auto) 14.1 % Eosinophils (%) (Auto) 0.8 % Basophils (%) (Auto) 0.1 % Neutrophils # (Auto) 6.98 K/uL (1.4-6.5) Lymphocytes # (Auto) 0.85 K/uL (1.2-3.4) Monocytes # (Auto) 1.30 K/uL (0.11-0.59) Eosinophils # (Auto) 0.07 K/uL (0-0.5) Basophils # (Auto) 0.01 K/uL (0-0.2) RDW Standard Deviation 54.3 fL (36.4-46.3) RDW Coefficient of Variation 15.1 % (11.5-14.5) Immature Granulocyte % (Auto) 0.3 % Immature Granulocyte # (Auto) 0.03 K/uL (0.00-0.02) Red Blood Cell Morphology Unremarkable Anion Gap 8.0 mmol/L (3-11) Est Creatinine Clear Calc Drug Dose 26.1 ml/min Estimated GFR () 18.1 Estimated GFR (Non- 15.7 BUN/Creatinine Ratio 11.4 (10-20) Calcium Level 8.9 mg/dl (8.5-10.1) Allergies Coded Allergies: Statins (Verified Adverse Reaction, Mild, GI UPSET, 01/19/18) Medications Current Inpatient Medications Medications (Trade) Dose Ordered Sig/Solitario Route Start Time Stop Time Status Last Admin Dose Admin Acetaminophen (Tylenol Tab) 650 mg Q4H PRN PO 01/19/18 15:15 02/18/18 15:14 01/23/18 21:28 650 MG Al Hydrox/Mg Hydrox/Simethicone (Maalox Max Susp) 15 ml Q4H PRN PO 01/19/18 15:15 02/18/18 15:14 Ondansetron HCl (Zofran Inj) 4 mg Q6H PRN IV 01/19/18 15:15 02/18/18 15:14 Polyethylene (Miralax Powder Packet) 17 gm DAILY PRN PO 01/19/18 15:15 02/18/18 15:14 Carvedilol (Coreg Tab) 3.125 mg BIDM PO 01/19/18 16:45 02/18/18 17:59 01/24/18 07:38 3.125 MG Clonidine HCl (Catapres Tab) 0.3 mg QAM PO 01/20/18 09:00 02/19/18 08:59 01/24/18 07:38 0.3 MG Duloxetine HCl (Cymbalta Cap) 30 mg DAILY PO 01/20/18 09:00 02/19/18 08:59 01/24/18 07:39 30 MG Diltiazem HCl (Dilacor Xr Cap) 240 mg QAM PO 01/20/18 09:00 02/19/18 08:59 01/24/18 07:39 240 MG Morphine Sulfate (MoRPHine SULFATE INJ) 2 mg Q2H PRN IV 01/20/18 06:00 02/03/18 05:59 01/24/18 07:34 2 MG Docusate Sodium (coLACE CAP) 100 mg BID PO 01/22/18 21:00 02/21/18 20:59 Hydromorphone HCl (Dilaudid Inj) 1 mg Q2H PRN IV 01/22/18 11:15 02/05/18 11:14 01/24/18 05:48 1 MG Oxybutynin Chloride (Ditropan Tab) 5 mg BID PRN PO 01/22/18 11:15 02/21/18 11:14 Oxycodone/ Acetaminophen (Percocet 7.5-325MG Tab) Hold Tylenol if given Q4H PRN PO 01/22/18 11:15 02/05/18 11:14 Acetaminophen 650 mg/Empty Bag 65 ml @ 260 mls/hr Q6H PRN IV 01/22/18 11:15 02/21/18 11:14 01/23/18 01:25 260 MLS/HR Hydralazine HCl (HydrALAZINE INJ) 10 mg Q6 PRN IV. 01/22/18 13:00 02/21/18 12:59 01/22/18 17:04 10 MG Albuterol/ Ipratropium (Duoneb) 3 ml Q4H PRN INH 01/23/18 09:00 02/22/18 08:59 01/23/18 09:04 3 ML Heparin Sodium/ Dextrose 500 ml @ 28 mls/hr [id number] IV 01/23/18 17:00 02/22/18 16:59 01/24/18 07:25 28 MLS/HR Impression (1) Acute renal failure (2) Left renal mass (3) Hypertension (4) Anemia (5) Deep vein thrombosis 62-year-old gentlemen with stage IV 5 chronic kidney disease and history of nephrolithiasis, admitted to the hospital for elective unilateral nephrectomy. Currently recovering from surgery, renal function remained relatively stable creatinine 3.8, electrolyte acceptable. Has left brachiocephalic AV fistula, currently maturing. Electrolyte, blood pressure volume status acceptable. Remain non-oliguric. Recommendations -- Volume status and electrolyte balance remain acceptable at this time. No acute indication for HD, has AV fistula which is maturing. --received Epogen yesterday, hemoglobin slightly dropped to 7.7 --if patient continued to have left shoulder pain, recommend x-ray of the shoulder for further evaluation -- Juan filter placed 01/20. -- Monitor serial PRP, H&H Will follow
--- NOTE | 2018-01-24 13:40 | Progress Note ---
Subjective Date of Service: Jan 24, 2018. Subjective Pt evaluation today including: conversation w/ patient, physical exam, chart review, lab review, review of studies Pain: Tolerated. Controlled PO Intake: Liquid Voiding: lopez catheter in place POD 2 s/p Left Nephroureterectomy Doing well. Tolerating small diet. Minor low appetite. Passing gas. No BM. No n/v Low energy. Not ambulating. Has been having some abd discomfort but tolerated. No major issues with bleeding or other problems. Problem List Medical Problems: (1) Anticoagulated Status: Acute (2) Deep vein thrombosis Status: Acute (3) Urothelial cancer Status: Acute Review of Systems All Other Systems: Reviewed and Negative (All reviewed. see HPI for pertinent values. ) Objective Vital Signs Date Time Temp Pulse Resp B/P (MAP) Pulse Ox O2 Delivery O2 Flow Rate FiO2 01/24/18 07:45 Room Air 01/24/18 07:41 37.1 76 16 172/75 (107) 92 Room Air 01/23/18 23:35 92 Nasal Cannula 2.0 01/23/18 23:30 Nasal Cannula 2.0 01/23/18 23:30 37.3 73 18 146/70 (95) 87 Room Air 01/23/18 17:52 70 116/63 (80) 91 Room Air 01/23/18 15:38 Room Air 01/23/18 15:33 37.4 71 18 105/51 (69) 93 Nasal Cannula 2.0 Physical Exam General Appearance: WD/WN, no apparent distress Eyes: normal inspection ENT: normal ENT inspection, pharynx normal Neck: supple, no JVD Respiratory/Chest: chest non-tender, no respiratory distress, no accessory muscle use Cardiovascular: regular rate, rhythm Abdomen: non tender, soft, + tenderness (Mild diffuse and incisional ) Extremities: normal range of motion, no pedal edema 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 DAVON drain has light serosang fluid approx 40cc in bulb. Wounds clean, dry, and intact. Laboratory Results Last 24 Hours Test 01/23/18 16:21 01/23/18 16:48 01/23/18 23:24 01/24/18 06:30 Troponin I < 0.015 ng/ml Activated Partial Thromboplast Time 31.1 SECONDS 34.4 SECONDS 35.9 SECONDS Partial Thromboplastin Ratio 1.2 1.3 1.4 White Blood Count 9.24 K/uL Red Blood Count 2.34 M/uL Hemoglobin 7.7 g/dL Hematocrit 22.9 % Mean Corpuscular Volume 97.9 fL Mean Corpuscular Hemoglobin 32.9 pg Mean Corpuscular Hemoglobin Concent 33.6 g/dl Platelet Count 301 K/uL Mean Platelet Volume 8.6 fL Neutrophils (%) (Auto) 75.5 % Lymphocytes (%) (Auto) 9.2 % Monocytes (%) (Auto) 14.1 % Eosinophils (%) (Auto) 0.8 % Basophils (%) (Auto) 0.1 % Neutrophils # (Auto) 6.98 K/uL Lymphocytes # (Auto) 0.85 K/uL Monocytes # (Auto) 1.30 K/uL Eosinophils # (Auto) 0.07 K/uL Basophils # (Auto) 0.01 K/uL RDW Standard Deviation 54.3 fL RDW Coefficient of Variation 15.1 % Immature Granulocyte % (Auto) 0.3 % Immature Granulocyte # (Auto) 0.03 K/uL Red Blood Cell Morphology Unremarkable Sodium Level 136 mmol/L Potassium Level 4.7 mmol/L Chloride Level 106 mmol/L Carbon Dioxide Level 22 mmol/L Anion Gap 8.0 mmol/L Blood Urea Nitrogen 44 mg/dl Creatinine 3.89 mg/dl Est Creatinine Clear Calc Drug Dose 26.1 ml/min Estimated GFR () 18.1 Estimated GFR (Non- 15.7 BUN/Creatinine Ratio 11.4 Random Glucose 102 mg/dl Calcium Level 8.9 mg/dl Test 01/24/18 13:00 01/24/18 13:30 Assessment and Plan 1. POD 2 S/p NephU for Upper Tract UCC on Left 2. Acute recurrent DVT on antivcoag 3. DARELL on CKD 4. Multiple chronic medical conditions. Encouraged ambulation. Patient is slowly increasing diet. Recommend IS use to increase lung activity. Monitor closely. Output from drain acceptable. Will follow. Monitor for hematuria. Patient is high risk for DVT and would benefit from ambulation and activity. Continue pain control. Follow closely. Discharge planning: home
[2018-01-24 13:47] LABS: HEMATOCRIT 24.8 % (42-52); HEMOGLOBIN 8.1 g/dL (14.0-18.0)
[2018-01-24 14:33] LABS: PTT PATIENT 42.2 SECONDS (21.0-31.0)
[2018-01-24] MEDS ORDERED: HEPARIN IV BOLUS 4,000 UNIT in SYRINGE 0 ML IV ONE ×2 (14:45→21:45)
[2018-01-24 15:28] VITALS: BP 103/64; PULSE 80; TEMP 36.9; O2SAT 91
--- NOTE | 2018-01-24 15:34 | Progress Note ---
Subjective Date of Service: Jan 24, 2018. Subjective Pt evaluation today including: conversation w/ patient, physical exam, lab review, conversation w/ dairy consultant, review of inpatient medication list Pain: left shoulder pain on breathing PO Intake: adequate Voiding: lopez catheter in place patient doing well, only complaint is left shoulder pain, occurs with deep breathing no chest pain or pressure tolerating diet no hematuria or clots in lopez reviewed labs, Cr slightly up at 3.89 but making adequate amounts of urine Hb was 7.7 this morning, rechecked in afternoon and up to 8.1, no signs of active bleeding Problem List Medical Problems: (1) Anticoagulated Status: Acute (2) Deep vein thrombosis Status: Acute (3) Urothelial cancer Status: Acute Review of Systems Constitutional: + weakness Musculoskeletal: + joint pain (left shoulder) All Other Systems: Reviewed and Negative Medications Current Inpatient Medications Medications (Trade) Dose Ordered Sig/Solitario Route Start Time Stop Time Status Last Admin Dose Admin Acetaminophen (Tylenol Tab) 650 mg Q4H PRN PO 01/19/18 15:15 02/18/18 15:14 01/23/18 21:28 650 MG Al Hydrox/Mg Hydrox/Simethicone (Maalox Max Susp) 15 ml Q4H PRN PO 01/19/18 15:15 02/18/18 15:14 Ondansetron HCl (Zofran Inj) 4 mg Q6H PRN IV 01/19/18 15:15 02/18/18 15:14 Polyethylene (Miralax Powder Packet) 17 gm DAILY PRN PO 01/19/18 15:15 02/18/18 15:14 Carvedilol (Coreg Tab) 3.125 mg BIDM PO 01/19/18 16:45 02/18/18 17:59 01/24/18 07:38 3.125 MG Clonidine HCl (Catapres Tab) 0.3 mg QAM PO 01/20/18 09:00 02/19/18 08:59 01/24/18 07:38 0.3 MG Duloxetine HCl (Cymbalta Cap) 30 mg DAILY PO 01/20/18 09:00 02/19/18 08:59 01/24/18 07:39 30 MG Diltiazem HCl (Dilacor Xr Cap) 240 mg QAM PO 01/20/18 09:00 02/19/18 08:59 3/24/18 07:39 240 MG Morphine Sulfate (MoRPHine SULFATE INJ) 2 mg Q2H PRN IV 01/20/18 06:00 02/03/18 05:59 01/24/18 07:34 2 MG Docusate Sodium (coLACE CAP) 100 mg BID PO 01/22/18 21:00 02/21/18 20:59 Hydromorphone HCl (Dilaudid Inj) 1 mg Q2H PRN IV 01/22/18 11:15 02/05/18 11:14 01/24/18 13:06 1 MG Oxybutynin Chloride (Ditropan Tab) 5 mg BID PRN PO 01/22/18 11:15 02/21/18 11:14 Oxycodone/ Acetaminophen (Percocet 7.5-325MG Tab) Hold Tylenol if given Q4H PRN PO 01/22/18 11:15 02/05/18 11:14 Acetaminophen 650 mg/Empty Bag 65 ml @ 260 mls/hr Q6H PRN IV 01/22/18 11:15 02/21/18 11:14 01/23/18 01:25 260 MLS/HR Hydralazine HCl (HydrALAZINE INJ) 10 mg Q6 PRN IV. 01/22/18 13:00 02/21/18 12:59 01/22/18 17:04 10 MG Albuterol/ Ipratropium (Duoneb) 3 ml Q4H PRN INH 01/23/18 09:00 02/22/18 08:59 01/23/18 09:04 3 ML Heparin Sodium/ Dextrose 500 ml @ 30 mls/hr [id number] IV 01/23/18 17:00 02/22/18 16:59 01/24/18 15:02 30 MLS/HR Objective Vital Signs Date Time Temp Pulse Resp B/P (MAP) Pulse Ox O2 Delivery O2 Flow Rate FiO2 01/24/18 15:28 36.9 80 17 103/64 (77) 91 Room Air 01/24/18 07:45 Room Air 01/24/18 07:41 37.1 76 16 172/75 (107) 92 Room Air 01/23/18 23:35 92 Nasal Cannula 2.0 01/23/18 23:30 Nasal Cannula 2.0 01/23/18 23:30 37.3 73 18 146/70 (95) 87 Room Air 01/23/18 17:52 70 116/63 (80) 91 Room Air 01/23/18 15:38 Room Air 01/23/18 15:33 37.4 71 18 105/51 (69) 93 Nasal Cannula 2.0 Physical Exam General Appearance: WD/WN, no apparent distress Eyes: normal inspection, EOMI, sclerae normal ENT: normal ENT inspection, hearing grossly normal, pharynx normal Neck: supple, no adenopathy, no JVD, trachea midline Respiratory/Chest: chest non-tender, lungs clear, normal breath sounds, no respiratory distress, no accessory muscle use Cardiovascular: regular rate, rhythm, no edema, no gallop, no JVD, no murmur Abdomen: normal bowel sounds, non tender, soft, no organomegaly Extremities: normal range of motion, non-tender, normal inspection, no pedal edema, no calf tenderness, pelvis stable Neurologic/Psychiatric: enamel finisher II-XII nml as tested, no motor/sensory deficits, alert, normal mood/affect, oriented x 3 Skin: normal color, warm/dry, no rash Laboratory Results Last 24 Hours Test 01/23/18 16:21 01/23/18 16:48 01/23/18 23:24 01/24/18 06:30 Troponin I < 0.015 ng/ml Activated Partial Thromboplast Time 31.1 SECONDS 34.4 SECONDS 35.9 SECONDS Partial Thromboplastin Ratio 1.2 1.3 1.4 White Blood Count 9.24 K/uL Red Blood Count 2.34 M/uL Hemoglobin 7.7 g/dL Hematocrit 22.9 % Mean Corpuscular Volume 97.9 fL Mean Corpuscular Hemoglobin 32.9 pg Mean Corpuscular Hemoglobin Concent 33.6 g/dl Platelet Count 301 K/uL Mean Platelet Volume 8.6 fL Neutrophils (%) (Auto) 75.5 % Lymphocytes (%) (Auto) 9.2 % Monocytes (%) (Auto) 14.1 % Eosinophils (%) (Auto) 0.8 % Basophils (%) (Auto) 0.1 % Neutrophils # (Auto) 6.98 K/uL Lymphocytes # (Auto) 0.85 K/uL Monocytes # (Auto) 1.30 K/uL Eosinophils # (Auto) 0.07 K/uL Basophils # (Auto) 0.01 K/uL RDW Standard Deviation 54.3 fL RDW Coefficient of Variation 15.1 % Immature Granulocyte % (Auto) 0.3 % Immature Granulocyte # (Auto) 0.03 K/uL Red Blood Cell Morphology Unremarkable Sodium Level 136 mmol/L Potassium Level 4.7 mmol/L Chloride Level 106 mmol/L Carbon Dioxide Level 22 mmol/L Anion Gap 8.0 mmol/L Blood Urea Nitrogen 44 mg/dl Creatinine 3.89 mg/dl Est Creatinine Clear Calc Drug Dose 26.1 ml/min Estimated GFR () 18.1 Estimated GFR (Non- 15.7 BUN/Creatinine Ratio 11.4 Random Glucose 102 mg/dl Calcium Level 8.9 mg/dl Test 01/24/18 13:36 Hemoglobin 8.1 g/dL Hematocrit 24.8 % Activated Partial Thromboplast Time 42.2 SECONDS Partial Thromboplastin Ratio 1.6 Assessment and Plan Mr. Domingo is a 62 y/o male with PMHx of HTN, Urothelial CA, CKD Stage IV S/P L AV Fistula, RLE DVT, R Staghorn Calculi S/P PCNL (Resolved), L Renal Shunt who is pending L HALNU on by Dr. Loving who presented to the ED with further RLE DVT development x 4 days. New RLE DVT while on Eliquis: initially on heparin gtt but had ethan hematuria and large blood clot seen in bladder heparin stopped 01/20 IVC filter placed on 01/20 in the morning new left shoulder pain yesterday that was pleuritic in nature, mild desaturations on room air certainly possible that he had a small PE, perhaps prior to IVC filter placement cannot confirm with CTA due to one kidney, Cr 3.89 could consider VQ scan on Friday but really would not mash filter cloth changer started heparin gtt on 01/23 in the afternoon, will consult hematology for senior living anticoagulation recommendations given that he had DVT on Eliquis CKD Stage IV with L AV Fistula fistula evaluated by Dr. Jimenez 01/20, likely mature enough for HD if needed Cr 3.8 today more than adequate UO currently Dr. Desai following Hyperkalemia: was mild at 5.3 yesterday 4.7 today, likely from LR in IV HTN: BP controlled today Hydralazine PRN ordered continue to hold Lisinopril; continue Coreg 3.125 mg BID, Clonidine 0.3 mg daily; and Diltiazem 240 mg daily Anemia of Chronic Disease: -Was initiated on Procrit with 3 treatments received - Hgb is 8.1 today received Procrit [id number] units on 01/23 Urothelial CA: s/p L HALNU on 01/[address] Loving EBL only 200cc, doing well post op continue to observe signs of bleeding Hematuria: large clot in bladder resolved, urine clear, had clot removed in the OR Right foot pain: likely neuropathy resolved DVT Prophylaxis: avoid chemical due to bleeding Code Status: FULL RESUSCITATION Discharge planning: home
[2018-01-24 15:35] VITALS: O2SAT 91
[2018-01-24 17:44] VITALS: BP 107/65; PULSE 80
[2018-01-24 21:27] LABS: PTT PATIENT 43.1 SECONDS (21.0-31.0)
[2018-01-24 23:15] VITALS: BP 120/71; PULSE 67; TEMP 37.4; O2SAT 90
[2018-01-25 04:14] LABS: BASO % 0.2 %; BASO ABS # 0.02 K/uL (0-0.2); EOS % 1.3 %; EOS ABS # 0.12 K/uL (0-0.5); HEMATOCRIT 23.8 % (42-52); HEMOGLOBIN 7.9 g/dL (14.0-18.0); IG# 0.03 K/uL (0.00-0.02); LYMPH % 5.5 %; LYMPH ABS # 0.51 K/uL (1.2-3.4); MEAN CELL VOLUME 95.6 fL (80-100); MEAN CORPUSCULAR HEMOGLOBIN 31.7 pg (25-34); MEAN CORPUSCULAR HGB CONC 33.2 g/dl (32-36); MEAN PLATELET VOLUME 8.9 fL (7.4-10.4); MONO % 13.1 %; MONO ABS # 1.22 K/uL (0.11-0.59); NEUT % 79.6 %; NEUT ABS # 7.38 K/uL (1.4-6.5); PLATELET COUNT 365 K/uL (130-400); RED CELL DISTRIBUTION WIDTH CV 14.8 % (11.5-14.5); RED CELL DISTRIBUTION WIDTH SD 51.9 fL (36.4-46.3); WHITE BLOOD COUNT 9.28 K/uL (4.8-10.8)
[2018-01-25 04:32] LABS: CALCIUM 9.2 mg/dl (8.5-10.1); CREATININE 3.75 mg/dl (0.60-1.40); POTASSIUM 4.7 mmol/L (3.5-5.1)
[2018-01-25 04:45] LABS: PTT PATIENT 40.4 SECONDS (21.0-31.0)
[2018-01-25] MEDS: HYDROmorphone INJ 1 MG/ML SYR IV PRN (04:45)
[2018-01-25] MEDS: ONDANSETRON INJ 2 MG/ML 2 ML VIAL IV PRN (04:50)
[2018-01-25] MEDS: HEPARIN 25,000 UNIT/500ML D5W 500 ML IV SCH ×4 (05:40→19:47)
[2018-01-25] MEDS ORDERED: HEPARIN IV BOLUS 4,500 UNIT in SYRINGE 0 ML IV ONE (05:45)
[2018-01-25 07:19] VITALS: BP 154/82; PULSE 75; TEMP 36.9; O2SAT 91
[2018-01-25] MEDS: DOCUSATE SODIUM 100 MG CAP PO SCH ×2 (08:54→20:31)
[2018-01-25] MEDS: CLONIDINE HCL 0.3 MG TAB PO SCH (08:54)
[2018-01-25] MEDS: CARVEDILOL 3.125 MG TAB PO SCH ×2 (08:54→17:24)
[2018-01-25] MEDS: DILTIAZEM HCL 120 MG ER CAP PO SCH (08:55)
[2018-01-25] MEDS: DULOXETINE (CYMBALTA) 30 MG CAP PO SCH (09:22)
--- NOTE | 2018-01-25 10:35 | Progress Note ---
Subjective Date of Service: Jan 25, 2018. Subjective Pt evaluation today including: conversation w/ patient, physical exam, chart review, lab review, review of studies Pain: Tolerated. Controlled PO Intake: Liquid Having abd pain. Still not ambulating regularly. No major issues. Continues to pass gas. No n/v Problem List Medical Problems: (1) Anticoagulated Status: Acute (2) Deep vein thrombosis Status: Acute (3) Urothelial cancer Status: Acute Review of Systems All Other Systems: Reviewed and Negative Objective Vital Signs Date Time Temp Pulse Resp B/P (MAP) Pulse Ox O2 Delivery O2 Flow Rate FiO2 01/25/18 08:04 Room Air 01/25/18 07:19 36.9 75 20 154/82 (106) 91 Room Air 01/25/18 00:04 Room Air 01/24/18 23:15 37.4 67 16 120/71 (87) 90 Room Air 01/24/18 17:44 80 107/65 (79) 01/24/18 15:35 91 Room Air 01/24/18 15:28 36.9 80 17 103/64 (77) 91 Room Air Physical Exam General Appearance: WD/WN, no apparent distress Eyes: normal inspection ENT: normal ENT inspection Neck: supple, no JVD Respiratory/Chest: chest non-tender, no respiratory distress, no accessory muscle use Cardiovascular: regular rate, rhythm Abdomen: soft, + distended Extremities: normal range of motion, normal inspection Neurologic/Psychiatric: sapphire stylus grinder II-XII nml as tested, no motor/sensory deficits, alert, normal mood/affect, oriented x 3 Skin: normal color, warm/dry, no rash Lymphatic: no adenopathy Laboratory Results Last 24 Hours Test 01/24/18 13:36 01/24/18 20:58 01/25/18 04:01 Hemoglobin 8.1 g/dL 7.9 g/dL Hematocrit 24.8 % 23.8 % Activated Partial Thromboplast Time 42.2 SECONDS 43.1 SECONDS 40.4 SECONDS Partial Thromboplastin Ratio 1.6 1.7 1.6 White Blood Count 9.28 K/uL Red Blood Count 2.49 M/uL Mean Corpuscular Volume 95.6 fL Mean Corpuscular Hemoglobin 31.7 pg Mean Corpuscular Hemoglobin Concent 33.2 g/dl Platelet Count 365 K/uL Mean Platelet Volume 8.9 fL Neutrophils (%) (Auto) 79.6 % Lymphocytes (%) (Auto) 5.5 % Monocytes (%) (Auto) 13.1 % Eosinophils (%) (Auto) 1.3 % Basophils (%) (Auto) 0.2 % Neutrophils # (Auto) 7.38 K/uL Lymphocytes # (Auto) 0.51 K/uL Monocytes # (Auto) 1.22 K/uL Eosinophils # (Auto) 0.12 K/uL Basophils # (Auto) 0.02 K/uL RDW Standard Deviation 51.9 fL RDW Coefficient of Variation 14.8 % Immature Granulocyte % (Auto) 0.3 % Immature Granulocyte # (Auto) 0.03 K/uL Red Blood Cell Morphology Unremarkable Sodium Level 136 mmol/L Potassium Level 4.7 mmol/L Chloride Level 104 mmol/L Carbon Dioxide Level 21 mmol/L Anion Gap 11.0 mmol/L Blood Urea Nitrogen 46 mg/dl Creatinine 3.75 mg/dl Est Creatinine Clear Calc Drug Dose 27.1 ml/min Estimated GFR () 19.0 Estimated GFR (Non- 16.4 BUN/Creatinine Ratio 12.2 Random Glucose 116 mg/dl Calcium Level 9.2 mg/dl Assessment and Plan 1. POD 3 S/p NephU for Upper Tract UCC on Left 2. Acute recurrent DVT on antivcoag 3. DARELL on CKD 4. Multiple chronic medical conditions. Encouraged ambulation. Patient is slowly increasing diet. Recommend IS use to increase lung activity. Monitor closely. Output from drain acceptable. Will follow. Monitor for hematuria. Patient is high risk for DVT and would benefit from ambulation and activity. Continue pain control. Follow closely. As above, continue to increase activity. Up diet as tolerated. Drain in place without issues. Discharge planning: home
--- NOTE | 2018-01-25 11:47 | Progress Note ---
Subjective Date of Service: Jan 25, 2018. Subjective Pt evaluation today including: conversation w/ patient, physical exam, lab review, conversation w/ customer service consultant, review of inpatient medication list Pain: no pain PO Intake: adequate Voiding: lopez catheter in place patient doing well, resting in bed, no complaints of pain eating well, breathing is stable reviewed labs, Hb is 7.9 from 8.1 yesterday Cr is 3.75, K is stable discussed with Dr. Apple, can start Coumadin, follow up with Dr. Arellano discussed with Dr. Desai, kidney functioning well, no need for HD discussed with Dr. Swift Problem List Medical Problems: (1) Anticoagulated Status: Acute (2) Deep vein thrombosis Status: Acute (3) Urothelial cancer Status: Acute Review of Systems Constitutional: + fatigue All Other Systems: Reviewed and Negative Medications Current Inpatient Medications Medications (Trade) Dose Ordered Sig/Solitario Route Start Time Stop Time Status Last Admin Dose Admin Acetaminophen (Tylenol Tab) 650 mg Q4H PRN PO 01/19/18 15:15 02/18/18 15:14 01/23/18 21:28 650 MG Al Hydrox/Mg Hydrox/Simethicone (Maalox Max Susp) 15 ml Q4H PRN PO 01/19/18 15:15 02/18/18 15:14 Ondansetron HCl (Zofran Inj) 4 mg Q6H PRN IV 01/19/18 15:15 02/18/18 15:14 01/25/18 04:50 4 MG Polyethylene (Miralax Powder Packet) 17 gm DAILY PRN PO 01/19/18 15:15 02/18/18 15:14 Carvedilol (Coreg Tab) 3.125 mg BIDM PO 01/19/18 16:45 02/18/18 17:59 01/25/18 08:54 3.125 MG Clonidine HCl (Catapres Tab) 0.3 mg QAM PO 01/20/18 09:00 02/19/18 08:59 01/25/18 08:54 0.3 MG Duloxetine HCl (Cymbalta Cap) 30 mg DAILY PO 01/20/18 09:00 02/19/18 08:59 01/25/18 09:22 30 MG Diltiazem HCl (Dilacor Xr Cap) 240 mg QAM PO 01/20/18 09:00 4/19/18 08:59 01/25/18 08:55 240 MG Morphine Sulfate (MoRPHine SULFATE INJ) 2 mg Q2H PRN IV 01/20/18 06:00 02/03/18 05:59 01/24/18 07:34 2 MG Docusate Sodium (coLACE CAP) 100 mg BID PO 01/22/18 21:00 02/21/18 20:59 Hydromorphone HCl (Dilaudid Inj) 1 mg Q2H PRN IV 01/22/18 11:15 02/05/18 11:14 01/25/18 04:45 1 MG Oxybutynin Chloride (Ditropan Tab) 5 mg BID PRN PO 01/22/18 11:15 02/21/18 11:14 Oxycodone/ Acetaminophen (Percocet 7.5-325MG Tab) Hold Tylenol if given Q4H PRN PO 01/22/18 11:15 02/05/18 11:14 Acetaminophen 650 mg/Empty Bag 65 ml @ 260 mls/hr Q6H PRN IV 01/22/18 11:15 02/21/18 11:14 01/23/18 01:25 260 MLS/HR Hydralazine HCl (HydrALAZINE INJ) 10 mg Q6 PRN IV. 01/22/18 13:00 02/21/18 12:59 01/22/18 17:04 10 MG Albuterol/ Ipratropium (Duoneb) 3 ml Q4H PRN INH 01/23/18 09:00 02/22/18 08:59 01/23/18 09:04 3 ML Heparin Sodium/ Dextrose 500 ml @ 36 mls/hr [id number] IV 01/23/18 17:00 02/22/18 16:59 01/25/18 07:00 36 MLS/HR Objective Vital Signs Date Time Temp Pulse Resp B/P (MAP) Pulse Ox O2 Delivery O2 Flow Rate FiO2 01/25/18 08:04 Room Air 01/25/18 07:19 36.9 75 20 154/82 (106) 91 Room Air 01/25/18 00:04 Room Air 01/24/18 23:15 37.4 67 16 120/71 (87) 90 Room Air 3/24/18 17:44 80 107/65 (79) 01/24/18 15:35 91 Room Air 01/24/18 15:28 36.9 80 17 103/64 (77) 91 Room Air Physical Exam General Appearance: WD/WN, no apparent distress Eyes: normal inspection, EOMI, sclerae normal ENT: normal ENT inspection, hearing grossly normal, pharynx normal Neck: supple, no adenopathy, no JVD, trachea midline Respiratory/Chest: chest non-tender, lungs clear, normal breath sounds, no respiratory distress, no accessory muscle use Cardiovascular: regular rate, rhythm, no edema, no gallop, no JVD, no murmur Abdomen: normal bowel sounds, non tender, soft, no organomegaly Extremities: normal range of motion, non-tender, normal inspection, no pedal edema, no calf tenderness, pelvis stable Neurologic/Psychiatric: master control operator II-XII nml as tested, no motor/sensory deficits, alert, normal mood/affect, oriented x 3 Skin: normal color, warm/dry, no rash Laboratory Results Last 24 Hours Test 01/24/18 13:36 01/24/18 20:58 01/25/18 04:01 Hemoglobin 8.1 g/dL 7.9 g/dL Hematocrit 24.8 % 23.8 % Activated Partial Thromboplast Time 42.2 SECONDS 43.1 SECONDS 40.4 SECONDS Partial Thromboplastin Ratio 1.6 1.7 1.6 White Blood Count 9.28 K/uL Red Blood Count 2.49 M/uL Mean Corpuscular Volume 95.6 fL Mean Corpuscular Hemoglobin 31.7 pg Mean Corpuscular Hemoglobin Concent 33.2 g/dl Platelet Count 365 K/uL Mean Platelet Volume 8.9 fL Neutrophils (%) (Auto) 79.6 % Lymphocytes (%) (Auto) 5.5 % Monocytes (%) (Auto) 13.1 % Eosinophils (%) (Auto) 1.3 % Basophils (%) (Auto) 0.2 % Neutrophils # (Auto) 7.38 K/uL Lymphocytes # (Auto) 0.51 K/uL Monocytes # (Auto) 1.22 K/uL Eosinophils # (Auto) 0.12 K/uL Basophils # (Auto) 0.02 K/uL RDW Standard Deviation 51.9 fL RDW Coefficient of Variation 14.8 % Immature Granulocyte % (Auto) 0.3 % Immature Granulocyte # (Auto) 0.03 K/uL Red Blood Cell Morphology Unremarkable Sodium Level 136 mmol/L Potassium Level 4.7 mmol/L Chloride Level 104 mmol/L Carbon Dioxide Level 21 mmol/L Anion Gap 11.0 mmol/L Blood Urea Nitrogen 46 mg/dl Creatinine 3.75 mg/dl Est Creatinine Clear Calc Drug Dose 27.1 ml/min Estimated GFR () 19.0 Estimated GFR (Non- 16.4 BUN/Creatinine Ratio 12.2 Random Glucose 116 mg/dl Calcium Level 9.2 mg/dl Assessment and Plan Mr. Domingo is a 62 y/o male with PMHx of HTN, Urothelial CA, CKD Stage IV S/P L AV Fistula, RLE DVT, R Staghorn Calculi S/P PCNL (Resolved), L Renal Shunt who is pending L HALNU on by Dr. Loving who presented to the ED with further RLE DVT development x 4 days. New RLE DVT while on Eliquis: initially on heparin gtt but had ethan hematuria and large blood clot seen in bladder heparin stopped 01/20 IVC filter placed on 01/20 in the morning new left shoulder pain two days ago that was pleuritic in nature, mild desaturations on room air certainly possible that he had a small PE, perhaps prior to IVC filter placement cannot confirm with CTA due to one kidney, elevated Cr could consider VQ scan on Friday but really would not change house attendant started heparin gtt on 01/23 in the afternoon, will consult hematology for terminal operations supervisor anticoagulation recommendations given that he had DVT on Eliquis recommend Coumadin, will start today at 5mg daily, follow INR daily in the AM can follow up with Dr. Arellano in coagulation clinic for terminal operations supervisor management CKD Stage IV with L AV Fistula fistula evaluated by Dr. Jimenez 01/20, likely mature enough for HD if needed Cr 3.7 today more than adequate UO currently Dr. Desai following, no need for urgent HD K is stable Hyperkalemia: was mild at 5.3 01/23 4.7 again today, likely from LR in IV HTN: BP controlled today Hydralazine PRN ordered continue to hold Lisinopril; continue Coreg 3.125 mg BID, Clonidine 0.3 mg daily; and Diltiazem 240 mg daily Anemia of Chronic Disease: -Was initiated on Procrit with 3 treatments received - Hgb is 7.9 today received Procrit [id number] units on 01/23 hold on transfusion unless hypotensive or Hb below 7.0 Urothelial CA: s/p L HALNU on 01/[address] Loving EBL only 200cc, doing well post op continue to observe signs of bleeding, none thus far will start Coumadin Hematuria: large clot in bladder resolved, urine clear, had clot removed in the OR Right foot pain: likely neuropathy resolved DVT Prophylaxis: avoid chemical due to bleeding Code Status: FULL RESUSCITATION will get PT/OT evaluations, get patient moving, ambulating in halls continue to monitor renal function Discharge planning: home
[2018-01-25 12:32] LABS: PTT PATIENT 46.9 SECONDS (21.0-31.0)
--- NOTE | 2018-01-25 12:44 | ONCOLOGY CONSULTATION ---
DATE OF CONSULTATION: 01/25/2018 REASON FOR CONSULTATION: New lower extremity deep venous thrombosis while on oral direct thrombin inhibition. HISTORY OF PRESENT ILLNESS: Thiago is a pleasant 62-year-old gentleman who was admitted to [facility] on 01/19/2018 with newly diagnosed right lower extremity DVT. The patient was originally diagnosed with a DVT in December 2017 and started on Eliquis 10 mg p.o. b.i.d. and subsequently reduced to 5 mg b.i.d. Four days prior to admission, he noticed worsening right lower extremity edema and contacted his primary care physician. He subsequently underwent Doppler ultrasound at [facility], which revealed a new DVT within the peroneal vein. The patient was due for a left nephrectomy this past to be performed by Dr. Loving. Due to these findings, it was recommended that he be admitted for IV heparin. Gorin filter was also placed. The patient did ultimately undergo a laparoscopic nephrectomy this past and currently convalescing. He remains on IV heparin and will be transitioned to Coumadin thereafter. Thiago is well known to [facility] for multiple issues. First and foremost a probable renal cell carcinoma; however, pathology is pending at this time. Secondly, he suffers from monoclonal gammopathy of unclear significance and anemia attributable to renal insufficiency. I had recently started Thiago on weekly Procrit for which he admits makes him feel better and hopefully reflects in his hemoglobin levels as well. Nonetheless, I am being asked to assist the primary team in establishing anticoagulation parameters for Thiago. Again, in light of a cancer diagnosis, only Coumadin is well studied and therefore, oral direct thrombin inhibitors should not be utilized in cancer patients. PAST MEDICAL HISTORY: Again, significant for possible renal cell or urothelial carcinoma. Again, pathology is pending. Anemia of chronic renal failure, monoclonal gammopathy of unclear significance, right lower extremity DVT, chronic kidney disease, hypertension, staghorn renal calculi. PAST SURGICAL HISTORY: Again, he just recently underwent left nephrectomy and recently underwent a lithotripsy as well. MEDICATIONS: Prior to admission included diltiazem 240 mg p.o. daily, carvedilol 3.125 mg p.o. daily, cholecalciferol 2000 units p.o. daily, clonidine 0.3 mg p.o. daily, cyanocobalamin 2500 mcg p.o. daily. He had previously been on Eliquis 5 mg p.o. daily and advanced to 10 mg p.o. daily, Lasix 40 mg p.o. daily, lisinopril 40 mg p.o. daily. ALLERGIES: No known drug allergies. 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 FAMILY HISTORY: Noncontributory. REVIEW OF SYSTEMS: Negative for fevers, chills or sweats. He is not anorexic or losing weight. SKIN: No rashes or lesions. No history of dermatosis. HEENT: Negative for headaches, lightheadedness or dizziness. No visual or hearing deficits. No sinus symptoms, sore throat or dysphagia. LYMPH: No history of lymphoproliferative disease. CARDIAC: Negative for coronary artery disease. No current angina or palpitations. PULMONARY: Negative for COPD. No shortness of breath, dyspnea or orthopnea. No cough or hemoptysis. GASTROINTESTINAL: Negative for abdominal pain, nausea, vomiting, diarrhea or constipation, hematochezia or melena stools. GENITOURINARY: Again, a left renal lesion status post left nephrectomy, biopsy pending, has no history of prostate disease otherwise. MUSCULOSKELETAL: No arthralgias or myalgias. No muscle weakness. PSYCHIATRIC: Negative for anxiety, depression or psychosis. ENDOCRINE: Negative for diabetes or thyroid disease. NEUROLOGIC: Negative for seizure, stroke, or migraine headache. HEMATOLOGIC: Positive for anemia of chronic disease and again, recent diagnosis of right lower extremity DVT. PHYSICAL EXAMINATION: GENERAL: A very pleasant 62-year-old gentleman lying supine in bed, awake, alert and appropriate, no acute distress. VITAL SIGNS: Temperature 36.9, pulse 75, respirations 20, blood pressure 154/82. SKIN: Without rash or lesion. EXTREMITIES: No petechiae or ecchymosis noted. Turgor is fair. HEENT: Head is atraumatic, normocephalic. Eyes, PERRLA, EOMI. Sclerae nonicteric. No conjunctival injection. Nares are patent without rhinorrhea or discharge. Throat clear. Tongue midline. No buccal lesions or ulcerations. NECK: Supple. HEART: Regular rate and rhythm. No clicks, rubs or murmurs. LUNGS: Clear to auscultation bilaterally. ABDOMEN: Tenderness down the left lower quadrant attributable to operative discomfort. Bowel sounds are hypoactive at present. No rigidity or guarding. EXTREMITIES AND MUSCULOSKELETAL: Strength and pulses are equal and brisk. No clubbing, cyanosis or edema otherwise. NEUROLOGICALLY: He is awake, alert and oriented x3. Cranial nerves are intact. LABORATORY DATA: WBC count 9280, hemoglobin 7.9, platelet count 365,000. Sodium 136, potassium 4.7, chloride 104, carbon dioxide 21, creatinine 3.75, BUN 46. IMPRESSION: 1. Re-thrombosis of a previously diagnosed right lower extremity deep venous thrombosis. 2. Probable renal cell carcinoma. 3. Hematuria. 4. Status post Gorin filter placement. 5. Anemia of chronic renal insufficiency. 6. Monoclonal gammopathy of unclear significance. PLAN: Thiago is a pleasant 62-year-old gentleman well known to [facility] with 3 significant clinical issues including MGUS, anemia of chronic renal insufficiency and probable renal cell carcinoma. Nephrectomy was performed on and path should be available in the next day or two. Thiago is scheduled for an outpatient followup to discuss adjuvant treatment options regarding the renal lesion. However, prior to hospitalization, Thiago developed a new DVT superimposed on the previously diagnosed thrombus from December. He had been on Eliquis at that time. I agree with initiation of IV heparin and transition to Coumadin. Again, oral direct thrombin inhibitors are not well studied in cancer patients and therefore, heparin and Coumadin is the current standard of care. The patient recently started on Procrit and according to Thiago, he was experiencing improved overall wellbeing. However, it would appear he lost a little ground on his hemoglobin level, most likely because of procedural hemorrhage. Overall, Thiago seems to be doing reasonably well and anticipate him getting out of hospital within the next 3-4 days. I believe there's established outpatient followup at the [facility]. We will resume Procrit as an outpatient as well. I have nothing further to add at this time and we will continue to stop by to follow Thiago periodically. Thank you again for allowing us to participate in his care. If you have any questions or concerns, feel free to contact me. SHAY
--- NOTE | 2018-01-25 13:37 | Nephrology Progress Note ---
Nephrology Progress Note Date of Service Jan 25, 2018. Chief Complaint Follow-up for stage 4/5 chronic kidney disease with recent unilateral nephrectomy. Subjective Mr. Domingo was seen and examined in his room this morning. Renal function remained relatively stable, creatinine 3.8, electrolyte acceptable. Has been voiding normally has Watts catheter. Recovering from recent surgery has mild discomfort at the incision site. Review of Systems A complete review of systems was performed. Pertinent positives are noted above. All other systems are negative. Vital Signs Last 8 Hrs Date Time Temp Pulse Resp B/P (MAP) Pulse Ox O2 Delivery O2 Flow Rate FiO2 01/25/18 08:04 Room Air 01/25/18 07:19 36.9 75 20 154/82 (106) 91 Room Air Last Recorded Weight Weight (Kilograms): 107.800 Physical Exam GENERAL: Middle-aged male, AAA x 3, pleasant, healthy-appearing, not in any distress. NECK: Supple, no JVD. RESPIRATORY: Normal breathing efforts, no accessory muscle use, clear to auscultation bilaterally, no wheezes or rales. CARDIOVASCULAR: S1, S2 normal, rate rhythm regular. EXTREMITY: No lower extremity edema, left brachiocephalic AV fistula with thrill and bruit NEURO: speech fluent. 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 Remote tobacco use. Laboratory Results Past 24 Hours 01/24/18 13:36 01/25/18 04:01 Red Blood Count 2.49, Mean Corpuscular Volume 95.6, Mean Corpuscular Hemoglobin 31.7, Mean Corpuscular Hemoglobin Concent 33.2, Mean Platelet Volume 8.9, Neutrophils (%) (Auto) 79.6, Lymphocytes (%) (Auto) 5.5, Monocytes (%) (Auto) 13.1, Eosinophils (%) (Auto) 1.3, Basophils (%) (Auto) 0.2, Neutrophils # (Auto ) 7.38, Lymphocytes # (Auto) 0.51, Monocytes # (Auto) 1.22, Eosinophils # (Auto ) 0.12, Basophils # (Auto) 0.02 01/25/18 04:01 Test 01/24/18 13:36 01/24/18 20:58 01/25/18 04:01 Activated Partial Thromboplast Time 42.2 SECONDS (21.0-31.0) 43.1 SECONDS (21.0-31.0) 40.4 SECONDS (21.0-31.0) Partial Thromboplastin Ratio 1.6 1.7 1.6 White Blood Count 9.28 K/uL (4.8-10.8) Red Blood Count 2.49 M/uL (4.7-6.1) Hemoglobin 7.9 g/dL (14.0-18.0) Hematocrit 23.8 % (42-52) Mean Corpuscular Volume 95.6 fL (80-100) Mean Corpuscular Hemoglobin 31.7 pg (25-34) Mean Corpuscular Hemoglobin Concent 33.2 g/dl (32-36) Platelet Count 365 K/uL (130-400) Mean Platelet Volume 8.9 fL (7.4-10.4) Neutrophils (%) (Auto) 79.6 % Lymphocytes (%) (Auto) 5.5 % Monocytes (%) (Auto) 13.1 % Eosinophils (%) (Auto) 1.3 % Basophils (%) (Auto) 0.2 % Neutrophils # (Auto) 7.38 K/uL (1.4-6.5) Lymphocytes # (Auto) 0.51 K/uL (1.2-3.4) Monocytes # (Auto) 1.22 K/uL (0.11-0.59) Eosinophils # (Auto) 0.12 K/uL (0-0.5) Basophils # (Auto) 0.02 K/uL (0-0.2) RDW Standard Deviation 51.9 fL (36.4-46.3) RDW Coefficient of Variation 14.8 % (11.5-14.5) Immature Granulocyte % (Auto) 0.3 % Immature Granulocyte # (Auto) 0.03 K/uL (0.00-0.02) Red Blood Cell Morphology Unremarkable Anion Gap 11.0 mmol/L (3-11) Est Creatinine Clear Calc Drug Dose 27.1 ml/min Estimated GFR () 19.0 Estimated GFR (Non- 16.4 BUN/Creatinine Ratio 12.2 (10-20) Calcium Level 9.2 mg/dl (8.5-10.1) Allergies Coded Allergies: Statins (Verified Adverse Reaction, Mild, GI UPSET, 01/19/18) Medications Current Inpatient Medications Medications (Trade) Dose Ordered Sig/Solitario Route Start Time Stop Time Status Last Admin Dose Admin Acetaminophen (Tylenol Tab) 650 mg Q4H PRN PO 01/19/18 15:15 02/18/18 15:14 01/23/18 21:28 650 MG Al Hydrox/Mg Hydrox/Simethicone (Maalox Max Susp) 15 ml Q4H PRN PO 01/19/18 15:15 02/18/18 15:14 Ondansetron HCl (Zofran Inj) 4 mg Q6H PRN IV 01/19/18 15:15 02/18/18 15:14 01/25/18 04:50 4 MG Polyethylene (Miralax Powder Packet) 17 gm DAILY PRN PO 01/19/18 15:15 02/18/18 15:14 Carvedilol (Coreg Tab) 3.125 mg BIDM PO 01/19/18 16:45 02/18/18 17:59 01/25/18 08:54 3.125 MG Clonidine HCl (Catapres Tab) 0.3 mg QAM PO 01/20/18 09:00 02/19/18 08:59 01/25/18 08:54 0.3 MG Duloxetine HCl (Cymbalta Cap) 30 mg DAILY PO 01/20/18 09:00 02/19/18 08:59 01/25/18 09:22 30 MG Diltiazem HCl (Dilacor Xr Cap) 240 mg QAM PO 01/20/18 09:00 02/19/18 08:59 01/25/18 08:55 240 MG Morphine Sulfate (MoRPHine SULFATE INJ) 2 mg Q2H PRN IV 01/20/18 06:00 02/03/18 05:59 01/24/18 07:34 2 MG Docusate Sodium (coLACE CAP) 100 mg BID PO 01/22/18 21:00 02/21/18 20:59 Hydromorphone HCl (Dilaudid Inj) 1 mg Q2H PRN IV 01/22/18 11:15 02/05/18 11:14 01/25/18 04:45 1 MG Oxybutynin Chloride (Ditropan Tab) 5 mg BID PRN PO 01/22/18 11:15 02/21/18 11:14 Oxycodone/ Acetaminophen (Percocet 7.5-325MG Tab) Hold Tylenol if given Q4H PRN PO 01/22/18 11:15 02/05/18 11:14 Acetaminophen 650 mg/Empty Bag 65 ml @ 260 mls/hr Q6H PRN IV 01/22/18 11:15 02/21/18 11:14 01/23/18 01:25 260 MLS/HR Hydralazine HCl (HydrALAZINE INJ) 10 mg Q6 PRN IV. 01/22/18 13:00 02/21/18 12:59 01/22/18 17:04 10 MG Albuterol/ Ipratropium (Duoneb) 3 ml Q4H PRN INH 01/23/18 09:00 02/22/18 08:59 01/23/18 09:04 3 ML Heparin Sodium/ Dextrose 500 ml @ 36 mls/hr [id number] IV 01/23/18 17:00 02/22/18 16:59 01/25/18 07:00 36 MLS/HR Impression (1) Acute renal failure (2) Left renal mass (3) Hypertension (4) Anemia (5) Deep vein thrombosis 62-year-old gentlemen with stage IV 5 chronic kidney disease and history of nephrolithiasis, admitted to the hospital for elective unilateral nephrectomy. Currently recovering from surgery, renal function remained relatively stable creatinine 3.8, electrolyte acceptable. Has left brachiocephalic AV fistula, currently maturing. Electrolyte, blood pressure volume status acceptable. Remain non-oliguric. Recommendations -- Volume status and electrolyte balance remain acceptable at this time. No acute indication for HD, has AV fistula which is maturing. --received Epogen hemoglobin slightly dropped but stable,7.9 -- [place] filter placed 01/20. -- Monitor serial PRP, H&H Will sign off as renal function, electrolyte, BP and volume status acceptable. 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
[2018-01-25] MEDS: WARFARIN SOD 5 MG TAB PO SCH (15:36)
[2018-01-25 15:40] VITALS: O2SAT 93
[2018-01-25 15:48] VITALS: BP 119/73; PULSE 62; TEMP 36.8; O2SAT 93
[2018-01-25 17:23] VITALS: BP 117/67; PULSE 65
[2018-01-25 22:45] VITALS: BP 134/70; PULSE 63; TEMP 37.3; O2SAT 92
[2018-01-26] VITALS (7 sets, daily range): BP systolic 158–179; BP diastolic 77–90; PULSE 67–81; TEMP 36.8–37.5; O2SAT 92–93
[2018-01-26] MEDS: ONDANSETRON INJ 2 MG/ML 2 ML VIAL IV PRN (04:04)
[2018-01-26 06:29] LABS: BASO % 0.2 %; BASO ABS # 0.02 K/uL (0-0.2); EOS % 3.2 %; EOS ABS # 0.26 K/uL (0-0.5); HEMATOCRIT 25.8 % (42-52); HEMOGLOBIN 8.5 g/dL (14.0-18.0); IG# 0.02 K/uL (0.00-0.02); LYMPH % 4.5 %; LYMPH ABS # 0.36 K/uL (1.2-3.4); MEAN CELL VOLUME 94.9 fL (80-100); MEAN CORPUSCULAR HEMOGLOBIN 31.3 pg (25-34); MEAN CORPUSCULAR HGB CONC 32.9 g/dl (32-36); MEAN PLATELET VOLUME 8.8 fL (7.4-10.4); MONO % 12.9 %; MONO ABS # 1.03 K/uL (0.11-0.59); NEUT ABS # 6.32 K/uL (1.4-6.5); PLATELET COUNT 437 K/uL (130-400); RED CELL DISTRIBUTION WIDTH CV 14.8 % (11.5-14.5); RED CELL DISTRIBUTION WIDTH SD 50.9 fL (36.4-46.3); WHITE BLOOD COUNT 8.01 K/uL (4.8-10.8)
[2018-01-26 06:42] LABS: INR 1.2 (0.9-1.1); PTT PATIENT 43.7 SECONDS (21.0-31.0)
[2018-01-26 07:07] LABS: CREATININE 3.61 mg/dl (0.60-1.40)
[2018-01-26 07:08] LABS: CALCIUM 9.8 mg/dl (8.5-10.1); POTASSIUM 4.6 mmol/L (3.5-5.1)
[2018-01-26] MEDS ORDERED: HEPARIN IV BOLUS 4,000 UNIT in SYRINGE 0 ML IV ONE (07:30)
[2018-01-26] MEDS: HEPARIN 25,000 UNIT/500ML D5W 500 ML IV SCH ×4 (07:44→23:16)
[2018-01-26] MEDS ORDERED: ONDANSETRON INJ 2 MG/ML 2 ML VIAL IV STA (07:48)
--- NOTE | 2018-01-26 08:50 | Progress Note ---
Subjective Date of Service: Jan 26, 2018. Subjective Pt evaluation today including: conversation w/ patient, chart review, lab review Voiding: lopez catheter in place (patent, draining clear, yellow urine ) 62 yo male s/p left HALNU. Pt with DVT. Failed Eliquis. In the process of being transitioned to Coumadin. H&H stable. Cr stable at 3.61. Pt c/o n/v this morning. He vomited 25-50ml emesis. Currently on a renal diet. +BM yesterday. 145ml of DAVON output overnight. Reports he has been ambulating in the room, but not the hallway. Problem List Medical Problems: (1) Anticoagulated Status: Acute (2) Deep vein thrombosis Status: Acute (3) Urothelial cancer Status: Acute Review of Systems Constitutional: No fever, No chills Respiratory: No shortness of breath Cardiac: No chest pain Abdomen: No pain, No nausea, No vomiting, No constipation Male : No hematuria Heme: No abnormal bleeding/bruising Objective Vital Signs Date Time Temp Pulse Resp B/P (MAP) Pulse Ox O2 Delivery O2 Flow Rate FiO2 01/26/18 08:06 37.3 70 14 176/90 (118) 92 Room Air 01/26/18 03:53 36.8 67 18 179/88 (118) 92 Room Air 01/25/18 23:00 Room Air 01/25/18 22:45 37.3 63 18 134/70 (91) 92 Room Air 01/25/18 17:23 65 117/67 (84) 01/25/18 15:48 36.8 62 18 119/73 (88) 93 Room Air 01/25/18 15:40 93 Room Air Physical Exam General Appearance: + mild distress Eyes: normal inspection ENT: hearing grossly normal Neck: no JVD Respiratory/Chest: no respiratory distress, no accessory muscle use Cardiovascular: no JVD Abdomen: + pertinent finding (non-tender, abdominal incisions c/d/i; DAVON draining sanguinous fluid) Extremities: normal inspection Neurologic/Psychiatric: alert, normal mood/affect, oriented x 3 Skin: normal color Laboratory Results Last 24 Hours Test 01/25/18 11:47 01/26/18 06:09 01/26/18 08:15 Activated Partial Thromboplast Time 46.9 SECONDS 43.7 SECONDS Partial Thromboplastin Ratio 1.8 1.7 White Blood Count 8.01 K/uL Red Blood Count 2.72 M/uL Hemoglobin 8.5 g/dL Hematocrit 25.8 % Mean Corpuscular Volume 94.9 fL Mean Corpuscular Hemoglobin 31.3 pg Mean Corpuscular Hemoglobin Concent 32.9 g/dl Platelet Count 437 K/uL Mean Platelet Volume 8.8 fL Neutrophils (%) (Auto) 79.0 % Lymphocytes (%) (Auto) 4.5 % Monocytes (%) (Auto) 12.9 % Eosinophils (%) (Auto) 3.2 % Basophils (%) (Auto) 0.2 % Neutrophils # (Auto) 6.32 K/uL Lymphocytes # (Auto) 0.36 K/uL Monocytes # (Auto) 1.03 K/uL Eosinophils # (Auto) 0.26 K/uL Basophils # (Auto) 0.02 K/uL RDW Standard Deviation 50.9 fL RDW Coefficient of Variation 14.8 % Immature Granulocyte % (Auto) 0.2 % Immature Granulocyte # (Auto) 0.02 K/uL Hypochromasia PRESENT Prothrombin Time 12.4 SECONDS Prothromb Time International Ratio 1.2 Sodium Level 137 mmol/L Potassium Level 4.6 mmol/L Chloride Level 105 mmol/L Carbon Dioxide Level 21 mmol/L Anion Gap 11.0 mmol/L Blood Urea Nitrogen 47 mg/dl Creatinine 3.61 mg/dl Est Creatinine Clear Calc Drug Dose 28.1 ml/min Estimated GFR () 19.9 Estimated GFR (Non- 17.1 BUN/Creatinine Ratio 13.1 Random Glucose 116 mg/dl Calcium Level 9.8 mg/dl Assessment and Plan POD #4 s/p left HALNU Pt hypertensive at 176/90 today. Will order Reglan in addition to his Zofran today for n/v. Encourage ambulation to hallway. Will consult PT/OT. Continue diet as tolerated. Continue DAVON drain. Will send fluid for Cr. Continue lopez catheter. Pt to be discharged home with lopez. Will d/c Ofirmev. The pt can have oral Tylenol for pain. D/c Dilaudid and Morphine. PO Percocet for breakthrough pain. Management of Coumadin per primary service. Will continue to follow along with primary service. The pt was seen and assessed with Dr. Loving this morning. Discharge planning: home
[2018-01-26] MEDS: DOCUSATE SODIUM 100 MG CAP PO SCH ×2 (09:00→21:00)
[2018-01-26] MEDS: DULOXETINE (CYMBALTA) 30 MG CAP PO SCH (09:09)
[2018-01-26] MEDS: CLONIDINE HCL 0.3 MG TAB PO SCH (09:10)
[2018-01-26] MEDS: CARVEDILOL 3.125 MG TAB PO SCH ×2 (09:10→17:45)
[2018-01-26] MEDS: DILTIAZEM HCL 120 MG ER CAP PO SCH (09:10)
[2018-01-26] MEDS ORDERED: METOCLOPRAMIDE HCL 10 MG TAB PO STA (11:04)
--- NOTE | 2018-01-26 11:17 | Hospitalist Progress Note ---
Hospitalist Progress Note Date of Service Jan 26, 2018. Subjective Pt evaluation today including: conversation w/ patient, physical exam, chart review, lab review, review of studies, review of inpatient medication list Patient seen and evaluated. Continues to have significant nausea with episode of emesis this AM Patient appears pale and uncomfortable. Reporting pain is well controlled. Ambulating in room. Watts remains with yellow urine with no evidence of hematuria Constitutional: No fever, No chills Respiratory: No shortness of breath Cardiovascular: No chest pain Abdomen: + nausea, + vomiting, No pain, No diarrhea, No constipation Musculoskeletal: No swelling, No calf pain Heme: No abnormal bleeding/bruising Skin: No rash Medications Current Inpatient Medications Medications (Trade) Dose Ordered Sig/Solitario Route Start Time Stop Time Status Last Admin Dose Admin Acetaminophen (Tylenol Tab) 650 mg Q4H PRN PO 01/19/18 15:15 02/18/18 15:14 01/23/18 21:28 650 MG Al Hydrox/Mg Hydrox/Simethicone (Maalox Max Susp) 15 ml Q4H PRN PO 01/19/18 15:15 02/18/18 15:14 Ondansetron HCl (Zofran Inj) 4 mg Q6H PRN IV 01/19/18 15:15 02/18/18 15:14 01/26/18 04:04 4 MG Polyethylene (Miralax Powder Packet) 17 gm DAILY PRN PO 01/19/18 15:15 02/18/18 15:14 Carvedilol (Coreg Tab) 3.125 mg BIDM PO 01/19/18 16:45 02/18/18 17:59 01/26/18 09:10 3.125 MG Clonidine HCl (Catapres Tab) 0.3 mg QAM PO 01/20/18 09:00 02/19/18 08:59 01/26/18 09:10 0.3 MG Duloxetine HCl (Cymbalta Cap) 30 mg DAILY PO 01/20/18 09:00 02/19/18 08:59 01/26/18 09:09 30 MG Diltiazem HCl (Dilacor Xr Cap) 240 mg QAM PO 01/20/18 09:00 02/19/18 08:59 01/26/18 09:10 240 MG Docusate Sodium (coLACE CAP) 100 mg BID PO 01/22/18 21:00 02/21/18 20:59 Oxybutynin Chloride (Ditropan Tab) 5 mg BID PRN PO 01/22/18 11:15 02/21/18 11:14 Oxycodone/ Acetaminophen (Percocet 7.5-325MG Tab) Hold Tylenol if given Q4H PRN PO 01/22/18 11:15 02/05/18 11:14 Hydralazine HCl (HydrALAZINE INJ) 10 mg Q6 PRN IV. 01/22/18 13:00 02/21/18 12:59 01/22/18 17:04 10 MG Albuterol/ Ipratropium (Duoneb) 3 ml Q4H PRN INH 01/23/18 09:00 02/22/18 08:59 01/23/18 09:04 3 ML Heparin Sodium/ Dextrose 500 ml @ 38 mls/hr [id number] IV 01/23/18 17:00 02/22/18 16:59 01/26/18 09:32 38 MLS/HR Warfarin Sodium (Coumadin Tab) 5 mg DAILY@16 PO 01/25/18 16:00 02/24/18 15:59 01/25/18 15:36 5 MG Metoclopramide HCl (Reglan Tab) 10 mg Q6 PO 01/26/18 12:00 02/25/18 11:59 Metoclopramide HCl (Reglan Tab) 10 mg NOW STAT PO 01/26/18 11:04 01/26/18 11:05 Objective Vital Signs Date Time Temp Pulse Resp B/P (MAP) Pulse Ox O2 Delivery O2 Flow Rate FiO2 01/26/18 08:36 92 Room Air 01/26/18 08:06 37.3 70 14 176/90 (118) 92 Room Air 01/26/18 07:15 Room Air 01/26/18 03:53 36.8 67 18 179/88 (118) 92 Room Air 01/25/18 23:00 Room Air 01/25/18 22:45 37.3 63 18 134/70 (91) 92 Room Air 01/25/18 17:23 65 117/67 (84) 01/25/18 15:48 36.8 62 18 119/73 (88) 93 Room Air 01/25/18 15:40 93 Room Air Physical Exam General Appearance: WD/WN, no apparent distress Eyes: sclerae normal ENT: hearing grossly normal Neck: supple, no JVD, trachea midline Respiratory/Chest: lungs clear, normal breath sounds, no respiratory distress, no accessory muscle use Cardiovascular: regular rate, rhythm, no gallop, no murmur Abdomen: normal bowel sounds, non tender, soft Extremities: no pedal edema Neurologic/Psychiatric: alert Skin: warm/dry, + pallor Laboratory Results Last 24 Hours Test 01/25/18 11:47 01/26/18 06:09 01/26/18 08:15 Activated Partial Thromboplast Time 46.9 SECONDS 43.7 SECONDS Partial Thromboplastin Ratio 1.8 1.7 White Blood Count 8.01 K/uL Red Blood Count 2.72 M/uL Hemoglobin 8.5 g/dL Hematocrit 25.8 % Mean Corpuscular Volume 94.9 fL Mean Corpuscular Hemoglobin 31.3 pg Mean Corpuscular Hemoglobin Concent 32.9 g/dl Platelet Count 437 K/uL Mean Platelet Volume 8.8 fL Neutrophils (%) (Auto) 79.0 % Lymphocytes (%) (Auto) 4.5 % Monocytes (%) (Auto) 12.9 % Eosinophils (%) (Auto) 3.2 % Basophils (%) (Auto) 0.2 % Neutrophils # (Auto) 6.32 K/uL Lymphocytes # (Auto) 0.36 K/uL Monocytes # (Auto) 1.03 K/uL Eosinophils # (Auto) 0.26 K/uL Basophils # (Auto) 0.02 K/uL RDW Standard Deviation 50.9 fL RDW Coefficient of Variation 14.8 % Immature Granulocyte % (Auto) 0.2 % Immature Granulocyte # (Auto) 0.02 K/uL Hypochromasia PRESENT Prothrombin Time 12.4 SECONDS Prothromb Time International Ratio 1.2 Sodium Level 137 mmol/L Potassium Level 4.6 mmol/L Chloride Level 105 mmol/L Carbon Dioxide Level 21 mmol/L Anion Gap 11.0 mmol/L Blood Urea Nitrogen 47 mg/dl Creatinine 3.61 mg/dl Est Creatinine Clear Calc Drug Dose 28.1 ml/min Estimated GFR () 19.9 Estimated GFR (Non- 17.1 BUN/Creatinine Ratio 13.1 Random Glucose 116 mg/dl Calcium Level 9.8 mg/dl Body Fluid Creatinine 3.74 mg/dl Assessment and Plan Mr. Domingo is a 62 y/o male with PMHx of HTN, Urothelial CA, CKD Stage IV S/P L AV Fistula, RLE DVT, R Staghorn Calculi S/P PCNL (Resolved), L Renal Shunt who is pending L HALNU on by Dr. Loving who presented to the ED with further RLE DVT development x 4 days. New RLE DVT while on Eliquis and S/P IVC Filter 01/20: - Initially treated with heparin gtt but D/Cd due to ethan hematuria and bladder blood clots - Had pleuritic L shoulder pain and mild desaturations - possible small PEs - cannot obtain CTA due to CKD but management remains the same - Resumed on heparin gtt with Coumadin bridge - INR 1.2 and continue to trend - Will need establishment with [facility] on D/C CKD Stage IV with L AV Fistula - Fistula evaluated by Dr. Jimenez on 01.20 - likely mature - no indication for HD currently - Electrolytes acceptable at this time - Nephrology following - appreciate recommendations HTN: - Lisinopril remains on hold; Continue Coreg 3.125 mg BID, Clonidine 0.3 mg daily; and Diltiazem 240 mg daily Anemia of Chronic Disease: STABLE - Was initiated on Procrit - received Procrit [id number] units on 01/23 - No indication for transfusion currently - Hgb 8.5 today - hold on transfusion unless hypotensive or Hb below 7.0 Urothelial CA S/P L HALNU on 01/[address] Loving: - Doing well post-operative; having increased nausea with emesis this AM - Reports a more liquid stool today; pain managed; will get KUB to assess for possible ileus? - ZOfran and Reglan - can add further medications if needed Hematuria: Large Bladder Clot - RESOLVED DVT Prophylaxis: Heparin/Coumadin bridge Code Status: FULL RESUSCITATION Disposition: - PT/OT evaluations - recommend ambulation - Continued stay due to nausea poor oral intake today Continued [facility] stay due to: inadequate po fluid intake Discharge planning: uncertain
[2018-01-26] MEDS ORDERED: PROMETHAZINE HCL INJ 12.5 MG in SODIUM CHLORIDE 0.9% 50ML 50 ML IV PRN (11:30)
[2018-01-26] MEDS ORDERED: METOCLOPRAMIDE HCL 10 MG TAB PO SCH (12:00)
[2018-01-26] MEDS: SODIUM CHLORIDE 0.9% 1000ML 1,000 ML IV SCH ×2 (12:15→22:55)
[2018-01-26] MEDS: ACETAMINOPHEN 325 MG TAB PO PRN (12:19)
--- NOTE | 2018-01-26 12:32 | DIAGNOSTIC IMAGING REPORT ---
KUB CLINICAL HISTORY: Generalized abdominal pain. Distention. FINDINGS: 2 AP supine abdominal radiographs are correlated with abdominal CT dated 12/31/2017. An IVC filter is in place. Midline skin clips are noted, and suture material projects over the upper abdomen. There is gaseous distention of the small bowel loops and colon. Small bowel loops measure up to 6 cm in diameter. Intraperitoneal free air is noted. A surgical drain projects over the left pelvis. Ureteral stents have been removed from previous. The skeletal structures are osteopenic. There is lumbosacral spondylosis. IMPRESSION: 1. There is gaseous distention of the small bowel loops and colon with evidence of recent surgery. This likely represent a postoperative ileus. Bowel obstruction is not excluded. Clinical correlation will be required. 2. A surgical drain is seen in the left lower quadrant. 3. Intraperitoneal free air is nonspecific and likely related to recent surgery. Again, clinical correlation will be required. 4. Additional findings as above. Electronically signed by: Max Lance M.D. 01/26/2018 12:31 PM Dictated Date/Time: 01/26/2018 12:29 PM
[2018-01-26] MEDS ORDERED: NURSING VERBAL MED ORDER ONE (13:00)
[2018-01-26 14:11] LABS: CALCIUM 9.2 mg/dl (8.5-10.1); CREATININE 3.73 mg/dl (0.60-1.40)
[2018-01-26 14:16] LABS: PTT PATIENT 53.2 SECONDS (21.0-31.0)
[2018-01-26] MEDS: WARFARIN SOD 5 MG TAB PO SCH (15:52)
[2018-01-26] MEDS ORDERED: METOCLOPRAMIDE HCL INJ 20 MG in SODIUM CHLORIDE 0.9% 50ML 50 ML IV PRN (18:15)
--- NOTE | 2018-01-26 18:38 | Surgery Consultation ---
Consultation Date of Consultation: Jan 26, 2018. Attending Physician: Ritesh Umanzor MD, PhD History of Present Illness pt is a 62 year old male who is S/P laparoscopic left nephroureterectomy, POD 4 , pt passed gas and BM this morning, but pt started vomiting today after, pt denies fever,mild abdominal pain, Past Medical/Surgical History Medical Problems: (1) Anticoagulated Status: Acute (2) Deep vein thrombosis Status: Acute (3) Urothelial cancer Status: Acute Family History Diabetes mellitus Hypertension Social History Smoking Status: Former Smoker Smokeless Tobacco Use: Yes Alcohol Use: none Drug Use: none Marital Status: Occupation Status: employed Allergies Coded Allergies: Statins (Verified Adverse Reaction, Mild, GI UPSET, 01/19/18) Home Medications Scheduled Apixaban (Eliquis), 10 MG PO BID Carvedilol (Coreg), 3.125 MG PO BIDM Cholecalciferol (Vitamin D3), 2,000 UNITS PO QAM Clonidine Hcl (Catapres), 0.3 MG PO QAM Cyanocobalamin (Vitamin B12 Tr), 2,500 MCG PO QAM Diltiazem Hcl Extended Release (Diltiazem Hcl Er), 240 MG PO QAM Duloxetine Hcl (Cymbalta), 30 MG PO DAILY Lisinopril (Zestril), 40 MG PO DAILY Multivitamin (Multivitamin), 1 TAB PO QAM Scheduled PRN Acetaminophen (Tylenol), 325 MG PO UD PRN for PRN Current Inpatient Medications Current Inpatient Medications Medications (Trade) Dose Ordered Sig/Solitario Route Start Time Stop Time Status Last Admin Dose Admin Acetaminophen (Tylenol Tab) 650 mg Q4H PRN PO 01/19/18 15:15 02/18/18 15:14 01/26/18 12:19 650 MG Al Hydrox/Mg Hydrox/Simethicone (Maalox Max Susp) 15 ml Q4H PRN PO 01/19/18 15:15 02/18/18 15:14 Ondansetron HCl (Zofran Inj) 4 mg Q6H PRN IV 01/19/18 15:15 02/18/18 15:14 01/26/18 04:04 4 MG Polyethylene (Miralax Powder Packet) 17 gm DAILY PRN PO 01/19/18 15:15 4/18/18 15:14 Carvedilol (Coreg Tab) 3.125 mg BIDM PO 01/19/18 16:45 02/18/18 17:59 01/26/18 09:10 3.125 MG Clonidine HCl (Catapres Tab) 0.3 mg QAM PO 01/20/18 09:00 02/19/18 08:59 01/26/18 09:10 0.3 MG Duloxetine HCl (Cymbalta Cap) 30 mg DAILY PO 01/20/18 09:00 02/19/18 08:59 01/26/18 09:09 30 MG Diltiazem HCl (Dilacor Xr Cap) 240 mg QAM PO 01/20/18 09:00 02/19/18 08:59 01/26/18 09:10 240 MG Docusate Sodium (coLACE CAP) 100 mg BID PO 01/22/18 21:00 02/21/18 20:59 Oxybutynin Chloride (Ditropan Tab) 5 mg BID PRN PO 01/22/18 11:15 02/21/18 11:14 Oxycodone/ Acetaminophen (Percocet 7.5-325MG Tab) Hold Tylenol if given Q4H PRN PO 01/22/18 11:15 02/05/18 11:14 Hydralazine HCl (HydrALAZINE INJ) 10 mg Q6 PRN IV. 01/22/18 13:00 02/21/18 12:59 01/22/18 17:04 10 MG Albuterol/ Ipratropium (Duoneb) 3 ml Q4H PRN INH 01/23/18 09:00 02/22/18 08:59 01/23/18 09:04 3 ML Heparin Sodium/ Dextrose 500 ml @ 38 mls/hr [id number] IV 01/23/18 17:00 02/22/18 16:59 01/26/18 09:32 38 MLS/HR Warfarin Sodium (Coumadin Tab) 5 mg DAILY@16 PO 01/25/18 16:00 02/24/18 15:59 01/26/18 15:52 5 MG Sodium Chloride 1,000 ml @ 100 mls/hr Q10H IV 01/26/18 11:30 02/25/18 11:29 01/26/18 12:15 50 MLS/HR Promethazine HCl 12.5 mg/Sodium Chloride 50.5 ml @ 204 mls/hr Q6H PRN IV 01/26/18 11:30 02/25/18 11:29 01/26/18 15:50 204 MLS/HR Metoclopramide HCl 20 mg/Sodium Chloride 54 ml @ 162 mls/hr Q6H PRN IV 01/26/18 18:15 02/25/18 18:14 UNV Metoprolol Tartrate (Lopressor Iv) 2.5 mg Q6 PRN IV. 01/26/18 18:30 02/25/18 18:29 UNV Review of Systems Constitutional: No fever, No chills, No sweats, No weight loss, No weakness, No fatigue, No problem reported Eyes: No worsening of vision, No eye pain, No redness, No discharge, No diplopia, No problem reported ENT: No hearing loss, No unusual epistaxis, No nasal symptoms, No sore throat, No tinnitus, No dental problems, No trouble swallowing, No problem reported Respiratory: No cough, No sputum, No wheezing, No shortness of breath, No dyspnea on exertion, No dyspnea at rest, No hemoptysis, No problem reported Cardiovascular: No chest pain, No orthopnea, No PND, No edema, No claudication , No palpitations, No problem reported Abdomen: + pain, + nausea, + vomiting Musculoskeletal: No joint pain, No muscle pain, No swelling, No calf pain, No problem reported Genitourinary - Male: + problem reported (S/Plap nephroureterectomy, POD 4), No hematuria, No dysuria, No urinary frequency, No urinary urgency, No urinary hesitancy, No urinary retention, No urinary incontinence, No penile discharge, No lesions, No impotence Neurologic: No memory loss, No paralysis, No weakness, No numbness/tingling, No vertigo, No balance problems, No problem reported Psychiatric: No depression symptoms, No anhedonism, No anxiety, No insomnia, No substance abuse, No problem reported Endocrine: No fatigue, No excessive thirst, No excessive urination, No problem reported Hematologic / Lymphatic: No abnormal bleeding/bruising, No clotting problems, No swollen lymph nodes, No night sweats, No problem reported Integumentary: No rash, No itch, No new/changing skin lesions, No color change , No bleeding, No problem reported Allergic / Immunologic: No environmental allergies, No seasonal allergies, No pet sensitivities, No food allergies, No hives, No frequent infections, No poor healing, No prolonged convalescence, No problem reported Physical Exam Date Time Temp Pulse Resp B/P (MAP) Pulse Ox O2 Delivery O2 Flow Rate FiO2 01/26/18 15:50 Room Air 01/26/18 14:57 37.5 75 18 160/80 (106) 93 Room Air 01/26/18 11:44 36.9 73 14 163/77 (105) 93 Room Air 01/26/18 08:36 92 Room Air 01/26/18 08:06 37.3 70 14 176/90 (118) 92 Room Air 01/26/18 07:15 Room Air 01/26/18 03:53 36.8 67 18 179/88 (118) 92 Room Air 01/25/18 23:00 Room Air 01/25/18 22:45 37.3 63 18 134/70 (91) 92 Room Air General Appearance: WD/WN, no apparent distress Head: normocephalic Eyes: normal inspection ENT: normal ENT inspection Neck: supple, no JVD Respiratory/Chest: chest non-tender, lungs clear, normal breath sounds, no respiratory distress Cardiovascular: regular rate, rhythm, no edema, no gallop, no JVD, no murmur Abdomen/GI: normal bowel sounds, non tender, soft, no organomegaly, no pulsatile mass (incisions on left abdomen, no drainage, J-P drainage at left abdomenf clear fluid, ), + distended Extremities/Musculoskelatal: normal inspection, no calf tenderness, normal capillary refill Neurologic/Psych: no motor/sensory deficits, alert, normal mood/affect Skin: normal color, warm/dry, no rash Laboratory Results Last 24 Hours Test 01/26/18 06:09 01/26/18 08:15 01/26/18 13:41 White Blood Count 8.01 K/uL Red Blood Count 2.72 M/uL Hemoglobin 8.5 g/dL Hematocrit 25.8 % Mean Corpuscular Volume 94.9 fL Mean Corpuscular Hemoglobin 31.3 pg Mean Corpuscular Hemoglobin Concent 32.9 g/dl Platelet Count 437 K/uL Mean Platelet Volume 8.8 fL Neutrophils (%) (Auto) 79.0 % Lymphocytes (%) (Auto) 4.5 % Monocytes (%) (Auto) 12.9 % Eosinophils (%) (Auto) 3.2 % Basophils (%) (Auto) 0.2 % Neutrophils # (Auto) 6.32 K/uL Lymphocytes # (Auto) 0.36 K/uL Monocytes # (Auto) 1.03 K/uL Eosinophils # (Auto) 0.26 K/uL Basophils # (Auto) 0.02 K/uL RDW Standard Deviation 50.9 fL RDW Coefficient of Variation 14.8 % Immature Granulocyte % (Auto) 0.2 % Immature Granulocyte # (Auto) 0.02 K/uL Hypochromasia PRESENT Prothrombin Time 12.4 SECONDS Prothromb Time International Ratio 1.2 Activated Partial Thromboplast Time 43.7 SECONDS 53.2 SECONDS Partial Thromboplastin Ratio 1.7 2.0 Sodium Level 137 mmol/L 138 mmol/L Potassium Level 4.6 mmol/L 5.0 mmol/L Chloride Level 105 mmol/L 105 mmol/L Carbon Dioxide Level 21 mmol/L 22 mmol/L Anion Gap 11.0 mmol/L 11.0 mmol/L Blood Urea Nitrogen 47 mg/dl 49 mg/dl Creatinine 3.61 mg/dl 3.73 mg/dl Est Creatinine Clear Calc Drug Dose 28.1 ml/min 27.2 ml/min Estimated GFR () 19.9 19.1 Estimated GFR (Non- 17.1 16.5 BUN/Creatinine Ratio 13.1 13.1 Random Glucose 116 mg/dl 119 mg/dl Calcium Level 9.8 mg/dl 9.2 mg/dl Body Fluid Creatinine 3.74 mg/dl Assessment & Plan KUB CLINICAL HISTORY: Generalized abdominal pain. Distention. FINDINGS: 2 AP supine abdominal radiographs are correlated with abdominal CT dated 12/31/2017. An IVC filter is in place. Midline skin clips are noted, and suture material projects over the upper abdomen. There is gaseous distention of the small bowel loops and colon. Small bowel loops measure up to 6 cm in diameter. Intraperitoneal free air is noted. A surgical drain projects over the left pelvis. Ureteral stents have been removed from previous. The skeletal structures are osteopenic. There is lumbosacral spondylosis. IMPRESSION: 1. There is gaseous distention of the small bowel loops and colon with evidence of recent surgery. This likely represent a postoperative ileus. Bowel obstruction is not excluded. Clinical correlation will be required. 2. A surgical drain is seen in the left lower quadrant. 3. Intraperitoneal free air is nonspecific and likely related to recent surgery. Again, clinical correlation will be required. 4. Additional findings as above. IMP: post- operative ileus Plan, Recommend conservative treatment, NG tube, NPO, IV fluid repeat labs KUB in am, will F/U
[2018-01-26] MEDS ORDERED: METOPROLOL TARTRATE 1 MG/ML VIAL IV PRN (19:00)
[2018-01-27] VITALS (8 sets, daily range): BP systolic 133–172; BP diastolic 72–94; PULSE 64–77; TEMP 36.2–37.3; O2SAT 93–97
[2018-01-27] MEDS: DULOXETINE (CYMBALTA) 30 MG CAP PO SCH (07:36)
[2018-01-27] MEDS: CARVEDILOL 3.125 MG TAB PO SCH ×2 (07:37→16:19)
[2018-01-27] MEDS: CLONIDINE HCL 0.3 MG TAB PO SCH (07:37)
[2018-01-27 07:38] LABS: BASO % 0.4 %; BASO ABS # 0.03 K/uL (0-0.2); EOS % 6.9 %; EOS ABS # 0.47 K/uL (0-0.5); HEMATOCRIT 25.6 % (42-52); HEMOGLOBIN 8.2 g/dL (14.0-18.0); IG# 0.02 K/uL (0.00-0.02); LYMPH % 9.3 %; LYMPH ABS # 0.63 K/uL (1.2-3.4); MEAN CELL VOLUME 95.2 fL (80-100); MEAN CORPUSCULAR HEMOGLOBIN 30.5 pg (25-34); MEAN PLATELET VOLUME 8.7 fL (7.4-10.4); MONO % 18.8 %; MONO ABS # 1.28 K/uL (0.11-0.59); NEUT % 64.3 %; NEUT ABS # 4.37 K/uL (1.4-6.5); PLATELET COUNT 478 K/uL (130-400); RED CELL DISTRIBUTION WIDTH CV 14.8 % (11.5-14.5); RED CELL DISTRIBUTION WIDTH SD 51.1 fL (36.4-46.3)
[2018-01-27] MEDS: DOCUSATE SODIUM 100 MG CAP PO SCH ×2 (07:38→20:40)
[2018-01-27] MEDS: DILTIAZEM HCL 120 MG ER CAP PO SCH (07:39)
[2018-01-27] MEDS: SODIUM CHLORIDE 0.9% 1000ML 1,000 ML IV SCH ×2 (07:41→17:40)
[2018-01-27 08:00] LABS: INR 1.5 (0.9-1.1)
[2018-01-27 08:07] LABS: CREATININE 3.75 mg/dl (0.60-1.40); POTASSIUM 4.2 mmol/L (3.5-5.1)
[2018-01-27 08:19] LABS: PTT PATIENT 57.6 SECONDS (21.0-31.0)
--- NOTE | 2018-01-27 09:12 | DIAGNOSTIC IMAGING REPORT ---
KUB CLINICAL HISTORY: Ileus. FINDINGS: 2 AP supine abdominal radiographs are compared to study dated 01/26/2018 and correlated with abdominal CT dated 12/31/2017. An enteric tube projects below the diaphragm over the stomach. An IVC filter is in place. Midline skin clips are noted, and suture material projects over the upper abdomen. There is persistent gaseous distention of the small bowel loops and colon, somewhat improved from yesterday. Small bowel loops measure up to 5 cm in diameter. Small foci of intraperitoneal free air are less apparent than yesterday. A surgical drain projects over the left pelvis. The skeletal structures are osteopenic. There is lumbosacral spondylosis. IMPRESSION: 1. An enteric tube now projects over the proximal stomach. 2. There is persistent gaseous distention of the small bowel loops and colon with evidence of recent surgery. The degree of distention has modestly improved from yesterday. This likely represent a postoperative ileus. Bowel obstruction is not excluded. Clinical correlation will be required. 3. A surgical drain is seen in the left lower quadrant. 4. Small foci of intraperitoneal free air are less apparent than on yesterday's examination. Electronically signed by: Max Lance M.D. 01/27/2018 9:10 AM Dictated Date/Time: 01/27/2018 9:08 AM
--- NOTE | 2018-01-27 09:44 | Hospitalist Progress Note ---
Hospitalist Progress Note Date of Service Jan 27, 2018. Subjective Pt evaluation today including: conversation w/ patient, physical exam, chart review, lab review, review of studies, review of inpatient medication list Patient seen and evaluated. Reporting feeling a lot better since NGT placement. Pulled 2600 in total. Abdomen is less distended and normoactive BS. Continues to pass flatus but no BM today. Tolerated NGT currently. Some abd. pain today but states its mild and doesn't need any pain medication at this time. Watts remains with yellow urine Constitutional: No fever, No chills Respiratory: No cough, No shortness of breath Cardiovascular: No chest pain Abdomen: + pain, No nausea, No vomiting, No diarrhea, No constipation Musculoskeletal: No swelling, No calf pain Male : No dysuria Heme: No abnormal bleeding/bruising Medications Current Inpatient Medications Medications (Trade) Dose Ordered Sig/Solitario Route Start Time Stop Time Status Last Admin Dose Admin Acetaminophen (Tylenol Tab) 650 mg Q4H PRN PO 01/19/18 15:15 02/18/18 15:14 01/26/18 12:19 650 MG Al Hydrox/Mg Hydrox/Simethicone (Maalox Max Susp) 15 ml Q4H PRN PO 01/19/18 15:15 02/18/18 15:14 Ondansetron HCl (Zofran Inj) 4 mg Q6H PRN IV 01/19/18 15:15 02/18/18 15:14 01/26/18 04:04 4 MG Polyethylene (Miralax Powder Packet) 17 gm DAILY PRN PO 01/19/18 15:15 02/18/18 15:14 Carvedilol (Coreg Tab) 3.125 mg BIDM PO 01/19/18 16:45 02/18/18 17:59 01/27/18 07:37 3.125 MG Clonidine HCl (Catapres Tab) 0.3 mg QAM PO 01/20/18 09:00 02/19/18 08:59 01/27/18 07:37 0.3 MG Duloxetine HCl (Cymbalta Cap) 30 mg DAILY PO 01/20/18 09:00 02/19/18 08:59 01/27/18 07:36 30 MG Diltiazem HCl (Dilacor Xr Cap) 240 mg QAM PO 01/20/18 09:00 02/19/18 08:59 01/27/18 07:39 240 MG Docusate Sodium (coLACE CAP) 100 mg BID PO 01/22/18 21:00 02/21/18 20:59 01/27/18 07:38 100 MG Oxybutynin Chloride (Ditropan Tab) 5 mg BID PRN PO 01/22/18 11:15 02/21/18 11:14 Oxycodone/ Acetaminophen (Percocet 7.5-325MG Tab) Hold Tylenol if given Q4H PRN PO 01/22/18 11:15 02/05/18 11:14 Hydralazine HCl (HydrALAZINE INJ) 10 mg Q6 PRN IV. 01/22/18 13:00 02/21/18 12:59 01/22/18 17:04 10 MG Albuterol/ Ipratropium (Duoneb) 3 ml Q4H PRN INH 01/23/18 09:00 02/22/18 08:59 01/23/18 09:04 3 ML Heparin Sodium/ Dextrose 500 ml @ 38 mls/hr [id number] IV 01/23/18 17:00 02/22/18 16:59 01/26/18 23:16 38 MLS/HR Warfarin Sodium (Coumadin Tab) 5 mg DAILY@16 PO 01/25/18 16:00 02/24/18 15:59 01/26/18 15:52 5 MG Sodium Chloride 1,000 ml @ 100 mls/hr Q10H IV 01/26/18 11:30 02/25/18 11:29 01/27/18 07:41 100 MLS/HR Promethazine HCl 12.5 mg/Sodium Chloride 50.5 ml @ 204 mls/hr Q6H PRN IV 01/26/18 11:30 02/25/18 11:29 01/26/18 15:50 204 MLS/HR Metoclopramide HCl 20 mg/Sodium Chloride 54 ml @ 162 mls/hr Q6H PRN IV 01/26/18 18:15 02/25/18 18:14 Metoprolol Tartrate (Lopressor Iv) 2.5 mg Q6 PRN IV 01/26/18 19:00 02/25/18 18:59 Objective Vital Signs Date Time Temp Pulse Resp B/P (MAP) Pulse Ox O2 Delivery O2 Flow Rate FiO2 01/27/18 08:03 36.9 77 18 170/82 (111) 95 01/27/18 08:00 Room Air 01/27/18 05:22 73 166/94 (118) 01/27/18 04:00 Room Air 01/27/18 03:50 37.1 72 16 172/82 (112) 93 Room Air 01/27/18 00:19 37.3 76 21 145/75 (98) 93 Room Air 01/26/18 23:30 Room Air 01/26/18 20:30 Room Air 01/26/18 20:26 36.9 81 16 158/79 (105) 92 Room Air 01/26/18 19:15 37.5 75 18 93 01/26/18 15:50 Room Air 01/26/18 14:57 37.5 75 18 160/80 (106) 93 Room Air 01/26/18 11:44 36.9 73 14 163/77 (105) 93 Room Air Physical Exam General Appearance: WD/WN, no apparent distress Eyes: sclerae normal ENT: hearing grossly normal, + pertinent finding (NGT present - L nare) Neck: supple, no JVD, trachea midline Respiratory/Chest: lungs clear, normal breath sounds, no respiratory distress, no accessory muscle use Cardiovascular: regular rate, rhythm, no gallop, no murmur Abdomen: normal bowel sounds, soft Extremities: no pedal edema, no calf tenderness Neurologic/Psychiatric: alert Skin: normal color, warm/dry Laboratory Results Last 24 Hours Test 01/26/18 13:41 01/27/18 07:18 Activated Partial Thromboplast Time 53.2 SECONDS 57.6 SECONDS Partial Thromboplastin Ratio 2.0 2.2 Sodium Level 138 mmol/L 138 mmol/L Potassium Level 5.0 mmol/L 4.2 mmol/L Chloride Level 105 mmol/L 105 mmol/L Carbon Dioxide Level 22 mmol/L 25 mmol/L Anion Gap 11.0 mmol/L 8.0 mmol/L Blood Urea Nitrogen 49 mg/dl 47 mg/dl Creatinine 3.73 mg/dl 3.75 mg/dl Est Creatinine Clear Calc Drug Dose 27.2 ml/min 26.3 ml/min Estimated GFR () 19.1 19.0 Estimated GFR (Non- 16.5 16.4 BUN/Creatinine Ratio 13.1 12.4 Random Glucose 119 mg/dl 105 mg/dl Calcium Level 9.2 mg/dl 9.0 mg/dl White Blood Count 6.80 K/uL Red Blood Count 2.69 M/uL Hemoglobin 8.2 g/dL Hematocrit 25.6 % Mean Corpuscular Volume 95.2 fL Mean Corpuscular Hemoglobin 30.5 pg Mean Corpuscular Hemoglobin Concent 32.0 g/dl Platelet Count 478 K/uL Mean Platelet Volume 8.7 fL Neutrophils (%) (Auto) 64.3 % Lymphocytes (%) (Auto) 9.3 % Monocytes (%) (Auto) 18.8 % Eosinophils (%) (Auto) 6.9 % Basophils (%) (Auto) 0.4 % Neutrophils # (Auto) 4.37 K/uL Lymphocytes # (Auto) 0.63 K/uL Monocytes # (Auto) 1.28 K/uL Eosinophils # (Auto) 0.47 K/uL Basophils # (Auto) 0.03 K/uL RDW Standard Deviation 51.1 fL RDW Coefficient of Variation 14.8 % Immature Granulocyte % (Auto) 0.3 % Immature Granulocyte # (Auto) 0.02 K/uL Anisocytosis PRESENT Prothrombin Time 15.4 SECONDS Prothromb Time International Ratio 1.5 Magnesium Level 2.6 mg/dl Assessment and Plan Mr. Domingo is a 62 y/o male with PMHx of HTN, Urothelial CA, CKD Stage IV S/P L AV Fistula, RLE DVT, R Staghorn Calculi S/P PCNL (Resolved), L Renal Shunt who is pending L HALNU on by Dr. Loving who presented to the ED with further RLE DVT development x 4 days. Post-Operative Ileus S/P NGT: 2600 cc Pulled - Feeling much better today - no nausea - KUB revealing marked improvement in gaseous distention but still some present - Will continue to monitor output of NGT and consider trial with clamping prior to D/C - will re-evaluate later this afternoon New RLE DVT while on Eliquis and S/P IVC Filter 01/20: STABLE - Had pleuritic L shoulder pain and mild desaturations - possible small PEs - cannot obtain CTA due to CKD but management remains the same - Resumed on heparin gtt with Coumadin bridge - INR 1.5 and continue to trend - Will need establishment with [facility] clinic on D/C CKD Stage IV with L AV Fistula: STABLE - Fistula evaluated by Dr. Jimenez on 01.20 - likely mature - no indication for HD currently - Electrolytes acceptable at this time; continues to produce urine - Nephrology following - appreciate recommendations HTN: - Lisinopril remains on hold; Continue Coreg 3.125 mg BID, Clonidine 0.3 mg daily; and Diltiazem 240 mg daily Anemia of Chronic Disease: STABLE - Was initiated on Procrit - received last Procrit [id number] units on 01/23 - No indication for transfusion currently - Hgb 8.2 today - hold on transfusion unless hypotensive or Hgb below 7.0 Urothelial CA S/P L HALNU on 01/[address] Loving: - Zofran, Phenergan, and Reglan - can add further medications if needed Hematuria: Large Bladder Clot - RESOLVED DVT Prophylaxis: Heparin/Coumadin bridge Code Status: FULL RESUSCITATION Disposition: - PT/OT evaluations - recommend ambulation - Continued stay due to poor oral intake - awaiting resolution of ileus Continued [facility] stay due to: inadequate po fluid intake, multiple IV medications needed Discharge planning: home
--- NOTE | 2018-01-27 11:20 | Surgery Progress Note ---
Surgery Progress Note Date of Service Jan 27, 2018. Subjective Post OP Day: POD # 5 Left Nephroureterectomy, HD # 8 Feeling a little better, less abdominal pain, slight nausea, passing flatus but no bowel movement. Objective Vital Signs: Date Time Temp Pulse Resp B/P (MAP) Pulse Ox O2 Delivery O2 Flow Rate FiO2 01/27/18 08:03 36.9 77 18 170/82 (111) 95 01/27/18 08:00 Room Air 01/27/18 05:22 73 166/94 (118) 01/27/18 04:00 Room Air 01/27/18 03:50 37.1 72 16 172/82 (112) 93 Room Air 01/27/18 00:19 37.3 76 21 145/75 (98) 93 Room Air 01/26/18 23:30 Room Air 01/26/18 20:30 Room Air 01/26/18 20:26 36.9 81 16 158/79 (105) 92 Room Air 01/26/18 19:15 37.5 75 18 93 01/26/18 15:50 Room Air 01/26/18 14:57 37.5 75 18 160/80 (106) 93 Room Air 01/26/18 11:44 36.9 73 14 163/77 (105) 93 Room Air Physical Exam: DAVON drainage (serosanguineous), nasogastric drainage (dark brown output), urine output (clear urine in lopez) General Appearance: WD/WN, no apparent distress Head: normocephalic, atraumatic Neck: trachea midline Respiratory/Chest: lungs clear, normal breath sounds, no respiratory distress, no accessory muscle use Cardiovascular: regular rate, rhythm, no murmur Abdomen: soft, no organomegaly, no pulsatile mass, + abnormal bowel sounds ( hypoactive bowel sounds), + distended (mild distention), + tenderness (more so in LLQ at incision sites and prior surgical site, no rebound or guarding) Incision(s): clean, dry, intact, no erythema, no drainage Laboratory Results: Results Past 24 Hours Test 01/26/18 13:41 01/27/18 07:18 Range/Units Activated Partial Thromboplast Time 53.2 57.6 21.0-31.0 SECONDS Partial Thromboplastin Ratio 2.0 2.2 Sodium Level 138 138 136-145 mmol/L Potassium Level 5.0 4.2 3.5-5.1 mmol/L Chloride Level 105 105 98-107 mmol/L Carbon Dioxide Level 22 25 21-32 mmol/L Anion Gap 11.0 8.0 3-11 mmol/L Blood Urea Nitrogen 49 47 7-18 mg/dl Creatinine 3.73 3.75 0.60-1.40 mg/dl Est Creatinine Clear Calc Drug Dose 27.2 26.3 ml/min Estimated GFR () 19.1 19.0 Estimated GFR (Non- 16.5 16.4 BUN/Creatinine Ratio 13.1 12.4 10-20 Random Glucose 119 105 70-99 mg/dl Calcium Level 9.2 9.0 8.5-10.1 mg/dl White Blood Count 6.80 4.8-10.8 K/uL Red Blood Count 2.69 4.7-6.1 M/uL Hemoglobin 8.2 14.0-18.0 g/dL Hematocrit 25.6 42-52 % Mean Corpuscular Volume 95.2 80-100 fL Mean Corpuscular Hemoglobin 30.5 25-34 pg Mean Corpuscular Hemoglobin Concent 32.0 32-36 g/dl Platelet Count 478 130-400 K/uL Mean Platelet Volume 8.7 7.4-10.4 fL Neutrophils (%) (Auto) 64.3 % Lymphocytes (%) (Auto) 9.3 % Monocytes (%) (Auto) 18.8 % Eosinophils (%) (Auto) 6.9 % Basophils (%) (Auto) 0.4 % Neutrophils # (Auto) 4.37 1.4-6.5 K/uL Lymphocytes # (Auto) 0.63 1.2-3.4 K/uL Monocytes # (Auto) 1.28 0.11-0.59 K/uL Eosinophils # (Auto) 0.47 0-0.5 K/uL Basophils # (Auto) 0.03 0-0.2 K/uL RDW Standard Deviation 51.1 36.4-46.3 fL RDW Coefficient of Variation 14.8 11.5-14.5 % Immature Granulocyte % (Auto) 0.3 % Immature Granulocyte # (Auto) 0.02 0.00-0.02 K/uL Anisocytosis PRESENT Prothrombin Time 15.4 9.0-12.0 SECONDS Prothromb Time International Ratio 1.5 0.9-1.1 Magnesium Level 2.6 1.8-2.4 mg/dl Assessment & Plan POD # 5 s/p Nephroureterectomy, left with post operative Ileus -vitals stable - 2600cc NGT output since placement, dark brown - KUB showing mild improvement in SB dilatation at 5 cm (6 cm yesterday) - abdomen soft, mildly distended Plan: Continue NGT to LIS, may clamp for ambulation. Would recommend continuing NGT for one more day. Continue IV fluids, NPO, IV pain medication as needed Encouraged OOB to chair and ambulation as much as possible Continue current medical management Will follow Dr. Seals has seen and examined patient, agrees with above
[2018-01-27] MEDS: HEPARIN 25,000 UNIT/500ML D5W 500 ML IV SCH (12:06)
--- NOTE | 2018-01-27 12:57 | Progress Note ---
Subjective Date of Service: Jan 27, 2018. Subjective Pt evaluation today including: conversation w/ patient, chart review, lab review Voiding: lopez catheter in place (patent, draining clear, yellow urine ) 62 yo male s/p left HALNU. Pt noted to have a post-op ileus on KUB yesterday. NG tube placed yesterday. Pt reports improvement in his n/v since NG tube placed. KUB this morning shows improvement as well. Pt also moved to telemetry since yesterday. Cr stable at 3.75. H&H stable at 8.2 and 25.6. Problem List Medical Problems: (1) Anticoagulated Status: Acute (2) Deep vein thrombosis Status: Acute (3) Urothelial cancer Status: Acute Review of Systems Constitutional: No fever, No chills Respiratory: No shortness of breath Cardiac: No chest pain Abdomen: No pain, No nausea, No vomiting Male : No hematuria Heme: No abnormal bleeding/bruising Objective Vital Signs Date Time Temp Pulse Resp B/P (MAP) Pulse Ox O2 Delivery O2 Flow Rate FiO2 01/27/18 12:32 36.7 72 18 133/77 (95) 97 01/27/18 12:00 Room Air 01/27/18 08:03 36.9 77 18 170/82 (111) 95 01/27/18 08:00 Room Air 01/27/18 05:22 73 166/94 (118) 01/27/18 04:00 Room Air 01/27/18 03:50 37.1 72 16 172/82 (112) 93 Room Air 01/27/18 00:19 37.3 76 21 145/75 (98) 93 Room Air 01/26/18 23:30 Room Air 01/26/18 20:30 Room Air 01/26/18 20:26 36.9 81 16 158/79 (105) 92 Room Air 01/26/18 19:15 37.5 75 18 93 01/26/18 15:50 Room Air 01/26/18 14:57 37.5 75 18 160/80 (106) 93 Room Air Physical Exam General Appearance: no apparent distress Eyes: normal inspection ENT: hearing grossly normal Neck: no JVD Respiratory/Chest: no respiratory distress, no accessory muscle use Cardiovascular: no JVD Abdomen: + pertinent finding (abdominal incisions c/d/i; DAVON draining serosanguinous fluid) Extremities: normal inspection Neurologic/Psychiatric: alert, normal mood/affect, oriented x 3 Skin: normal color Laboratory Results Last 24 Hours Test 01/26/18 13:41 01/27/18 07:18 Activated Partial Thromboplast Time 53.2 SECONDS 57.6 SECONDS Partial Thromboplastin Ratio 2.0 2.2 Sodium Level 138 mmol/L 138 mmol/L Potassium Level 5.0 mmol/L 4.2 mmol/L Chloride Level 105 mmol/L 105 mmol/L Carbon Dioxide Level 22 mmol/L 25 mmol/L Anion Gap 11.0 mmol/L 8.0 mmol/L Blood Urea Nitrogen 49 mg/dl 47 mg/dl Creatinine 3.73 mg/dl 3.75 mg/dl Est Creatinine Clear Calc Drug Dose 27.2 ml/min 26.3 ml/min Estimated GFR () 19.1 19.0 Estimated GFR (Non- 16.5 16.4 BUN/Creatinine Ratio 13.1 12.4 Random Glucose 119 mg/dl 105 mg/dl Calcium Level 9.2 mg/dl 9.0 mg/dl White Blood Count 6.80 K/uL Red Blood Count 2.69 M/uL Hemoglobin 8.2 g/dL Hematocrit 25.6 % Mean Corpuscular Volume 95.2 fL Mean Corpuscular Hemoglobin 30.5 pg Mean Corpuscular Hemoglobin Concent 32.0 g/dl Platelet Count 478 K/uL Mean Platelet Volume 8.7 fL Neutrophils (%) (Auto) 64.3 % Lymphocytes (%) (Auto) 9.3 % Monocytes (%) (Auto) 18.8 % Eosinophils (%) (Auto) 6.9 % Basophils (%) (Auto) 0.4 % Neutrophils # (Auto) 4.37 K/uL Lymphocytes # (Auto) 0.63 K/uL Monocytes # (Auto) 1.28 K/uL Eosinophils # (Auto) 0.47 K/uL Basophils # (Auto) 0.03 K/uL RDW Standard Deviation 51.1 fL RDW Coefficient of Variation 14.8 % Immature Granulocyte % (Auto) 0.3 % Immature Granulocyte # (Auto) 0.02 K/uL Anisocytosis PRESENT Prothrombin Time 15.4 SECONDS Prothromb Time International Ratio 1.5 Magnesium Level 2.6 mg/dl Assessment and Plan POD #5 s/p left HALNU AFVSS. Post-op ileus. Continue NG tube for now. Clamp later today or tomorrow as per primary service. Continue lopez catheter. Continue DAVON drain. DAVON fluid Cr noted to be 3.74. Will plan to d/c in the next 1- 2 days if clinically improving. Will continue to follow along with primary service. Continued [facility] stay due to: inadequate po fluid intake, multiple IV medications needed Discharge planning: home
[2018-01-27] MEDS: WARFARIN SOD 5 MG TAB PO SCH (16:18)
[2018-01-28] VITALS (9 sets, daily range): BP systolic 119–180; BP diastolic 66–81; PULSE 58–74; TEMP 36.4–37; O2SAT 92–99
[2018-01-28] MEDS: HEPARIN 25,000 UNIT/500ML D5W 500 ML IV SCH ×2 (00:04→12:09)
[2018-01-28] MEDS: SODIUM CHLORIDE 0.9% 1000ML 1,000 ML IV SCH (03:41)
[2018-01-28 07:38] LABS: BASO % 0.4 %; BASO ABS # 0.03 K/uL (0-0.2); EOS % 7.1 %; EOS ABS # 0.49 K/uL (0-0.5); HEMATOCRIT 25.4 % (42-52); HEMOGLOBIN 8.1 g/dL (14.0-18.0); IG# 0.03 K/uL (0.00-0.02); LYMPH % 10.8 %; LYMPH ABS # 0.74 K/uL (1.2-3.4); MEAN CELL VOLUME 96.2 fL (80-100); MEAN CORPUSCULAR HEMOGLOBIN 30.7 pg (25-34); MEAN CORPUSCULAR HGB CONC 31.9 g/dl (32-36); MEAN PLATELET VOLUME 8.6 fL (7.4-10.4); MONO % 17.3 %; MONO ABS # 1.19 K/uL (0.11-0.59); NEUT ABS # 4.38 K/uL (1.4-6.5); PLATELET COUNT 478 K/uL (130-400); RED CELL DISTRIBUTION WIDTH CV 15.1 % (11.5-14.5); RED CELL DISTRIBUTION WIDTH SD 53.1 fL (36.4-46.3); WHITE BLOOD COUNT 6.86 K/uL (4.8-10.8)
[2018-01-28 07:57] LABS: INR 1.6 (0.9-1.1)
[2018-01-28 07:58] LABS: PTT PATIENT 61.8 SECONDS (21.0-31.0)
[2018-01-28] MEDS: CARVEDILOL 3.125 MG TAB PO SCH ×2 (07:59→16:42)
[2018-01-28] MEDS: DULOXETINE (CYMBALTA) 30 MG CAP PO SCH (07:59)
[2018-01-28] MEDS: CLONIDINE HCL 0.3 MG TAB PO SCH (08:00)
[2018-01-28] MEDS: DOCUSATE SODIUM 100 MG CAP PO SCH ×2 (08:00→20:00)
[2018-01-28] MEDS: DILTIAZEM HCL 120 MG ER CAP PO SCH (08:00)
[2018-01-28 08:06] LABS: CALCIUM 8.7 mg/dl (8.5-10.1); CREATININE 3.39 mg/dl (0.60-1.40); POTASSIUM 4.2 mmol/L (3.5-5.1)
--- NOTE | 2018-01-28 09:28 | DIAGNOSTIC IMAGING REPORT ---
KUB CLINICAL HISTORY: 62 years-old Male presenting with Ileus. TECHNIQUE: Single supine view of the abdomen was obtained. COMPARISON: 01/27/2018. FINDINGS: The nasogastric tube has been removed. Persistent abnormal small bowel distention with an apparent diameter of 6.3 cm likely related to magnification. The distention is slightly worsened than on the prior exam. Small bowel loops have a stacked configuration in the left abdomen. No gross evidence of pneumoperitoneum allowing for supine technique. An IVC filter is in place at the L3-4 level. Surgical clips project over the paraspinal region and left lower quadrant. A Manny-Garcia drain in place in the left pelvis. Degenerative changes of the spine. Bandlike opacities at the left lung base, likely atelectasis. IMPRESSION: 1. Slight interval worsening of small bowel gaseous distention with a stacked configuration that is suspicious for bowel obstruction. No gross free air. Electronically signed by: Bro Renee M.D. 01/28/2018 9:27 AM Dictated Date/Time: 01/28/2018 9:24 AM
--- NOTE | 2018-01-28 09:56 | Progress Note ---
Subjective Date of Service: Jan 28, 2018. Subjective Pt evaluation today including: conversation w/ patient, chart review, lab review Voiding: lopez catheter in place (patent, draining clear, yellow urine ) 62 yo male s/p left HALNU. NG tube removed this morning. Pt reports he is feeling much better. Denies n/v. +flatus. Small BM yesterday as well. KUB this morning suspicious for possible bowel obstruction. Lopez intact draining clear, yellow urine. DAVON draining serosanguineous fluid. Problem List Medical Problems: (1) Anticoagulated Status: Acute (2) Deep vein thrombosis Status: Acute (3) Urothelial cancer Status: Acute Review of Systems Constitutional: No fever, No chills Respiratory: No shortness of breath Cardiac: No chest pain Abdomen: No pain, No nausea, No vomiting Male : No hematuria Heme: No abnormal bleeding/bruising Objective Vital Signs Date Time Temp Pulse Resp B/P (MAP) Pulse Ox O2 Delivery O2 Flow Rate FiO2 01/28/18 07:40 37.0 74 18 122/69 (86) 99 01/28/18 04:39 145/81 (102) 01/28/18 04:02 Room Air 01/28/18 03:42 79 180/72 01/28/18 03:32 36.7 65 18 180/78 (112) 92 Room Air 01/28/18 00:02 Room Air 01/27/18 23:31 36.8 64 19 156/84 (108) 93 Room Air 01/27/18 20:00 Room Air 01/27/18 19:16 37.0 64 20 147/72 (97) 93 Room Air 01/27/18 16:00 Room Air 01/27/18 16:00 36.2 65 16 160/84 (109) 94 Room Air 01/27/18 12:32 36.7 72 18 133/77 (95) 97 01/27/18 12:00 Room Air Physical Exam General Appearance: no apparent distress Eyes: normal inspection ENT: hearing grossly normal Neck: no JVD Respiratory/Chest: no respiratory distress, no accessory muscle use Cardiovascular: no JVD Extremities: normal inspection Neurologic/Psychiatric: alert, normal mood/affect, oriented x 3 Skin: normal color Laboratory Results Last 24 Hours Test 01/27/18 19:05 01/28/18 07:01/28/18 07:31 Gastric Fluid pH 1 Gastric Fluid Occult Blood POS Prothrombin Time 16.9 SECONDS Prothromb Time International Ratio 1.6 Activated Partial Thromboplast Time 61.8 SECONDS Partial Thromboplastin Ratio 2.4 White Blood Count 6.86 K/uL Red Blood Count 2.64 M/uL Hemoglobin 8.1 g/dL Hematocrit 25.4 % Mean Corpuscular Volume 96.2 fL Mean Corpuscular Hemoglobin 30.7 pg Mean Corpuscular Hemoglobin Concent 31.9 g/dl Platelet Count 478 K/uL Mean Platelet Volume 8.6 fL Neutrophils (%) (Auto) 64.0 % Lymphocytes (%) (Auto) 10.8 % Monocytes (%) (Auto) 17.3 % Eosinophils (%) (Auto) 7.1 % Basophils (%) (Auto) 0.4 % Neutrophils # (Auto) 4.38 K/uL Lymphocytes # (Auto) 0.74 K/uL Monocytes # (Auto) 1.19 K/uL Eosinophils # (Auto) 0.49 K/uL Basophils # (Auto) 0.03 K/uL RDW Standard Deviation 53.1 fL RDW Coefficient of Variation 15.1 % Immature Granulocyte % (Auto) 0.4 % Immature Granulocyte # (Auto) 0.03 K/uL Sodium Level 141 mmol/L Potassium Level 4.2 mmol/L Chloride Level 106 mmol/L Carbon Dioxide Level 27 mmol/L Anion Gap 8.0 mmol/L Blood Urea Nitrogen 47 mg/dl Creatinine 3.39 mg/dl Est Creatinine Clear Calc Drug Dose 29.1 ml/min Estimated GFR () 21.4 Estimated GFR (Non- 18.5 BUN/Creatinine Ratio 13.7 Random Glucose 98 mg/dl Calcium Level 8.7 mg/dl Assessment and Plan POD #6 s/p left HALNU AFVSS. Labs stable. Post-op ileus management per primary service and general surgery. KUB concerning for possible bowel obstruction, however the pt is improved clinically. Continue lopez catheter. Plan for outpatient trial of void and cystogram next week. Will d/c DAVON drain this morning. Will continue to follow along with primary service. Continued [facility] stay due to: inadequate po fluid intake, multiple IV medications needed Discharge planning: home
--- NOTE | 2018-01-28 12:03 | Hospitalist Progress Note ---
Hospitalist Progress Note Date of Service Jan 28, 2018. Subjective Pt evaluation today including: conversation w/ patient, physical exam, lab review, review of studies, conversation w/ [facility] consultant (Sarah MCGEE), review of inpatient medication list Patient seen and evaluated. No acute events overnight. Reporting feeling a lot better today. NGT pulled this AM. No N/V. + flatus with BM yesterday So far tolerating clear liquid diet. KUB does show slight increase in gaseous distention on small bowel but clinically reporting no symptoms. Continues to have some incisional pain but states "it is nothing I can't handle ". Is ambulating more. Gastric contents is heme+ but possibly from NGT irritation while on anticoagulation? Hemoglobin is chronically low but no drastic drops -- May benefit from outpatient EGD for further evaluation Constitutional: No fever, No chills Respiratory: No cough, No shortness of breath Cardiovascular: No chest pain Abdomen: No pain, No nausea, No vomiting, No diarrhea, No constipation Musculoskeletal: No swelling, No calf pain Male : No dysuria Medications Current Inpatient Medications Medications (Trade) Dose Ordered Sig/Solitario Route Start Time Stop Time Status Last Admin Dose Admin Acetaminophen (Tylenol Tab) 650 mg Q4H PRN PO 01/19/18 15:15 02/18/18 15:14 01/26/18 12:19 650 MG Al Hydrox/Mg Hydrox/Simethicone (Maalox Max Susp) 15 ml Q4H PRN PO 01/19/18 15:15 02/18/18 15:14 Ondansetron HCl (Zofran Inj) 4 mg Q6H PRN IV 01/19/18 15:15 02/18/18 15:14 01/26/18 04:04 4 MG Polyethylene (Miralax Powder Packet) 17 gm DAILY PRN PO 01/19/18 15:15 02/18/18 15:14 Carvedilol (Coreg Tab) 3.125 mg BIDM PO 01/19/18 16:45 02/18/18 17:59 01/28/18 07:59 3.125 MG Clonidine HCl (Catapres Tab) 0.3 mg QAM PO 01/20/18 09:00 02/19/18 08:59 01/28/18 08:00 0.3 MG Duloxetine HCl (Cymbalta Cap) 30 mg DAILY PO 01/20/18 09:00 02/19/18 08:59 01/28/18 07:59 30 MG Diltiazem HCl (Dilacor Xr Cap) 240 mg QAM PO 01/20/18 09:00 02/19/18 08:59 01/28/18 08:00 240 MG Docusate Sodium (coLACE CAP) 100 mg BID PO 01/22/18 21:00 02/21/18 20:59 01/27/18 07:38 100 MG Oxybutynin Chloride (Ditropan Tab) 5 mg BID PRN PO 01/22/18 11:15 02/21/18 11:14 Oxycodone/ Acetaminophen (Percocet 7.5-325MG Tab) Hold Tylenol if given Q4H PRN PO 01/22/18 11:15 02/05/18 11:14 Hydralazine HCl (HydrALAZINE INJ) 10 mg Q6 PRN IV. 01/22/18 13:00 02/21/18 12:59 01/22/18 17:04 10 MG Albuterol/ Ipratropium (Duoneb) 3 ml Q4H PRN INH 01/23/18 09:00 02/22/18 08:59 01/23/18 09:04 3 ML Heparin Sodium/ Dextrose 500 ml @ 38 mls/hr [id number] IV 01/23/18 17:00 02/22/18 16:59 01/28/18 00:04 38 MLS/HR Warfarin Sodium (Coumadin Tab) 5 mg DAILY@16 PO 01/25/18 16:00 02/24/18 15:59 01/27/18 16:18 5 MG Sodium Chloride 1,000 ml @ 100 mls/hr Q10H IV 01/26/18 11:30 02/25/18 11:29 01/28/18 03:41 100 MLS/HR Promethazine HCl 12.5 mg/Sodium Chloride 50.5 ml @ 204 mls/hr Q6H PRN IV 01/26/18 11:30 02/25/18 11:29 01/26/18 15:50 204 MLS/HR Metoclopramide HCl 20 mg/Sodium Chloride 54 ml @ 162 mls/hr Q6H PRN IV 01/26/18 18:15 02/25/18 18:14 Metoprolol Tartrate (Lopressor Iv) 2.5 mg Q6 PRN IV 01/26/18 19:00 02/25/18 18:59 01/28/18 03:42 2.5 MG Objective Vital Signs Date Time Temp Pulse Resp B/P (MAP) Pulse Ox O2 Delivery O2 Flow Rate FiO2 01/28/18 08:00 99 Room Air 2.0 01/28/18 07:40 37.0 74 18 122/69 (86) 99 01/28/18 04:39 145/81 (102) 01/28/18 04:02 Room Air 01/28/18 03:42 79 180/72 01/28/18 03:32 36.7 65 18 180/78 (112) 92 Room Air 01/28/18 00:02 Room Air 01/27/18 23:31 36.8 64 19 156/84 (108) 93 Room Air 01/27/18 20:00 Room Air 01/27/18 19:16 37.0 64 20 147/72 (97) 93 Room Air 01/27/18 16:00 Room Air 01/27/18 16:00 36.2 65 16 160/84 (109) 94 Room Air 01/27/18 12:32 36.7 72 18 133/77 (95) 97 01/27/18 12:00 Room Air Physical Exam General Appearance: WD/WN, no apparent distress Eyes: sclerae normal ENT: hearing grossly normal Neck: supple, no JVD, trachea midline Respiratory/Chest: lungs clear, normal breath sounds, no respiratory distress, no accessory muscle use Cardiovascular: regular rate, rhythm, no gallop, no murmur Abdomen: normal bowel sounds, soft, + tenderness (mild tenderness mostly in LUQ ) Extremities: no pedal edema Neurologic/Psychiatric: alert Skin: normal color Laboratory Results Last 24 Hours Test 01/27/18 19:05 01/28/18 07:25 01/28/18 07:31 Gastric Fluid pH 1 Gastric Fluid Occult Blood POS Prothrombin Time 16.9 SECONDS Prothromb Time International Ratio 1.6 Activated Partial Thromboplast Time 61.8 SECONDS Partial Thromboplastin Ratio 2.4 White Blood Count 6.86 K/uL Red Blood Count 2.64 M/uL Hemoglobin 8.1 g/dL Hematocrit 25.4 % Mean Corpuscular Volume 96.2 fL Mean Corpuscular Hemoglobin 30.7 pg Mean Corpuscular Hemoglobin Concent 31.9 g/dl Platelet Count 478 K/uL Mean Platelet Volume 8.6 fL Neutrophils (%) (Auto) 64.0 % Lymphocytes (%) (Auto) 10.8 % Monocytes (%) (Auto) 17.3 % Eosinophils (%) (Auto) 7.1 % Basophils (%) (Auto) 0.4 % Neutrophils # (Auto) 4.38 K/uL Lymphocytes # (Auto) 0.74 K/uL Monocytes # (Auto) 1.19 K/uL Eosinophils # (Auto) 0.49 K/uL Basophils # (Auto) 0.03 K/uL RDW Standard Deviation 53.1 fL RDW Coefficient of Variation 15.1 % Immature Granulocyte % (Auto) 0.4 % Immature Granulocyte # (Auto) 0.03 K/uL Sodium Level 141 mmol/L Potassium Level 4.2 mmol/L Chloride Level 106 mmol/L Carbon Dioxide Level 27 mmol/L Anion Gap 8.0 mmol/L Blood Urea Nitrogen 47 mg/dl Creatinine 3.39 mg/dl Est Creatinine Clear Calc Drug Dose 29.1 ml/min Estimated GFR () 21.4 Estimated GFR (Non- 18.5 BUN/Creatinine Ratio 13.7 Random Glucose 98 mg/dl Calcium Level 8.7 mg/dl Assessment and Plan Mr. Domingo is a 62 y/o male with PMHx of HTN, Urothelial CA, CKD Stage IV S/P L AV Fistula, RLE DVT, R Staghorn Calculi S/P PCNL (Resolved), L Renal Shunt who is pending L HALNU on by Dr. Loving who presented to the ED with further RLE DVT development x 4 days. Post-Operative Ileus S/P NGT: 4 L Drained is Heme + - Feeling much better today so far tolerating clears and no N/V - KUB does show some slight increase in gaseous distention but + flatus and BM yesterday - NGT removed this AM; given anticoagulation may possibly be heme + due to emesis and irritation; hgb remaining low but stable - may benefit from outpatient EGD New RLE DVT while on Eliquis and S/P IVC Filter 01/20: STABLE - Resumed on heparin gtt with Coumadin bridge - INR 1.6 and continue to trend - Will need establishment with [facility] clinic on D/C CKD Stage IV with L AV Fistula: STABLE - Fistula evaluated by Dr. Jimenez on 01.20 - likely mature - no indication for HD currently - Electrolytes acceptable at this time; continues to produce urine and no need for dialysis - Nephrology following - appreciate recommendations HTN: - Lisinopril remains on hold; Continue Coreg 3.125 mg BID, Clonidine 0.3 mg daily; and Diltiazem 240 mg daily Anemia of Chronic Disease: STABLE - Was initiated on Procrit - received last Procrit [id number] units on 01/23 - No indication for transfusion currently - Hgb 8.2 today - hold on transfusion unless hypotensive or Hgb below 7.0 Urothelial CA S/P L HALNU on 01/[address] Loving: - Zofran, Phenergan, and Reglan - can add further medications if needed - Urology following - discussed with Sarah MCGEE this AM - planning to D /C drain and no changes at this time Hematuria: Large Bladder Clot - RESOLVED DVT Prophylaxis: Heparin/Coumadin bridge Code Status: FULL RESUSCITATION Disposition: - Will monitor diet tolerance and advance as tolerated Continued [facility] stay due to: multiple IV medications needed Discharge planning: home
--- NOTE | 2018-01-28 12:09 | Hematology/Oncology Prog Note ---
Hematology/Onc Progress Note Date of Service Jan 28, 2018. Diagnoses urothelial carcinoma (s/p resection) Renal insufficiency Medications Medications Administered Medications (Trade) Dose Ordered Sig/Solitario Route Start Time Stop Time Status Last Admin Dose Admin Heparin Sodium/ Dextrose 500 ml @ 34 mls/hr [id number] IV 01/19/18 14:30 01/20/18 00:38 DC 01/19/18 15:14 34 MLS/HR Heparin Sodium (Porcine) 7000 unit/Syringe 7 ml @ 10 mls/min TODAY@1430 IV 01/19/18 14:30 01/19/18 15:30 DC 01/19/18 15:12 10 MLS/MIN Acetaminophen (Tylenol Tab) 650 mg Q4H PRN PO 01/19/18 15:15 02/18/18 15:14 01/26/18 12:19 650 MG Ondansetron HCl (Zofran Inj) 4 mg Q6H PRN IV 01/19/18 15:15 02/18/18 15:14 01/26/18 04:04 4 MG Carvedilol (Coreg Tab) 3.125 mg BIDM PO 01/19/18 16:45 02/18/18 17:59 01/28/18 07:59 3.125 MG Clonidine HCl (Catapres Tab) 0.3 mg QAM PO 01/20/18 09:00 02/19/18 08:59 01/28/18 08:00 0.3 MG Duloxetine HCl (Cymbalta Cap) 30 mg DAILY PO 01/20/18 09:00 02/19/18 08:59 01/28/18 07:59 30 MG Diltiazem HCl (Dilacor Xr Cap) 240 mg QAM PO 01/20/18 09:00 02/19/18 08:59 01/28/18 08:00 240 MG Sodium Chloride 1,000 ml @ 80 mls/hr [id number] IV 01/19/18 15:45 01/22/18 13:23 DC 01/22/18 05:31 80 MLS/HR Morphine Sulfate (MoRPHine SULFATE INJ) 2 mg Q2H PRN IV 01/20/18 06:00 01/26/18 08:30 DC 01/24/18 07:34 2 MG Cefazolin Sodium (Ancef 2000mg Iv Push) 2,000 mg STK-MED ONCE IV 01/20/18 09:55 01/20/18 09:56 DC 01/20/18 09:56 2,000 MG Lidocaine HCl (Xylocaine 1% Inj (Local)) 6 ml ONE ONCE INJ 01/20/18 10:30 01/20/18 10:44 DC 01/20/18 10:30 6 ML Midazolam HCl (Versed Inj) 1 mg ONE ONCE IV 01/20/18 10:29 01/20/18 10:44 DC 01/20/18 10:29 1 MG Fentanyl Citrate (Fentanyl Inj) 50 mcg ONE ONCE IV 01/20/18 10:29 01/20/18 10:44 DC 01/20/18 10:29 50 MCG Iodixanol (Visipaque 50ml) 27 mg ONE ONCE IV 01/20/18 10:43 01/20/18 10:44 DC 01/20/18 10:43 270 MG Heparin Sodium/ Sodium Chloride (Heparin Sod/Ns 2 Units/Ml) 60 unit ONE ONCE IV 01/20/18 10:43 01/20/18 10:44 DC 01/20/18 10:43 60 UNIT Magnesium Citrate (Citrate Of Magnesia Soln) 296 ml TODAY@1200 PO 01/21/18 12:00 01/21/18 14:00 DC 01/21/18 11:48 296 ML Polyethylene (Miralax Powder Packet) 17 gm NOW ONCE PO 01/21/18 12:00 01/21/18 12:06 DC 01/21/18 12:21 17 GM Polyethylene (Miralax Powder Packet) 17 gm PRN ONCE PO 01/21/18 18:00 01/21/18 18:01 DC 01/21/18 17:49 17 GM Gabapentin (Neurontin Cap) 100 mg NOW ONCE PO 01/21/18 15:15 01/21/18 15:16 DC 01/21/18 15:34 100 MG Bupivacaine HCl (Marcaine 0.5% MPF Inj) 30 ml STK-MED ONCE .ROUTE 01/22/18 06:59 01/22/18 07:00 DC 01/22/18 06:59 30 ML Miscellaneous (Tisseel Fibrin Sealant 10ml) 20 ml ONE ONCE TOP 01/22/18 11:08 01/22/18 11:09 DC 01/22/18 11:08 20 ML Cefazolin Sodium 2000 mg/Syringe 15 ml @ 3.75 mls/ min Q12 IV 01/22/18 21:00 01/23/18 20:59 DC 01/23/18 11:45 3.75 MLS/MIN Docusate Sodium (coLACE CAP) 100 mg BID PO 01/22/18 21:00 02/21/18 20:59 01/27/18 07:38 100 MG Hydromorphone HCl (Dilaudid Inj) 1 mg Q2H PRN IV 01/22/18 11:15 01/26/18 08:30 DC 01/25/18 04:45 1 MG Lactated Ringer's 1,000 ml @ 110 mls/hr Q9H6M IV 01/22/18 13:30 01/23/18 08:37 DC 01/22/18 20:35 110 MLS/HR Acetaminophen 650 mg/Empty Bag 65 ml @ 260 mls/hr Q6H PRN IV 01/22/18 11:15 01/26/18 08:30 DC 01/23/18 01:25 260 MLS/HR Hydralazine HCl (HydrALAZINE INJ) 10 mg Q6 PRN IV. 01/22/18 13:00 02/21/18 12:59 01/22/18 17:04 10 MG Albuterol/ Ipratropium (Duoneb) 3 ml Q4H PRN INH 01/23/18 09:00 02/22/18 08:59 01/23/18 09:04 3 ML Epoetin Venancio (Procrit Inj) 10,000 units NOW ONCE SQ 01/23/18 16:00 01/23/18 16:01 DC 01/23/18 16:01 10,000 UNITS Heparin Sodium/ Dextrose 500 ml @ 38 mls/hr [id number] IV 01/23/18 17:00 02/22/18 16:59 01/28/18 00:04 38 MLS/HR Heparin Sodium (Porcine) 4500 unit/Syringe 4.5 ml @ 10 mls/min NOW ONCE IV 01/24/18 00:15 01/24/18 00:16 DC 01/24/18 00:11 10 MLS/MIN Heparin Sodium (Porcine) 4500 unit/Syringe 4.5 ml @ 10 mls/min NOW ONCE IV 01/24/18 07:30 01/24/18 07:31 DC 01/24/18 07:24 10 MLS/MIN Heparin Sodium (Porcine) 4000 unit/Syringe 4 ml @ 10 mls/min NOW ONCE IV 01/24/18 14:45 01/24/18 14:46 DC 01/24/18 15:01 10 MLS/MIN Heparin Sodium (Porcine) 4000 unit/Syringe 4 ml @ 10 mls/min NOW ONCE IV 01/24/18 21:45 01/24/18 21:46 DC 01/24/18 22:02 10 MLS/MIN Heparin Sodium (Porcine) 4500 unit/Syringe 4.5 ml @ 10 mls/min NOW ONCE IV 01/25/18 05:45 01/25/18 05:46 DC 01/25/18 05:40 10 MLS/MIN Warfarin Sodium (Coumadin Tab) 5 mg DAILY@16 PO 01/25/18 16:00 02/24/18 15:59 01/27/18 16:18 5 MG Heparin Sodium (Porcine) 4000 unit/Syringe 4 ml @ 10 mls/min NOW ONCE IV 01/26/18 07:30 01/26/18 07:31 DC 01/26/18 07:42 10 MLS/MIN Ondansetron HCl (Zofran Inj) 4 mg NOW STAT IV 01/26/18 07:48 01/26/18 07:57 DC 01/26/18 08:05 4 MG Metoclopramide HCl (Reglan Tab) 10 mg NOW STAT PO 01/26/18 11:04 01/26/18 11:13 DC 01/26/18 11:31 10 MG Sodium Chloride 1,000 ml @ 100 mls/hr Q10H IV 01/26/18 11:30 02/25/18 11:29 01/28/18 03:41 100 MLS/HR Promethazine HCl 12.5 mg/Sodium Chloride 50.5 ml @ 204 mls/hr Q6H PRN IV 01/26/18 11:30 02/25/18 11:29 01/26/18 15:50 204 MLS/HR Metoprolol Tartrate (Lopressor Iv) 2.5 mg Q6 PRN IV 01/26/18 19:00 02/25/18 18:59 01/28/18 03:42 2.5 MG Subjective Seems to be doing well. He really offers no new complaints. Appears comfortable. Denies nausea or vomiting currently Review of Systems: Constitutional: Negative for night sweats, or fever Eyes: Negative for event change of vision ENT: Negative for epistaxis, nasal discharge, sore throat, or deafness Cardiovascular: Negative for chest pain, palpitations, dizziness, diaphoresis Respiratory: Negative for new shortness of breath,hemoptysis, or purulent cough Gastrointestinal: Negative for diarrhea, hematemesis, melena, previous nausea vomiting seems to have subsided Integumentary (skin): Negative for rash or jaundice discoloration Neurological: Negative for weakness, seizure activity, headache, or dizziness Lymphatic/Hematologic: Negative for petechiae, bleeding or new adenopathy Musculoskeletal: Negative for new joint or back pain Allergic/Immunologic: Negative for unusual rash or pruritis. Vital Signs Vital Signs Past 12 Hours Date Time Temp Pulse Resp B/P (MAP) Pulse Ox O2 Delivery O2 Flow Rate FiO2 01/28/18 08:00 99 Room Air 2.0 01/28/18 07:40 37.0 74 18 122/69 (86) 99 01/28/18 04:39 145/81 (102) 01/28/18 04:02 Room Air 01/28/18 03:42 79 180/72 01/28/18 03:32 36.7 65 18 180/78 (112) 92 Room Air 01/28/18 00:02 Room Air Physical Exam Constitutional: vitals are stable. Eyes: Eyes are DESHAWN EOMI without conjuctival erythema or icterus. ENT: External examination was negative for masses. Neck: Negative for masses or palpable thyromegaly Respiratory: Lung sounds were generally clear bilaterally Cardiovascular: Heart was RRR without significant murmur, gallops aoe rubs Gastrointestinal: No palpable hepatic or splenomegaly. The abdomen was soft with normal bowel sounds. Lymphatic system: there was no palpable peripheral lymphadenopathy Musculoskeletal System: The musculoskeletal system seemed concordant with age. Skin: The skin was negative for jaundice. Neurologic exam: The exam was negative for any focal findings. Deep tendon reflexes were equal and symmetrical. Psychiatric exam: Was essentially negative with normal mood and effect. Extremities: Negative for edema Laboratory Last 24 Hours Test 01/27/18 19:05 01/28/18 07:25 01/28/18 07:31 Gastric Fluid pH 1 Gastric Fluid Occult Blood POS Prothrombin Time 16.9 SECONDS Prothromb Time International Ratio 1.6 Activated Partial Thromboplast Time 61.8 SECONDS Partial Thromboplastin Ratio 2.4 White Blood Count 6.86 K/uL Red Blood Count 2.64 M/uL Hemoglobin 8.1 g/dL Hematocrit 25.4 % Mean Corpuscular Volume 96.2 fL Mean Corpuscular Hemoglobin 30.7 pg Mean Corpuscular Hemoglobin Concent 31.9 g/dl Platelet Count 478 K/uL Mean Platelet Volume 8.6 fL Neutrophils (%) (Auto) 64.0 % Lymphocytes (%) (Auto) 10.8 % Monocytes (%) (Auto) 17.3 % Eosinophils (%) (Auto) 7.1 % Basophils (%) (Auto) 0.4 % Neutrophils # (Auto) 4.38 K/uL Lymphocytes # (Auto) 0.74 K/uL Monocytes # (Auto) 1.19 K/uL Eosinophils # (Auto) 0.49 K/uL Basophils # (Auto) 0.03 K/uL RDW Standard Deviation 53.1 fL RDW Coefficient of Variation 15.1 % Immature Granulocyte % (Auto) 0.4 % Immature Granulocyte # (Auto) 0.03 K/uL Sodium Level 141 mmol/L Potassium Level 4.2 mmol/L Chloride Level 106 mmol/L Carbon Dioxide Level 27 mmol/L Anion Gap 8.0 mmol/L Blood Urea Nitrogen 47 mg/dl Creatinine 3.39 mg/dl Est Creatinine Clear Calc Drug Dose 29.1 ml/min Estimated GFR () 21.4 Estimated GFR (Non- 18.5 BUN/Creatinine Ratio 13.7 Random Glucose 98 mg/dl Calcium Level 8.7 mg/dl Assessment & Plan 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 Drains are still in place the patient suspects that they will be removed later today. I suspect discharge is rather imminent. Currently undergoing anticoagulation for recorded DVT that occurred while on eliquis. Would contact patient with coagulation clinic to follow his coumadin as an outpatient. He will have a followup in our clinic in a few weeks to discuss adjuvant therapy however the renal insufficiency will likely complicate those discussions. We will sign off for now. Please don't hesitate to recontact us should further consultation be necessary.
[2018-01-28] MEDS ORDERED: NURSING VERBAL MED ORDER ONE (13:30)
--- NOTE | 2018-01-28 13:41 | Surgery Progress Note ---
Surgery Progress Note Date of Service Jan 28, 2018. Subjective Post OP Day: feeling much better today passing flatus, small bowel movement yesterday no abdominal pain, nausea or vomiting Has had NGT clamped for past 30 minutes and no n/v/pain ambulating hallway Objective Vital Signs: Date Time Temp Pulse Resp B/P (MAP) Pulse Ox O2 Delivery O2 Flow Rate FiO2 01/28/18 12:00 Room Air 01/28/18 11:59 36.9 72 18 119/66 (83) 96 01/28/18 08:00 99 Room Air 2.0 01/28/18 07:40 37.0 74 18 122/69 (86) 99 01/28/18 04:39 145/81 (102) 01/28/18 04:02 Room Air 01/28/18 03:42 79 180/72 01/28/18 03:32 36.7 65 18 180/78 (112) 92 Room Air 01/28/18 00:02 Room Air 01/27/18 23:31 36.8 64 19 156/84 (108) 93 Room Air 01/27/18 20:00 Room Air 01/27/18 19:16 37.0 64 20 147/72 (97) 93 Room Air 01/27/18 16:00 Room Air 01/27/18 16:00 36.2 65 16 160/84 (109) 94 Room Air General Appearance: WD/WN, no apparent distress Head: normocephalic, atraumatic Neck: trachea midline Respiratory/Chest: no respiratory distress, no accessory muscle use Abdomen: non tender, soft, no organomegaly, no pulsatile mass, + distended Laboratory Results: Results Past 24 Hours Test 01/27/18 19:05 01/28/18 07:25 01/28/18 07:31 Range/Units Gastric Fluid pH 1 Gastric Fluid Occult Blood POS NEG Prothrombin Time 16.9 9.0-12.0 SECONDS Prothromb Time International Ratio 1.6 0.9-1.1 Activated Partial Thromboplast Time 61.8 21.0-31.0 SECONDS Partial Thromboplastin Ratio 2.4 White Blood Count 6.86 4.8-10.8 K/uL Red Blood Count 2.64 4.7-6.1 M/uL Hemoglobin 8.1 14.0-18.0 g/dL Hematocrit 25.4 42-52 % Mean Corpuscular Volume 96.2 80-100 fL Mean Corpuscular Hemoglobin 30.7 25-34 pg Mean Corpuscular Hemoglobin Concent 31.9 32-36 g/dl Platelet Count 478 130-400 K/uL Mean Platelet Volume 8.6 7.4-10.4 fL Neutrophils (%) (Auto) 64.0 % Lymphocytes (%) (Auto) 10.8 % Monocytes (%) (Auto) 17.3 % Eosinophils (%) (Auto) 7.1 % Basophils (%) (Auto) 0.4 % Neutrophils # (Auto) 4.38 1.4-6.5 K/uL Lymphocytes # (Auto) 0.74 1.2-3.4 K/uL Monocytes # (Auto) 1.19 0.11-0.59 K/uL Eosinophils # (Auto) 0.49 0-0.5 K/uL Basophils # (Auto) 0.03 0-0.2 K/uL RDW Standard Deviation 53.1 36.4-46.3 fL RDW Coefficient of Variation 15.1 11.5-14.5 % Immature Granulocyte % (Auto) 0.4 % Immature Granulocyte # (Auto) 0.03 0.00-0.02 K/uL Sodium Level 141 136-145 mmol/L Potassium Level 4.2 3.5-5.1 mmol/L Chloride Level 106 98-107 mmol/L Carbon Dioxide Level 27 21-32 mmol/L Anion Gap 8.0 3-11 mmol/L Blood Urea Nitrogen 47 7-18 mg/dl Creatinine 3.39 0.60-1.40 mg/dl Est Creatinine Clear Calc Drug Dose 29.1 ml/min Estimated GFR () 21.4 Estimated GFR (Non- 18.5 BUN/Creatinine Ratio 13.7 10-20 Random Glucose 98 70-99 mg/dl Calcium Level 8.7 8.5-10.1 mg/dl Assessment & Plan POD # 6 s/p Nephroureterectomy, left with post operative Ileus - vitals stable, afebrile - thick dark brown NGT output in canister - KUB 01/27/18 showing mild improvement in SB dilatation at 5 cm (6 cm yesterday) - abdomen soft, mildly distended - + bowel function Plan: Discontinue NGT May start clear liquids, advised patient to go slowly, any nausea, vomiting, or pain to stop Encouraged continued ambulation Continue current medical management Dr. Seals has seen and examined patient, agrees with above
[2018-01-28] MEDS: WARFARIN SOD 5 MG TAB PO SCH (16:42)
[2018-01-29] MEDS: HEPARIN 25,000 UNIT/500ML D5W 500 ML IV SCH (02:31)
[2018-01-29 06:49] LABS: BASO % 0.5 %; BASO ABS # 0.03 K/uL (0-0.2); EOS % 5.7 %; EOS ABS # 0.37 K/uL (0-0.5); HEMATOCRIT 25.1 % (42-52); HEMOGLOBIN 7.7 g/dL (14.0-18.0); IG# 0.05 K/uL (0.00-0.02); LYMPH % 16.9 %; MEAN CELL VOLUME 96.9 fL (80-100); MEAN CORPUSCULAR HEMOGLOBIN 29.7 pg (25-34); MEAN CORPUSCULAR HGB CONC 30.7 g/dl (32-36); MEAN PLATELET VOLUME 8.9 fL (7.4-10.4); MONO % 15.1 %; MONO ABS # 0.98 K/uL (0.11-0.59); NEUT ABS # 3.96 K/uL (1.4-6.5); PLATELET COUNT 504 K/uL (130-400); RED CELL DISTRIBUTION WIDTH CV 14.8 % (11.5-14.5); RED CELL DISTRIBUTION WIDTH SD 52.8 fL (36.4-46.3); WHITE BLOOD COUNT 6.49 K/uL (4.8-10.8)
[2018-01-29 07:12] LABS: INR 2.2 (0.9-1.1)
[2018-01-29 07:20] LABS: CALCIUM 8.7 mg/dl (8.5-10.1); CREATININE 3.16 mg/dl (0.60-1.40); POTASSIUM 4.2 mmol/L (3.5-5.1)
[2018-01-29 07:21] LABS: PTT PATIENT 109.2 SECONDS (21.0-31.0)
[2018-01-29 07:33] VITALS: BP 167/90; PULSE 64; TEMP 36.4; O2SAT 96
[2018-01-29] MEDS: CARVEDILOL 3.125 MG TAB PO SCH ×2 (07:49→15:42)
[2018-01-29] MEDS: DULOXETINE (CYMBALTA) 30 MG CAP PO SCH (07:49)
[2018-01-29] MEDS: CLONIDINE HCL 0.3 MG TAB PO SCH (07:50)
[2018-01-29] MEDS: DOCUSATE SODIUM 100 MG CAP PO SCH ×2 (07:51→22:18)
[2018-01-29] MEDS: DILTIAZEM HCL 120 MG ER CAP PO SCH (07:51)
--- NOTE | 2018-01-29 09:31 | DIAGNOSTIC IMAGING REPORT ---
CYSTOGRAM CLINICAL HISTORY: Urothelial neoplasm status post left nephroureterectomy. COMPARISON STUDY: Pelvic CT dated 12/31/2017. PROCEDURE: Approximately 325 cc of Cysto-Conray was infused into the bladder under gravity through the Watts catheter. Spot fluoroscopic views of the bladder were obtained in multiple obliquities both pre and post void. FINDINGS: Surgical clips are seen in the left hemipelvis. The bladder is normally distended with contrast. No intraluminal filling defects are identified noting the Watts catheter balloon. Mild trabeculation of the bladder wall is likely related to chronic outlet obstruction. There is no significant post residual. There is no evidence of urine leakage/contrast in the pelvis. Fluoroscopy time: 1 minute. Fluoroscopic images: 7 IMPRESSION: No contrast leakage is identified. Electronically signed by: Max Lance M.D. 01/29/2018 9:29 AM Dictated Date/Time: 01/29/2018 9:27 AM
--- NOTE | 2018-01-29 10:40 | Progress Note ---
Subjective Date of Service: Jan 29, 2018. Subjective Pt evaluation today including: conversation w/ patient, chart review, lab review Voiding: lopez catheter in place (patent, draining clear, yellow urine ) 62 yo male s/p left HALNU. Pt denies pain this morning. Feels well. Denies n/v. + flatus and liquid BMs. Cr improved to 3.16 this morning. H&H noted to be 7.7 and 25.1 this morning. Pt with chronic anemia receiving Procrit. Pt also noted to have heme + gastric contents. GI to be consulted for eval. Pt did have a cystogram this morning. The bladder appears well healed. Problem List Medical Problems: (1) Anticoagulated Status: Acute (2) Deep vein thrombosis Status: Acute (3) Urothelial cancer Status: Acute Review of Systems Constitutional: No fever, No chills Respiratory: No shortness of breath Cardiac: No chest pain Abdomen: No pain, No nausea, No vomiting Male : No hematuria Heme: No abnormal bleeding/bruising Objective Vital Signs Date Time Temp Pulse Resp B/P (MAP) Pulse Ox O2 Delivery O2 Flow Rate FiO2 01/29/18 08:00 Room Air 01/29/18 07:33 36.4 64 18 167/90 (115) 96 Room Air 01/29/18 00:00 Room Air 01/28/18 23:32 36.6 58 18 147/71 (96) 95 Room Air 01/28/18 17:02 Room Air 01/28/18 16:00 37.0 69 20 140/71 (94) 97 Room Air 01/28/18 14:00 36.4 70 18 143/81 (101) 98 Room Air 01/28/18 13:55 36.9 72 18 96 2.0 01/28/18 12:00 Room Air 01/28/18 11:59 36.9 72 18 119/66 (83) 96 Physical Exam General Appearance: no apparent distress Eyes: normal inspection ENT: hearing grossly normal Neck: no JVD Respiratory/Chest: no respiratory distress, no accessory muscle use Cardiovascular: no JVD Extremities: normal inspection Neurologic/Psychiatric: alert, normal mood/affect, oriented x 3 Skin: normal color Laboratory Results Last 24 Hours Test 01/29/18 05:57 White Blood Count 6.49 K/uL Red Blood Count 2.59 M/uL Hemoglobin 7.7 g/dL Hematocrit 25.1 % Mean Corpuscular Volume 96.9 fL Mean Corpuscular Hemoglobin 29.7 pg Mean Corpuscular Hemoglobin Concent 30.7 g/dl Platelet Count 504 K/uL Mean Platelet Volume 8.9 fL Neutrophils (%) (Auto) 61.0 % Lymphocytes (%) (Auto) 16.9 % Monocytes (%) (Auto) 15.1 % Eosinophils (%) (Auto) 5.7 % Basophils (%) (Auto) 0.5 % Neutrophils # (Auto) 3.96 K/uL Lymphocytes # (Auto) 1.10 K/uL Monocytes # (Auto) 0.98 K/uL Eosinophils # (Auto) 0.37 K/uL Basophils # (Auto) 0.03 K/uL RDW Standard Deviation 52.8 fL RDW Coefficient of Variation 14.8 % Immature Granulocyte % (Auto) 0.8 % Immature Granulocyte # (Auto) 0.05 K/uL Large Platelets 1+ Poikilocytosis PRESENT Prothrombin Time 22.9 SECONDS Prothromb Time International Ratio 2.2 Activated Partial Thromboplast Time 109.2 SECONDS Partial Thromboplastin Ratio 4.2 Sodium Level 139 mmol/L Potassium Level 4.2 mmol/L Chloride Level 104 mmol/L Carbon Dioxide Level 28 mmol/L Anion Gap 7.0 mmol/L Blood Urea Nitrogen 42 mg/dl Creatinine 3.16 mg/dl Est Creatinine Clear Calc Drug Dose 31.2 ml/min Estimated GFR () 23.3 Estimated GFR (Non- 20.1 BUN/Creatinine Ratio 13.1 Random Glucose 97 mg/dl Calcium Level 8.7 mg/dl Assessment and Plan POD #7 s/p left HALNU Primary service to address anemia. Post-op ileus clinically improving. Hopeful to start solid food for lunch. Cystogram normal today. Will attempt a trial of void. Will continue to follow along with primary service. Continued [facility] stay due to: multiple IV medications needed Discharge planning: home
--- NOTE | 2018-01-29 12:42 | Surgery Progress Note ---
Surgery Progress Note Date of Service Jan 29, 2018. Subjective Post OP Day: POD # 7 + feeling well, + ambulating, + bowel movement, + flatus, + pain controlled, + diet (clear liquids), No complaints, No nausea, No vomiting Objective Vital Signs: Date Time Temp Pulse Resp B/P (MAP) Pulse Ox O2 Delivery O2 Flow Rate FiO2 01/29/18 08:00 Room Air 01/29/18 07:33 36.4 64 18 167/90 (115) 96 Room Air 01/29/18 00:00 Room Air 01/28/18 23:32 36.6 58 18 147/71 (96) 95 Room Air 01/28/18 17:02 Room Air 01/28/18 16:00 37.0 69 20 140/71 (94) 97 Room Air 01/28/18 14:00 36.4 70 18 143/81 (101) 98 Room Air 01/28/18 13:55 36.9 72 18 96 2.0 General Appearance: WD/WN, no apparent distress Head: normocephalic, atraumatic Neck: trachea midline Respiratory/Chest: no respiratory distress, no accessory muscle use Laboratory Results: Results Past 24 Hours Test 01/29/18 05:57 Range/Units White Blood Count 6.49 4.8-10.8 K/uL Red Blood Count 2.59 4.7-6.1 M/uL Hemoglobin 7.7 14.0-18.0 g/dL Hematocrit 25.1 42-52 % Mean Corpuscular Volume 96.9 80-100 fL Mean Corpuscular Hemoglobin 29.7 25-34 pg Mean Corpuscular Hemoglobin Concent 30.7 32-36 g/dl Platelet Count 504 130-400 K/uL Mean Platelet Volume 8.9 7.4-10.4 fL Neutrophils (%) (Auto) 61.0 % Lymphocytes (%) (Auto) 16.9 % Monocytes (%) (Auto) 15.1 % Eosinophils (%) (Auto) 5.7 % Basophils (%) (Auto) 0.5 % Neutrophils # (Auto) 3.96 1.4-6.5 K/uL Lymphocytes # (Auto) 1.10 1.2-3.4 K/uL Monocytes # (Auto) 0.98 0.11-0.59 K/uL Eosinophils # (Auto) 0.37 0-0.5 K/uL Basophils # (Auto) 0.03 0-0.2 K/uL RDW Standard Deviation 52.8 36.4-46.3 fL RDW Coefficient of Variation 14.8 11.5-14.5 % Immature Granulocyte % (Auto) 0.8 % Immature Granulocyte # (Auto) 0.05 0.00-0.02 K/uL Large Platelets 1+ Poikilocytosis PRESENT Prothrombin Time 22.9 9.0-12.0 SECONDS Prothromb Time International Ratio 2.2 0.9-1.1 Activated Partial Thromboplast Time 109.2 21.0-31.0 SECONDS Partial Thromboplastin Ratio 4.2 Sodium Level 139 136-145 mmol/L Potassium Level 4.2 3.5-5.1 mmol/L Chloride Level 104 98-107 mmol/L Carbon Dioxide Level 28 21-32 mmol/L Anion Gap 7.0 3-11 mmol/L Blood Urea Nitrogen 42 7-18 mg/dl Creatinine 3.16 0.60-1.40 mg/dl Est Creatinine Clear Calc Drug Dose 31.2 ml/min Estimated GFR () 23.3 Estimated GFR (Non- 20.1 BUN/Creatinine Ratio 13.1 10-20 Random Glucose 97 70-99 mg/dl Calcium Level 8.7 8.5-10.1 mg/dl Assessment & Plan POD # 7 s/p Nephroureterectomy, left with post operative Ileus- resolved - vitals stable, afebrile - abdomen soft - + bowel function, passing flatus, tolerated clears Plan: advance diet as tolerated continue ambulation continue current medical and urology management our services signing off Dr. Seals has seen and examined patient, agrees with above
--- NOTE | 2018-01-29 13:29 | GASTROINTESTINAL CONSULTATION ---
DATE OF CONSULTATION: 01/29/2018 CHIEF COMPLAINT: Anemia, Gastroccult positive with dark gastric aspirate from NG tube. HISTORY OF PRESENT ILLNESS: Mr. Domingo is a 62-year-old white male with a recent diagnosis of renal calculi on the right side and urothelial cancer on the left side that prompted a kidney resection several days ago. The patient's history was also complicated by recent development of DVTs in the right leg, for which he was on anticoagulation, unresponsive to Eliquis, prompting change to Coumadin which he is currently receiving. Over the past several days, the patient has had NG tube aspirates that have been dark in color and tested Gastroccult positive with a pH of 1. The patient himself denies any prior history of peptic ulcer disease, abdominal pain, nausea or vomiting. Although he has had weight loss recently with several of the interventions that have occurred over the last few months with the kidney stones, kidney cancer, he denies any prior history of ulcers or chronic weight loss. His appetite had been good. The patient also never had a colonoscopy. There is no reported family history of gastrointestinal malignancies, either upper or lower sources. PAST MEDICAL HISTORY: Includes acute and chronic renal failure, anemia, hyperkalemia, left renal mass which has been resected, right kidney stone which has been treated with stent placement. FAMILY HISTORY: Otherwise noncontributory. SOCIAL HISTORY: The patient was a former smoker but does not currently use tobacco but does use smokeless tobacco. He denies alcohol use. He lives with his significant other, is . ALLERGIES: HE IS ALLERGIC TO STATINS. HOME MEDICATIONS: Included Eliquis, carvedilol, vitamin D3, clonidine, vitamin B12, diltiazem, Cymbalta, lisinopril, multivitamins. REVIEW OF SYSTEMS: Otherwise noncontributory based on 13-point exam except for mentioned above. The patient in the past when experiencing some of these symptoms was using NSAIDs at times, particularly for joint aches and a variety of body complaints, but he has not used any consistent amount since September when many of these recent symptoms and findings occurred. PHYSICAL EXAMINATION TODAY: VITAL SIGNS: Currently, he is afebrile at 36.4, heart rate 167/90, respirations 18, heart rate 64, 96% on room air. GENERAL: The patient is awake, alert and oriented x3. HEENT: Sclerae are anicteric, conjunctivae moist. Oral mucosa moist. HEART: Normal S1, S2. LUNGS: Clear to auscultation without rales, rhonchi or wheezes. ABDOMEN: Soft, flat, nontender, nondistended. Good bowel sounds. There are healing incisions in the left mid abdomen and left groin area consistent with his recent left nephrectomy. EXTREMITIES: With trace edema on the right side. There is no tenderness in the calf at this time. RECTAL: Deferred. LABORATORY STUDIES: Today include a white count of 6.4, hemoglobin 7.7, MCV 96.9, platelets 504,000. Serum count shows a BUN and creatinine of 42 and 3.16. Creatinine has trended down slightly since admission, it's high point was 3.89 during this hospitalization. Potassium normal at 4.2. INR today is 2.2, PTT is 109.2. CURRENT MEDICATIONS: Include Reglan p.r.n., promethazine p.r.n., warfarin 5 mg daily, hydralazine, Ditropan, clonidine, Cymbalta, diltiazem, carvedilol. Heparin has been discontinued. His imaging studies during this admission are mostly urologic related and flat plate. His KUB from yesterday revealed a stacked small-bowel loop configuration on the left side of the abdomen. No evidence of pneumoperitoneum. There was an NG tube, it had been removed in the interim. There is persistent small-bowel dilation up to 6.3 cm. IMPRESSION AND PLAN: The patient with evidence of heme-positive stools, dark nasogastric tube aspirate and some nonspecific findings of dilated loops of small-bowel and perhaps most prominent in the left abdomen which is the location of his recent kidney resection. Focal ileus may be a culprit, although the patient does report having bowel movements and is currently not having vomiting or nausea. The source of the patient's heme-positive gastric testing is unclear but certainly may be multifactorial including chronic NG tube placement along with his use of anticoagulants. The patient has never had a colonoscopy. There is a pattern of anemia. How much of this is related to his renal dysfunction is also unclear as there have been no reports of overt gastrointestinal hemorrhage. I believe it is reasonable to perform an upper endoscopy to exclude upper sources. Ultimately, the patient will require a colonoscopy given his anemia and his current age; however, this can be arranged as an outpatient. The upper source is reasonable and would prefer treatment with PPI, acid suppression which the patient is currently not on. Therefore, PPI with Protonix 40 mg daily is reasonable. We will plan for upper endoscopy tomorrow, n.p.o. after midnight except for meds. We will also plan for an outpatient colonoscopy once the DVT has had a period of time to stabilize on the warfarin therapy. If it is expected to be a prolonged course of anticoagulation because of the DVT and his urothelial cancer, then a bridging may be necessary to perform colonoscopy. Further recommendations to follow. Dr. Bustillos will be performing the diagnostic upper endoscopy tomorrow. Would keep the patient n.p.o. after midnight except meds. All questions answered.
--- NOTE | 2018-01-29 14:00 | Hospitalist Progress Note ---
Hospitalist Progress Note Date of Service Jan 29, 2018. Subjective Pt evaluation today including: conversation w/ patient, physical exam, lab review, review of studies, conversation w/ data processing consultant (Dr. Monroe), review of inpatient medication list Voiding: lopez catheter in place Patient seen and evaluated. No acute events overnight. Feeling much better and pain is controlled. Planning TOV today. Hemoglobin dropped a little today and consulted GI for recommendations. Did have gastric heme + but may be from NG irritation while on AC. Does have chronic anemia that may be an element of his CKD. Patient is due for Procrit tomorrow which does help with blood counts. Planning for EGD tomorrow to further evaluate any source of upper GI bleed. Planning for outpatient colonoscopy as well once clots stabilized. Constitutional: No fever, No chills Respiratory: No cough, No shortness of breath Cardiovascular: No chest pain Abdomen: No pain, No nausea, No vomiting, No diarrhea, No constipation Musculoskeletal: No swelling, No calf pain Male : No dysuria Heme: No abnormal bleeding/bruising Skin: No rash Medications Current Inpatient Medications Medications (Trade) Dose Ordered Sig/Solitario Route Start Time Stop Time Status Last Admin Dose Admin Acetaminophen (Tylenol Tab) 650 mg Q4H PRN PO 01/19/18 15:15 02/18/18 15:14 01/26/18 12:19 650 MG Al Hydrox/Mg Hydrox/Simethicone (Maalox Max Susp) 15 ml Q4H PRN PO 01/19/18 15:15 02/18/18 15:14 Ondansetron HCl (Zofran Inj) 4 mg Q6H PRN IV 01/19/18 15:15 02/18/18 15:14 01/26/18 04:04 4 MG Polyethylene (Miralax Powder Packet) 17 gm DAILY PRN PO 01/19/18 15:15 02/18/18 15:14 Carvedilol (Coreg Tab) 3.125 mg BIDM PO 01/19/18 16:45 02/18/18 17:59 01/29/18 07:49 3.125 MG Clonidine HCl (Catapres Tab) 0.3 mg QAM PO 01/20/18 09:00 02/19/18 08:59 01/29/18 07:50 0.3 MG Duloxetine HCl (Cymbalta Cap) 30 mg DAILY PO 01/20/18 09:00 02/19/18 08:59 01/29/18 07:49 30 MG Diltiazem HCl (Dilacor Xr Cap) 240 mg QAM PO 01/20/18 09:00 02/19/18 08:59 01/29/18 07:51 240 MG Docusate Sodium (coLACE CAP) 100 mg BID PO 01/22/18 21:00 02/21/18 20:59 01/27/18 07:38 100 MG Oxybutynin Chloride (Ditropan Tab) 5 mg BID PRN PO 01/22/18 11:15 02/21/18 11:14 Oxycodone/ Acetaminophen (Percocet 7.5-325MG Tab) Hold Tylenol if given Q4H PRN PO 01/22/18 11:15 02/05/18 11:14 Hydralazine HCl (HydrALAZINE INJ) 10 mg Q6 PRN IV. 01/22/18 13:00 02/21/18 12:59 01/22/18 17:04 10 MG Albuterol/ Ipratropium (Duoneb) 3 ml Q4H PRN INH 01/23/18 09:00 02/22/18 08:59 01/23/18 09:04 3 ML Warfarin Sodium (Coumadin Tab) 5 mg DAILY@16 PO 01/25/18 16:00 02/24/18 15:59 01/28/18 16:42 5 MG Promethazine HCl 12.5 mg/Sodium Chloride 50.5 ml @ 204 mls/hr Q6H PRN IV 01/26/18 11:30 02/25/18 11:29 01/26/18 15:50 204 MLS/HR Metoclopramide HCl 20 mg/Sodium Chloride 54 ml @ 162 mls/hr Q6H PRN IV 01/26/18 18:15 02/25/18 18:14 Objective Vital Signs Date Time Temp Pulse Resp B/P (MAP) Pulse Ox O2 Delivery O2 Flow Rate FiO2 01/29/18 08:00 Room Air 01/29/18 07:33 36.4 64 18 167/90 (115) 96 Room Air 01/29/18 00:00 Room Air 01/28/18 23:32 36.6 58 18 147/71 (96) 95 Room Air 01/28/18 17:02 Room Air 01/28/18 16:00 37.0 69 20 140/71 (94) 97 Room Air 01/28/18 14:00 36.4 70 18 143/81 (101) 98 Room Air 01/28/18 13:55 36.9 72 18 96 2.0 Physical Exam General Appearance: WD/WN, no apparent distress Eyes: sclerae normal ENT: hearing grossly normal Neck: supple, no JVD, trachea midline Respiratory/Chest: lungs clear, normal breath sounds, no respiratory distress, no accessory muscle use Cardiovascular: regular rate, rhythm, no gallop, no murmur Abdomen: normal bowel sounds, non tender, soft Extremities: non-tender, no pedal edema Neurologic/Psychiatric: alert, oriented x 3 Skin: normal color, warm/dry Laboratory Results Last 24 Hours Test 01/29/18 05:57 White Blood Count 6.49 K/uL Red Blood Count 2.59 M/uL Hemoglobin 7.7 g/dL Hematocrit 25.1 % Mean Corpuscular Volume 96.9 fL Mean Corpuscular Hemoglobin 29.7 pg Mean Corpuscular Hemoglobin Concent 30.7 g/dl Platelet Count 504 K/uL Mean Platelet Volume 8.9 fL Neutrophils (%) (Auto) 61.0 % Lymphocytes (%) (Auto) 16.9 % Monocytes (%) (Auto) 15.1 % Eosinophils (%) (Auto) 5.7 % Basophils (%) (Auto) 0.5 % Neutrophils # (Auto) 3.96 K/uL Lymphocytes # (Auto) 1.10 K/uL Monocytes # (Auto) 0.98 K/uL Eosinophils # (Auto) 0.37 K/uL Basophils # (Auto) 0.03 K/uL RDW Standard Deviation 52.8 fL RDW Coefficient of Variation 14.8 % Immature Granulocyte % (Auto) 0.8 % Immature Granulocyte # (Auto) 0.05 K/uL Large Platelets 1+ Poikilocytosis PRESENT Prothrombin Time 22.9 SECONDS Prothromb Time International Ratio 2.2 Activated Partial Thromboplast Time 109.2 SECONDS Partial Thromboplastin Ratio 4.2 Sodium Level 139 mmol/L Potassium Level 4.2 mmol/L Chloride Level 104 mmol/L Carbon Dioxide Level 28 mmol/L Anion Gap 7.0 mmol/L Blood Urea Nitrogen 42 mg/dl Creatinine 3.16 mg/dl Est Creatinine Clear Calc Drug Dose 31.2 ml/min Estimated GFR () 23.3 Estimated GFR (Non- 20.1 BUN/Creatinine Ratio 13.1 Random Glucose 97 mg/dl Calcium Level 8.7 mg/dl Assessment and Plan Mr. Domingo is a 62 y/o male with PMHx of HTN, Urothelial CA, CKD Stage IV S/P L AV Fistula, RLE DVT, R Staghorn Calculi S/P PCNL (Resolved), L Renal Shunt who is pending L HALNU on by Dr. Loving who presented to the ED with further RLE DVT development x 4 days. Post-Operative Ileus S/P NGT: 4 L Drained is Heme + - RESOLVED - Tolerating diet without issue - moving bowels, + flatus, neg N/V Heme + Gastric Contents: - This may simply be NGT tube irritation while on AC however with plans for ongoing AC and anemia would be reasonable to further explore - Discussed with GI - Dr. Monroe - plans to do diagnostic EGD tomorrow to assess for any findings for the heme + gastric contents -- Planning for outpatient colonoscopy as patient has not undergone this in the past and this can help further differentiate his chronic anemia -- May be beneficial given KUB findings of continues gaseous distention even though clinically doesn't support SBO/further ileus - Protonix 40 mg daily; NPO at midnight except meds New RLE DVT while on Eliquis and S/P IVC Filter 01/20: STABLE - INR therapeutic at 2.2 - heparin gtt D/C - Will need establishment with AC clinic on D/C CKD Stage IV with L AV Fistula: STABLE - Fistula evaluated by Dr. Jimenez on 01.20 - likely mature - no indication for HD currently - Electrolytes acceptable at this time; continues to produce urine and no need for dialysis - Nephrology followed - no further recommendations HTN: - Lisinopril remains on hold; Continue Coreg 3.125 mg BID, Clonidine 0.3 mg daily; and Diltiazem 240 mg daily Anemia of Chronic Disease: STABLE - Was initiated on Procrit - received last Procrit 07224 units on 01/23 - is due for a dose tomorrow - No indication for transfusion currently - Hgb 8.2 today - hold on transfusion unless hypotensive or Hgb below 7.0 -- Will further evaluate by GI Urothelial CA S/P Cleo ZIMMER on 01/[address] Loving: - Planning on TOV today - Urology following - discussed with Sarah MCGEE this AM - planning to D /C drain and no changes at this time Hematuria: Large Bladder Clot - RESOLVED DVT Prophylaxis: Heparin/Coumadin bridge Code Status: FULL RESUSCITATION Disposition: - Diagnostic EGD in AM - if unremarkable likely can be D/C'd later tomorrow Discharge planning: home
[2018-01-29 14:22] LABS: HEMATOCRIT 24.7 % (42-52); HEMOGLOBIN 7.7 g/dL (14.0-18.0)
[2018-01-29 15:31] VITALS: BP 144/68; PULSE 70; TEMP 36.8; O2SAT 97
[2018-01-29] MEDS: WARFARIN SOD 5 MG TAB PO SCH (15:44)
[2018-01-29 23:45] VITALS: BP 153/76; PULSE 71; TEMP 36.6; O2SAT 94
[2018-01-30 07:28] LABS: BASO % 0.7 %; BASO ABS # 0.04 K/uL (0-0.2); EOS % 5.8 %; EOS ABS # 0.33 K/uL (0-0.5); HEMATOCRIT 24.9 % (42-52); IG# 0.07 K/uL (0.00-0.02); LYMPH % 15.8 %; MEAN CORPUSCULAR HEMOGLOBIN 30.5 pg (25-34); MEAN CORPUSCULAR HGB CONC 32.1 g/dl (32-36); MEAN PLATELET VOLUME 8.6 fL (7.4-10.4); MONO % 15.4 %; MONO ABS # 0.88 K/uL (0.11-0.59); NEUT % 61.1 %; NEUT ABS # 3.48 K/uL (1.4-6.5); PLATELET COUNT 488 K/uL (130-400); RED CELL DISTRIBUTION WIDTH CV 14.7 % (11.5-14.5); RED CELL DISTRIBUTION WIDTH SD 50.7 fL (36.4-46.3)
[2018-01-30 07:34] LABS: INR 2.3 (0.9-1.1)
[2018-01-30 07:40] VITALS: BP 176/86; PULSE 70; TEMP 36.8; O2SAT 96
[2018-01-30] MEDS: CARVEDILOL 3.125 MG TAB PO SCH ×2 (07:42→16:00)
[2018-01-30] MEDS: DULOXETINE (CYMBALTA) 30 MG CAP PO SCH (07:42)
[2018-01-30] MEDS: CLONIDINE HCL 0.3 MG TAB PO SCH (07:43)
[2018-01-30] MEDS: DILTIAZEM HCL 120 MG ER CAP PO SCH (07:43)
[2018-01-30] MEDS: DOCUSATE SODIUM 100 MG CAP PO SCH (07:43)
[2018-01-30] MEDS ORDERED: PANTOprazole SOD 40 MG TAB PO SCH (08:00)
[2018-01-30 08:01] LABS: CALCIUM 8.3 mg/dl (8.5-10.1); CREATININE 3.27 mg/dl (0.60-1.40); POTASSIUM 4.3 mmol/L (3.5-5.1)
--- NOTE | 2018-01-30 09:36 | Progress Note ---
Subjective Date of Service: Jan 30, 2018. Subjective Pt evaluation today including: conversation w/ patient, chart review, lab review Voiding: no voiding problems 62 yo male s/p left HALNU. Pt pending EGD this morning. He is upset as he thought it was going to be this morning, but was moved to this afternoon. He states he wants to go home. Denies pain. TOV yesterday. Pt voiding well. Tolerating PO. Denies n/v. Cr stable at 3.27. H&H improved to 8.0 and 24.9. Problem List Medical Problems: (1) Anticoagulated Status: Acute (2) Deep vein thrombosis Status: Acute (3) Urothelial cancer Status: Acute Review of Systems Constitutional: No fever, No chills Respiratory: No shortness of breath Cardiac: No chest pain Abdomen: No pain, No nausea, No vomiting Male : No dysuria, No hematuria Heme: No abnormal bleeding/bruising Objective Vital Signs Date Time Temp Pulse Resp B/P (MAP) Pulse Ox O2 Delivery O2 Flow Rate FiO2 01/30/18 08:00 Room Air 01/30/18 07:40 36.8 70 18 176/86 (116) 96 Room Air 01/30/18 00:00 Room Air 01/29/18 23:45 36.6 71 18 153/76 (101) 94 Room Air 01/29/18 20:00 Room Air 01/29/18 15:35 Room Air 01/29/18 15:31 36.8 70 18 144/68 (93) 97 Room Air Physical Exam General Appearance: no apparent distress Eyes: normal inspection ENT: hearing grossly normal Neck: no JVD Respiratory/Chest: no respiratory distress, no accessory muscle use Cardiovascular: no JVD Extremities: normal inspection Neurologic/Psychiatric: alert, normal mood/affect, oriented x 3 Skin: normal color Laboratory Results Last 24 Hours Test 01/29/18 14:12 01/29/18 15:15 01/30/18 06:58 Hemoglobin 7.7 g/dL 8.0 g/dL Hematocrit 24.7 % 24.9 % Stool Occult Blood NEGATIVE White Blood Count 5.70 K/uL Red Blood Count 2.62 M/uL Mean Corpuscular Volume 95.0 fL Mean Corpuscular Hemoglobin 30.5 pg Mean Corpuscular Hemoglobin Concent 32.1 g/dl Platelet Count 488 K/uL Mean Platelet Volume 8.6 fL Neutrophils (%) (Auto) 61.1 % Lymphocytes (%) (Auto) 15.8 % Monocytes (%) (Auto) 15.4 % Eosinophils (%) (Auto) 5.8 % Basophils (%) (Auto) 0.7 % Neutrophils # (Auto) 3.48 K/uL Lymphocytes # (Auto) 0.90 K/uL Monocytes # (Auto) 0.88 K/uL Eosinophils # (Auto) 0.33 K/uL Basophils # (Auto) 0.04 K/uL RDW Standard Deviation 50.7 fL RDW Coefficient of Variation 14.7 % Immature Granulocyte % (Auto) 1.2 % Immature Granulocyte # (Auto) 0.07 K/uL Red Blood Cell Morphology Unremarkable Prothrombin Time 23.4 SECONDS Prothromb Time International Ratio 2.3 Sodium Level 138 mmol/L Potassium Level 4.3 mmol/L Chloride Level 105 mmol/L Carbon Dioxide Level 26 mmol/L Anion Gap 7.0 mmol/L Blood Urea Nitrogen 41 mg/dl Creatinine 3.27 mg/dl Est Creatinine Clear Calc Drug Dose 30.1 ml/min Estimated GFR () 22.4 Estimated GFR (Non- 19.3 BUN/Creatinine Ratio 12.4 Random Glucose 91 mg/dl Calcium Level 8.3 mg/dl Magnesium Level 2.1 mg/dl Assessment and Plan POD #8 s/p left HALNU Pt clinically improved from post-op ileus standpoint. Voiding well. Pt OK for d/c home from perspective when OK with primary service. He is scheduled to f/u with Dr. Loving on 02-04. Will keep as scheduled. Continued [facility] stay due to: multiple IV medications needed Discharge planning: home
[2018-01-30] MEDS ORDERED: NURSING VERBAL MED ORDER ONE (11:30)
[2018-01-30] MEDS ORDERED: LIDOCAINE HCL 2% 2 ML VIAL (20MG/ML) ONE (14:15)
[2018-01-30] MEDS ORDERED: PROPOFOL IV EMULSION 10 MG/ML 20 ML VIAL IV ONE (14:15)
--- NOTE | 2018-01-30 14:24 | Endo History and Physical ---
History & Physical Date of Service: Jan 30, 2018. Chief Complaint: hematemesis Referring Physician: Dr Martinez History of Present Illness For EGD Past Surgical History Hx Cardiac Surgery: No Hx Abdominal Surgery: No Hx Post-Op Nausea and Vomiting: No Hx Cancer Surgery: No Hx Thoracic Surgery: No Hx Orthopedic: No Hx Urinary Tract Surgery: Yes (ureteral stent bilateral, 10/19 nephrostomy tube right 12/17) Social History Smoking Status: Former Smoker Smokeless Tobacco Use: Yes Hx Substance Use: No Hx Alcohol Use: No Allergies Coded Allergies: Statins (Verified Adverse Reaction, Mild, GI UPSET, 01/19/18) Current Medications Reported Home Medications Medications Dose Route/Sig Max Daily Dose Days Date Category Zestril (Lisinopril) 40 Mg Tab 40 Mg PO DAILY 01/19/18 Reported Cymbalta (Duloxetine Hcl) 30 Mg Cap 30 Mg PO DAILY 01/19/18 Reported Eliquis (Apixaban) 5 Mg Tab 10 Mg PO BID 01/01/18 Reported Tylenol (Acetaminophen) 325 Mg Tab 325 Mg PO UD PRN 11/26/17 Reported Multivitamin (Multivitamins) Tab 1 Tab PO QAM 10/17/17 Reported Diltiazem Hcl Er (Diltiazem Hcl Extended Release) 240 Mg Cap 240 Mg PO QAM 10/17/17 Reported Vitamin B12 Tr (Cyanocobalamin) 1,000 Mcg Tab 2,500 Mcg PO QAM 10/17/17 Reported Catapres (Clonidine Hcl) 0.3 Mg Tab 0.3 Mg PO QAM 10/17/17 Reported Vitamin D3 (Cholecalciferol) 2,000 Unit Cap 2,000 Units PO QAM 10/17/17 Reported Coreg (Carvedilol) 3.125 Mg Tab 3.125 Mg PO BIDM 10/17/17 Reported Vital Signs Weight (Kilograms): 101.100 Height (Feet): 6 Height (Inches): 2.00 Date Time Temp Pulse Resp B/P (MAP) Pulse Ox O2 Delivery O2 Flow Rate FiO2 01/30/18 13:29 36.6 66 18 129/65 (86) 96 Room Air 01/30/18 08:00 Room Air 01/30/18 07:40 36.8 70 18 176/86 (116) 96 Room Air 01/30/18 00:00 Room Air 01/29/18 23:45 36.6 71 18 153/76 (101) 94 Room Air 01/29/18 20:00 Room Air 01/29/18 15:35 Room Air 01/29/18 15:31 36.8 70 18 144/68 (93) 97 Room Air Physical Exam General Appearance: WD/WN, + pertinent finding (long cuellar) Respiratory/Chest: Auscultation: breath sounds normal, no rhonchi Cardiovascular: Heart Auscultation: RRR Abdomen: Inspection & Palpation: soft Assessment and Plan Blood out NG for EGD
--- NOTE | 2018-01-30 14:38 | Discharge Instructions ---
Endoscopy Patient Instructions Date / Procedure(s) Performed Jan 30, 2018. EGD Allergy Information Coded Allergies: Statins (Verified Adverse Reaction, Mild, GI UPSET, 01/19/18) Discharge Date / Findings Jan 30, 2018. Normal EGD Medication Instructions Restart Stopped Medication(s): resume meds Current Inpatient Medications Medications (Trade) Dose Ordered Sig/Solitario Route Start Time Stop Time Status Last Admin Dose Admin Acetaminophen (Tylenol Tab) 650 mg Q4H PRN PO 01/19/18 15:15 02/18/18 15:14 01/26/18 12:19 650 MG Al Hydrox/Mg Hydrox/Simethicone (Maalox Max Susp) 15 ml Q4H PRN PO 01/19/18 15:15 02/18/18 15:14 Ondansetron HCl (Zofran Inj) 4 mg Q6H PRN IV 01/19/18 15:15 02/18/18 15:14 01/26/18 04:04 4 MG Polyethylene (Miralax Powder Packet) 17 gm DAILY PRN PO 01/19/18 15:15 02/18/18 15:14 Carvedilol (Coreg Tab) 3.125 mg BIDM PO 01/19/18 16:45 02/18/18 17:59 01/30/18 07:42 3.125 MG Clonidine HCl (Catapres Tab) 0.3 mg QAM PO 01/20/18 09:00 02/19/18 08:59 01/30/18 07:43 0.3 MG Duloxetine HCl (Cymbalta Cap) 30 mg DAILY PO 01/20/18 09:00 02/19/18 08:59 01/30/18 07:42 30 MG Diltiazem HCl (Dilacor Xr Cap) 240 mg QAM PO 01/20/18 09:00 02/19/18 08:59 01/30/18 07:43 240 MG Docusate Sodium (coLACE CAP) 100 mg BID PO 01/22/18 21:00 02/21/18 20:59 01/27/18 07:38 100 MG Oxybutynin Chloride (Ditropan Tab) 5 mg BID PRN PO 01/22/18 11:15 02/21/18 11:14 Oxycodone/ Acetaminophen (Percocet 7.5-325MG Tab) Hold Tylenol if given Q4H PRN PO 01/22/18 11:15 02/05/18 11:14 Hydralazine HCl (HydrALAZINE INJ) 10 mg Q6 PRN IV. 01/22/18 13:00 02/21/18 12:59 01/22/18 17:04 10 MG Albuterol/ Ipratropium (Duoneb) 3 ml Q4H PRN INH 01/23/18 09:00 02/22/18 08:59 01/23/18 09:04 3 ML Warfarin Sodium (Coumadin Tab) 5 mg DAILY@16 PO 01/25/18 16:00 02/24/18 15:59 01/29/18 15:44 5 MG Promethazine HCl 12.5 mg/Sodium Chloride 50.5 ml @ 204 mls/hr Q6H PRN IV 01/26/18 11:30 02/25/18 11:29 01/26/18 15:50 204 MLS/HR Metoclopramide HCl 20 mg/Sodium Chloride 54 ml @ 162 mls/hr Q6H PRN IV 01/26/18 18:15 02/25/18 18:14 Pantoprazole Sodium (Protonix Tab) 40 mg QAM PO 01/30/18 08:00 03/01/18 07:59 01/30/18 07:42 40 MG Epoetin Venancio (Procrit Inj) 40,000 units DAILY@1530 ONCE SC 01/30/18 15:30 01/30/18 15:31 Provider Instructions Activity Restrictions - No exercising or heavy lifting for 24 hours. - Do not drink alcohol the day of the procedure. - Do not drive a car or operate machinery until the day after the procedure. - Do not make any important decisions or sign important papers in 24 hours after the procedure. Following Day: - Return to full activity which may include returning to work/school. Diet Start your diet with liquids and light foods (jello, soup, juice, toast). Then eat your usual diet if not nauseated. Treatment For Common After Affects For mild abdominal pain, bloating, or excessive gas: - Rest - Eat lightly - Lie on right side Follow-Up Information Follow-up with as scheduled Anesthesia Information What You Should Know You have had a procedure that required some medicine to reduce anxiety and discomfort. This treatment is called moderate sedation. After receiving the treatment, you may be sleepy, but you will be able to breathe on your own. The effects of the treatment may last for several hours. Follow these instructions along with Activity/Diet recommendations noted above: * Do NOT do anything where dizziness or clumsiness would be dangerous. * Rest quietly at home today, then you can be up and about tomorrow. * Have a responsible person stay with you the rest of today. * You may have had an I.V. today. If so, you may take the dressing off later today. Recommendations Call your doctor if: * Trouble breathing * Continuous vomiting for more than 24 hours * Temperature above 101 degrees * Severe abdominal pain or bloating * Pain not relieved by pain medicine ordered * There is increased drainage or redness from any incision * A large amount of rectal bleeding greater than 2-3 tablespoons. (If you had a polyp/s removed or have hemorrhoids, a small amount of blood - from the rectum is to be expected.) * You have any unanswered questions or concerns. IN THE EVENT OF A SERIOUS EMERGENCY, GO TO THE NEAREST EMERGENCY ROOM Your discharge instructions were prepared by provider Rosas Bustillos. Patient Instructions Signature Page Thiago Domingo Patient (or Guardian) Signature/Date: I have read and understand the instructions given to me by my caregivers. Caregiver/RN/Doctor Signature/Date: The above-named patient and/or guardian has received patient instructions on this date. + Original Patient Signature Page (only) stays with chart. Please make copy for patient.
--- NOTE | 2018-01-30 14:42 | GI REPORT ---
Procedure Date: 01/30/2018 2:28 PM Procedure: Upper GI endoscopy Indications: Coffee-ground emesis Medicines: Propofol total dose 150 mg IV, Lidocaine 80 mg IV Complications: No immediate complications. Estimated Blood Loss: Estimated blood loss: none. Procedure: Pre-Anesthesia Assessment: - Prior to the procedure, a History and Physical was performed, and patient medications, allergies and sensitivities were reviewed. The patient's tolerance of previous anesthesia was reviewed. - The risks and benefits of the procedure and the sedation options and risks were discussed with the patient. All questions were answered and informed consent was obtained. After obtaining informed consent, the endoscope was passed under direct vision. Throughout the procedure, the patient's blood pressure, pulse, and oxygen saturations were monitored continuously. The scope was introduced through the mouth, and advanced to the second part of duodenum. The upper GI endoscopy was accomplished without difficulty. The patient tolerated the procedure well. Findings: The Z-line was regular and was found 40 cm from the incisors. The entire examined stomach was normal. The examined duodenum was normal. Impression: - Z-line regular, 40 cm from the incisors. - Normal stomach. - Normal examined duodenum. - No specimens collected. Recommendation: - Return patient to hospital hall for ongoing care. - Continue present medications. - Resume previous diet today. Rosas Bustillos M.D. Rosas Bustillos MD 01/30/2018 2:41:41 PM This report has been signed electronically. Note Initiated On: 01/30/2018 2:28 PM I attest to the content of the Intraoperative Record and orders documented therein, exceptions below
--- NOTE | 2018-01-30 14:52 | PROGRESS NOTE ---
DATE: 01/30/2018 SUBJECTIVE: The patient underwent an EGD today for heme-positive NG aspirate and the need for ongoing anticoagulants due to a DVT. EGD showed a Z line at 40 cm. The esophagus, stomach and duodenum were all normal. IMPRESSION: The patient's nasogastric aspirate that was positive for blood is probably from a nasogastric tube trauma which is healed. There is no upper gastrointestinal source for blood loss at this time.
--- NOTE | 2018-01-30 15:10 | Anesthesiology Progress Note ---
Anesthesia Post Op Note Date & Time Jan 30, 2018 at 15:10 Vital Signs Pain Intensity: 2.0 Vital Signs Past 12 Hours Date Time Temp Pulse Resp B/P (MAP) Pulse Ox O2 Delivery O2 Flow Rate FiO2 01/30/18 14:55 58 18 125/60 (81) 97 Room Air 2.0 01/30/18 14:40 66 16 113/52 (72) 95 Room Air 01/30/18 13:29 36.6 66 18 129/65 (86) 96 Room Air 01/30/18 08:00 Room Air 01/30/18 07:40 36.8 70 18 176/86 (116) 96 Room Air Notes Mental Status: alert / awake / arousable, participated in evaluation Pt Amnestic to Procedure: Yes Nausea / Vomiting: adequately controlled Pain: adequately controlled Airway Patency, RR, SpO2: stable & adequate BP & HR: stable & adequate Hydration State: stable & adequate Anesthetic Complications: no major complications apparent
[2018-01-30] MEDS ORDERED: CMD5 PO (15:20)
--- NOTE | 2018-01-30 15:21 | Discharge Summary ---
Discharge Summary Date of Service Jan 30, 2018. 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 Loving Procedures: Left nephrectomy EGD Consultations: Oncologist, singer and unloader, urologist, GI service Medication Reconciliation New Medications: Warfarin Sod (Coumadin) 5 Mg Tab 5 MG PO DAILY@16 for 30 Days, TAB Continued Medications: Acetaminophen (Tylenol) 325 Mg Tab 325 MG PO UD PRN for PRN, TAB Carvedilol (Coreg) 3.125 Mg Tab 3.125 MG PO BIDM, TAB Cholecalciferol (Vitamin D3) 2,000 Unit Cap 2000 UNITS PO QAM Clonidine Hcl (Catapres) 0.3 Mg Tab 0.3 MG PO QAM, TAB Cyanocobalamin (Vitamin B12 Tr) 1,000 Mcg Tab 2500 MCG PO QAM Diltiazem Hcl Extended Release (Diltiazem Hcl Er) 240 Mg Cap 240 MG PO QAM Duloxetine Hcl (Cymbalta) 30 Mg Cap 30 MG PO DAILY Multivitamin (Multivitamin) Tab 1 TAB PO QAM, TAB Discontinued Medications: Apixaban (Eliquis) 5 Mg Tab 10 MG PO BID Lisinopril (Zestril) 40 Mg Tab 40 MG PO DAILY Discharge Exam Had EGD done, eager to going home, no complaint has been up and walk in the hallway this morning Review of Systems: Constitutional: No fever, No chills, No sweats, No weight loss, No weakness , No fatigue, No problem reported Eyes: No worsening of vision, No eye pain, No redness, No discharge, No diplopia, No problem reported ENT: No hearing loss, No unusual epistaxis, No nasal symptoms, No sore throat, No tinnitus, No dental problems, No trouble swallowing, No problem reported Respiratory: No cough, No sputum, No wheezing, No shortness of breath, No dyspnea on exertion, No dyspnea at rest, No hemoptysis, No problem reported Cardiovascular: No chest pain, No orthopnea, No PND, No edema, No claudication, No palpitations, No problem reported Abdomen: No pain, No nausea, No vomiting, No diarrhea, No constipation, No GI bleeding, No problem reported Musculoskeletal: No joint pain, No muscle pain, No swelling, No calf pain, No problem reported Genitourinary - Male: No hematuria, No dysuria, No urinary frequency, No urinary urgency, No urinary hesitancy, No urinary retention, No urinary incontinence, No penile discharge, No lesions, No impotence, No problem reported Neurologic: No memory loss, No paralysis, No weakness, No numbness/tingling , No vertigo, No balance problems, No problem reported Psychiatric: No depression symptoms, No anhedonism, No anxiety, No insomnia , No substance abuse, No problem reported Hematologic / Lymphatic: No abnormal bleeding/bruising, No clotting problems , No swollen lymph nodes, No night sweats, No problem reported Integumentary: No rash, No itch, No new/changing skin lesions, No color change, No bleeding, No problem reported Physical Exam: General Appearance: WD/WN, no apparent distress, + thin, + pertinent finding (Mild pale, pleasant) Eyes: normal inspection, PERRL, EOMI ENT: normal ENT inspection, hearing grossly normal, TMs normal Neck: supple, no adenopathy, thyroid normal Respiratory/Chest: chest non-tender, normal breath sounds, no respiratory distress, no accessory muscle use, + decreased breath sounds Cardiovascular: regular rate, rhythm, no edema, no gallop, no JVD Abdomen / GI: normal bowel sounds, non tender, soft, no organomegaly Extremities: normal inspection, no calf tenderness, normal capillary refill Neurologic/Psychiatric: alert, normal mood/affect, normal reflexes Skin: normal color, warm/dry Hospital Course 62 y/o male admitted because of RLE DVT development x 4 days, was transferred to PCU because of ileus and need better vital sign monitoring on January 26, 2018 Possible acute blood loss anemia with new low hemoglobin at 7.7, history of gastro NG suctions Hemoccult-positive, Had EGD done, which was not remarkable This morning hemoglobin is 8.0 which is stable Has otherwise patient to follow-up with PCP for anemia Post-Operative Ileus S/P NGT: clear liquid diet as tolerated, appreciate surgical input, totally resolved advance diet as tolerated New RLE DVT while on Eliquis and S/P IVC Filter 01/20: STABLE on heparin gtt with Coumadin bridge - INR 2.3 today , has discontinue heparin drip , continue Coumadin, has give prescription to have PT/INR checked before seen by PCP 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 Loving pt will follow up with coagulation clinic to follow his coumadin as an outpatient. Patient need to have a followup in oncology hematology clinic with Dr. Levy in a few weeks to discuss adjuvant therapy hematuria: Large Bladder Clot - RESOLVED EGD results in below: - Z-line regular, 40 cm from the incisors. - Normal stomach. - Normal examined duodenum. - No specimens collected. He is scheduled to f/u with Dr. Loving on 02-04. Will need to keep as scheduled. Total Time Spent: Greater than 30 minutes This includes examination of the patient, discharge planning, medication reconciliation, and communication with other providers. Discharge Instructions Please refer to the electronic Patient Visit Report (Discharge Instructions) for additional information. Additional Copies To Donavon Sears M.D.; Rosas Bustillos M.D.; Niels Loving MD, Urology
[2018-01-30] MEDS ORDERED: EPOETIN ALFA 40,000 UNITS/ML VIAL SC ONE (15:30)
[2018-01-30 15:50] VITALS: BP 126/73; PULSE 64; TEMP 36.5; O2SAT 99
[2018-01-30] MEDS: WARFARIN SOD 5 MG TAB PO SCH (15:59)
== END 2018-01-30 16:34 | disposition home or self-care (01) | DRG 253 ==
LOC: C.EDB 12:28 → C.2T 15:22 → ENRESERV 15:58 → C.MSN 01-23 11:25 → ENRESERV 01-26 18:41 → C.2T 01-26 20:17 → ENRESERV 01-28 12:26 → C.4E 01-28 13:52
PROVIDERS: ADMIT Internal Medicine; ATTEND Hospitalist
PROC: BH4CZZZ Ultrasonography of Head and Neck (ICD-10-PCS; principal; 2018-01-20 09:15)
PROC: 06H03DZ Insertion of Intraluminal Device into Inferior Vena Cava, Percutaneous Approach (ICD-10-PCS; principal; 2018-01-20 09:15)
PROC: 0TP90DZ Removal of Intraluminal Device from Ureter, Open Approach (ICD-10-PCS; 2018-01-22)
PROC: 0TT70ZZ Resection of Left Ureter, Open Approach (ICD-10-PCS; 2018-01-22)
PROC: 0TT10ZZ Resection of Left Kidney, Open Approach (ICD-10-PCS; 2018-01-22)
PROC: 0TCB0ZZ Extirpation of Matter from Bladder, Open Approach (ICD-10-PCS; 2018-01-22)
PROC: 07BC0ZX Excision of Pelvis Lymphatic, Open Approach, Diagnostic (ICD-10-PCS; 2018-01-22)
PROC: 0DJ08ZZ Inspection of Upper Intestinal Tract, Via Natural or Artificial Opening Endoscopic (ICD-10-PCS; 2018-01-30)
DX: I82.4Z1 Acute embolism and thrombosis of unspecified deep veins of right distal lower extremity (principal); N18.4 Chronic kidney disease, stage 4 (severe); C68.9 Malignant neoplasm of urinary organ, unspecified; K91.89 Other postprocedural complications and disorders of digestive system; D62 Acute posthemorrhagic anemia; K56.7 Ileus, unspecified; E87.2 Acidosis; N17.9 Acute kidney failure, unspecified; N20.0 Calculus of kidney; I12.9 Hypertensive chronic kidney disease with stage 1 through stage 4 chronic kidney disease, or unspecified chronic kidney disease; Z87.442 Personal history of urinary calculi; Z83.3 Family history of diabetes mellitus; Z87.891 Personal history of nicotine dependence; E87.5 Hyperkalemia; D47.2 Monoclonal gammopathy; G62.9 Polyneuropathy, unspecified

== ENCOUNTER 2018-03-03 19:09 | Emergency (ER) | payer OTHER ==
[~2018-03-03] VITALS: Ht 188 cm; Wt 101.6 kg
[~2018-03-03 19:09] MED LIST changes: -APIX1TAB3 PO; +CMD5 PO; +CYM/30 PO
[2018-03-03 19:14] VITALS: TEMP 37.2; Ht 188 cm; Wt 101.6 kg
[2018-03-03] MEDS ORDERED: SODIUM CHLORIDE 0.9% 1000ML 1,000 ML IV STA (19:38)
[2018-03-03 20:15] LABS: BASO % 0.4 %; BASO ABS # 0.01 K/uL (0-0.2); EOS % 0.8 %; EOS ABS # 0.02 K/uL (0-0.5); HEMATOCRIT 41.1 % (42-52); HEMOGLOBIN 13.1 g/dL (14.0-18.0); LYMPH % 35.8 %; LYMPH ABS # 0.95 K/uL (1.2-3.4); MEAN CELL VOLUME 95.8 fL (80-100); MEAN CORPUSCULAR HEMOGLOBIN 30.5 pg (25-34); MEAN CORPUSCULAR HGB CONC 31.9 g/dl (32-36); MEAN PLATELET VOLUME 9.3 fL (7.4-10.4); MONO % 22.3 %; MONO ABS # 0.59 K/uL (0.11-0.59); NEUT % 40.7 %; NEUT ABS # 1.08 K/uL (1.4-6.5); PLATELET COUNT 297 K/uL (130-400); RED CELL DISTRIBUTION WIDTH CV 16.6 % (11.5-14.5); RED CELL DISTRIBUTION WIDTH SD 59.3 fL (36.4-46.3); WHITE BLOOD COUNT 2.65 K/uL (4.8-10.8)
[2018-03-03 20:24] LABS: INR 1.2 (0.9-1.1); PTT PATIENT 37.8 SECONDS (21.0-31.0)
--- NOTE | 2018-03-03 20:31 | DIAGNOSTIC IMAGING REPORT ---
CHEST ONE VIEW PORTABLE HISTORY: 62 years-old Male EVALUATE ALTERED MENTAL STATUS/WEAKNESS acute altered mental status with weakness COMPARISON: Chest radiograph 10/17/2017 TECHNIQUE: Portable AP view of the chest FINDINGS: Cardiac silhouette is mildly enlarged. No pneumothorax, pleural effusion, focal airspace consolidation or overt pulmonary edema. The bones of the chest appear grossly intact. Degenerative changes of the shoulders and spine are noted. IMPRESSION: No acute process. The above report was generated using voice recognition software. It may contain grammatical, syntax or spelling errors. Electronically signed by: Shelton Henderson M.D. 03/03/2018 8:30 PM Dictated Date/Time: 03/03/2018 8:29 PM
[2018-03-03 20:54] LABS: ALBUMIN 3.8 gm/dl (3.4-5.0); ALKALINE PHOSPHATASE 67 U/L (45-117); ALT/SGPT 25 U/L (12-78); AST/SGOT 14 U/L (15-37); BLOOD UREA NITROGEN 75 mg/dl (7-18); CALCIUM 9.6 mg/dl (8.5-10.1); CARBON DIOXIDE 16 mmol/L (21-32); CKMB 0.8 ng/ml (0.5-3.6); GLUCOSE 92 mg/dl (70-99); LIPASE 250 U/L (73-393); POTASSIUM 5.8 mmol/L (3.5-5.1); SODIUM 136 mmol/L (136-145)
[2018-03-03] MEDS ORDERED: LISI40TA PO (21:10)
--- NOTE | 2018-03-03 21:29 | EMERGENCY ROOM VISIT NOTE ---
History Report prepared by [place]: Hansel Valentin Under the Supervision of: Dr. Austyn Nielson D.O. First contact with patient: 19:19 Chief Complaint: ABNORMAL LABS Stated Complaint: HIGH POTASSIUM- REFERRED History of Present Illness The patient is a 62 year old male who presents to the Emergency Room with complaints of persistent general elevated potassium since yesterday. The patient was seen at [facility] for flu-like symptoms. He reports he had a runny nose five days ago for two days, though reports it resolved itself. He states that he has not been feeling well for three days. He notes that his body was achy and he has the chills. He states his labs were drawn and his PCP notified him that his potassium levels were elevated. He had his left kidney removed 1.5 months ago. Source of History: patient Onset: since yesterday Position: other (general) Quality: other (elevated potassium) Timing: other (persistent) Associated Symptoms: + chills Note: Notes runny nose and body aches. Review of Systems See HPI for pertinent positives & negatives. A total of 10 systems reviewed and were otherwise negative. Past Medical & Surgical Medical Problems: (1) Acute renal failure (2) Anemia (3) CKD (chronic kidney disease), stage IV (4) Hyperkalemia, diminished renal excretion (5) Hypertension (6) Left renal mass (7) Metabolic acidosis (8) Right kidney stone Family History Diabetes mellitus Hypertension Social History Smoking Status: Former Smoker Drug Use: none Marital Status: Housing Status: lives with significant other Occupation Status: employed Current/Historical Medications Scheduled Carvedilol (Coreg), 3.125 MG PO BIDM Cholecalciferol (Vitamin D3), 2,000 UNITS PO QAM Clonidine Hcl (Catapres), 0.3 MG PO QAM Cyanocobalamin (Vitamin B12 Tr), 2,500 MCG PO QAM Diltiazem Hcl Extended Release (Diltiazem Hcl Er), 240 MG PO QAM Lisinopril (Zestril), 40 MG PO DAILY Multivitamin (Multivitamin), 1 TAB PO QAM Warfarin Sod (Coumadin), 5 MG PO DAILY@16 Scheduled PRN Acetaminophen (Tylenol), 325 MG PO UD PRN for PRN Allergies Coded Allergies: Statins (Verified Adverse Reaction, Mild, GI UPSET, 03/03/18) Physical Exam Vital Signs Date Time Temp Pulse Resp B/P (MAP) Pulse Ox O2 Delivery O2 Flow Rate FiO2 03/03/18 20:45 73 18 132/80 95 Room Air 03/03/18 20:21 78 03/03/18 19:14 37.2 89 20 123/71 97 Room Air Physical Exam CONSTITUTIONAL/VITAL SIGNS: Reviewed / noted above. GENERAL: Non-toxic in appearance. INTEGUMENTARY: Warm, dry, and [place]. HEAD: Normocephalic. EYES: without scleral icterus or trauma. ENT/OROPHARYNX: clear and moist. LYMPHADENOPATHY/NECK: Is supple without lymphadenopathy or meningismus. RESPIRATORY: Lungs clear and equal. CARDIOVASCULAR: Regular rate and rhythm. GI/ABDOMEN: Soft and nontender. No organomegaly or pulsatile mass. No rebound or guarding. Normal bowel sounds. EXTREMITIES: Warm and well perfused. BACK: No CVA tenderness. NEUROLOGICAL: Intact without focal deficits. PSYCHIATRIC: normal affect. MUSCULOSKELETAL: Normally developed with good muscle tone. Medical Decision & Procedures ER Provider Diagnostic Interpretation: Radiology results as stated below per my review and radiologist interpretation: CHEST ONE VIEW PORTABLE HISTORY: 62 years-old Male EVALUATE ALTERED MENTAL STATUS/WEAKNESS acute altered mental status with weakness COMPARISON: Chest radiograph 10/17/2017 TECHNIQUE: Portable AP view of the chest FINDINGS: Cardiac silhouette is mildly enlarged. No pneumothorax, pleural effusion, focal airspace consolidation or overt pulmonary edema. The bones of the chest appear grossly intact. Degenerative changes of the shoulders and spine are noted. IMPRESSION: No acute process. The above report was generated using voice recognition software. It may contain grammatical, syntax or spelling errors. Electronically signed by: Shelton Henderson M.D. 03/03/2018 8:30 PM Dictated Date/Time: 03/03/2018 8:29 PM Laboratory Results 03/03/18 20:05 Red Blood Count 4.29, Mean Corpuscular Volume 95.8, Mean Corpuscular Hemoglobin 30.5, Mean Corpuscular Hemoglobin Concent 31.9, Mean Platelet Volume 9.3, Neutrophils (%) (Auto) 40.7, Lymphocytes (%) (Auto) 35.8, Monocytes (%) (Auto) 22.3, Eosinophils (%) (Auto) 0.8, Basophils (%) (Auto) 0.4, Neutrophils # (Auto ) 1.08, Lymphocytes # (Auto) 0.95, Monocytes # (Auto) 0.59, Eosinophils # (Auto ) 0.02, Basophils # (Auto) 0.01 03/03/18 20:05 Test 03/03/18 20:05 White Blood Count 2.65 K/uL (4.8-10.8) Red Blood Count 4.29 M/uL (4.7-6.1) Hemoglobin 13.1 g/dL (14.0-18.0) Hematocrit 41.1 % (42-52) Mean Corpuscular Volume 95.8 fL (80-100) Mean Corpuscular Hemoglobin 30.5 pg (25-34) Mean Corpuscular Hemoglobin Concent 31.9 g/dl (32-36) Platelet Count 297 K/uL (130-400) Mean Platelet Volume 9.3 fL (7.4-10.4) Neutrophils (%) (Auto) 40.7 % Lymphocytes (%) (Auto) 35.8 % Monocytes (%) (Auto) 22.3 % Eosinophils (%) (Auto) 0.8 % Basophils (%) (Auto) 0.4 % Neutrophils # (Auto) 1.08 K/uL (1.4-6.5) Lymphocytes # (Auto) 0.95 K/uL (1.2-3.4) Monocytes # (Auto) 0.59 K/uL (0.11-0.59) Eosinophils # (Auto) 0.02 K/uL (0-0.5) Basophils # (Auto) 0.01 K/uL (0-0.2) RDW Standard Deviation 59.3 fL (36.4-46.3) RDW Coefficient of Variation 16.6 % (11.5-14.5) Immature Granulocyte % (Auto) 0.0 % Immature Granulocyte # (Auto) 0.00 K/uL (0.00-0.02) Prothrombin Time 12.8 SECONDS (9.0-12.0) Prothromb Time International Ratio 1.2 (0.9-1.1) Activated Partial Thromboplast Time 37.8 SECONDS (21.0-31.0) Partial Thromboplastin Ratio 1.5 Anion Gap 8.0 mmol/L (3-11) Est Creatinine Clear Calc Drug Dose 18.3 ml/min Estimated GFR () 12.2 Estimated GFR (Non- 10.5 BUN/Creatinine Ratio 14.0 (10-20) Calcium Level 9.6 mg/dl (8.5-10.1) Magnesium Level 2.4 mg/dl (1.8-2.4) Total Bilirubin 0.2 mg/dl (0.2-1) Direct Bilirubin < 0.1 mg/dl (0-0.2) Aspartate Amino Transf (AST/SGOT) 14 U/L (15-37) Alanine Aminotransferase (ALT/SGPT) 25 U/L (12-78) Alkaline Phosphatase 67 U/L (45-117) Total Creatine Kinase 25 U/L (39-308) Creatine Kinase MB 0.8 ng/ml (0.5-3.6) Creatine Kinase MB Ratio 3.2 (0-3.0) Troponin I < 0.015 ng/ml (0-0.045) Total Protein 8.0 gm/dl (6.4-8.2) Albumin 3.8 gm/dl (3.4-5.0) Lipase 250 U/L (73-393) Laboratory results as stated above per my review. Medications Administered Medications (Trade) Dose Ordered Sig/Solitario Route Start Time Stop Time Status Last Admin Dose Admin Sodium Chloride 1,000 ml @ 999 mls/hr Q1H1M STAT IV 03/03/18 19:38 03/03/18 20:38 DC 03/03/18 19:38 999 MLS/HR ECG Per My Interpretation Indication: weakness Rate (beats per minute): 79 Rhythm: normal sinus Findings: no ectopy, other (No ST elevation) ED Course 1925: Previous medical records were reviewed. The patient was evaluated in room B2. A complete history and physical examination was performed. Sodium Chloride 1,000 ml @ 999 mls/hr IV 2122: I reassessed the patient at this time. He is feeling better and resting comfortably. I discussed the results and treatment plan with the patient. I answered all pertaining questions that he had. He expressed understanding and verbalized agreement. The patient will be discharged home. Medical Decision Differentials include: Acute coronary syndrome, myocardial infarction, CVA, TIA , anemia, infection, pneumonia, UTI, pyelonephritis, poor nutrition, dehydration , electrolyte disturbance, and hypoglycemia. This is a 62-year-old male who presents to the ED with a chief complaint of abnormal labs. His potassium was reportedly 6.5 as outpatient. The patient has history of left nephrectomy a month and a half ago. He states that he saw his doctor today because he thought that he had flulike symptoms over the weekend. He reported having a runny nose and some chills on Friday and Friday. When he saw his doctor today, they tested him for the flu and it was negative. They ran some blood work and his potassium came back elevated at 6.5. He was referred here. The patient's baseline creatinine on 02/13/18 was 3.63. The patient's exam was unremarkable. An EKG today shows normal sinus rhythm without EKG changes suggesting hypokalemia. Chest x-ray was negative for acute disease. CBC is unremarkable, the BUN is 75 and creatinine is 5.4. On 02/13/18 it was 3.63 and 54. The patient was told the results of the test. He was treated with 1 L normal saline IV. 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 He was advised to contact his waste water treatment plant operator tomorrow for follow-up. He was given the results of his test. Medication Reconcilliation Current Medication List: was personally reviewed by me Blood Pressure Screening Patient's blood pressure: Normal blood pressure Impression Primary Impression: Hyperkalemia Additional Impression: CKD (chronic kidney disease), stage IV Scribe Attestation The scribe's documentation has been prepared under my direction and personally reviewed by me in its entirety. I confirm that the note above accurately reflects all work, treatment, procedures, and medical decision making performed by me. Departure Information Dispostion Home / Self-Care Referrals Winston Hopkins D.O. (PCP) Patient Instructions My [facility] Additional Instructions Your creatinine today is 5.4. This is up from 3.6 on February 13. Your potassium tonight was 5.8 Call your waste water treatment plant operator tomorrow for follow-up. Drink plenty of water. Follow-up with your doctor for further care and evaluation in 1-2 days. Return to the emergency department for worsening or new symptoms or any concerns. You have been examined and treated today on an emergency basis only. This is not a substitute for, or an effort to provide, complete comprehensive medical care. It is impossible to recognize and treat all injuries or illnesses in a single emergency department visit. It is therefore important that you follow up closely with your doctor. Call as soon as possible for an appointment. Problem Qualifiers
[2018-03-03 22:01] VITALS: BP 131/71; PULSE 82; O2SAT 92
== END 2018-03-03 22:20 | disposition home or self-care (01) ==
LOC: C.EDB 19:10
DX: E87.5 Hyperkalemia (principal); N18.4 Chronic kidney disease, stage 4 (severe); D64.9 Anemia, unspecified; I12.9 Hypertensive chronic kidney disease with stage 1 through stage 4 chronic kidney disease, or unspecified chronic kidney disease; Z87.442 Personal history of urinary calculi; Z83.3 Family history of diabetes mellitus; Z82.49 Family history of ischemic heart disease and other diseases of the circulatory system; Z87.891 Personal history of nicotine dependence; Z79.01 Long term (current) use of anticoagulants; Z79.899 Other long term (current) drug therapy; Z88.8 Allergy status to other drugs, medicaments and biological substances; Z90.5 Acquired absence of kidney

== ENCOUNTER 2018-03-06 10:12 | Inpatient (IN) | payer OTHER ==
[2018-03-06] VITALS (12 sets, daily range): BP systolic 124–138; BP diastolic 78–85; PULSE 67–71; TEMP 36.5–36.6; O2SAT 97; Ht 190.5 cm; Wt 97.9 kg
[~2018-03-06] VITALS: Ht 190.5 cm; Wt 97.9 kg
[~2018-03-06 10:12] MED LIST changes: -CYM/30 PO; +LISI40TA PO
--- NOTE | 2018-03-06 10:22 | History and Physical ---
History & Physical Date of Service March 06, 2018. History & Physical I got sign out of this direct admission, pt's K 6.3, I called pt and asked him to come to hospital, or local emergency room stat because his potassium is 6.3 he can have cardic arrest and diet at any time, he said "understand, and will try best"...I called to pt's son, and explain of the above and risks too, asked them to convince pt to come to hospital stat,
[2018-03-06] MEDS ORDERED: DEXTROSE 50% 50 ML SYR IV STA (13:27)
[2018-03-06] MEDS: SODIUM POLYST. SULF SUSP 15G/60ML PO STA ×2 (13:27→15:40)
[2018-03-06] MEDS ORDERED: HydrALAZINE HCL 20 MG/ML VIAL IV. PRN (13:30)
[2018-03-06] MEDS ORDERED: MoRPHine SULFATE 4 MG/ML 1 ML CARP\\VIAL IV PRN (13:30)
[2018-03-06] MEDS ORDERED: ACETAMINOPHEN 325 MG TAB PO PRN (13:30)
[2018-03-06] MEDS ORDERED: POLYETHYLENE (MIRALAX) 17 GM PACK PO PRN (13:30)
[2018-03-06] MEDS ORDERED: MAGNESIUM HYDROXIDE SUSP 30 ML UDC PO PRN (13:30)
[2018-03-06] MEDS ORDERED: NITROGLYCERIN 0.4 MG SL PER TAB CHARGE SL PRN (13:30)
[2018-03-06] MEDS ORDERED: ALUMINUM/MAGNESIUM/SIMETH (MAALOX MAX) 30 ML UDC PO PRN (13:30)
--- NOTE | 2018-03-06 13:57 | History and Physical ---
History & Physical Date & Time of Service: March 06, 2018 at 13:37 Chief Complaint: Elevated Creatinine And Potassium Primary Care Physician: Winston Hopkins D.O. History of Present Illness Source: patient, family ( at bedside), clinic records, hospital records Mr. Domingo is a 62 y/o male with PMHx of HTN, urothelial CA s/p L nephrectomy in January [address] Loving, CKD stage IV s/p L AV fistula in December 2017, h/o RLE DVT on chronic Coumadin, R Staghorn Calculi s/p PCNL (resolved), anemia of chronic disease, who was a direct admission from Dr. Apple's office due to DARELL and hyperkalemia. Patient presented to Dr. Wilkinson's office for his weekly blood work and Procrit injection- he did not receive an injection today due to hgb of 12; he has not received an injection in the last two weeks. He does note that over the last 1-2 weeks he has been feeling generalized weakness, fatigue, and body aches. He did present to the ED at one point- he was told he was dehydrated , treated w/ IVF, and discharged home. He has been eating and drinking OK. He is still producing urine. He denies any urinary symptoms. He does have a h/o renal stones- he denies any current CVA pain. He follows w/ nephrology in [place]- would like to switch to [place] [facility] at discharge. He has not started chemotherapy or radiation due to poor kidney function. Patient denies any fever , chills, sweats, lightheadedness, dizziness, vision changes, CP, palpitations, edema, SOB, wheezing, cough, abdominal pain, nausea, vomiting, diarrhea, urinary symptoms, melena, numbness/tingling, anxiety/depression, active bleeding , or new skin discoloration/changes. Past Medical/Surgical History Medical Problems: HTN urothelial CA s/p L nephrectomy in January 2018 CKD stage IV s/p L AV fistula in December 2017 h/o RLE DVT on chronic Coumadin R Staghorn Calculi s/p PCNL (resolved) anemia of chronic disease Family History Diabetes mellitus Hypertension Social History Smoking Status: Former Smoker Drug Use: none Marital Status: Housing status: lives with significant other Occupational Status: employed Allergies Coded Allergies: Statins (Verified Adverse Reaction, Mild, GI UPSET, 03/03/18) Home Medications Scheduled Carvedilol (Coreg), 3.125 MG PO BIDM Cholecalciferol (Vitamin D3), 2,000 UNITS PO QAM Clonidine Hcl (Catapres), 0.3 MG PO QAM Cyanocobalamin (Vitamin B12 Tr), 2,500 MCG PO QAM Diltiazem Hcl Extended Release (Diltiazem Hcl Er), 240 MG PO QAM Lisinopril (Zestril), 40 MG PO DAILY Multivitamin (Multivitamin), 1 TAB PO QAM Warfarin Sod (Coumadin), 5 MG PO DAILY@16 Scheduled PRN Acetaminophen (Tylenol), 325 MG PO UD PRN for PRN Physical Exam Vital Signs Date Time Temp Pulse Resp B/P (MAP) Pulse Ox O2 Delivery O2 Flow Rate FiO2 03/06/18 13:03 36.5 69 18 134/80 (98) 97 Room Air General Appearance: no apparent distress Head: normocephalic, atraumatic Eyes: normal inspection, PERRL ENT: hearing grossly normal Neck: no adenopathy Respiratory/Chest: lungs clear, no respiratory distress, no accessory muscle use Cardiovascular: regular rate, rhythm Abdomen/GI: normal bowel sounds, non tender, soft Back: normal inspection, no CVA tenderness Extremities/Musculoskelatal: no calf tenderness, no pedal edema Neurologic/Psych: alert, normal mood/affect, oriented x 3 Skin: normal color, warm/dry, no rash Impression Assessment and Plan Mr. Domingo is a 62 y/o male with PMHx of HTN, urothelial CA s/p L nephrectomy in January [address] Loving, CKD stage IV s/p L AV fistula in December 2017, h/o RLE DVT on chronic Coumadin, R Staghorn Calculi s/p PCNL (resolved), anemia of chronic disease, who was a direct admission from Dr. Apple's office due to DARELL and hyperkalemia. DARELL on CKD stage IV, hyperkalemia, h/o urothelial CA s/p L nephrectomy in January [address] Loving, s/p L AV fistula in December 2017: - Admit to [facility] for cardiac monitoring - Obtain EKG - K of 6.3- IV insulin + Dextrose + 15 gm Kayexalate- repeat PRP at 1400 - Infusion Therapy Nurse 5.25- baseline [employer] 3.3-3.7 - Will gently hydrate w/ IVF @ 75 ml/hr x1 - Obtain UA and R renal US due to h/o kidney stones - Avoid nephrotoxic agents and renally dose medications as appropriate - Consult nephrology, appreciate recommendations HTN: - Continue Catapres, Coreg, Diltiazem - Hold Lisinopril - IV Hydralazine PRN Anemia of chronic disease- follows w/ Dr. Apple: - Gets weekly blood work and Procrit injections PRN - hgb 12 today- follow CBC h/o RLE DVT: Continue Coumadin- follow PT/INR and adjust Coumadin dosage PRN DVT prophylaxis: Coumadin Code status: LEVEL I, FULL Dispo: From home, lives w/ - CM and PT/OT consulted Resuscitation Status LEVEL I, FULL VTE Prophylaxis Will order VTE Prophylaxis: Yes
--- NOTE | 2018-03-06 14:30 | Nephrology Consultation ---
Nephrology Consultation Date & Providers Date of Consultation: March 06, 2018. Primary Care Provider: Winston Hopkins D.O. Referring Provider: Reason for Consultation DARELL / CKD History of Present Illness Mr. Domingo is a 62 year old white male who is seen at the request of Dr. Umanzor for evaluation of acute on CKD. Medical records in the EMR were reviewed today and are summarized as follows: Mr. Domingo lives in [place], [place] near [place]. His primary Fly Fishing Guide is Dr. Katelyn Donato ([place], [place]). Mr. Domingo had stage IV CKD w/ baseline creatinine 3.0 due to hypertensive nephrosclerosis. Earlier this year Mr. Domingo developed gross hematuria. Medical evaluation revealed a R staghorn calculus and TCCA of the L renal pelvis. Mr. Domingo underwent R PCNL. The stone has been removed and he subsequently underwent L HALN 01/23/[address] Niels Loving. Post operatively his creatinine stabilized at 3.6 w/ EGFR 17 cc/ min. He did not require initiation of HD. His hospital course was complicated by LE DVT requiring IVC filter insertion. Mr. Domingo presented to [facility] today for MARYLOU therapy and to discuss the possibility of adjuvant chemotherapy. His Hgb was 12 and he did not require Epogen, however it was noted that his creatinine has risen to 5.3 and potassium was 6.8. Admission was advised for management of hyperkalemia and evaluation of acute on chronic kidney injury. Mr. Domingo denies recent N&V, diarrhea or use of NSAIDS. He remains on Lisinopril for management of HTN. Past Medical/Surgical History Medical: # Stage IV CKD (baseline creatinine 3.6 w/ EGFR 17 cc/min) # HTN # Anemia - on MARYLOU as per Dr. Wilkinson # R staghorn calculus s/p PCNL # TCCA L renal pelvis # RLE DVT Surgical: # R PCNL # L upper arm AVF 12/21 - Dr. Roth # IVC filter 01/20/18 - Dr. Jimenez Allergies Coded Allergies: Statins (Verified Adverse Reaction, Mild, GI UPSET, 03/03/18) Inpatient Medications Current Inpatient Medications Medications (Trade) Dose Ordered Sig/Solitario Route Start Time Stop Time Status Last Admin Dose Admin Acetaminophen (Tylenol Tab) 650 mg Q4H PRN PO 03/06/18 13:30 04/05/18 13:29 UNV Al Hydrox/Mg Hydrox/Simethicone (Maalox Max Susp) 15 ml Q4H PRN PO 03/06/18 13:30 04/05/18 13:29 UNV Magnesium Hydroxide (Milk Of Magnesia Susp) 30 ml Q12H PRN PO 03/06/18 13:30 04/05/18 13:29 UNV Ondansetron HCl (Zofran Inj) 4 mg Q6H PRN IV 03/06/18 13:30 04/05/18 13:29 UNV Nitroglycerin (Nitrostat Tab) 0.4 mg UD PRN SL 03/06/18 13:30 04/05/18 13:29 UNV Morphine Sulfate (MoRPHine SULFATE INJ) 2 mg Q30M PRN IV 03/06/18 13:30 03/20/18 13:29 UNV Polyethylene (Miralax Powder Packet) 17 gm DAILY PRN PO 03/06/18 13:30 04/05/18 13:29 UNV Carvedilol (Coreg Tab) 3.125 mg BIDM PO 03/06/18 17:00 04/05/18 16:59 UNV Clonidine HCl (Catapres Tab) 0.3 mg QAM PO 03/07/18 09:00 04/06/18 08:59 UNV Warfarin Sodium (Coumadin Tab) 5 mg DAILY@16 PO 03/06/18 16:00 04/05/18 15:59 UNV Non-Formulary Medication (Diltiazem Hcl Extended Release (Diltiazem Hcl Er)) 240 mg QAM PO 03/07/18 09:00 04/06/18 08:59 UNV Insulin Human Regular 10 units/ Syringe 10 ml @ 20 mls/min NOW STAT IV 03/06/18 13:27 03/06/18 13:28 UNV Dextrose (Dextrose 50% 50ML Syringe) 50 ml NOW STAT IV 03/06/18 13:27 03/06/18 13:28 UNV Sodium Polystyrene Sulfonate (Kayexalate Susp) 15 gm NOW STAT PO 03/06/18 13:27 03/06/18 13:28 UNV Hydralazine HCl (HydrALAZINE INJ) 10 mg Q6H PRN IV. 03/06/18 13:30 04/05/18 13:29 UNV Sodium Chloride 1,000 ml @ 75 mls/hr [id number] ONCE IV 03/06/18 14:00 03/07/18 03:19 UNV Pneumococcal Polysaccharide Vaccine (Pneumovax-23 Inj) 25 mcg ONCE ONCE IM. 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 Remote tobacco use. Review of Systems Constitutional: No fever Respiratory: No shortness of breath Cardiovascular: No chest pain Abdomen: No pain, No nausea, No vomiting, No diarrhea Genitourinary - Male: No hematuria A complete review of systems was performed. Pertinent positives are noted above. All other systems are negative. Physical Exam Date Time Temp Pulse Resp B/P (MAP) Pulse Ox O2 Delivery O2 Flow Rate FiO2 03/06/18 13:26 36.5 69 18 134/80 Room Air 03/06/18 13:03 36.5 69 18 134/80 (98) 97 Room Air General Appearance: no apparent distress Head: normocephalic, atraumatic Eyes: PERRL, EOMI Neck: no adenopathy Respiratory/Chest: lungs clear, no respiratory distress Cardiovascular: regular rate, rhythm Abdomen/GI: normal bowel sounds, non tender, soft Extremities/Musculoskelatal: no calf tenderness, no pedal edema, + pertinent finding (L upper arm AVF + bruit) Neurologic/Psych: alert, oriented x 3 Skin: warm/dry Laboratory Results Last 24 Hours Test 03/06/18 13:27 03/06/18 14:00 03/06/18 14:11 Impression (1) DARELL (acute kidney injury) (2) Chronic kidney disease, stage 4 (severe) (3) Urothelial carcinoma of kidney (4) History of nephrectomy, unilateral (5) Hyperkalemia, diminished renal excretion (6) Metabolic acidosis (7) Hypertension (8) Deep vein thrombosis (DVT) Recommendations -- Stop Lisinopril -- Agree w/ medical management of hyperkalemia -- Monitor cardiac rhythm -- AVF w/ + bruit and palpable venous limb. Will schedule 2 hour HD treatment today using 17 g needles and 200 cc / min Qb. HD RN notified -- Monitor PRP. Patient may require chronic IHD
[2018-03-06] MEDS ORDERED: INSULIN HUMAN REGULAR PER UNIT 10 UNITS in SYRINGE 9.9 ML IV ONE (14:45)
[2018-03-06 14:47] LABS: INR 1.3 (0.9-1.1)
[2018-03-06] MEDS ORDERED: SODIUM CHLORIDE 0.9% 1000ML 1,000 ML IV ONE (15:00)
[2018-03-06 15:17] LABS: CALCIUM 8.8 mg/dl (8.5-10.1); CREATININE 5.35 mg/dl (0.60-1.40); POTASSIUM 6.8 mmol/L (3.5-5.1)
[2018-03-06 15:23] LABS: HEMATOCRIT 37.5 % (42-52); MEAN CELL VOLUME 94.5 fL (80-100); MEAN CORPUSCULAR HEMOGLOBIN 30.2 pg (25-34); MEAN PLATELET VOLUME 9.9 fL (7.4-10.4); PLATELET COUNT 307 K/uL (130-400); RED CELL DISTRIBUTION WIDTH CV 16.2 % (11.5-14.5); RED CELL DISTRIBUTION WIDTH SD 56.6 fL (36.4-46.3); WHITE BLOOD COUNT 3.69 K/uL (4.8-10.8)
--- NOTE | 2018-03-06 15:38 | DIAGNOSTIC IMAGING REPORT ---
RENAL ULTRASOUND CLINICAL HISTORY: Acute kidney injury. COMPARISON STUDY: CT of the abdomen and pelvis December 31, 2017. TECHNIQUE: Sonography of the kidneys and the urinary bladder was performed. FINDINGS: The left kidney is not visualized and by report is surgically absent. The right kidney measures 13.1 x 6.9 x 6.7 cm. There is no right hydronephrosis. The right kidney is echogenic. A 9 mm right renal cyst is noted. There is trace perinephric fluid. Neither ureteral jets were identified. IMPRESSION: 1. No right hydronephrosis. 2. Echogenic right kidney which suggests medical renal disease. 3. Nonvisualization of the left kidney which by report is surgically absent. Electronically signed by: Sonny Dejesus M.D. 03/06/2018 3:37 PM Dictated Date/Time: 03/06/2018 3:34 PM
[2018-03-06] MEDS: WARFARIN SOD 5 MG TAB PO SCH (15:41)
[2018-03-06] MEDS ORDERED: DEXTROSE 50% 50 ML SYR ONE (15:43)
[2018-03-06] MEDS: CARVEDILOL 3.125 MG TAB PO SCH (17:29)
[2018-03-06 17:41] LABS: CALCIUM 8.8 mg/dl (8.5-10.1); CREATININE 5.35 mg/dl (0.60-1.40); POTASSIUM 6.2 mmol/L (3.5-5.1)
[2018-03-06] MEDS ORDERED: PNEUMOCOCCAL ADMINISTRATION CHARGE ONE (20:00)
[2018-03-06] MEDS ORDERED: PNEUMOCOCCAL POLYSACCHARIDES 25 MCG/0.5 ML VIAL/SYR IM. ONE (20:00)
[2018-03-07] VITALS (15 sets, daily range): BP systolic 126–162; BP diastolic 69–101; PULSE 69–75; TEMP 36.4–36.9; O2SAT 95–99
[2018-03-07 06:56] LABS: HEMATOCRIT 35.1 % (42-52); HEMOGLOBIN 11.2 g/dL (14.0-18.0); MEAN CELL VOLUME 93.1 fL (80-100); MEAN CORPUSCULAR HEMOGLOBIN 29.7 pg (25-34); MEAN CORPUSCULAR HGB CONC 31.9 g/dl (32-36); MEAN PLATELET VOLUME 9.4 fL (7.4-10.4); PLATELET COUNT 219 K/uL (130-400); RED CELL DISTRIBUTION WIDTH CV 16.1 % (11.5-14.5); RED CELL DISTRIBUTION WIDTH SD 55.4 fL (36.4-46.3); WHITE BLOOD COUNT 2.92 K/uL (4.8-10.8)
[2018-03-07 07:09] LABS: INR 1.4 (0.9-1.1)
[2018-03-07 07:37] LABS: CALCIUM 8.2 mg/dl (8.5-10.1); CREATININE 4.54 mg/dl (0.60-1.40); POTASSIUM 5.6 mmol/L (3.5-5.1)
[2018-03-07] MEDS: CARVEDILOL 3.125 MG TAB PO SCH ×2 (08:00→16:28)
[2018-03-07] MEDS: DILTIAZEM HCL 120 MG ER CAP PO SCH ×2 (09:00→13:14)
[2018-03-07] MEDS: CLONIDINE HCL 0.3 MG TAB PO SCH ×2 (09:00→13:14)
--- NOTE | 2018-03-07 10:18 | Progress Note ---
Progress Note Date of Service March 07, 2018. Progress Note Urology was consulted on this patient who had a hand-assisted laparoscopic left nephrectomy by Dr. Loving. Unfortunately the patient is in dialysis so he did not get seen today. I did review his records. Renal ultrasound shows no right- sided hydronephrosis. He is making urine. 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 Based on all of the records that does not appear to be any need for urologic intervention at this time. I would check a postvoid residual. I will try to see him tomorrow if he is available.
--- NOTE | 2018-03-07 10:54 | Dialysis Progress Note ---
Hemodialysis Note Date of Service March 07, 2018. Chief Complaint Follow-up for end-stage renal disease on hemodialysis. Subjective Heriberto was seen and examined during dialysis. Overall tolerating dialysis well. This is his 2nd treatment, tolerated dialysis yesterday for 2 hours. Currently blood pressure stable. Review of Systems A complete review of systems was performed. Pertinent positives are noted above. All other systems are negative. Vital Signs Last 8 Hrs Date Time Temp Pulse Resp B/P (MAP) Pulse Ox O2 Delivery O2 Flow Rate FiO2 03/07/18 10:40 73 161/101 03/07/18 10:15 75 156/92 03/07/18 10:00 74 148/87 03/07/18 09:45 72 151/89 03/07/18 09:41 36.4 75 151/91 (111) 03/07/18 08:00 Room Air 03/07/18 07:19 36.6 72 16 154/73 (100) 95 Room Air 03/07/18 04:29 36.9 70 20 126/69 (88) 97 Room Air 03/07/18 04:00 Room Air Last Recorded Weight Weight (Kilograms): 99.900 Physical Exam GENERAL: Middle-aged male, AAA x 3, pleasant, healthy-appearing, not in any distress. NECK: Supple, no JVD. RESPIRATORY: Normal breathing efforts, no accessory muscle use, clear to auscultation bilaterally, no wheezes or rales. CARDIOVASCULAR: S1, S2 normal, rate rhythm regular. EXTREMITY: No lower extremity edema NEURO: speech fluent. 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 Remote tobacco use. Laboratory Results Past 24 Hours 03/06/18 14:17 03/07/18 06:33 03/06/18 14:11 03/06/18 16:59 03/07/18 06:33 Test 03/06/18 14:11 03/06/18 14:17 03/06/18 16:59 03/06/18 22:40 Prothrombin Time 14.0 SECONDS (9.0-12.0) Prothromb Time International Ratio 1.3 (0.9-1.1) Anion Gap 8.0 mmol/L (3-11) 7.0 mmol/L (3-11) Est Creatinine Clear Calc Drug Dose 28.9 ml/min 17.3 ml/min Estimated GFR () 12.3 12.3 Estimated GFR (Non- 10.6 10.6 BUN/Creatinine Ratio 17.8 (10-20) 17.0 (10-20) Calcium Level 8.8 mg/dl (8.5-10.1) 8.8 mg/dl (8.5-10.1) Magnesium Level 2.4 mg/dl (1.8-2.4) Red Blood Count 3.97 M/uL (4.7-6.1) Mean Corpuscular Volume 94.5 fL (80-100) Mean Corpuscular Hemoglobin 30.2 pg (25-34) Mean Corpuscular Hemoglobin Concent 32.0 g/dl (32-36) RDW Standard Deviation 56.6 fL (36.4-46.3) RDW Coefficient of Variation 16.2 % (11.5-14.5) Mean Platelet Volume 9.9 fL (7.4-10.4) Hepatitis B Surface Antigen NEG (NEG) Hepatitis B Surface Antibody NEG Urine Color YELLOW Urine Appearance CLEAR (CLEAR) Urine pH 5.0 (4.5-7.5) Urine Specific [place] 1.014 (1.000-1.030) Urine Protein 2+ (NEG) Urine Glucose (UA) NEG (NEG) Urine Ketones NEG (NEG) Urine Occult Blood NEG (NEG) Urine Nitrite NEG (NEG) Urine Bilirubin NEG (NEG) Urine Urobilinogen NEG (NEG) Urine Leukocyte Esterase NEG (NEG) Urine WBC (Auto) 1-5 /hpf (0-5) Urine RBC (Auto) 0-4 /hpf (0-4) Urine Hyaline Casts (Auto) 0 /lpf (0-5) Urine Epithelial Cells (Auto) 0-5 /lpf (0-5) Urine Bacteria (Auto) NEG (NEG) Test 03/07/18 06:33 Red Blood Count 3.77 M/uL (4.7-6.1) Mean Corpuscular Volume 93.1 fL (80-100) Mean Corpuscular Hemoglobin 29.7 pg (25-34) Mean Corpuscular Hemoglobin Concent 31.9 g/dl (32-36) RDW Standard Deviation 55.4 fL (36.4-46.3) RDW Coefficient of Variation 16.1 % (11.5-14.5) Mean Platelet Volume 9.4 fL (7.4-10.4) Prothrombin Time 14.6 SECONDS (9.0-12.0) Prothromb Time International Ratio 1.4 (0.9-1.1) Anion Gap 8.0 mmol/L (3-11) Est Creatinine Clear Calc Drug Dose 20.4 ml/min Estimated GFR () 15.0 Estimated GFR (Non- 13.0 BUN/Creatinine Ratio 14.8 (10-20) Calcium Level 8.2 mg/dl (8.5-10.1) Allergies Coded Allergies: Statins (Verified Adverse Reaction, Mild, GI UPSET, 03/03/18) Medications Current Inpatient Medications Medications (Trade) Dose Ordered Sig/Solitario Route Start Time Stop Time Status Last Admin Dose Admin Acetaminophen (Tylenol Tab) 650 mg Q4H PRN PO 03/06/18 13:30 04/05/18 13:29 Al Hydrox/Mg Hydrox/Simethicone (Maalox Max Susp) 15 ml Q4H PRN PO 03/06/18 13:30 04/05/18 13:29 Magnesium Hydroxide (Milk Of Magnesia Susp) 30 ml Q12H PRN PO 03/06/18 13:30 04/05/18 13:29 Ondansetron HCl (Zofran Inj) 4 mg Q6H PRN IV 03/06/18 13:30 04/05/18 13:29 Nitroglycerin (Nitrostat Tab) 0.4 mg UD PRN SL 03/06/18 13:30 04/05/18 13:29 Morphine Sulfate (MoRPHine SULFATE INJ) 2 mg Q30M PRN IV 03/06/18 13:30 03/20/18 13:29 Polyethylene (Miralax Powder Packet) 17 gm DAILY PRN PO 03/06/18 13:30 04/05/18 13:29 Carvedilol (Coreg Tab) 3.125 mg BIDM PO 03/06/18 17:00 04/05/18 16:59 03/06/18 17:29 3.125 MG Clonidine HCl (Catapres Tab) 0.3 mg QAM PO 5/5/18 09:00 04/06/18 08:59 Warfarin Sodium (Coumadin Tab) 5 mg DAILY@16 PO 03/06/18 16:00 04/05/18 15:59 03/06/18 15:41 5 MG Diltiazem HCl (Dilacor Xr Cap) 240 mg QAM PO 03/07/18 09:00 04/06/18 08:59 Hydralazine HCl (HydrALAZINE INJ) 10 mg Q6H PRN IV. 03/06/18 13:30 04/05/18 13:29 Impression (1) DARELL (acute kidney injury) (2) Chronic kidney disease, stage 4 (severe) (3) Urothelial carcinoma of kidney (4) History of nephrectomy, unilateral (5) Hyperkalemia, diminished renal excretion (6) Metabolic acidosis (7) Hypertension (8) Deep vein thrombosis (DVT) Recommendations -- currently tolerating dialysis well, blood pressure stable otherwise asymptomatic. -- next dialysis Friday for 3 hours --consult social service for outpatient dialysis set up at [facility] Dialysis unit under his active directory systems administrator Dr. Donato -- be available during dialysis treatment --hemoglobin above 11, no need for Epogen --start on Nephrocaps and phosphate binder Will follow
[2018-03-07] MEDS: CALCIUM CARBONATE 500 MG CHEWABLE PO SCH ×2 (11:00→16:29)
[2018-03-07] MEDS: WARFARIN SOD 5 MG TAB PO SCH (16:28)
--- NOTE | 2018-03-07 18:32 | Progress Note ---
Subjective Date of Service: March 07, 2018. Subjective Pt evaluation today including: conversation w/ patient, physical exam, chart review, lab review, conversation w/ [facility] consultant feeling good breathing fine no nausea no shakes d/w dr serrano - likely to need to be set up for HD ongoing Problem List Medical Problems: (1) Anticoagulated Status: Acute (2) Deep vein thrombosis Status: Acute (3) Hyperkalemia Status: Acute (4) Urothelial cancer Status: Acute Review of Systems all other ROS otherwise negative except for as above Objective Vital Signs Date Time Temp Pulse Resp B/P (MAP) Pulse Ox O2 Delivery O2 Flow Rate FiO2 03/07/18 16:00 Room Air 03/07/18 14:55 36.6 74 18 144/86 (105) 98 Room Air 03/07/18 13:15 Room Air 03/07/18 12:32 36.6 71 160/96 (117) 03/07/18 12:15 69 162/96 03/07/18 12:00 69 155/96 03/07/18 11:30 75 147/91 03/07/18 11:00 75 154/93 03/07/18 10:40 73 161/101 03/07/18 10:15 75 156/92 03/07/18 10:00 74 148/87 03/07/18 09:45 72 151/89 03/07/18 09:41 36.4 75 151/91 (111) 03/07/18 08:00 Room Air 03/07/18 07:19 36.6 72 16 154/73 (100) 95 Room Air 03/07/18 04:29 36.9 70 20 126/69 (88) 97 Room Air 03/07/18 04:00 Room Air 03/07/18 00:06 36.6 70 20 135/74 (94) 96 Room Air 03/06/18 23:59 Room Air 03/06/18 21:00 36.6 67 128/82 (97) 03/06/18 20:45 68 129/78 03/06/18 20:30 67 125/84 03/06/18 20:15 69 125/80 03/06/18 20:00 69 135/85 03/06/18 20:00 Room Air 03/06/18 19:45 69 132/82 03/06/18 19:30 71 124/79 03/06/18 19:15 69 124/78 03/06/18 19:00 70 135/81 03/06/18 18:53 36.6 70 138/78 (98) Physical Exam General Appearance: no apparent distress Eyes: EOMI ENT: hearing grossly normal Neck: trachea midline Respiratory/Chest: no respiratory distress, no accessory muscle use Extremities: normal range of motion Neurologic/Psychiatric: bias cutter helper II-XII nml as tested Skin: normal color, warm/dry Laboratory Results Last 24 Hours Test 03/06/18 22:40 03/07/18 06:33 Urine Color YELLOW Urine Appearance CLEAR Urine pH 5.0 Urine Specific [place] 1.014 Urine Protein 2+ Urine Glucose (UA) NEG Urine Ketones NEG Urine Occult Blood NEG Urine Nitrite NEG Urine Bilirubin NEG Urine Urobilinogen NEG Urine Leukocyte Esterase NEG Urine WBC (Auto) 1-5 /hpf Urine RBC (Auto) 0-4 /hpf Urine Hyaline Casts (Auto) 0 /lpf Urine Epithelial Cells (Auto) 0-5 /lpf Urine Bacteria (Auto) NEG White Blood Count 2.92 K/uL Red Blood Count 3.77 M/uL Hemoglobin 11.2 g/dL Hematocrit 35.1 % Mean Corpuscular Volume 93.1 fL Mean Corpuscular Hemoglobin 29.7 pg Mean Corpuscular Hemoglobin Concent 31.9 g/dl RDW Standard Deviation 55.4 fL RDW Coefficient of Variation 16.1 % Platelet Count 219 K/uL Mean Platelet Volume 9.4 fL Prothrombin Time 14.6 SECONDS Prothromb Time International Ratio 1.4 Sodium Level 141 mmol/L Potassium Level 5.6 mmol/L Chloride Level 113 mmol/L Carbon Dioxide Level 20 mmol/L Anion Gap 8.0 mmol/L Blood Urea Nitrogen 67 mg/dl Creatinine 4.54 mg/dl Est Creatinine Clear Calc Drug Dose 20.4 ml/min Estimated GFR () 15.0 Estimated GFR (Non- 13.0 BUN/Creatinine Ratio 14.8 Random Glucose 82 mg/dl Calcium Level 8.2 mg/dl Assessment and Plan Mr. Domingo is a 62 y/o male with PMHx of HTN, urothelial CA s/p L nephrectomy in January [address] Loving, CKD stage IV s/p L AV fistula in December 2017, h/o RLE DVT on chronic Coumadin, R Staghorn Calculi s/p PCNL (resolved), anemia of chronic disease, who was a direct admission from Dr. Apple's office due to DARELL and hyperkalemia. ARF on CKD stage IV, hyperkalemia, h/o urothelial CA s/p L nephrectomy in January [address] Loving, s/p L AV fistula in December 2017: -hyperkalemia improving -creatinine improved - no current need for acute dialysis -continued nephrology input appreciated HTN: - Continue Catapres, Coreg, Diltiazem Anemia of chronic disease- follows w/ Dr. Apple: - Gets weekly blood work and Procrit injections PRN - follow Hgb h/o RLE DVT: Continue Coumadin- follow PT/INR and adjust Coumadin dosage PRN -- currently low give extra coumadin DVT prophylaxis: Coumadin Code status: LEVEL I, FULL Dispo: From home, lives w/ - CM and PT/OT consulted
[2018-03-07] MEDS ORDERED: WARFARIN SOD 5 MG TAB PO ONE (18:37)
[2018-03-08] VITALS (9 sets, daily range): BP systolic 84–168; BP diastolic 56–94; PULSE 61–83; TEMP 36.4–37.3; O2SAT 94–99
[2018-03-08] MEDS: ONDANSETRON INJ 2 MG/ML 2 ML VIAL IV PRN ×2 (01:16→06:02)
[2018-03-08] MEDS: CALCIUM CARBONATE 500 MG CHEWABLE PO SCH ×3 (06:02→16:30)
[2018-03-08 06:48] LABS: HEMATOCRIT 39.7 % (42-52); HEMOGLOBIN 13.1 g/dL (14.0-18.0); MEAN CELL VOLUME 92.8 fL (80-100); MEAN CORPUSCULAR HEMOGLOBIN 30.6 pg (25-34); MEAN PLATELET VOLUME 10.1 fL (7.4-10.4); PLATELET COUNT 284 K/uL (130-400); RED CELL DISTRIBUTION WIDTH CV 16.1 % (11.5-14.5); RED CELL DISTRIBUTION WIDTH SD 54.6 fL (36.4-46.3)
[2018-03-08 07:03] LABS: INR 1.3 (0.9-1.1)
[2018-03-08 07:27] LABS: CALCIUM 9.1 mg/dl (8.5-10.1); CREATININE 4.08 mg/dl (0.60-1.40); POTASSIUM 4.4 mmol/L (3.5-5.1)
[2018-03-08] MEDS ORDERED: PROMETHAZINE HCL INJ 25 MG in SODIUM CHLORIDE 0.9% 50ML 50 ML IV PRN (09:00)
--- NOTE | 2018-03-08 10:19 | Nephrology Progress Note ---
Nephrology Progress Note Date of Service March 08, 2018. Chief Complaint Follow-up for end-stage renal disease on hemodialysis. Subjective Heriberto was seen and examined in his room, this am. Has been feeling poorly, having nausea and vomiting since last night, multiple times overnight. No abdominal pain or constipation. tolerated HD for 3 h with 1 L UF yesterday, vitals were stable. K normal. Review of Systems A complete review of systems was performed. Pertinent positives are noted above. All other systems are negative. Vital Signs Last 8 Hrs Date Time Temp Pulse Resp B/P (MAP) Pulse Ox O2 Delivery O2 Flow Rate FiO2 03/08/18 08:00 Room Air 03/08/18 07:24 36.9 83 20 159/72 (101) 94 Room Air 03/08/18 04:37 36.7 66 20 152/75 (100) 99 Room Air 03/08/18 04:06 Room Air Last Recorded Weight Weight (Kilograms): 95.700 Physical Exam GENERAL: middle aged male, AAA x 3, pleasant, healthy-appearing, not in any distress. NECK: Supple, no JVD. RESPIRATORY: Normal breathing efforts, no accessory muscle use, clear to auscultation bilaterally, no wheezes or rales. CARDIOVASCULAR: S1, S2 normal, rate rhythm regular. EXTREMITY: No lower extremity edema ACCESS: left RC AVF with thrill and bruit NEURO: speech fluent. 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 Remote tobacco use. Laboratory Results Past 24 Hours 03/08/18 06:10 03/08/18 06:10 Test 03/08/18 06:10 Red Blood Count 4.28 M/uL (4.7-6.1) Mean Corpuscular Volume 92.8 fL (80-100) Mean Corpuscular Hemoglobin 30.6 pg (25-34) Mean Corpuscular Hemoglobin Concent 33.0 g/dl (32-36) RDW Standard Deviation 54.6 fL (36.4-46.3) RDW Coefficient of Variation 16.1 % (11.5-14.5) Mean Platelet Volume 10.1 fL (7.4-10.4) Prothrombin Time 13.8 SECONDS (9.0-12.0) Prothromb Time International Ratio 1.3 (0.9-1.1) Anion Gap 9.0 mmol/L (3-11) Est Creatinine Clear Calc Drug Dose 22.7 ml/min Estimated GFR () 17.1 Estimated GFR (Non- 14.8 BUN/Creatinine Ratio 12.5 (10-20) Calcium Level 9.1 mg/dl (8.5-10.1) Allergies Coded Allergies: Statins (Verified Adverse Reaction, Mild, GI UPSET, 03/03/18) Medications Current Inpatient Medications Medications (Trade) Dose Ordered Sig/Solitario Route Start Time Stop Time Status Last Admin Dose Admin Acetaminophen (Tylenol Tab) 650 mg Q4H PRN PO 03/06/18 13:30 04/05/18 13:29 Al Hydrox/Mg Hydrox/Simethicone (Maalox Max Susp) 15 ml Q4H PRN PO 03/06/18 13:30 04/05/18 13:29 Magnesium Hydroxide (Milk Of Magnesia Susp) 30 ml Q12H PRN PO 03/06/18 13:30 04/05/18 13:29 Ondansetron HCl (Zofran Inj) 4 mg Q6H PRN IV 03/06/18 13:30 04/05/18 13:29 03/08/18 06:02 4 MG Nitroglycerin (Nitrostat Tab) 0.4 mg UD PRN SL 03/06/18 13:30 04/05/18 13:29 Morphine Sulfate (MoRPHine SULFATE INJ) 2 mg Q30M PRN IV 03/06/18 13:30 03/20/18 13:29 Polyethylene (Miralax Powder Packet) 17 gm DAILY PRN PO 03/06/18 13:30 04/05/18 13:29 Carvedilol (Coreg Tab) 3.125 mg BIDM PO 03/06/18 17:00 04/05/18 16:59 03/07/18 16:28 3.125 MG Clonidine HCl (Catapres Tab) 0.3 mg QAM PO 03/07/18 09:00 04/06/18 08:59 03/07/18 13:14 0.3 MG Warfarin Sodium (Coumadin Tab) 5 mg DAILY@16 PO 03/06/18 16:00 04/05/18 15:59 03/07/18 16:28 5 MG Diltiazem HCl (Dilacor Xr Cap) 240 mg QAM PO 03/07/18 09:00 04/06/18 08:59 03/07/18 13:14 240 MG Hydralazine HCl (HydrALAZINE INJ) 10 mg Q6H PRN IV. 03/06/18 13:30 04/05/18 13:29 Vitamin B Complex/ Vit C/Folic Acid (Nephrocaps) 1 cap QAM PO 03/08/18 09:00 04/07/18 08:59 Calcium Carbonate (Tums Chew Tab) 500 mg AC PO 03/07/18 11:00 04/06/18 10:59 Promethazine HCl 25 mg/Sodium Chloride 51 ml @ 204 mls/hr Q6H PRN IV 03/08/18 09:00 04/07/18 08:59 UNV Impression (1) DARELL (acute kidney injury) (2) Chronic kidney disease, stage 4 (severe) (3) Urothelial carcinoma of kidney (4) History of nephrectomy, unilateral (5) Hyperkalemia, diminished renal excretion (6) Metabolic acidosis (7) Hypertension (8) Deep vein thrombosis (DVT) Recommendations --will monitor next 24 h and tentatively plan for next dialysis Friday for 3 hours, if cr and K stable may be able to keep off of HD for now and set up as outpt after discharge. --waiting for outpatient dialysis set up at [facility] Dialysis unit under his floor press operator Dr. Donato --hemoglobin above 11, no need for Epogen --start on Nephrocaps and phosphate binder Will follow
[2018-03-08] MEDS ORDERED: NURSING DECISION MEDICATION ORDER SCH (10:30)
[2018-03-08] MEDS: SODIUM CHLORIDE 0.45% 1000ML 1,000 ML IV SCH (10:37)
[2018-03-08] MEDS: CLONIDINE HCL 0.3 MG TAB PO SCH (10:38)
[2018-03-08] MEDS: NEPHROCAPS PO SCH (10:38)
[2018-03-08] MEDS: DILTIAZEM HCL 120 MG ER CAP PO SCH (10:38)
[2018-03-08] MEDS: CARVEDILOL 3.125 MG TAB PO SCH ×2 (10:38→16:34)
[2018-03-08] MEDS: WARFARIN SOD 5 MG TAB PO SCH (16:33)
--- NOTE | 2018-03-08 16:46 | Progress Note ---
Subjective Date of Service: March 08, 2018. Subjective Pt evaluation today including: conversation w/ patient, physical exam, chart review, lab review, conversation w/ medical device sales consultant, review of inpatient medication list feeling nauseated, vomit/dry heaves since mid yesterday afternoon no diarrhea d/w nephrology - not thinking it related to HD hasn't eaten well since yesterday morning no constipation either Problem List Medical Problems: (1) Anticoagulated Status: Acute (2) Deep vein thrombosis Status: Acute (3) Hyperkalemia Status: Acute (4) Urothelial cancer Status: Acute Review of Systems all other ROS otherwise negative except for as above Objective Vital Signs Date Time Temp Pulse Resp B/P (MAP) Pulse Ox O2 Delivery O2 Flow Rate FiO2 03/08/18 16:00 Room Air 03/08/18 15:34 37.3 71 18 92/56 (68) 98 Room Air 03/08/18 12:00 Room Air 03/08/18 11:52 36.8 63 18 168/94 (118) 97 Room Air 03/08/18 08:00 Room Air 03/08/18 07:24 36.9 83 20 159/72 (101) 94 Room Air 03/08/18 04:37 36.7 66 20 152/75 (100) 99 Room Air 03/08/18 04:06 Room Air 03/08/18 00:21 36.7 80 19 150/76 (100) 97 Room Air 03/07/18 23:49 Room Air 03/07/18 20:00 Room Air 03/07/18 19:30 36.7 71 18 138/79 (98) 99 Room Air Physical Exam General Appearance: no apparent distress Eyes: EOMI ENT: hearing grossly normal Neck: trachea midline Respiratory/Chest: no respiratory distress, no accessory muscle use Abdomen: normal bowel sounds, non tender, soft Extremities: normal range of motion Neurologic/Psychiatric: pedorthist II-XII nml as tested, alert, normal mood/affect Skin: normal color, warm/dry Laboratory Results Last 24 Hours Test 03/08/18 06:10 White Blood Count 5.20 K/uL Red Blood Count 4.28 M/uL Hemoglobin 13.1 g/dL Hematocrit 39.7 % Mean Corpuscular Volume 92.8 fL Mean Corpuscular Hemoglobin 30.6 pg Mean Corpuscular Hemoglobin Concent 33.0 g/dl RDW Standard Deviation 54.6 fL RDW Coefficient of Variation 16.1 % Platelet Count 284 K/uL Mean Platelet Volume 10.1 fL Prothrombin Time 13.8 SECONDS Prothromb Time International Ratio 1.3 Sodium Level 138 mmol/L Potassium Level 4.4 mmol/L Chloride Level 105 mmol/L Carbon Dioxide Level 24 mmol/L Anion Gap 9.0 mmol/L Blood Urea Nitrogen 51 mg/dl Creatinine 4.08 mg/dl Est Creatinine Clear Calc Drug Dose 22.7 ml/min Estimated GFR () 17.1 Estimated GFR (Non- 14.8 BUN/Creatinine Ratio 12.5 Random Glucose 119 mg/dl Calcium Level 9.1 mg/dl Assessment and Plan Mr. Domingo is a 62 y/o male with PMHx of HTN, urothelial CA s/p L nephrectomy in January [address] Loving, CKD stage IV s/p L AV fistula in December 2017, h/o RLE DVT on chronic Coumadin, R Staghorn Calculi s/p PCNL (resolved), anemia of chronic disease, who was a direct admission from Dr. Apple's office due to DARELL and hyperkalemia. ARF on CKD stage IV, hyperkalemia, h/o urothelial CA s/p L nephrectomy in January [address] Loving, s/p L AV fistula in December 2017: -hyperkalemia improving -creatinine improving - ongoing HD per nephro - and facilitating outpt HD -continued nephrology input appreciated nausea/vomiting -no worrisome findings on exam, ?viral vs adapting to dialysis vs other -supportive care, serial exams, anticipate spontaneous resolution - w/u further if he does not improve -gentle IVF since not eating/drinking well right now HTN: - Continue Catapres, Coreg, Diltiazem - follow BP--reasonable Anemia of chronic disease- follows w/ Dr. Apple: - Gets weekly blood work and Procrit injections PRN - follow Hgb, has been stable h/o RLE DVT: Continue Coumadin- follow PT/INR and adjust Coumadin dosage PRN -- currently low give extra coumadin DVT prophylaxis: Coumadin - follow INR Code status: LEVEL I, FULL Dispo: From home, lives w/ - CM and PT/OT consulted
[2018-03-08] MEDS ORDERED: WARFARIN SOD 2.5 MG TAB PO ONE (16:58)
[2018-03-08] MEDS ORDERED: SODIUM CHLORIDE 0.9% 500ML 500 ML IV ONE (17:00)
[2018-03-09] VITALS (18 sets, daily range): BP systolic 92–172; BP diastolic 58–89; PULSE 53–82; TEMP 36.4–36.9; O2SAT 93–97
[2018-03-09 05:59] LABS: HEMATOCRIT 34.9 % (42-52); HEMOGLOBIN 11.2 g/dL (14.0-18.0); MEAN CELL VOLUME 93.8 fL (80-100); MEAN CORPUSCULAR HEMOGLOBIN 30.1 pg (25-34); MEAN CORPUSCULAR HGB CONC 32.1 g/dl (32-36); PLATELET COUNT 228 K/uL (130-400); RED CELL DISTRIBUTION WIDTH CV 16.1 % (11.5-14.5); RED CELL DISTRIBUTION WIDTH SD 55.4 fL (36.4-46.3); WHITE BLOOD COUNT 3.83 K/uL (4.8-10.8)
[2018-03-09] MEDS: SODIUM CHLORIDE 0.45% 1000ML 1,000 ML IV SCH (05:59)
[2018-03-09] MEDS: CALCIUM CARBONATE 500 MG CHEWABLE PO SCH ×3 (06:01→16:30)
[2018-03-09 06:07] LABS: INR 1.6 (0.9-1.1)
[2018-03-09 06:38] LABS: CALCIUM 8.2 mg/dl (8.5-10.1); CREATININE 4.9 mg/dl (0.60-1.40); POTASSIUM 4.7 mmol/L (3.5-5.1)
[2018-03-09] MEDS: CARVEDILOL 3.125 MG TAB PO SCH ×2 (08:00→17:57)
--- NOTE | 2018-03-09 08:52 | Progress Note ---
Progress Note Date of Service March 09, 2018. Progress Note Patient is afebrile vital signs are stable He has no complaints Denies any flank pain Says he is voiding without problem Schedule to receive dialysis today I believe No need for urologic intervention We will follow-up as needed
--- NOTE | 2018-03-09 09:38 | Nephrology Progress Note ---
Nephrology Progress Note Date of Service March 09, 2018. Chief Complaint Follow-up for end-stage renal disease on hemodialysis. Subjective Heriberto was seen and examined in his room, this am. Nausea and vomiting totally resolved, had dinner last night and breakfast without any issues. No abdominal pain or constipation. tolerated HD for 3 h with 1 L UF on Friday, vitals were stable. K normal. Cr increased off of HD for 1 day Review of Systems A complete review of systems was performed. Pertinent positives are noted above. All other systems are negative. Vital Signs Last 8 Hrs Date Time Temp Pulse Resp B/P (MAP) Pulse Ox O2 Delivery O2 Flow Rate FiO2 03/09/18 08:00 Room Air 03/09/18 04:09 Room Air 03/09/18 03:44 36.4 71 18 124/67 (86) 93 Room Air Last Recorded Weight Weight (Kilograms): 97.500 Physical Exam GENERAL: middle aged male, AAA x 3, pleasant, healthy-appearing, not in any distress. NECK: Supple, no JVD. RESPIRATORY: Normal breathing efforts, no accessory muscle use, clear to auscultation bilaterally, no wheezes or rales. CARDIOVASCULAR: S1, S2 normal, rate rhythm regular. EXTREMITY: No lower extremity edema ACCESS: left BC AVF with thrill and bruit NEURO: speech fluent. 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 Remote tobacco use. Laboratory Results Past 24 Hours 03/09/18 05:15 03/09/18 05:15 Test 03/09/18 05:15 Red Blood Count 3.72 M/uL (4.7-6.1) Mean Corpuscular Volume 93.8 fL (80-100) Mean Corpuscular Hemoglobin 30.1 pg (25-34) Mean Corpuscular Hemoglobin Concent 32.1 g/dl (32-36) RDW Standard Deviation 55.4 fL (36.4-46.3) RDW Coefficient of Variation 16.1 % (11.5-14.5) Mean Platelet Volume 10.0 fL (7.4-10.4) Prothrombin Time 16.4 SECONDS (9.0-12.0) Prothromb Time International Ratio 1.6 (0.9-1.1) Anion Gap 5.0 mmol/L (3-11) Est Creatinine Clear Calc Drug Dose 18.9 ml/min Estimated GFR () 13.7 Estimated GFR (Non- 11.8 BUN/Creatinine Ratio 13.3 (10-20) Calcium Level 8.2 mg/dl (8.5-10.1) Allergies Coded Allergies: Statins (Verified Adverse Reaction, Mild, GI UPSET, 03/03/18) Medications Current Inpatient Medications Medications (Trade) Dose Ordered Sig/Solitario Route Start Time Stop Time Status Last Admin Dose Admin Acetaminophen (Tylenol Tab) 650 mg Q4H PRN PO 03/06/18 13:30 04/05/18 13:29 Al Hydrox/Mg Hydrox/Simethicone (Maalox Max Susp) 15 ml Q4H PRN PO 03/06/18 13:30 04/05/18 13:29 Magnesium Hydroxide (Milk Of Magnesia Susp) 30 ml Q12H PRN PO 03/06/18 13:30 04/05/18 13:29 Ondansetron HCl (Zofran Inj) 4 mg Q6H PRN IV 03/06/18 13:30 04/05/18 13:29 03/08/18 06:02 4 MG Nitroglycerin (Nitrostat Tab) 0.4 mg UD PRN SL 03/06/18 13:30 04/05/18 13:29 Morphine Sulfate (MoRPHine SULFATE INJ) 2 mg Q30M PRN IV 03/06/18 13:30 03/20/18 13:29 Polyethylene (Miralax Powder Packet) 17 gm DAILY PRN PO 03/06/18 13:30 04/05/18 13:29 Carvedilol (Coreg Tab) 3.125 mg BIDM PO 03/06/18 17:00 04/05/18 16:59 03/08/18 10:38 3.125 MG Clonidine HCl (Catapres Tab) 0.3 mg QAM PO 03/07/18 09:00 04/06/18 08:59 03/08/18 10:38 0.3 MG Warfarin Sodium (Coumadin Tab) 5 mg DAILY@16 PO 03/06/18 16:00 04/05/18 15:59 03/08/18 16:33 5 MG Diltiazem HCl (Dilacor Xr Cap) 240 mg QAM PO 03/07/18 09:00 04/06/18 08:59 03/08/18 10:38 240 MG Hydralazine HCl (HydrALAZINE INJ) 10 mg Q6H PRN IV. 03/06/18 13:30 04/05/18 13:29 Vitamin B Complex/ Vit C/Folic Acid (Nephrocaps) 1 cap QAM PO 03/08/18 09:00 04/07/18 08:59 03/08/18 10:38 1 CAP Calcium Carbonate (Tums Chew Tab) 500 mg AC PO 03/07/18 11:00 04/06/18 10:59 Promethazine HCl 25 mg/Sodium Chloride 51 ml @ 204 mls/hr Q6H PRN IV 03/08/18 09:00 04/07/18 08:59 03/08/18 10:02 204 MLS/HR Sodium Chloride 1,000 ml @ 50 mls/hr Q20H IV 03/08/18 10:30 04/07/18 10:29 03/09/18 05:59 50 MLS/HR Impression (1) DARELL (acute kidney injury) (2) Chronic kidney disease, stage 4 (severe) (3) Urothelial carcinoma of kidney (4) History of nephrectomy, unilateral (5) Hyperkalemia, diminished renal excretion (6) Metabolic acidosis (7) Hypertension (8) Deep vein thrombosis (DVT) Recommendations --will plan for HD for 3 hours, no UF --waiting for outpatient dialysis set up at [facility] Dialysis unit under 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 Donato. If HD can be arranged , pt will be OK to be discharged, can wait until for next dialysis --hemoglobin above 11, no need for Epogen --start on Nephrocaps and phosphate binder Will follow
--- NOTE | 2018-03-09 14:42 | DIAGNOSTIC IMAGING REPORT ---
CHEST 2 VIEWS ROUTINE CLINICAL HISTORY: 62 years-old Male presenting with ESRD, asymptomatic. TECHNIQUE: PA and lateral views of the chest were obtained. COMPARISON: 03/03/2018. FINDINGS: Multiple external leads project over the thorax degrading image quality. Cardiomediastinal silhouette normal. Lungs and pleural spaces clear. Osseous structures normal. Upper abdomen normal. IMPRESSION: 1. No acute cardiopulmonary disease. Electronically signed by: Bro Renee M.D. 03/09/2018 2:40 PM Dictated Date/Time: 03/09/2018 2:39 PM
[2018-03-09] MEDS: CLONIDINE HCL 0.3 MG TAB PO SCH (14:47)
[2018-03-09] MEDS: NEPHROCAPS PO SCH (14:47)
[2018-03-09] MEDS: DILTIAZEM HCL 120 MG ER CAP PO SCH (14:48)
[2018-03-09] MEDS: ONDANSETRON INJ 2 MG/ML 2 ML VIAL IV PRN (15:05)
[2018-03-09] MEDS: WARFARIN SOD 5 MG TAB PO SCH (15:27)
[2018-03-09] MEDS ORDERED: WARFARIN SOD 2.5 MG TAB PO STA (16:03)
[2018-03-09 17:59] LABS: HEP C IGG 13 YRS+OLDER_RFLX NEG (NEG)
--- NOTE | 2018-03-09 18:31 | Family Medicine Progress Note ---
Progress Note Date of Service March 09, 2018. Subjective Spoke at length with patient re: hospital stay and starting dialysis, pt is very angry and fed up with it all. Complains that the staff are poking him too many times, and that he does not want to feel nauseated again like he did after his second round of dialysis. He is not interested in peritoneal dialysis however. Pt is eating well now - the IV phenergen helped his nausea very quickly yesterday morning. Complains of bruising at fistula site. Denies other complaints at this time. ROS See HPI for pertinent positives and negatives. Objective Physical Exam Notes: GENERAL: Awake, alert, well-appearing, in mild distress HENT: Normocephalic, atraumatic. EYES: Normal conjunctiva. Sclera non-icteric. RESPIRATORY: Clear to auscultation. UPPER EXTERMITIES: fistula non bleeding or draining, mild eccymosis at site. NEURO: No motor deficits noted. SKIN: No rash or jaundice noted. Assessment and Plan Mr. Domingo is a 62 y/o male with PMHx of HTN, urothelial CA s/p L nephrectomy in January [address] Loving, CKD stage IV s/p L AV fistula in December 2017, h/o RLE DVT on chronic Coumadin, R Staghorn Calculi s/p PCNL (resolved), anemia of chronic disease, who was a direct admission from Dr. Apple's office due to DARELL and hyperkalemia. 1. ARF on CKD stage IV, hyperkalemia, h/o urothelial CA s/p L nephrectomy in January [address] Loving, s/p L AV fistula in December 2017: -hyperkalemia and creatinine worsened this AM labs. Further demonstrates need for ongoing dialysis. - ongoing HD per nephro - and facilitating outpt HD 2. nausea/vomiting -no worrisome findings on exam, ?viral vs adapting to dialysis vs other -supportive care, serial exams, anticipate spontaneous resolution - w/u further if he does not improve 3. HTN: - Continue Catapres, Coreg, Diltiazem - follow BP--reasonable 4. Anemia of chronic disease- follows w/ Dr. Apple: - Gets weekly blood work and Procrit injections PRN - follow Hgb, has been stable 5. h/o RLE DVT: Continue Coumadin- follow PT/INR and adjust Coumadin dosage PRN -- currently low give extra coumadin DVT prophylaxis: Coumadin - follow INR Code status: LEVEL I, FULL Dispo: From home, lives w/ - CM and PT/OT consulted Current Inpatient Medications Medications (Trade) Dose Ordered Sig/Solitario Route Start Time Stop Time Status Last Admin Dose Admin Acetaminophen (Tylenol Tab) 650 mg Q4H PRN PO 03/06/18 13:30 04/05/18 13:29 Al Hydrox/Mg Hydrox/Simethicone (Maalox Max Susp) 15 ml Q4H PRN PO 03/06/18 13:30 04/05/18 13:29 Magnesium Hydroxide (Milk Of Magnesia Susp) 30 ml Q12H PRN PO 03/06/18 13:30 04/05/18 13:29 Ondansetron HCl (Zofran Inj) 4 mg Q6H PRN IV 03/06/18 13:30 04/05/18 13:29 03/09/18 15:05 4 MG Nitroglycerin (Nitrostat Tab) 0.4 mg UD PRN SL 03/06/18 13:30 04/05/18 13:29 Morphine Sulfate (MoRPHine SULFATE INJ) 2 mg Q30M PRN IV 03/06/18 13:30 03/20/18 13:29 Polyethylene (Miralax Powder Packet) 17 gm DAILY PRN PO 03/06/18 13:30 04/05/18 13:29 Carvedilol (Coreg Tab) 3.125 mg BIDM PO 03/06/18 17:00 04/05/18 16:59 03/09/18 17:57 3.125 MG Clonidine HCl (Catapres Tab) 0.3 mg QAM PO 03/07/18 09:00 04/06/18 08:59 03/09/18 14:47 0.3 MG Warfarin Sodium (Coumadin Tab) 5 mg DAILY@16 PO 03/06/18 16:00 04/05/18 15:59 03/09/18 15:27 5 MG Diltiazem HCl (Dilacor Xr Cap) 240 mg QAM PO 03/07/18 09:00 04/06/18 08:59 03/09/18 14:48 240 MG Hydralazine HCl (HydrALAZINE INJ) 10 mg Q6H PRN IV. 03/06/18 13:30 04/05/18 13:29 Vitamin B Complex/ Vit C/Folic Acid (Nephrocaps) 1 cap QAM PO 03/08/18 09:00 04/07/18 08:59 03/09/18 14:47 1 CAP Calcium Carbonate (Tums Chew Tab) 500 mg AC PO 03/07/18 11:00 04/06/18 10:59 Promethazine HCl 25 mg/Sodium Chloride 51 ml @ 204 mls/hr Q6H PRN IV 03/08/18 09:00 04/07/18 08:59 03/08/18 10:02 204 MLS/HR Sodium Chloride 1,000 ml @ 50 mls/hr Q20H IV 03/08/18 10:30 04/07/18 10:29 03/09/18 05:59 50 MLS/HR Date Time Temp Pulse Resp B/P (MAP) Pulse Ox O2 Delivery O2 Flow Rate FiO2 03/09/18 16:00 Room Air 03/09/18 15:10 36.8 58 18 146/88 (107) 95 Room Air 03/09/18 14:48 Room Air 03/09/18 14:10 36.9 60 172/85 (114) 03/09/18 13:45 63 170/84 03/09/18 13:30 62 168/72 03/09/18 13:15 57 165/89 03/09/18 13:00 57 155/85 03/09/18 12:45 53 164/87 03/09/18 12:30 57 146/88 03/09/18 12:15 56 153/89 03/09/18 12:00 55 153/82 03/09/18 11:45 56 149/88 03/09/18 11:30 56 135/80 03/09/18 11:15 56 130/79 03/09/18 11:00 57 126/76 03/09/18 10:46 60 138/70 03/09/18 09:39 36.9 63 137/81 (99) 03/09/18 08:00 Room Air 03/09/18 04:09 Room Air 03/09/18 03:44 36.4 71 18 124/67 (86) 93 Room Air 03/09/18 00:07 Room Air 03/08/18 23:31 36.4 61 18 101/59 (73) 99 Room Air 03/08/18 20:12 Room Air 03/08/18 19:01 36.7 73 18 100/60 (73) 98 Room Air 03/09/18 05:15 03/09/18 05:15 Test 03/09/18 05:15 03/09/18 16:36 Red Blood Count 3.72 M/uL (4.7-6.1) Mean Corpuscular Volume 93.8 fL (80-100) Mean Corpuscular Hemoglobin 30.1 pg (25-34) Mean Corpuscular Hemoglobin Concent 32.1 g/dl (32-36) RDW Standard Deviation 55.4 fL (36.4-46.3) RDW Coefficient of Variation 16.1 % (11.5-14.5) Mean Platelet Volume 10.0 fL (7.4-10.4) Prothrombin Time 16.4 SECONDS (9.0-12.0) Prothromb Time International Ratio 1.6 (0.9-1.1) Anion Gap 5.0 mmol/L (3-11) Est Creatinine Clear Calc Drug Dose 18.9 ml/min Estimated GFR () 13.7 Estimated GFR (Non- 11.8 BUN/Creatinine Ratio 13.3 (10-20) Calcium Level 8.2 mg/dl (8.5-10.1) Hepatitis B Surface Antigen NEG (NEG) Hepatitis B Surface Antibody NEG Hepatitis C Antibody NEG (NEG) Continued [facility] stay due to: multiple IV medications needed Discharge planning: home Resident Tracking Resident Involvement: Resident Care Provided Care Provided: Adult Hospital Medicine Reviewed: Pt Seen/Exam by Me History upset about not being able to go home. Constitutional: denies: fever Respiratory: negative: short of breath Cardiovascular: denies chest pain General Appearance: no apparent distress Respiratory: lungs clear, no respiratory distress Cardiovascular: regular rate, rhythm Neurologic/Psychiatric: alert, oriented x 3 Skin Characteristics: warm/dry Assessment/Plan Resident Physician Supervision Note: I independently interviewed and examined the patient and verified the nolan history and physical, reviewed labs and image studies, discussed the case with the resident Dr. Oscar and agree with the findings and care plan.
[2018-03-10 00:08] VITALS: BP 82/49; PULSE 59; TEMP 36.6; O2SAT 94
[2018-03-10 02:18] VITALS: BP 92/50; PULSE 60
[2018-03-10] MEDS: SODIUM CHLORIDE 0.45% 1000ML 1,000 ML IV SCH (02:30)
[2018-03-10 04:00] VITALS: BP 109/68; PULSE 62; TEMP 36.2; O2SAT 97
[2018-03-10 06:03] LABS: INR 1.7 (0.9-1.1)
[2018-03-10] MEDS: CALCIUM CARBONATE 500 MG CHEWABLE PO SCH ×2 (06:14→11:43)
[2018-03-10 06:37] LABS: CALCIUM 8.6 mg/dl (8.5-10.1); CREATININE 4.53 mg/dl (0.60-1.40); POTASSIUM 4.5 mmol/L (3.5-5.1)
[2018-03-10 08:09] VITALS: BP_SYST 117; BP_SYST 125; BP_DIAS 74; BP_DIAS 76; PULSE 62; PULSE 76; TEMP 36.5; O2SAT 99
[2018-03-10] MEDS: CARVEDILOL 3.125 MG TAB PO SCH (08:28)
[2018-03-10] MEDS: CLONIDINE HCL 0.3 MG TAB PO SCH (09:00)
[2018-03-10] MEDS: NEPHROCAPS PO SCH (09:04)
[2018-03-10] MEDS: DILTIAZEM HCL 120 MG ER CAP PO SCH (09:04)
--- NOTE | 2018-03-10 10:19 | Nephrology Progress Note ---
Nephrology Progress Note Date of Service March 10, 2018. Chief Complaint Follow-up for end-stage renal disease on hemodialysis. Christian Louis was seen and examined in his room this morning. Overall he remained asymptomatic, had 3 hours dialysis yesterday, uneventful, after dialysis did not have any issues with nausea or vomiting. Has been tolerating oral intake. Blood pressure stable. Denies any shortness of breath or chest pain. Review of Systems A complete review of systems was performed. Pertinent positives are noted above. All other systems are negative. Vital Signs Last 8 Hrs Date Time Temp Pulse Resp B/P (MAP) Pulse Ox O2 Delivery O2 Flow Rate FiO2 03/10/18 04:00 Room Air 03/10/18 04:00 36.2 62 18 109/68 (82) 97 Room Air 03/10/18 02:18 60 92/50 (64) 03/10/18 00:08 36.6 59 20 82/49 (60) 94 Room Air 03/10/18 00:00 Room Air Last Recorded Weight Weight (Kilograms): 97.900 Physical Exam GENERAL: middle aged male, AAA x 3, pleasant, healthy-appearing, not in any distress. NECK: Supple, no JVD. RESPIRATORY: Normal breathing efforts, no accessory muscle use, clear to auscultation bilaterally, no wheezes or rales. CARDIOVASCULAR: S1, S2 normal, rate rhythm regular. EXTREMITY: No lower extremity edema ACCESS: left BC AVF with thrill and bruit NEURO: speech fluent. PSYCHIATRY: Normal mood and judgment Family History Diabetes mellitus Hypertension Negative for CKD / ESRD Social History Drug Use: none Marital Status: Housing Status: lives with significant other Occupation: employed . 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 Remote tobacco use. Laboratory Results Past 24 Hours 03/10/18 05:24 Test 03/09/18 16:36 03/10/18 05:24 Hepatitis B Surface Antigen NEG (NEG) Hepatitis B Surface Antibody NEG Hepatitis C Antibody NEG (NEG) Prothrombin Time 17.7 SECONDS (9.0-12.0) Prothromb Time International Ratio 1.7 (0.9-1.1) Anion Gap 8.0 mmol/L (3-11) Est Creatinine Clear Calc Drug Dose 20.5 ml/min Estimated GFR () 15.1 Estimated GFR (Non- 13.0 BUN/Creatinine Ratio 10.8 (10-20) Calcium Level 8.6 mg/dl (8.5-10.1) Allergies Coded Allergies: Statins (Verified Adverse Reaction, Mild, GI UPSET, 03/03/18) Medications Current Inpatient Medications Medications (Trade) Dose Ordered Sig/Solitario Route Start Time Stop Time Status Last Admin Dose Admin Acetaminophen (Tylenol Tab) 650 mg Q4H PRN PO 03/06/18 13:30 04/05/18 13:29 Al Hydrox/Mg Hydrox/Simethicone (Maalox Max Susp) 15 ml Q4H PRN PO 03/06/18 13:30 04/05/18 13:29 Magnesium Hydroxide (Milk Of Magnesia Susp) 30 ml Q12H PRN PO 03/06/18 13:30 04/05/18 13:29 Ondansetron HCl (Zofran Inj) 4 mg Q6H PRN IV 03/06/18 13:30 04/05/18 13:29 03/09/18 15:05 4 MG Nitroglycerin (Nitrostat Tab) 0.4 mg UD PRN SL 03/06/18 13:30 04/05/18 13:29 Morphine Sulfate (MoRPHine SULFATE INJ) 2 mg Q30M PRN IV 03/06/18 13:30 03/20/18 13:29 Polyethylene (Miralax Powder Packet) 17 gm DAILY PRN PO 03/06/18 13:30 04/05/18 13:29 Carvedilol (Coreg Tab) 3.125 mg BIDM PO 03/06/18 17:00 04/05/18 16:59 03/09/18 17:57 3.125 MG Clonidine HCl (Catapres Tab) 0.3 mg QAM PO 03/07/18 09:00 04/06/18 08:59 03/09/18 14:47 0.3 MG Warfarin Sodium (Coumadin Tab) 5 mg DAILY@16 PO 03/06/18 16:00 04/05/18 15:59 03/09/18 15:27 5 MG Diltiazem HCl (Dilacor Xr Cap) 240 mg QAM PO 03/07/18 09:00 04/06/18 08:59 03/09/18 14:48 240 MG Hydralazine HCl (HydrALAZINE INJ) 10 mg Q6H PRN IV. 03/06/18 13:30 04/05/18 13:29 Vitamin B Complex/ Vit C/Folic Acid (Nephrocaps) 1 cap QAM PO 03/08/18 09:00 04/07/18 08:59 03/09/18 14:47 1 CAP Calcium Carbonate (Tums Chew Tab) 500 mg AC PO 03/07/18 11:00 04/06/18 10:59 Promethazine HCl 25 mg/Sodium Chloride 51 ml @ 204 mls/hr Q6H PRN IV 03/08/18 09:00 04/07/18 08:59 03/08/18 10:02 204 MLS/HR Sodium Chloride 1,000 ml @ 50 mls/hr Q20H IV 03/08/18 10:30 04/07/18 10:29 03/09/18 05:59 50 MLS/HR Impression (1) DARELL (acute kidney injury) (2) Chronic kidney disease, stage 4 (severe) (3) Urothelial carcinoma of kidney (4) History of nephrectomy, unilateral (5) Hyperkalemia, diminished renal excretion (6) Metabolic acidosis (7) Hypertension (8) Deep vein thrombosis (DVT) Recommendations --waiting for outpatient dialysis set up at [facility] unit under his packing and wrapping supervisor Dr. Donato. If HD can be arranged , pt will be OK to be discharged, can wait until for next dialysis --hemoglobin above 11, no need for Epogen --continue on Nephrocaps and phosphate binder Will follow
[2018-03-10 12:11] VITALS: BP_SYST 114; BP_SYST 134; BP_SYST 136; BP_DIAS 67; BP_DIAS 73; BP_DIAS 82; PULSE 60; PULSE 70; PULSE 76; TEMP 36.8; O2SAT 99
[2018-03-10] MEDS ORDERED: B-COCAP20 PO (12:55)
--- NOTE | 2018-03-10 13:03 | Discharge Instructions ---
Discharge Instructions Date of Service March 10, 2018. Admission Reason for Admission: Elevated Creatinine And Potassium Discharge Discharge Diagnosis / Problem: ESRD, begin dialysis Discharge Goals Goal(s): Decrease discomfort, Improve disease control, Improve nutritional status, Learn about illness, Diagnostic testing, Therapeutic intervention Activity Recommendations Activity Limitations: per Instructions/Follow-up section . Instructions / Follow-Up Instructions / Follow-Up You were admitted due to acute electrolyte abnormalities necessitating the beginning of dialysis for you. Dialysis was begun here and you have been tolerating it well. You have been enrolled in outpatient dialysis closer to your home. Your supervisor cleaning and annealing Dr. Donato will be taking over your dialysis treatments from now on. Your dialysis is set up to be done at 10:00 AM on Fri//Fri. Please stop taking your clonidine at this time because your blood pressure has been low here. Please discuss with your primary care doctor. Please follow a renal diet: Do people on dialysis need to watch their diet? Yes. Most people on dialysis need to watch what they eat and drink. Your doctor, nurse, or dietitian (food expert) will tell you if there are foods or drinks that you should limit or avoid. The diet that is right for you will depend on: - The type of dialysis you have There are 2 types of dialysis, called hemodialysis and peritoneal dialysis. People who get hemodialysis at a dialysis center (in a hospital or clinic) need to watch their diet the most. They need to limit or avoid more foods than those who do peritoneal dialysis, or hemodialysis at home. - How often you have dialysis - Your health and other medical conditions Why do people on dialysis need to watch their diet? People on dialysis need to watch their diet because their kidneys aren't working. Normally, the kidneys work to filter the blood. They remove excess water, salt, and other minerals and nutrients that people eat and drink. Dialysis is a treatment that takes over the job of the kidneys. But dialysis doesn't filter the blood as well as healthy kidneys do. Plus, normal kidneys work all day, every day. People usually have hemodialysis at a center only 3 times a week. So if a person on dialysis gets too much water, salt, or other nutrients through eating and drinking, these things can build up in the body. This can make people feel sick and cause problems. When you watch your diet, you can help make sure that: - Too much fluid doesn't build up in your body between treatments Having too much fluid can raise your blood pressure, which makes the heart work harder. Extra fluid can also cause weight gain, swelling, or trouble breathing. - Your body has the right amount of nutrients Some foods have high levels of certain nutrients. Eating those foods can raise the level of certain nutrients in your body between treatments. This can lead to problems. - You stay as healthy as possible and don't gain too much weight What do I need to watch in my diet? You will probably need to watch: - Fluids Most people on dialysis need to limit the fluids they eat and drink. Any food that is a liquid at room temperature (such as ice cream) is a fluid. Some fruits and vegetables have a lot of fluid in them, including melons, grapes , apples, and lettuce. - Sodium This is the main ingredient in table salt. Most people on dialysis need to limit the amount of sodium they eat. That's because eating a lot of sodium can raise your blood pressure. It can also make you thirsty and cause you to drink more than you should. To know how much sodium is in a food, you need to look at the food's label (figure 1). Try to eat foods that are normally low in sodium or foods that say "sodium-free" or "very low in sodium" (table 1). - Potassium This is a nutrient that affects your heartbeat. Most people on dialysis need to limit the potassium they eat. If too much potassium builds up in your body, it can cause problems with your heart rhythm. Try to eat foods that are low in potassium (table 2). Foods that are high in potassium that you should avoid are listed in a different table (table 3). - Phosphorus This is a nutrient found in many foods. Foods such as milk, other dairy foods, nuts, beans, liver, and chocolate have high levels of phosphorus. Most people on dialysis need to avoid foods with high levels of phosphorus. That's because if phosphorus builds up in your body, it can cause weak bones and other problems. Your doctor might also prescribe a medicine for you to take with your meals and snacks. This medicine can help keep your phosphorus level low. - Protein Protein helps your muscles stay strong. Foods with a lot of protein include meat, chicken, fish, and eggs. People who do peritoneal dialysis might need extra protein, because the body loses protein with each peritoneal dialysis treatment. Your doctor will probably prescribe a vitamin for you to take every day. That way, your body can get the vitamins and minerals that might be missing in your diet. What if I get thirsty? If you get thirsty but need to limit your fluids, try these tips: - Suck on ice instead of having a drink, because ice lasts longer. (But remember that ice is also a fluid.) - Chew gum or suck on hard candy. - Eat low potassium fruit that is very cold, such as frozen grapes. - Rinse your mouth out with water or mouthwash, but don't swallow. Be well A [facility] Current Hospital Diet Patient's current hospital diet: AHA Diet (Heart Healthy), Renal Diet Discharge Diet Recommended Diet: Renal Diet Pending Studies Studies pending at discharge: no Medical Emergencies . Who to Call and When: Medical Emergencies: If at any time you feel your situation is an emergency, please call 911 immediately. . Non-Emergent Contact Non-Emergency issues call your: Primary Care Provider . . "Provider Documentation" section prepared by Kay Oscar. .
[2018-03-10 14:38] VITALS: BP 114/67; PULSE 70; TEMP 36.8; O2SAT 99
--- NOTE | 2018-03-10 16:29 | Discharge Summary ---
Discharge Summary Date of Service March 10, 2018. Discharge Summary Admission Date: March 06, 2018 at 12:43 Discharge Date: March 10, 2018 Discharge Disposition: Home Principal Diagnosis: ESRD, begin dialysis Problems/Secondary Diagnoses: Hyperkalemia Elevated Creatinine Urothelial carcinoma of the kidney Hypertension DVT history of Anemia Medication Reconciliation New Medications: B-Complex W/ C & Folic Acid (Renal) 1 Cap Cap 1 CAP PO QAM for 30 Days, #30 CAP Continued Medications: Acetaminophen (Tylenol) 325 Mg Tab 325 MG PO UD PRN for PRN, TAB Carvedilol (Coreg) 3.125 Mg Tab 3.125 MG PO BIDM, TAB Diltiazem Hcl Extended Release (Diltiazem Hcl Er) 240 Mg Cap 240 MG PO QAM Warfarin Sod (Coumadin) 5 Mg Tab 5 MG PO DAILY@16 for 30 Days, TAB Discontinued Medications: Cholecalciferol (Vitamin D3) 2,000 Unit Cap 2000 UNITS PO QAM Clonidine Hcl (Catapres) 0.3 Mg Tab 0.3 MG PO QAM, TAB Cyanocobalamin (Vitamin B12 Tr) 1,000 Mcg Tab 2500 MCG PO QAM Lisinopril (Zestril) 40 Mg Tab 40 MG PO DAILY, TAB Multivitamin (Multivitamin) Tab 1 TAB PO QAM, TAB Discharge Exam Pt stable on day of discharge. Discussed plan for outpatient dialysis. Also discussed need to hold blood pressure medications as above given hypotension overnight, and likely a need to adjust dosing given start of dialysis. Pt has no complaints on day of discharge, eating and voiding well, denies any nausea after yesterday's dialysis treatment. ROS See HPI for pertinent positives and negatives. PHYSICAL EXAM GENERAL: Awake, alert, well-appearing, in mild distress HENT: Normocephalic, atraumatic. EYES: Normal conjunctiva. Sclera non-icteric. RESPIRATORY: Clear to auscultation. UPPER EXTERMITIES: fistula non bleeding or draining, mild eccymosis at site. NEURO: No motor deficits noted. SKIN: No rash or jaundice noted. Hospital Course Mr. Dmoingo is a 62 year old male with Hx of Urothelial cancer, s/p left nephrectomy and --- Stage 5 CKD who was getting prepared to get on dialysis and had recent AV fistula placed was admitted for Hyperkalemia. Nephrology consulted. Was started on dialysis. While here pt received 3 total rounds of dialysis, Also experienced nausea during the second round, treated with IV phenergen and resolved by the following round. While here pt's blood pressure systolic was briefly in the high 80s on night before discharge, pt was reportedly asymptomatic. Clonidine was d/carlos alberto for this reason Pt has been set up with outpatient dialysis with [facility] in [place] and will be going Tue/Julita/Sat. Renal cap for vitamin supplementation ordered, and all other vitamins stopped at this time, to be readdressed by PCP and parts department supervisor. INR remains subtherapeutic on day of discharge despite extra doses of his coumadin given here during hospital stay. He is taking this due to his h/o DVT per records. INR on day of discharge is 1.7. Total Time Spent: Greater than 30 minutes This includes examination of the patient, discharge planning, medication reconciliation, and communication with other providers. Discharge Instructions Please refer to the electronic Patient Visit Report (Discharge Instructions) for additional information. Additional Copies To Katelyn Donato M.D.; Winston Hopkins D.O. Resident Tracking Resident Involvement: Resident Care Provided Care Provided: Adult Hospital Medicine Reviewed: Pt Seen/Exam by Me History no concerns Constitutional: denies: fever Respiratory: negative: short of breath Cardiovascular: denies chest pain General Appearance: no apparent distress Respiratory: lungs clear, no respiratory distress Cardiovascular: regular rate, rhythm Gastrointestinal: soft Neurologic/Psychiatric: alert, oriented x 3 Skin Characteristics: warm/dry Assessment/Plan Resident Physician Supervision Note: I independently interviewed and examined the patient and verified the nolan history and physical, reviewed labs and image studies, discussed the case with the resident Dr. Oscar and agree with the findings and care plan. Time spent in discharge 40 min
== END 2018-03-10 15:04 | disposition home or self-care (01) | DRG 682 ==
LOC: C.MED 12:43
PROVIDERS: ADMIT Internal Medicine Hematology & Oncology; ATTEND Family Medicine
PROC: 5A1D70Z Performance of Urinary Filtration, Intermittent, Less than 6 Hours Per Day (ICD-10-PCS; principal; 2018-03-07)
DX: I12.0 Hypertensive chronic kidney disease with stage 5 chronic kidney disease or end stage renal disease (principal); N17.9 Acute kidney failure, unspecified; E87.2 Acidosis; N18.6 End stage renal disease; Z85.528 Personal history of other malignant neoplasm of kidney; Z90.5 Acquired absence of kidney; Z79.01 Long term (current) use of anticoagulants; D64.9 Anemia, unspecified; Z86.718 Personal history of other venous thrombosis and embolism; Z87.442 Personal history of urinary calculi; Z87.891 Personal history of nicotine dependence; Z88.8 Allergy status to other drugs, medicaments and biological substances